=== PATIENT | female | born 1935 | race Caucasian/White ===

== ENCOUNTER 2016-10-16 10:47 | Emergency (ER) | payer MEDICARE, BC ==
[~2016-10-16] VITALS: Ht 160 cm; Wt 65.5 kg
[~2016-10-16 10:47] MED LIST: ASPI81TA82 PO; CALC667T PO; ESZO3 PO; FLUTI110I INH; LACTCAP7 PO; LORA0.5T PO; LOSA25TA31 PO; NEXI40CA PO; OMEG100010 PO; PERC5TAB12 PO; SIMV20TA PO; TAB-TAB PO; ZOVI800T13 PO
[2016-10-16 10:53] VITALS: BP 143/74; PULSE 86; RESP 18; TEMP 98.1; O2SAT 98
[2016-10-16] MEDS ORDERED: OMEP10CA PO (11:07)
[2016-10-16] MEDS ORDERED: SIMV5TAB3 PO (11:07)
[2016-10-16] MEDS ORDERED: LOSA25TA PO (11:07)
[2016-10-16] MEDS ORDERED: FLUT1INH INH (11:07)
--- NOTE | 2016-10-16 11:45 | PD ---
HPI Chief Complaint: Musculoskeletal Complaint Time Seen by Provider: 11:33 Travel History International Travel<30 days: No Contact w/Intl Traveler<30days: No Traveled to known affect area: No History of Present Illness HPI 81-year-old female presents to the emergency room for evaluation of right-sided mid back pain that started at 12:00 2 days ago after trying to lift a heavy window. Patient was trying to push up a window and felt/heard immediate pain in her right mid back/flank area. Pain is worsened with range of motion of the back and when she takes a deep breath. It improves with massage. She's been taking Tylenol and ibuprofen and applying heat and ice without significant relief. Patient states she feels as though it is muscular in nature but when she went to her chiropractor this morning he would not work on her until she had an x-ray. She denies loss of bowel or bladder control, saddle anesthesia, lower extremity paresthesias, radiation of pain, dysuria, urgency, frequency. PFSH Past Medical History Anxiety: Yes High Cholesterol: Yes Diminished Hearing: No Gastrointestinal Disorders: Yes (GASTROPARESIS) GERD: Yes Hypertension: Yes Respiratory: Yes (ASTHMA) Menopausal: Yes Past Surgical History Eye Surgery: Yes (CATARACTS) Hysterectomy: No Joint Replacement: Yes (RIGHT HIP) Social History Alcohol Use: Yes (DAILY GLASS OF WINE) Tobacco Use: No Substance Use: No Allergies-Medications (Allergen,Severity, Reaction): Coded Allergies: Sulfa (Verified Allergy, Intermediate, NAUSEA, 10/16/16) Reported Meds & Prescriptions Reported Meds & Active Scripts Active Tramadol (Tramadol HCl) 50 Mg Tab 50 Mg PO Q6H PRN Reported Simvastatin 5 Mg Tab 5 Mg PO DAILY Breo Ellipta Inh (Fluticasone/Vilanterol) 100-25 Mcg/Act Inh 1 Puff INH DAILY Use daily at the same time. Losartan (Losartan Potassium) 25 Mg Tab 12.5 Mg PO DAILY Omeprazole 10 Mg Cap 10 Mg PO DAILY Review of Systems Except as stated in HPI: all other systems reviewed are Neg Physical Exam Narrative GENERAL: Well-nourished, well-developed female in no acute distress. Afebrile. Sitting up in a chair. SKIN: Warm and dry. No erythema or ecchymosis. No rashes. HEAD: Normocephalic. EYES: No scleral icterus. No injection or drainage. NECK: Supple, trachea midline. No JVD or lymphadenopathy. BACK: Tenderness to palpation of the right paraspinous musculature. No obvious deformity. No CVA tenderness. Data Data Last Documented VS Vital Signs Date Time Temp Pulse Resp B/P Pulse Ox O2 Delivery O2 Flow Rate FiO2 10/16/16 10:53 98.1 86 18 143/74 98 Orders Spine, Thoracic-Ap/Lat/Sw(3vw) (10/16/16 ) Mri T Spine W/O Contrast (10/16/16 ) MDM Medical Decision Making Medical Screen Exam Complete: Yes Emergency Medical Condition: Yes Medical Record Reviewed: Yes Differential Diagnosis Spasm versus strain versus sprain versus fracture unlikely Narrative Course 81-year-old female presents to the emergency room for evaluation of right-sided low back pain for the past 2 days. Patient's pain started with strain of the back. No focal neurological deficits. No significant midline tenderness. She has been ambulatory since onset. No urinary symptoms. No CVA tenderness. Pain is slightly improved with palpation/massage. Likely muscle strain but her chiropractor requested she have x-rays before he would continue therapy. Patient requested pain medication but upon reevaluation was sleeping comfortably in bed. X-ray reveals compression deformity of T12 of indeterminate age with recommendation for MRI. While patient does not have specific bony tenderness to palpation at T12, this does correlate with the location of the paraspinous musculature pain. Given her age, MRI will be performed in the emergency room. MRI reveals chronic insufficiency fracture. Patient was given copy of her report and told to follow up with neurosurgeon or orthopedic surgeon as an outpatient. Told to return to the emergency room for worsening symptoms. She understands and agrees to this plan. Diagnosis Primary Impression: Muscle spasm of back Additional Impression: T12 vertebral fracture Qualified Code: S22.089A - Closed fracture of twelfth thoracic vertebra, unspecified fracture morphology, initial encounter Referrals: Primary Care Physician Patient Instructions: General Instructions, Muscle Strain (ED) Additional Instructions: Rest and drink plenty of fluids. Take Lortab with food as directed, as needed for pain. Do not drink alcohol or drive while taking this medication. Apply ice to the affected area for 20 minutes at a time, as needed for pain and swelling. Follow-up with a primary care physician. Return to the emergency room for worsening symptoms. Med/Other Pt SpecificInfo: Prescription(s) given Scripts Tramadol 50 Mg Tab50 Mg PO Q6H PRN (PAIN) #12 TAB Ref 0 Prov:Mark Paez MD 10/16/16 Disposition: 01 DISCHARGE HOME Condition: Stable Jessy Aguilera Oct 16, 2016 11:45
--- NOTE | 2016-10-16 12:20 | RADHPO ---
EXAM DATE/TIME: 10/16/2016 11:35 [facility] COMPARISON: No previous studies available for comparison. INDICATIONS : Pain right mid upper back, after pulling up on a window. MEDICAL HISTORY : None. SURGICAL HISTORY : None. ENCOUNTER: Initial ACUITY: 3 days PAIN SCORE: 8/10 LOCATION: Right mid back FINDINGS: There is slight accentuation of thoracic kyphosis. No evidence of spondylolisthesis. There are degene rative changes throughout with small endplate osteophytes, predominantly ventral multiple levels. The re appears to be mild compressive deformity of one bullae may be T12. This is age-indeterminate by pl ain radiographic appearance. Nothing to suggest retropulsion. CONCLUSION: Mild compressive deformity at what is probably T12. This is age-indeterminate. Further evaluation wit h MRI of the thoracic spine would be suggested as clinically appropriate. Leoncio Calloway MD on October 16, 2016 at 12:16 Board Certified Radiologist. This report was verified electronically.
--- NOTE | 2016-10-16 15:41 | RADHPO ---
EXAM DATE/TIME: 10/16/2016 14:54 [facility] COMPARISON: No previous studies available for comparison. INDICATIONS : Back pain post opening a window on Sunday. MEDICAL HISTORY : Hypertension. SURGICAL HISTORY : ORIF Lt hip ENCOUNTER: Subsequent ACUITY: 3 day PAIN SCORE: 6/10 LOCATION: Mid back TECHNIQUE: Multiplanar multisequence MRI of the thoracic spine was performed. FINDINGS: VERTEBRA: There is a linear band of sclerosis without associated edema adjacent to the superior endplate of the T12 vertebral body. This is consistent with an insufficiency fracture, likely chronic. There are mil d degenerative changes seen throughout the rest of the thoracic spine without evidence of additional insufficiency fracture. ALIGNMENT: Normal. CORD: Normal position and configuration. T1-T2: Normal. T2-T3: The thecal sac has a normal diameter. No evidence of disc bulge or protrusion. T3-T4: The thecal sac has a normal diameter. No evidence of disc bulge or protrusion. T4-T5: The thecal sac has a normal diameter. No evidence of disc bulge or protrusion. T5-T6: The thecal sac has a normal diameter. No evidence of disc bulge or protrusion. T6-T7: The thecal sac has a normal diameter. No evidence of disc bulge or protrusion. T7-T8: The thecal sac has a normal diameter. No evidence of disc bulge or protrusion. T8-T9: The thecal sac has a normal diameter. No evidence of disc bulge or protrusion. T9-T10: The thecal sac has a normal diameter. No evidence of disc bulge or protrusion. T10-T11: The thecal sac has a normal diameter. No evidence of disc bulge or protrusion. T11-T12: The thecal sac has a normal diameter. No evidence of disc bulge or protrusion. T12-L1: The thecal sac has a normal diameter. No evidence of disc bulge or protrusion. CONCLUSION: Insufficiency fracture involving the superior endplate of the T12 vertebral body with approximately 15% of loss of vertebral body height. Given the lack of adjacent edema this is compati ble with a chronic fracture. No evidence of acute fracture. Allyson Felix MD on October 16, 2016 at 15:36 Board Certified Radiologist. This report was verified electronically.
[2016-10-16] MEDS ORDERED: HYDR-3533 PO (15:47)
[2016-10-16] MEDS ORDERED: TRAM50TA PO (15:54)
[2016-11-08] MEDS ORDERED: IBUP800T23 (08:47)
[2016-11-08] MEDS ORDERED: ESZO1TAB4 (08:47)
[2016-11-08] MEDS ORDERED: CLOT10TR (08:47)
[2016-11-08] MEDS ORDERED: PRED10 (08:47)
[2016-11-08] MEDS ORDERED: TIZA2TAB (08:47)
[2017-01-10] MEDS ORDERED: POTA-243 PO (10:40)
[2017-01-10] MEDS ORDERED: COZA25TA PO (10:40)
[2017-01-10] MEDS ORDERED: MAGN400T3 PO (10:40)
[2017-01-10] MEDS ORDERED: FLUT1INH INH (10:40)
[2017-01-10] MEDS ORDERED: LACT PO (10:40)
[2017-01-10] MEDS ORDERED: LIDO5DIS35 T-DERMAL (10:40)
[2017-01-10] MEDS ORDERED: ULTR50TA5 PO (10:40)
[2017-01-10] MEDS ORDERED: GABA100C4 PO (10:40)
[2017-01-10] MEDS ORDERED: OMEP10CA PO (10:40)
[2017-01-10] MEDS ORDERED: PRAV10TA PO (10:40)
[2017-01-10] MEDS ORDERED: SENN1TAB PO (10:40)
== END 2016-10-16 16:05 | disposition home or self-care (01) ==
LOC: PHEFT 10:47
DX: M62.830 Muscle spasm of back (principal); S22.089A Unspecified fracture of T11-T12 vertebra, initial encounter for closed fracture; I10 Essential (primary) hypertension; X50.0XXA Overexertion from strenuous movement or load, initial encounter; Y93.89 Activity, other specified; Y92.9 Unspecified place or not applicable
CPT/HCPCS: 72072; 72146

== ENCOUNTER 2016-11-03 11:42 | Emergency (ER) | payer MEDICARE, BC ==
[~2016-11-03] VITALS: Ht 160 cm; Wt 65.0 kg
[~2016-11-03 11:42] MED LIST changes: -ASPI81TA82 PO; -CALC667T PO; -ESZO3 PO; +FLUT1INH INH; -FLUTI110I INH; -LACTCAP7 PO; -LORA0.5T PO; +LOSA25TA PO; -LOSA25TA31 PO; -NEXI40CA PO; -OMEG100010 PO; +OMEP10CA PO; -PERC5TAB12 PO; -SIMV20TA PO; +SIMV5TAB3 PO; -TAB-TAB PO; +TRAM50TA PO; -ZOVI800T13 PO
[2016-11-03 11:45] VITALS: BP 135/92; PULSE 101; RESP 16; TEMP 98.1; O2SAT 97
--- NOTE | 2016-11-03 12:27 | PD ---
HPI Chief Complaint: Back/ Neck Pain or Injury Time Seen by Provider: 12:26 Travel History International Travel<30 days: No Contact w/Intl Traveler<30days: No Traveled to known affect area: No History of Present Illness HPI 79-year-old female presents to the ED for evaluation of mid back pain. Onset after opening a window a few weeks ago. Patient states that she got some improvement with muscle relaxers. However she states she still having problems rising to standing from a sitting position. She complains of pain just right lateral to the midline in the lower thoracic area. She denies numbness, tingling, weakness, limitations to range of motion of the lower extremities. She denies saddle anesthesia or incontinence. The patient states that she was seen at [facility], prescribed pain medication and muscle relaxers. Since that time she saw her primary care provider who ordered imaging of the lumbar spine, pain management provider who performed an injection and call Dr. Ochoa's office without make an appointment. PFSH Past Medical History Anxiety: Yes High Cholesterol: Yes Diminished Hearing: No Gastrointestinal Disorders: Yes (GASTROPARESIS) GERD: Yes Hypertension: Yes Respiratory: Yes (ASTHMA) ?: Not Menopausal: Yes Past Surgical History Eye Surgery: Yes (CATARACTS) Hysterectomy: No Joint Replacement: Yes (RIGHT HIP) Social History Alcohol Use: Yes (Wine occ.) Tobacco Use: No Substance Use: No Allergies-Medications (Allergen,Severity, Reaction): Coded Allergies: Sulfa (Verified Allergy, Intermediate, NAUSEA, 11/03/16) Reported Meds & Prescriptions Reported Meds & Active Scripts Active Flexeril (Cyclobenzaprine HCl) 10 Mg Tab 10 Mg PO TID [place] (Hydrocodone-Acetaminophen) 5-325 mg Tab 1 Tab PO Q6H PRN Tramadol (Tramadol HCl) 50 Mg Tab 50 Mg PO Q6H PRN Reported Prednisone 5 Mg Tab 5 Mg PO BID Simvastatin 5 Mg Tab 5 Mg PO DAILY Breo Ellipta Inh (Fluticasone/Vilanterol) 100-25 Mcg/Act Inh 1 Puff INH DAILY Use daily at the same time. Losartan (Losartan Potassium) 25 Mg Tab 12.5 Mg PO DAILY Omeprazole 10 Mg Cap 10 Mg PO DAILY Review of Systems Except as stated in HPI: all other systems reviewed are Neg Physical Exam Narrative GENERAL: Well-nourished, well-developed white female in no acute distress. The patient is sitting on the stretcher with her knees bent, feet tucked under her buttocks. SKIN: Warm and dry. HEAD: Normocephalic. Atraumatic. EYES: No scleral icterus. No injection or drainage. PERRLA. EOMI. NECK: Supple, trachea midline. No JVD or lymphadenopathy. No midline tenderness to palpation. Patient retains full, active, painless range of motion of the neck. CARDIOVASCULAR: Regular rate and rhythm without murmurs, gallops, or rubs. 2+ DP and radial pulses bilaterally. RESPIRATORY: Breath sounds clear and equal bilaterally. No accessory muscle use. GASTROINTESTINAL: Abdomen soft, non-tender, nondistended. + Bowel sounds MUSCULOSKELETAL: No cyanosis, or edema. No tenderness to palpation or limitations to range of motion of the joints of the upper and lower extremities bilaterally. NEUROLOGICAL: Awake and alert. Cranial nerves II through XII intact. Motor and sensory grossly within normal limits. 5/5 muscle strength in dorsiflexion, plantar flexion, knee flexion, hip flexion. Normal speech. BACK: No obvious deformity. No CVA tenderness. Mild midline tenderness in the lower thoracic area. Tender to palpation of the paraspinal musculature just right lateral the same area. tenderness. Data Data Last Documented VS Vital Signs Date Time Temp Pulse Resp B/P Pulse Ox O2 Delivery O2 Flow Rate FiO2 11/03/16 11:45 98.1 101 16 135/92 97 Orders Ketorolac Inj (Toradol Inj) (11/03/16 13:45) Orphenadrine Inj (Norflex Inj) (11/03/16 13:45) MDM Medical Decision Making Medical Screen Exam Complete: Yes Emergency Medical Condition: Yes Differential Diagnosis Musculoskeletal pain versus muscle spasm versus radiculopathy versus vertebral fracture versus other Narrative Course 79-year-old female presents to the ED for evaluation of mid back pain. Onset on 10/16 after attempting to open a window. She was seen at [place], had an MRI which revealed a T12 compression fracture. She was prescribed pain medications and muscle relaxers. Endorses some improvement with the muscle relaxers. However states she still having problems rising to standing position. She denies numbness, tingling, weakness, limitations to range of motion of the lower extremities. She denies saddle anesthesia or incontinence. Vitals reviewed. Physical exam reveals a nontoxic-appearing elderly white female in no acute distress. She sitting on the stretcher with her knees bent and her legs tucked under her buttocks. Mild midline tenderness in the lower thoracic spinal region. Point tenderness just right midline of the same area. 5/5 dorsiflexion, plantar flexion, knee flexion and hip flexion bilaterally. Review of the radiological record shows T12 compression fracture with moderate to severe degenerative changes in the lower lumbar spine and anterolisthesis thesis of L4- 5. The patient was administered IM Toradol and Norflex. I called Dr. Castillo's office. They state that the patient's called [address] Castillo has yet to review the images, is out of town, will return Sunday. His nurse would not allow me to make a follow-up appointment for the patient. I spoke with Dr. Clemens, my supervising physician regarding the patient, workup and plan of care. She agrees that the patient has safe for discharge with neurology follow-up. The commissioner of internal revenue neurologist today his Dr. Dominguez. The patient was prescribed a short course of pain medications, muscle relaxants. She was instructed to follow-up with Dr. Dominguez on Sunday. The patient is encouraged to return to normal, gentle activity as tolerated, take medications as prescribed, follow up as discussed. Patient has indicated understanding of the instructions, they are amenable to the plan of care. The patient is stable and discharged home. Diagnosis Primary Impression: T12 vertebral fracture Qualified Code: S22.089D - Closed fracture of twelfth thoracic vertebra with routine healing, unspecified fracture morphology, subsequent encounter Additional Impression: Muscle spasm of back Referrals: Byron Dominguez MD Patient Instructions: General Instructions, Muscle Spasm (ED), Vertebral Compression Fracture (ED) Additional Instructions: Rest, hydrate. Resume normal, gentle activities as tolerated. No strenuous physical activities for the next few days Take pain medication as Flexeril as prescribed. Do not drive while taking these medications. Applying ice or heat to areas with sore muscles may help to improve your patient. Do not apply ice/ heat for longer than 20 m/h. Follow-up with doctor Castillo on Sunday. Return to the ED for any urgent or emergent medical condition. Med/Other Pt SpecificInfo: Prescription(s) given Scripts Cyclobenzaprine (Flexeril)10 Mg Tab10 Mg PO TID #15 TAB Ref 0 Prov:Benson Nickerson MD 11/03/16 Hydrocodone-Acetaminophen ([place])5-325 mg Tab1 Tab PO Q6H PRN (PAIN) #15 TAB Ref 0 Prov:Benson Nickerson MD 11/03/16 Disposition: 01 DISCHARGE HOME Condition: Stable Radha Cui Nov 03, 2016 12:27
[2016-11-03] MEDS ORDERED: PRED5TAB PO (12:38)
[2016-11-03] MEDS ORDERED: CYCL1TAB29 PO (13:35)
[2016-11-03] MEDS ORDERED: NORC5TAB PO (13:35)
[2016-11-03] MEDS ORDERED: ORPHENADRINE INJ 60 MG/2 ML AMP IM ONE (13:45)
[2016-11-03] MEDS ORDERED: KETOROLAC TROMETHAMINE 60 MG/2 ML (IM) VIAL IM ONE (13:45)
[2016-11-08] MEDS ORDERED: PRED10 (08:47)
[2016-11-08] MEDS ORDERED: TIZA2TAB (08:47)
[2016-11-08] MEDS ORDERED: ESZO1TAB4 (08:47)
[2016-11-08] MEDS ORDERED: IBUP800T23 (08:47)
[2016-11-08] MEDS ORDERED: CLOT10TR (08:47)
[2017-01-10] MEDS ORDERED: COZA25TA PO (10:40)
[2017-01-10] MEDS ORDERED: GABA100C4 PO (10:40)
[2017-01-10] MEDS ORDERED: PRAV10TA PO (10:40)
[2017-01-10] MEDS ORDERED: LIDO5DIS35 T-DERMAL (10:40)
[2017-01-10] MEDS ORDERED: MAGN400T3 PO (10:40)
[2017-01-10] MEDS ORDERED: SENN1TAB PO (10:40)
[2017-01-10] MEDS ORDERED: POTA-243 PO (10:40)
[2017-01-10] MEDS ORDERED: LACT PO (10:40)
[2017-01-10] MEDS ORDERED: FLUT1INH INH (10:40)
[2017-01-10] MEDS ORDERED: OMEP10CA PO (10:40)
[2017-01-10] MEDS ORDERED: ULTR50TA5 PO (10:40)
== END 2016-11-03 14:43 | disposition home or self-care (01) ==
LOC: NETRI 11:42
DX: S22.089D Unspecified fracture of T11-T12 vertebra, subsequent encounter for fracture with routine healing (principal); M62.830 Muscle spasm of back; E78.00 Pure hypercholesterolemia, unspecified; I10 Essential (primary) hypertension; Z86.59 Personal history of other mental and behavioral disorders; Z87.19 Personal history of other diseases of the digestive system; Z87.09 Personal history of other diseases of the respiratory system; X58.XXXD Exposure to other specified factors, subsequent encounter
CPT/HCPCS: 96372; 99282; J1885; J2360

== ENCOUNTER 2016-12-26 10:28 | Inpatient (IN) | payer MEDICARE, BC ==
[~2016-12-26] VITALS: Ht 160 cm; Wt 60.0 kg
[~2016-12-26 10:28] MED LIST changes: +CLOT10TR; +CYCL1TAB29 PO; +ESZO1TAB4; +IBUP800T23; +NORC5TAB PO; +PRED10; +PRED5TAB PO; +TIZA2TAB
[2016-12-26 10:48] VITALS: BP 129/63; PULSE 88; RESP 19; TEMP 98.5; O2SAT 100
--- NOTE | 2016-12-26 11:49 | PD ---
HPI Chief Complaint: Fall Time Seen by Provider: 11:49 Travel History International Travel<30 days: No Contact w/Intl Traveler<30days: No History of Present Illness HPI 81-year-old female with a history of hypertension, hyperlipidemia, chronic back pain presents to the emergency department for evaluation of left hip pain and lower back pain. The patient states that she has had mid to lower back pain for the past 2-3 months and was seen here 2 months ago for it and told she had a compression deformity. States that since then she has followed up with her primary care Dr. Duran who prescribed her tizanidine, gabapentin, Lortab and tramadol. States that for the past 2 months she has had shooting pain from her back down to her legs and does sometimes get some weakness in her legs, has been using a walker for ambulation. States that 2 days ago she was walking and her left leg suddenly "gave out" causing her to fall onto her buttocks. Denies head trauma or loss of consciousness. States that she's had pain in her left hip and buttocks and her lower back since this occurred. States that she has been unable to bear weight or ambulate due to the pain. She denies any fever, chills, nausea, vomiting, numbness or tingling, saddle anesthesia, bowel or bladder incontinence. No other complaints. PFSH Past Medical History Anxiety: Yes High Cholesterol: Yes Diminished Hearing: No Gastrointestinal Disorders: Yes (GASTROPARESIS) GERD: Yes Hypertension: Yes Respiratory: Yes (ASTHMA) Menopausal: Yes Past Surgical History Eye Surgery: Yes (CATARACTS) Hysterectomy: No Joint Replacement: Yes (RIGHT HIP) Social History Alcohol Use: Yes (Wine occ.) Tobacco Use: No Substance Use: No Allergies-Medications (Allergen,Severity, Reaction): Coded Allergies: Sulfa (Verified Allergy, Intermediate, NAUSEA, 12/25/16) Reported Meds & Prescriptions Reported Meds & Active Scripts Active Flexeril (Cyclobenzaprine HCl) 10 Mg Tab 10 Mg PO TID [place] (Hydrocodone-Acetaminophen) 5-325 mg Tab 1 Tab PO Q6H PRN Tramadol (Tramadol HCl) 50 Mg Tab 50 Mg PO Q6H PRN Reported Clotrimazole Noé (Clotrimazole) 10 Mg Troc Tizanidine (Tizanidine HCl) 2 Mg Tab Ibuprofen 800 Mg Tab Eszopiclone 3 Mg Tab Prednisone 10 Mg Tab Prednisone 5 Mg Tab 5 Mg PO BID Simvastatin 5 Mg Tab 5 Mg PO DAILY Breo Ellipta Inh (Fluticasone/Vilanterol) 100-25 Mcg/Act Inh 1 Puff INH DAILY Use daily at the same time. Losartan (Losartan Potassium) 25 Mg Tab 12.5 Mg PO DAILY Omeprazole 10 Mg Cap 10 Mg PO DAILY Review of Systems Except as stated in HPI: all other systems reviewed are Neg Physical Exam Narrative GENERAL: Well-nourished and well-developed pleasant elderly female patient in no acute distress who is nontoxic appearing. SKIN: Warm and dry. HEAD: Normocephalic and atraumatic. EYES: No injection, drainage, or hyphema noted. PERRLA. EOMI. ENT: No nasal drainage noted. Oropharynx is clear. NECK: Supple and the trachea is midline. CARDIOVASCULAR: Regular rate and rhythm. RESPIRATORY: Breath sounds are equal bilaterally with no accessory muscle use, wheezing, rhonchi, or crackles. GASTROINTESTINAL: Abdomen is soft, non-tender, and nondistended. MUSCULOSKELETAL: Mild tenderness to palpation over left buttock. Full range of motion in all extremities. Positive SLR. DP pulses are 2+ bilaterally. Strength 5/5 upper and lower extremities and equal bilaterally. No obvious deformities, swelling, cyanosis, or ecchymosis is present throughout the upper and lower extremities. BACK: Tenderness to palpation of lumbar region. No obvious deformities, bony point tenderness, or crepitus noted throughout the thoracic and lumbar vertebrae. NEUROLOGICAL: Awake, alert, and oriented. Normal speech and gait. Cranial nerves are grossly intact. Data Data Last Documented VS Vital Signs Date Time Temp Pulse Resp B/P Pulse Ox O2 Delivery O2 Flow Rate FiO2 12/26/16 15:07 71 127/62 Room Air 12/26/16 10:50 99 12/26/16 10:[address] Lumb Spine W/O Contrast (12/26/16 11:46) Hip, Uni(Ap&Lat) W Ap Pelvis (12/26/16 11:46) Morphine Inj (Morphine Inj) (12/26/16 12:00) Ondansetron Inj (Zofran Inj) (12/26/16 12:15) Ondansetron Inj (Zofran Inj) (12/26/16 12:13) Consult Neurosurgery (12/26/16 ) Splint Or Brace Apply/Monitor (12/26/16 16:13) Admit Order (Ed Use Only) (12/26/16 16:20) [facility] Medical Decision Making Medical Screen Exam Complete: Yes Emergency Medical Condition: Yes Differential Diagnosis Fracture versus contusion versus discogenic pain versus herniated disc versus sciatica Narrative Course 81-year-old female presents to the emergency department for evaluation of low back pain and left hip pain for 2 days after she fell onto her buttocks. Patient is afebrile, vital signs are stable. No head trauma or loss of consciousness. No focal neurologic deficits. No obvious deformities. Extremities are all neurovascularly intact. X-ray imaging has been ordered and is pending. X-ray shows left inferior pubic ramus fracture. CT of the lumbar spine shows progressive compression of the T12 vertebral body which now has a vertebral plana configuration and an 8 mm retropulsed fragment. The retropulsed fragment almost certainly compromises the distal cord/conus medullaris. There is a linear fracture through the left lamina of T12. No fractures in the lumbar region. Degenerative changes noted. The neurosurgeon came down to evaluate the patient and recommends a TLSO brace. Patient will be admitted to medicine service for pain control and rehabilitation with likely assisted placement. I discussed the case with my attending physician Dr. Paez who is aware of the patients history, physical examination findings, and treatment plan. Physician Communication Physician Communication I spoke with Dr. Zhao neurosurgeon who recommends TLSO brace and agrees to consult on the patient. I spoke with Dr. Thomas who agrees to admit the patient to his service. Diagnosis Primary Impression: Pubic ramus fracture Qualified Code: S32.592A - Pubic ramus fracture, left, closed, initial encounter Additional Impressions: T12 vertebral fracture Qualified Code: S22.089G - Closed fracture of twelfth thoracic vertebra with delayed healing, unspecified fracture morphology, subsequent encounter Intractable back pain Admitting Information Admitting Physician Requests: Admit Laurie Gama Dec 26, 2016 11:49
[2016-12-26] MEDS ORDERED: MORPHINE SULFATE 4 MG/ML INJ IV PUSH ONE (12:00)
[2016-12-26] MEDS ORDERED: ONDANSETRON HCL 4 MG/2 ML VIAL ONE (12:13)
[2016-12-26] MEDS ORDERED: ONDANSETRON HCL 4 MG/2 ML VIAL IV PUSH ONE (12:15)
--- NOTE | 2016-12-26 12:56 | RADRPT ---
EXAM DATE/TIME: 12/26/2016 12:11 [facility] COMPARISON: No previous studies available for comparison. INDICATIONS: Patient fell this weekend. MEDICAL HISTORY: Hypertension. SURGICAL HISTORY: ORIF Left hip ENCOUNTER: Initial ACUITY: 3 days PAIN SCORE: 8/10 LOCATION: Left Hip FINDINGS: A left total hip replacement is noted with the prosthesis in good position. There is an apparent acu te fracture involving the left inferior pubic ramus. Moderate degenerative changes are noted involvi ng the right hip joint. Degenerative changes and scoliosis of the lower lumbar spine are noted. CONCLUSION: 1. Apparent acute facture involving the left inferior pubic ramus. Clinical correlation is recommen ded. 2. Moderate degenerative changes involving the right hip joint. 3. Degenerative changes and scoliosis of the lower lumbar spine. Jordan Tenorio MD on December 26, 2016 at 12:39 Board Certified Radiologist. This report was verified electronically.
--- NOTE | 2016-12-26 15:02 | RADRPT ---
EXAM DATE/TIME: 12/26/2016 14:06 [place] COMPARISON: SPINE THORACIC AP/LAT/SW (3VW), October 16, 2016, 11:35. INDICATIONS : Patient fell on Sunday, right hip pain RADIATION DOSE: 17.96 CTDIvol (mGy) MEDICAL HISTORY : Hypertension. Gastroesophageal reflux disease. Pancreatitis. SURGICAL HISTORY : Right hip replacement ENCOUNTER: Initial ACUITY: 2 days PAIN SCALE: 4/10 LOCATION: Right back, hip TECHNIQUE: Volumetric scanning of the lumbar spine was performed. Multiplanar reconstructions in the sagittal, coronal and oblique axial planes were performed. Using automated exposure control and adjustment of the mA and/or kV according to patient size, radiation dose was kept as low as reasonab ly achievable to obtain optimal diagnostic quality images. FINDINGS: Sagittal and coronal reconstructions show progressive fracture through the T12 verteb ral body. There was maybe 25% loss on the previous plain film in October. There is now a vertebral plana configuration with an appropriate 8 mm retropulsed fragment which encroaches on the spinal jane l and almost certainly comprised the distal cord/conus medullaris. Vertebral body heights are otherw ise maintained throughout the lumbar spine. There is a Grade I anterolisthesis of L4 on 5 due to fac et degeneration. Mild degenerative disc disease is seen at L3-4 and L4-5 with loss of disc height, m arginal spurring and broad based disc bulges predominantly directed anteriorly. The spinal canal rona ears to be adequate throughout the lumbar region. Also noted is diverticular disease of the sigmoid without diverticulitis. Detailed axial images as follows: T12-L1: Severe compression fracture of T12 with an 8 mm retropulsed fragment resulting in significan t spinal stenosis and probable cord compromise. There is also a fracture through the left lamina. L1-L2: Anteriorly directed spurs. Spinal canal and neural foramina are patent. L2-L3: Anteriorly directed spur. Spinal canal and neural foramina are patent. L3-L4: Diffuse disc bulge with predominantly anteriorly directed spur. Spinal canal and neural for kiara are patent. L4-L5: Diffuse disc bulge with bilateral facet hypertrophy. Some encroachment on the spinal canal b ut the spinal canal and neural foramina remain adequate. L5-S1: Marked facet hypertrophy. Spinal canal and neural foramina are adequate. CONCLUSION: 1. Progressive compression of the T12 vertebral body which now has a vertebral plana configuration an d an 8 mm retropulsed fragment. The retropulsed fragment almost certainly compromises the distal cor d/conus medullaris. 2. In addition to the vertebral body fracture, there is a linear fracture through the left lamina of T12. 3. No fractures in the lumbar region. Vertebral body heights are maintained. 4. Grade I anterolisthesis of L4 on 5 apparently due to severe facet degeneration. Facet hypertrophy is also seen at L5-S1. 5. Despite degenerative disc disease and facet hypertrophy, the spinal canal and neural foramina appe ar to be adequate throughout the lumbar spine. Aaron Pabon MD on December 26, 2016 at 14:40 Board Certified Radiologist. This report was verified electronically.
[2016-12-26 15:07] VITALS: BP 127/62; PULSE 71
[2016-12-26] MEDS ORDERED: POLYETHYLENE GLYCOL 17 GM PKG PO PRN (16:45)
[2016-12-26] MEDS ORDERED: IBUPROFEN 400 MG TAB PO PRN (16:45)
--- NOTE | 2016-12-26 17:10 | HHI.HP ---
[facility] Service Family Medicine Primary Care Physician George Davis M.D. Admission Diagnosis Pubic Ramus Fracture, T12 Fracture, Intractable Back Pain Diagnoses: International Travel<30 Days: No Contact w/Intl Traveler<30days: No History of Present Illness 81 yo F with mechanical fall yesterday at 6 pm. She states that she was using her walker and her left leg gave out. She fell onto the left hip, noticed pain immediately. She does not recall hitting her head. No LOC. She was able to get up about 1 hr later with assistance of ; sat in lounge chair overnight and was unable to get up. She was brought in to the hospital this morning. Prior to admission, having 10/10 sharp pain, worse pain located over left hip and lower back. Pain improved with resting. She reports having hx of history of compression fracture over T12, source of her chronic back pain. No previous falls. History of osteopenia, last DXA within the past 1-2 years, taking Vitamin D. (Nellie Allen MD) Review of Systems Constitutional: COMPLAINS OF: Weight loss, Change in appetite (loss some of her teeth), DENIES: Fever, Weight gain, Chills, Dizziness Eyes: DENIES: Vision loss Ears, nose, mouth, throat: DENIES: Hearing loss Respiratory: DENIES: Cough, Shortness of breath Cardiovascular: DENIES: Chest pain, Palpitations Gastrointestinal: DENIES: Abdominal pain, Black stools, Bloody stools, Constipation, Nausea, Vomiting Musculoskeletal: COMPLAINS OF: Joint pain, Muscle aches, Back pain Integumentary: DENIES: Rash Hematologic/lymphatic: DENIES: Bruising Neurologic: DENIES: Headache, Tremor Psychiatric: DENIES: Anxiety, Confusion (Nellie Allen MD) Past Family Social History Past Medical History Chronic back pain HLD HTN GERD chronic asthma Past Surgical History Left hip replacement - 2005 Reported Medications Reported Meds & Active Scripts Active Flexeril (Cyclobenzaprine HCl) 10 Mg Tab 10 Mg PO TID [place] (Hydrocodone-Acetaminophen) 5-325 mg Tab 1 Tab PO Q6H PRN Tramadol (Tramadol HCl) 50 Mg Tab 50 Mg PO Q6H PRN Reported Clotrimazole Noé (Clotrimazole) 10 Mg Troc Tizanidine (Tizanidine HCl) 2 Mg Tab Ibuprofen 800 Mg Tab Eszopiclone 3 Mg Tab Prednisone 2.5 Mg Tab 5 Mg PO BID Simvastatin 5 Mg Tab 5 Mg PO DAILY Breo Ellipta Inh (Fluticasone/Vilanterol) 100-25 Mcg/Act Inh 1 Puff INH DAILY Use daily at the same time. Losartan (Losartan Potassium) 25 Mg Tab 12.5 Mg PO DAILY Omeprazole 10 Mg Cap 10 Mg PO DAILY (Nellie Allen MD) Allergies: Coded Allergies: Sulfa (Verified Allergy, Intermediate, NAUSEA, 12/25/16) Family History noncontributory Social History Lives in [facility] on 10[facility] floor with in [place] No t/e/d (Nellie Allen MD) Physical Exam Vital Signs Vital Signs Date Time Temp Pulse Resp B/P Pulse Ox O2 Delivery O2 Flow Rate FiO2 12/26/16 15:07 71 127/62 Room Air 12/26/16 10:50 99 Room Air 12/26/16 10:48 98.5 88 19 129/63 100 Physical Exam GENERAL: This is a well-nourished, well-developed patient, in no apparent distress. SKIN: No rashes, ecchymoses or lesions. Cool and dry. HEAD: Atraumatic. Normocephalic. No temporal or scalp tenderness. EYES: Pupils equal round and reactive. Extraocular motions intact. No scleral icterus. No injection or drainage. ENT: Nose without bleeding, purulent drainage or septal hematoma. Throat without erythema, tonsillar hypertrophy or exudate. Uvula midline. Airway patent. NECK: Trachea midline. No JVD or lymphadenopathy. Supple, nontender, no meningeal signs. CARDIOVASCULAR: Regular rate and rhythm without murmurs, gallops, or rubs. RESPIRATORY: Clear to auscultation. Breath sounds equal bilaterally. No wheezes , rales, or rhonchi. GASTROINTESTINAL: Abdomen soft, non-tender, nondistended. No hepato-splenomegaly , or palpable masses. No guarding. MUSCULOSKELETAL: Extremities without clubbing, cyanosis, or edema. No joint tenderness, effusion, or edema noted. No calf tenderness. Negative Homans sign bilaterally. NEUROLOGICAL: Awake and alert. Cranial nerves II through XII intact. Motor and sensory grossly within normal limits. Five out of 5 muscle strength in all muscle groups. Normal speech. (Nellie Allen MD) Septic Shock Reassessment Heart: Regular rate and rhythm Lungs: Clear Skin: Warm Peripheral Pulses: Bounding Right Posterior Tibial Bounding Left Posterior Tibial Capillary Refill: <2 seconds (Nellie Allen MD) Assessment and Plan Assessment and Plan 81 yo F with pubic ramus fracture and chronic T12 compression fracture. Code Status Full Discussed Condition With Dr. Stoney Allen (Nellie Allen MD) Attending Attestation THIS CASE WAS DISCUSSED WITH THE RESIDENT PHYSICIANS. I HAVE REVIEWED THE RECORD AND AGREE WITH THE ABOVE NOTE AND PLAN OF CARE WAS DISCUSSED. I HAVE AUTHORIZED THE ORDER FOR ADMISSION TO AN IN-PATIENT STATUS. (Lester Thomas MD) Problem List: (1) Pubic ramus fracture Status: Acute Plan: Radiograph showing acute fracture of the left inferior pubic ramus. Pain is currently controlled after Morphine 4 mg IV x 1 in the ED. Patient states that she does not want to have surgery. -Admit to inpatient -Consult Neurosurg -Consult ortho surgery given patient may have difficulty with early mobilization and -Consult PT/OT Motrin 400 mg po q6h prn -[place] 5 prn -Lexii-Colace hs -Miralax prn (2) T12 vertebral fracture Status: Chronic Plan: Chronic with associated left side foot drop requiring chronic steroid injections, having some improvement outpatient. She has associated chronic low back pain -Neurosurgery consulted: recommends PT/OT, TLSO brace -Continue home dose Flexeril -Pain control as above (3) Steroid-induced osteopenia Status: Acute Plan: Patient on chronic steroid therapy with Prednisone 2.5 mg po bid. Reports taking for chronic asthma. -Wean to Prednisone 2.5 mg po daily now (4) GERD (gastroesophageal reflux disease) Status: Chronic Plan: Continue Omeprazole (5) Hypertension Status: Chronic Plan: BP wnl Continue Losartan (6) Dyslipidemia Status: Chronic Plan: Continue Simvastatin (7) Asthma Status: Chronic Plan: Lungs clear on exam, patient in no respiratory distress -Continue Breo Elliipta (8) Nutrition, metabolism, and development symptoms Status: Acute Plan: Regular diet HLIV Electrolytes: wnl Lovenox 30 mg q24h GI: Protonix, Miralax (Nellie Allen MD) Physician Certification 2 Midnight Certification Type: Admission for Inpatient Services Order for Inpatient Services The services are ordered in accordance with Medicare regulations or non- Medicare payer requirements, as applicable. In the case of services not specified as inpatient-only, they are appropriately provided as inpatient services in accordance with the 2-midnight benchmark. Estimated LOS (days): 3 3 days is the estimated time the patient will need to remain in the hospital, assuming treatment plan goals are met and no additional complications. Post-Hospital Plan: Inpatient Rehab (Nellie Allen MD) Problem Qualifiers (1) Pubic ramus fracture: Qualified Code: S32.592A - Pubic ramus fracture, left, closed, initial encounter (2) T12 vertebral fracture: Qualified Code: S22.082A - Closed unstable burst fracture of twelfth thoracic vertebra, initial encounter (3) Hypertension: Qualified Code: I10 - Essential hypertension Nellie Allen MD Dec 26, 2016 17:10 Lester Thomas MD Dec 27, 2016 11:36
--- NOTE | 2016-12-26 17:14 | PD.CONS ---
HPI Service Neurosurgery Consult Requested By ED Reason for Consult T12 fx Primary Care Physician George Davis M.D. History of Present Illness 81 yr old injured her back reaching last October and was diagnosed with T12 insufficiency fx . She also developed a left sided foot drop with pain and weakness in the left leg. She has been using a light brace and steroid injections were given by Dr Vences. Today her left leg gave out and she fell on her buttock. She has a new pubic ramus fx pain in addition to the back pain in the mid lumbar spine and the left leg pain only when she stands. She has no hit her head and has no neck pain. She had no LOC. She has full control of her bowel and bladder. Review of Systems Constitutional: DENIES: Diaphoretic episodes, Fatigue, Fever, Weight gain, Weight loss, Chills, Dizziness, Change in appetite, Night Sweats Endocrine: DENIES: Abnorml menstrual pattern, Heat/cold intolerance, Polydipsia , Polyuria, Polyphagia Eyes: DENIES: Blurred vision, Diplopia, Eye inflammation, Eye pain, Vision loss , Photosensitivity, Double Vision Ears, nose, mouth, throat: DENIES: Tinnitus, Hearing loss, Vertigo, Nasal discharge, Oral lesions, Throat pain, Hoarseness, Ear Pain, Running Nose, Epistaxis, Sinus Pain, Toothache, Odynophagia Respiratory: DENIES: Apneas, Cough, Snoring, Wheezing, Hemoptysis, Sputum production, Shortness of breath Cardiovascular: DENIES: Chest pain, Palpitations, Syncope, Dyspnea on Exertion , PND, Lower Extremity Edema, Orthopnea, Claudication Gastrointestinal: DENIES: Abdominal pain, Black stools, Bloody stools, Constipation, Diarrhea, Nausea, Vomiting, Difficulty Swallowing, Anorexia Genitourinary: DENIES: Abnormal vaginal bleeding, Dysmenorrhea, Dyspareunia, Sexual dysfunction, Urinary frequency, Urinary incontinence, Urgency, Hematuria , Dysuria, Nocturia, Vaginal discharge Musculoskeletal: COMPLAINS OF: Stiffness, Joint Swelling, Back pain, DENIES: Joint pain, Muscle aches, Neck pain Integumentary: DENIES: Abnormal pigmentation, Pruritus, Rash, Nail changes, Breast masses, Breast skin changes, Nipple discharge Hematologic/lymphatic: DENIES: Bruising, Lymphadenopathy Immunologic/allergic: DENIES: Eczema, Urticaria Neurologic: COMPLAINS OF: Localized weakness (left leg with walking), Paresthesias Psychiatric: COMPLAINS OF: Agitation (from prednosone for her lung disease) Past Family Social History Allergies: Coded Allergies: Sulfa (Verified Allergy, Intermediate, NAUSEA, 12/25/16) Past Medical History Left femur fx after a fall many yrs ago Osteopenia managed medically for many yrs, now off fosamax Allergic bronchitis on chronic steroids Past Surgical History Left femur repair followed by arthroplasty in 2005 Reported Medications Reported Meds & Active Scripts Active Flexeril (Cyclobenzaprine HCl) 10 Mg Tab 10 Mg PO TID [place] (Hydrocodone-Acetaminophen) 5-325 mg Tab 1 Tab PO Q6H PRN Tramadol (Tramadol HCl) 50 Mg Tab 50 Mg PO Q6H PRN Reported Clotrimazole Noé (Clotrimazole) 10 Mg Troc Tizanidine (Tizanidine HCl) 2 Mg Tab Ibuprofen 800 Mg Tab Eszopiclone 3 Mg Tab Prednisone 10 Mg Tab Prednisone 5 Mg Tab 5 Mg PO BID Simvastatin 5 Mg Tab 5 Mg PO DAILY Breo Ellipta Inh (Fluticasone/Vilanterol) 100-25 Mcg/Act Inh 1 Puff INH DAILY Use daily at the same time. Losartan (Losartan Potassium) 25 Mg Tab 12.5 Mg PO DAILY Omeprazole 10 Mg Cap 10 Mg PO DAILY Family History No hx of HTN, [place] Social History Lives with her , does not smoke Physical Exam Vital Signs Vital Signs Date Time Temp Pulse Resp B/P Pulse Ox O2 Delivery O2 Flow Rate FiO2 12/26/16 15:07 71 127/62 Room Air 12/26/16 10:50 99 Room Air 12/26/16 10:48 98.5 88 19 129/63 100 Physical Exam Alert and oriented x 3, no pain laying down, face symmetric, tongue midline Motor 5/5 in the delt/bic/tri/grasp. decreased from pain in the left HF, decreased chronically in the left AT and EHL, otherwise 5/5 in the right HF, both quads, right AT, EHL, dale gastroc 5/5. Sensation intact in C5, C6, C7, T12, L1 to S1 RRR, abd soft , nl BS, lungs clear with no wheezing, skin intact Imaging CT shows a T12 burst fx with 50 % canal compromise but no subluxation. There is severe osteopenia throughout the LS spine. Assessment and Plan Diagnosis: (1) T12 vertebral fracture ICD Code: S22.089A (2) Left foot drop Plan: Left EHL and anterior tibialis weakness is new since last October and has required the use of a walker at home. She did improve with injections but has not yet had PT. The grade 1 listhesis at L4/5 due to facet degenerative changes is the probable initial cause of the weakness. She is improving with pain management and has not yet had pt for this problem. ICD Code: M21.372 Assessment and Plan TLSO brace and activity precautions given, OT/PT will follow, pain management, DVT prophylaxis and continued bowel program is ordered. I will follow. Problem Qualifiers (1) T12 vertebral fracture: Qualified Code: S22.082A - Closed unstable burst fracture of twelfth thoracic vertebra, initial encounter Umberto Zhao Dec 26, 2016 17:14
[2016-12-26] MEDS ORDERED: SODIUM CHLORIDE 0.9% FLUSH 5 ML FLUSH IV FLUSH PRN (17:45)
[2016-12-26] MEDS: PSYLLIUM FIBER SF/GF 6 GM POWD PKT PO SCH (18:00)
[2016-12-26] MEDS ORDERED: PILL SPLITTER OTHER PRN (18:00)
[2016-12-26] MEDS: CYCLOBENZAPRINE HCL 10 MG TAB PO SCH (18:06)
[2016-12-26 18:40] VITALS: BP 168/71; O2SAT 96
[2016-12-26 19:04] VITALS: BP 173/80; PULSE 99; RESP 18; O2SAT 97
[2016-12-26 21:00] LABS: AUTOMATED NEUTROPHIL # 11.5 TH/MM3 (1.8-7.7); BASOPHIL # 0.1 TH/MM3 (0-0.2); BASOPHIL % 0.4 % (0.0-2.0); EOSINOPHIL # 0.2 TH/MM3 (0-0.4); EOSINOPHIL % 1.3 % (0.0-4.0); HEMATOCRIT 31.9 % (35.0-46.0); LYMPH % 11.3 % (9.0-44.0); LYMPHOCYTE # 1.6 TH/MM3 (1.0-4.8); MEAN CORPUSCULAR HEMOGLOBIN 28.6 PG (27.0-34.0); MEAN CORPUSCULAR HGB CONC 34.1 % (32.0-36.0); MONO % 6.7 % (0.0-8.0); NEUT % 80.3 % (16.0-70.0); PLATELET COUNT 265 TH/MM3 (150-450); RED BLOOD COUNT 3.79 MIL/MM3 (4.00-5.30); WHITE BLOOD COUNT 14.3 TH/MM3 (4.0-11.0)
[2016-12-26 21:06] LABS: ANION GAP 10 MEQ/L (5-15); AST (GOT) 21 U/L (15-37); BLOOD UREA NITROGEN 17 MG/DL (7-18); CHLORIDE 93 MEQ/L (98-107); GLOMERULAR FILTRATION RATE 72 ML/MIN (>89); SODIUM (NA) 129 MEQ/L (136-145)
[2016-12-26] MEDS: ENOXAPARIN SODIUM 30 MG/0.3 ML SYRINGE SQ SCH (21:09)
[2016-12-26] MEDS: SODIUM CHLORIDE 0.9% FLUSH 5 ML FLUSH IV FLUSH SCH (21:09)
[2016-12-26 21:12] LABS: HEMO FLAGS AUTO DIFF
[2016-12-26 21:15] LABS: POTASSIUM 4.2 MEQ/L (3.5-5.1)
[2016-12-26 21:16] LABS: ALKALINE PHOSPHATASE 49 U/L (45-117); ALT (GPT) 27 U/L (10-53); TOTAL BILIRUBIN ADULT 0.6 MG/DL (0.2-1.0)
[2016-12-26 21:17] LABS: PROTHROMBIN TIME - PATIENT 10.9 SEC (9.8-11.6)
[2016-12-26 21:36] VITALS: BP 133/62; PULSE 80; RESP 20; O2SAT 96
[2016-12-26] MEDS ORDERED: ENALAPRILAT 1.25 MG/ML VIAL IV PUSH PRN (21:45)
[2016-12-26] MEDS: ACETAMINOPHEN/HYDROcodone 325 MG/5 MG TAB PO PRN (21:49)
[2016-12-26 22:14] LABS: BANDS 18 % (0-6); METAMYELOCYTES 3 % (0-1); MYELOCYTES 2 % (0-0); NEUTROPHIL # MANUAL DIFF 11.6 TH/MM3 (1.8-7.7); POLYS (SEG NEUTROPHILS) 58 % (16-70); WBC DIFF SAMPLE 100
[2016-12-26 22:16] LABS: BURR CELLS 1+ (NORMAL)
[2016-12-26 22:17] LABS: PLATELET ESTIMATE SMEAR NORMAL (NORMAL); PLATELET MORPHOLOGY NORMAL (NORMAL); SCAN/DIFF FINAL DIFF MANUAL
[2016-12-26 23:51] VITALS: BP 119/57; PULSE 79; RESP 16; TEMP 97.7; O2SAT 98
[2016-12-27] MEDS: DOCUSATE SODIUM 50 MG/SENNA 8.6 MG TAB PO SCH ×2 (00:54→22:21)
[2016-12-27 04:30] VITALS: BP 103/58; PULSE 78; RESP 16; TEMP 97.7; O2SAT 94
[2016-12-27] MEDS: ACETAMINOPHEN/HYDROcodone 325 MG/5 MG TAB PO PRN (06:36)
[2016-12-27 07:35] LABS: AUTOMATED NEUTROPHIL # 7.7 TH/MM3 (1.8-7.7); BASOPHIL % 0.2 % (0.0-2.0); EOSINOPHIL # 0.1 TH/MM3 (0-0.4); EOSINOPHIL % 1.2 % (0.0-4.0); HEMATOCRIT 31.5 % (35.0-46.0); LYMPH % 22.8 % (9.0-44.0); LYMPHOCYTE # 2.6 TH/MM3 (1.0-4.8); MEAN CELL VOLUME 83.8 FL (80.0-100.0); MEAN CORPUSCULAR HEMOGLOBIN 28.5 PG (27.0-34.0); MONO % 8.1 % (0.0-8.0); NEUT % 67.7 % (16.0-70.0); PLATELET COUNT 251 TH/MM3 (150-450); RED BLOOD COUNT 3.76 MIL/MM3 (4.00-5.30); WHITE BLOOD COUNT 11.4 TH/MM3 (4.0-11.0)
[2016-12-27 07:41] LABS: HEMO FLAGS AUTO DIFF
[2016-12-27 08:00] VITALS: BP 156/74; PULSE 77; RESP 20; TEMP 97.4; O2SAT 95
[2016-12-27 08:08] LABS: BICARBONATE 31.1 MEQ/L (21.0-32.0); POTASSIUM 4.9 MEQ/L (3.5-5.1)
[2016-12-27] MEDS ORDERED: PTOWN: OMEPRAZOLE 10 MG BY MOUTH DAILY PO SCH (09:00)
[2016-12-27] MEDS: FLUTICASONE 100 MCG/VILANTEROL 25 MCG INHALER INH SCH (09:00)
[2016-12-27] MEDS: PSYLLIUM FIBER SF/GF 6 GM POWD PKT PO SCH (09:00)
[2016-12-27] MEDS ORDERED: CALCITONIN SALM 200 UNIT/SPRAY 3.7 ML BTLN NASAL SCH (09:15)
[2016-12-27 09:21] LABS: BANDS 6 % (0-6); EOSINOPHILS 3 % (0-4); METAMYELOCYTES 4 % (0-1); NEUTROPHIL # MANUAL DIFF 7.5 TH/MM3 (1.8-7.7); POLYS (SEG NEUTROPHILS) 56 % (16-70); WBC DIFF SAMPLE 100
[2016-12-27 09:22] LABS: PLATELET ESTIMATE SMEAR NORMAL (NORMAL); PLATELET MORPHOLOGY NORMAL (NORMAL); SCAN/DIFF FINAL DIFF MANUAL
[2016-12-27] MEDS ORDERED: HYDROmorphone HCL PF 1 MG/ML VIAL IV PUSH PRN (09:30)
[2016-12-27] MEDS ORDERED: hydrOXYzine HCL 25 MG TAB PO PRN (09:30)
[2016-12-27] MEDS ORDERED: traMADol HCL 50 MG TAB PO PRN (09:30)
[2016-12-27] MEDS ORDERED: oxyCODONE/ACETAMINOPHEN 5 MG/325 MG TAB PO PRN (09:30)
[2016-12-27] MEDS ORDERED: SIMETHICONE 80 MG CHEWABLE TAB CHEW PRN (09:30)
[2016-12-27] MEDS: PRAVASTATIN SOD 10 MG TAB PO SCH (09:38)
[2016-12-27] MEDS: CYCLOBENZAPRINE HCL 10 MG TAB PO SCH (09:38)
[2016-12-27] MEDS: LOSARTAN 25 MG TAB PO SCH (09:39)
[2016-12-27] MEDS: predniSONE 5 MG TAB PO SCH (09:39)
[2016-12-27] MEDS: SODIUM CHLORIDE 0.9% FLUSH 5 ML FLUSH IV FLUSH SCH ×2 (09:39→22:22)
--- NOTE | 2016-12-27 09:45 | EKG ---
Date Performed: 12/26/2016 Time Performed: 21:35:28 PTAGE: 81 years EKG: Sinus rhythm NORMAL ECG NO PREVIOUS TRACING DOCTOR: Pola Finnegan Interpretating Date/Time 12/27/2016 09:44:30
[2016-12-27] MEDS: traMADol HCL 50 MG TAB PO SCH ×3 (09:46→22:21)
--- NOTE | 2016-12-27 10:25 | HHI.NSPN ---
History Chief Complaint: back pain Interval History 81 yr old with T12 burst fx and left pubic ramus fx after a fall yesterday. She has a hx of grade 1 listhesis at L4/5, and a left sided foot drop for several weeks. She has been on steroids for allergic bronchitis and has severe osteopenia. A tlso was ordered and she is eating well. Her pain is now 5-8/10 in the lower back and groin. Review of Systems General: Negative for: fever, chills, insomnia Respiratory: Negative for: shortness of breath, cough, sputum Cardiovascular: Negative for: chest pain, palpitations, orthopnea Gastrointestinal: Negative for: nausea, vomitting, diarrhea, constipation Genitourinary: Negative for: urinary burning, urinary frequency, urinary urgency Exam Results Vital Signs Date Time Temp Pulse Resp B/P Pulse Ox O2 Delivery O2 Flow Rate FiO2 12/27/16 08:00 97.4 77 20 156/74 95 12/26/16 21:36 Room Air Physical Examination Alert and oriented x 3, Speech fluent attention good, Moves the left hip flexor better than last night, both HF/quads, right AT 5/5, Weakness in the left ant tib and EHL 4/5 unchanged from yesterday No sensory level but has L5 radicular numbness at times. Abd soft, NT, skin dry. Lab, Micro, Other Results Laboratory Tests Test 12/26/16 12/27/16 17:00 06:52 White Blood Count 14.3 TH/MM3 11.4 TH/MM3 Red Blood Count 3.79 MIL/MM3 3.76 MIL/MM3 Hemoglobin 10.9 GM/DL 10.7 GM/DL Hematocrit 31.9 % 31.5 % Mean Corpuscular Volume 84.0 FL 83.8 FL Mean Corpuscular Hemoglobin 28.6 PG 28.5 PG Mean Corpuscular Hemoglobin 34.1 % 34.0 % Concent Red Cell Distribution Width 15.0 % 15.0 % Platelet Count 265 TH/MM3 251 TH/MM3 Mean Platelet Volume 8.2 FL 7.2 FL Neutrophils (%) (Auto) 80.3 % 67.7 % Lymphocytes (%) (Auto) 11.3 % 22.8 % Monocytes (%) (Auto) 6.7 % 8.1 % Eosinophils (%) (Auto) 1.3 % 1.2 % Basophils (%) (Auto) 0.4 % 0.2 % Neutrophils # (Auto) 11.5 TH/MM3 7.7 TH/MM3 Lymphocytes # (Auto) 1.6 TH/MM3 2.6 TH/MM3 Monocytes # (Auto) 1.0 TH/MM3 0.9 TH/MM3 Eosinophils # (Auto) 0.2 TH/MM3 0.1 TH/MM3 Basophils # (Auto) 0.1 TH/MM3 0.0 TH/MM3 CBC Comment AUTO DIFF AUTO DIFF Differential Total Cells 100 100 Counted Neutrophils % (Manual) 58 % 56 % Band Neutrophils % 18 % 6 % Lymphocytes % 15 % 24 % Monocytes % 4 % 7 % Neutrophils # (Manual) 11.6 TH/MM3 7.5 TH/MM3 Metamyelocytes 3 % 4 % Myelocytes 2 % Differential Comment FINAL DIFF FINAL DIFF MANUAL MANUAL Platelet Estimate NORMAL NORMAL Platelet Morphology Comment NORMAL NORMAL Lev Cells 1+ Prothrombin Time 10.9 SEC Prothromb Time International 1.0 RATIO Ratio Sodium Level 129 MEQ/L 134 MEQ/L Potassium Level 4.2 MEQ/L 4.9 MEQ/L Chloride Level 93 MEQ/L 97 MEQ/L Carbon Dioxide Level 26.0 MEQ/L 31.1 MEQ/L Anion Gap 10 MEQ/L 6 MEQ/L Blood Urea Nitrogen 17 MG/DL 15 MG/DL Creatinine 0.77 MG/DL 0.71 MG/DL Estimat Glomerular Filtration 72 ML/MIN 79 ML/MIN Rate Random Glucose 105 MG/DL 106 MG/DL Calcium Level 8.4 MG/DL 8.4 MG/DL Total Bilirubin 0.6 MG/DL Aspartate Amino Transf 21 U/L (AST/SGOT) Alanine Aminotransferase 27 U/L (ALT/SGPT) Alkaline Phosphatase 49 U/L Total Protein 6.0 GM/DL Albumin 3.0 GM/DL Eosinophils % 3 % Red Cell Morphology Comment NORMAL Medical Decision Making Impression and Plan 1- T12 burst fx, unstable. PT services requested to teach log rolling. No bending, twisting, pulling. 2- Radiculopathy. Started on gabapentin at night rehab is planned but will be slow. 3- Bowel/bladder program, on probiotics and metamucil at home, continued in the hospital. 4- Osteoporosis management, on calcitonin. Vit d level pending. Umberto Zhao Dec 27, 2016 10:25
--- NOTE | 2016-12-27 11:35 | HHI.FPPN ---
Subjective Remarks Patient did not sleep well overnight, she states that she is normally on cyclobenzaprine in the evening to help her sleep and she was unable to get this. She also has continued pain in her back as well as in her groin without significant improvement. She has not been out of bed since getting moved up to the floor. She was able to eat dinner last night without any complications and she has breakfast in front of her this morning. She denies any fevers or chills , denies any chest pain or palpitations, denies any shortness of breath, denies any abdominal pain, denies constipation or dysuria. In summary this is an 81-year-old female who presented yesterday with a mechanical fall on the day prior to presentation. She has had an issue with her left leg chronically and was walking with her walker yesterday when her left leg "gave out" she immediately had left hip pain that did not resolve with sitting in a chair. She states that the pain localized to her left hip and lower back, was unrelenting overnight and therefore had her call EMS for further evaluation in the hospital. Past Medical History Chronic back pain HLD HTN GERD chronic asthma Past Surgical History Left hip replacement - 2005 Family History noncontributory Social History Lives in [facility] on [facility] floor with in [place] No t/e/d Objective Vitals Vital Signs Date Time Temp Pulse Resp B/P Pulse Ox O2 Delivery O2 Flow Rate FiO2 12/27/16 08:00 97.4 77 20 156/74 95 12/27/16 04:30 97.7 78 16 103/58 94 12/26/16 23:51 97.7 79 16 119/57 98 12/26/16 21:36 80 20 133/62 96 Room Air 12/26/16 19:04 99 18 173/80 97 Room Air 12/26/16 18:40 168/71 96 Room Air 12/26/16 15:07 71 127/62 Room Air I/O 12/26/16 12/26/16 12/26/16 12/27/16 12/27/16 12/27/16 07:00 15:00 23:00 07:00 15:00 23:00 Intake Total 120 ml Balance 120 ml Intake Oral 120 ml # Voids 2 Result Diagram: 12/27/16 0652 12/27/1652 Imaging Last 48 hours Impressions Lumbar Spine CT 12/26/16 1146 Signed Impressions: Service Date/Time: Monday, December 26, 2016 14:06 - CONCLUSION: 1. Progressive compression of the T12 vertebral body which now has a vertebral plana configuration and an 8 mm retropulsed fragment. The retropulsed fragment almost certainly compromises the distal cord/conus medullaris. 2. In addition to the vertebral body fracture, there is a linear fracture through the left lamina of T12. 3. No fractures in the lumbar region. Vertebral body heights are maintained. 4. Grade I anterolisthesis of L4 on 5 apparently due to severe facet degeneration. Facet hypertrophy is also seen at L5-S1. 5. Despite degenerative disc disease and facet hypertrophy, the spinal canal and neural foramina appear to be adequate throughout the lumbar spine. Aaron Pabon MD Hip and Pelvis X-Ray 12/26/16 1146 Signed Impressions: Service Date/Time: Monday, December 26, 2016 12:11 - CONCLUSION: 1. Apparent acute facture involving the left inferior pubic ramus. Clinical correlation is recommended. 2. Moderate degenerative changes involving the right hip joint. 3. Degenerative changes and scoliosis of the lower lumbar spine. Jordan Tenorio MD Objective Remarks GENERAL: Pleasant appearing female lying in bed in no obvious distress. SKIN: No rashes, ecchymoses or lesions. Cool and dry. HEAD: Atraumatic. Normocephalic. EYES: Pupils equal round and reactive. Extraocular motions intact. NECK: Trachea midline. No JVD or lymphadenopathy. Supple, nontender, no meningeal signs. CARDIOVASCULAR: Regular rate and rhythm without murmurs, gallops, or rubs. RESPIRATORY: Clear to auscultation. Breath sounds equal bilaterally. No wheezes , rales, or rhonchi. GASTROINTESTINAL: Abdomen soft, non-tender, nondistended. MUSCULOSKELETAL: Extremities without clubbing, cyanosis, or edema. 3+/5 dorsiflexion of the left foot, 3+/5 flexion of the left hip, 4/5 flexion of the right hip with pain in the groin. NEUROLOGICAL: Awake and alert. Cranial nerves II through XII intact. A/P Assessment and Plan 81 yo F with pubic ramus fracture and chronic T12 compression fracture. Problem List: (1) Pubic ramus fracture Status: Acute Plan: Radiograph showing acute fracture of the left inferior pubic ramus. - Physical therapy consulted to evaluate patient Pain control below: Tramadol 50 mg every 6 hours as needed for pain Percocet 1-2 tablets or 6 hours as needed for breakthrough pain Orthopedic surgery has been consulted to evaluate patient Bowel regimen as below: -Lexii-Colace hs -Miralax prn (2) T12 vertebral fracture Status: Chronic Plan: Chronic with associated left side foot drop requiring chronic steroid injections, having some improvement outpatient. -Neurosurgery consulted appreciate recommendations including LTSO brace and continued physical therapy Started on calcitonin this morning -Continue home dose Flexeril -Pain control as above (3) Steroid-induced osteopenia Status: Acute Plan: Patient on chronic steroid therapy with Prednisone 2.5 mg po bid. Reports taking for chronic asthma. -Wean to Prednisone 2.5 mg po daily now - Started on calcitonin nasal today - Would likely benefit from a bisphosphonate prior to discharge (4) GERD (gastroesophageal reflux disease) Status: Chronic Plan: Continue Omeprazole (5) Hypertension Status: Chronic Plan: BP wnl Continue Losartan (6) Dyslipidemia Status: Chronic Plan: Continue Simvastatin (7) Asthma Status: Chronic Plan: Lungs clear on exam, patient in no respiratory distress - Continue Breo Elliipta - Breathing treatments as needed - Prednisone decreased to 2.5 mg by mouth daily (8) Nutrition, metabolism, and development symptoms Status: Acute Plan: Regular diet HLIV Electrolytes: wnl Lovenox 30 mg q24h GI: Protonix, Miralax Problem Qualifiers (1) Pubic ramus fracture: Qualified Code: S32.592A - Pubic ramus fracture, left, closed, initial encounter (2) T12 vertebral fracture: Qualified Code: S22.082A - Closed unstable burst fracture of twelfth thoracic vertebra, initial encounter (3) Hypertension: Qualified Code: I10 - Essential hypertension Lester Thomas MD Dec 27, 2016 11:35
[2016-12-27 12:00] VITALS: BP 111/69; PULSE 104; RESP 20; TEMP 96.6; O2SAT 94
[2016-12-27] MEDS: LACTOBACILLUS ACIDOPHILUS TAB PO SCH ×2 (12:49→22:20)
--- NOTE | 2016-12-27 14:36 | MB ---
cc: KEVIN CARBAJAL DATE OF CONSULTATION: 12/27/2016 REASON FOR CONSULTATION Left pubic rami fracture. HISTORY OF PRESENT ILLNESS Ms. Tavares is an 81-year-old female who presented to the [facility] Emergency Department on 12/26/2016. Apparently she had a fall the previous day while walking. She states her left leg gave out and she fell onto her left side. She did have immediate pain. She denied loss of consciousness. She was able to get up with the assistance of her and sit in a chair overnight. She was unable to sleep. She states she has pain in the left pelvis and hip region as well as the low back region. She reports history of a compression fracture at T12 and chronic low back pain. She also does have a history of a left total hip arthroplasty numerous years ago performed at the [facility]. She denies shortness breath. REVIEW OF SYSTEMS A 12-point review of systems was performed and is negative other than mentioned in the HPI. PAST MEDICAL HISTORY 1. Chronic low back pain. 2. Hyperlipidemia. 3. Hypertension. 4. GERD. 5. Chronic asthma. PAST SURGICAL HISTORY Left total hip arthroplasty in 2005 at the [facility]. MEDICATIONS 1. Flexeril. 2. [place]. 3. Tramadol. 4. Clotrimazole. 5. Tizanidine. 6. Ibuprofen. 7. Eszopiclone. 8. Prednisone. 9. Simvastatin. 10.Breo Ellipta. 11.Losartan. 12.Omeprazole. ALLERGIES SULFA. FAMILY HISTORY Noncontributory. SOCIAL HISTORY Denies the use of tobacco, alcohol and illicit drugs. She lives with her . PHYSICAL EXAMINATION VITAL SIGNS: Temperature 96.6, pulse 104, respiratory rate 20, blood pressure 111/69, pulse ox 94 on room air. GENERAL: The patient is seen in her hospital room. She is sitting in a chair eating lunch. She is well-nourished and well-developed. She is in no acute distress. HEAD, EYES, EARS, NOSE, AND THROAT: Atraumatic, normocephalic. Pupils are round, equal and reactive to light. There is no bleeding from her nose. No purulent drainage from her septum. Throat without erythema. NECK: Trachea is midline. Nontender. CARDIOVASCULAR: Regular rate and rhythm. No murmurs, gallops or rubs. PULMONARY: Clear to auscultation bilaterally. No wheezes, rales or rhonchi. ABDOMEN: Soft, nontender, nondistended. NEUROLOGIC: Awake and alert. Cranial nerves II through XII grossly intact. MUSCULOSKELETAL: The patient is wearing a back brace. In regards to her upper extremity she has full range of motion without discomfort. Neurovascular sensation intact. She has appropriate strength in bilateral upper extremity as well as her lower extremities. Her skin is intact without sign of infection. Negative Homans bilaterally. She has full range of motion bilateral knees without significant pain. Appropriate pulses distally. Sensation is intact. She has no significant pain with hip flexion either side. She does have slight restriction of range of motion with internal and external rotation maneuvers of bilateral hips. No significant pain elicited on passive range of motion of the left hip. IMAGING X-rays of AP pelvis and two views of the left hip taken at [facility] 12/26/2016 show evidence of an intact left total hip arthroplasty. There is a fracture of the left pubic ramus. Moderate degenerative changes of the right hip joint. LABORATORY White blood cell count 11.4, hemoglobin 10.7, hematocrit 31.5, platelet count 251. ASSESSMENT AND PLAN An 81-year-old female with a history of a left total hip arthroplasty 2005, recent fall due to left leg giving way. She did sustain a left-sided pubic rami fracture which is the same side as her left total hip arthroplasty. T12 chronic fracture with chronic left-sided foot drop. I did discuss the diagnosis and treatment options with the patient while in her room. Recommend nonoperative management for this injury. Due to the history of a left total hip arthroplasty on the same side as the pubic rami fracture do recommend the patient remain non-weightbearing for approximately four weeks post injury. She may weight bear as tolerated on her right lower extremity. Range of motion as tolerated left lower extremity. The patient may follow-up in the [facility] with Dr. Kevin Carbajal in approximately two weeks. The patient has asked appropriate questions which have been answered. Thank you for this consultation Dictated by: Kevin Amaya PA-C MD ROGER Gómez/NATALYA /1:09 PM /2:35 PM
[2016-12-27 16:00] VITALS: BP 95/55; PULSE 78; RESP 20; TEMP 97; O2SAT 94
[2016-12-27 21:00] VITALS: BP 162/74; PULSE 80; RESP 19; TEMP 98.9; O2SAT 98
[2016-12-27] MEDS ORDERED: GABAPENTIN 300 MG CAP PO SCH (21:00)
[2016-12-27] MEDS ORDERED: LACTOBACILLUS ACIDOPHILUS TAB PO SCH (21:00)
[2016-12-27] MEDS: ENOXAPARIN SODIUM 30 MG/0.3 ML SYRINGE SQ SCH (22:21)
[2016-12-27] MEDS: oxyCODONE/ACETAMINOPHEN 5 MG/325 MG TAB PO PRN (22:31)
[2016-12-28] VITALS: BP 151/75; PULSE 88; RESP 18; TEMP 98; O2SAT 97
[2016-12-28 04:30] VITALS: BP 145/72; PULSE 80; RESP 20; TEMP 97.7; O2SAT 98
[2016-12-28] MEDS: traMADol HCL 50 MG TAB PO SCH ×2 (06:27→10:02)
[2016-12-28 08:15] VITALS: BP 108/78; PULSE 76; RESP 20; TEMP 97.6; O2SAT 95
[2016-12-28] MEDS: FLUTICASONE 100 MCG/VILANTEROL 25 MCG INHALER INH SCH (09:00)
[2016-12-28 09:03] LABS: AUTOMATED NEUTROPHIL # 7.5 TH/MM3 (1.8-7.7); BASOPHIL % 0.2 % (0.0-2.0); EOSINOPHIL # 0.1 TH/MM3 (0-0.4); EOSINOPHIL % 0.8 % (0.0-4.0); HEMATOCRIT 28.3 % (35.0-46.0); LYMPH % 21.5 % (9.0-44.0); LYMPHOCYTE # 2.3 TH/MM3 (1.0-4.8); MEAN CELL VOLUME 84.2 FL (80.0-100.0); MEAN CORPUSCULAR HEMOGLOBIN 29.4 PG (27.0-34.0); MEAN CORPUSCULAR HGB CONC 34.9 % (32.0-36.0); MONO % 7.3 % (0.0-8.0); NEUT % 70.2 % (16.0-70.0); PLATELET COUNT 238 TH/MM3 (150-450); RED BLOOD COUNT 3.36 MIL/MM3 (4.00-5.30); WHITE BLOOD COUNT 10.7 TH/MM3 (4.0-11.0)
[2016-12-28 09:07] LABS: HEMO FLAGS AUTO DIFF
[2016-12-28 09:33] LABS: BICARBONATE 28.7 MEQ/L (21.0-32.0); POTASSIUM 4.4 MEQ/L (3.5-5.1)
[2016-12-28 09:47] LABS: BANDS 11 % (0-6); METAMYELOCYTES 1 % (0-1); MYELOCYTES 1 % (0-0); NEUTROPHIL # MANUAL DIFF 8.3 TH/MM3 (1.8-7.7); OVALOCYTES 1+ (NORMAL); PLATELET ESTIMATE SMEAR NORMAL (NORMAL); PLATELET MORPHOLOGY NORMAL (NORMAL); POLYS (SEG NEUTROPHILS) 65 % (16-70); SCAN/DIFF FINAL DIFF MANUAL; WBC DIFF SAMPLE 100
[2016-12-28] MEDS: LOSARTAN 25 MG TAB PO SCH (09:59)
[2016-12-28] MEDS: PRAVASTATIN SOD 10 MG TAB PO SCH (09:59)
[2016-12-28] MEDS: predniSONE 5 MG TAB PO SCH (10:01)
[2016-12-28] MEDS: LACTOBACILLUS ACIDOPHILUS TAB PO SCH (10:02)
[2016-12-28] MEDS: PSYLLIUM FIBER SF/GF 6 GM POWD PKT PO SCH (10:02)
[2016-12-28] MEDS: SODIUM CHLORIDE 0.9% FLUSH 5 ML FLUSH IV FLUSH SCH (10:02)
[2016-12-28] MEDS: oxyCODONE/ACETAMINOPHEN 5 MG/325 MG TAB PO PRN (10:03)
[2016-12-28] MEDS ORDERED: SENN1TAB PO (10:53)
[2016-12-28] MEDS ORDERED: ULTR50TA5 PO (10:53)
[2016-12-28] MEDS ORDERED: LACT PO (10:53)
[2016-12-28] MEDS ORDERED: PRED5TAB PO (10:53)
[2016-12-28] MEDS ORDERED: OXYC1TAB63 PO (10:53)
--- NOTE | 2016-12-28 10:54 | HHI.DCPOC ---
Discharge Care Plan Diagnosis: (1) GERD (gastroesophageal reflux disease) (2) Pubic ramus fracture (3) Hypertension (4) Dyslipidemia (5) Intractable back pain (6) T12 vertebral fracture (7) Asthma Goals to Promote Your Health * To prevent worsening of your condition and complications * To maintain your health at the optimal level Directions to Meet Your Goals Take your medications as prescribed Follow your dietary instruction Follow activity as directed Keep your appointments as scheduled Take your immunizations and boosters as scheduled If your symptoms worsen call your PCP, if no PCP go to Urgent Care Center or Emergency Room Smoking is Dangerous to Your Health. Avoid second hand smoke Call the 24-hour hour crisis hotline for domestic abuse at Loco Lester MD R2 Dec 28, 2016 10:54
--- NOTE | 2016-12-28 10:56 | HHI.FPPN ---
Subjective Remarks Doing well - pain controlled. No BM x 5 days taking fiber supp. No CP SOB or N V D. (Loco Lester MD R2) Objective Vitals Vital Signs Date Time Temp Pulse Resp B/P Pulse Ox O2 Delivery O2 Flow Rate FiO2 12/28/16 08:15 97.6 76 20 108/78 95 12/28/16 04:30 97.7 80 20 145/72 98 12/28/16 00:00 98.0 88 18 151/75 97 12/27/16 21:00 98.9 80 19 162/74 98 12/27/16 16:47 12/27/16 16:17 12/27/16 16:00 97.0 78 20 95/55 94 12/27/16 12:00 96.6 104 20 111/69 94 12/27/16 11:29 I/O 12/27/16 12/27/16 12/27/16 12/28/16 12/28/16 12/28/16 07:00 15:00 23:00 07:00 15:00 23:00 Intake Total 120 ml 360 ml 400 ml 400 ml Output Total 0 ml Balance 120 ml 360 ml 400 ml 400 ml Intake Oral 120 ml 360 ml 400 ml 400 ml IV Total 0 ml Output Urine Total 0 ml # Voids 2 3 1 1 # Bowel Movements 0 0 0 (Loco Lester MD R2) Result Diagram: 12/28/1673312/28/1634 Objective Remarks GENERAL: Pleasant appearing female lying in bed in no obvious distress. SKIN: No rashes, ecchymoses or lesions. Cool and dry. HEAD: Atraumatic. Normocephalic. EYES: Pupils equal round and reactive. Extraocular motions intact. NECK: Trachea midline. No JVD or lymphadenopathy. Supple, nontender, no meningeal signs. CARDIOVASCULAR: Regular rate and rhythm without murmurs, gallops, or rubs. RESPIRATORY: Clear to auscultation. Breath sounds equal bilaterally. No wheezes , rales, or rhonchi. GASTROINTESTINAL: Abdomen soft, non-tender, nondistended. MUSCULOSKELETAL: Extremities without clubbing, cyanosis, or edema. 3+/5 dorsiflexion of the left foot, 3+/5 flexion of the left hip, 4/5 flexion of the right hip with pain in the groin. NEUROLOGICAL: Awake and alert. Cranial nerves II through XII intact. (Loco Lester MD R2) A/P Assessment and Plan 81 yo F with pubic ramus fracture and chronic T12 compression fracture. ( Loco Lester MD R2) Attending Attestation Pt. examined and case discussed with resident physician I have read the above note and agree with the assessment/plan as discussed with me I was involved in all medical decision making for this patient Lester Thomas MD (Lester Thomas MD) Problem List: (1) Pubic ramus fracture Status: Acute Plan: Radiograph showing acute fracture of the left inferior pubic ramus. - Physical therapy consulted to evaluate patient - rec in pt RE[facility]AB [facility] Pain control below: Tramadol 50 mg every 6 hours as needed for pain Percocet 1-2 tablets or 6 hours as needed for breakthrough pain Orthopedic surgery has been consulted to evaluate patient Bowel regimen as below: -Lexii-Colace hs -Miralax prn (2) T12 vertebral fracture Status: Chronic Plan: Chronic with associated left side foot drop requiring chronic steroid injections, having some improvement outpatient. -Neurosurgery consulted appreciate recommendations including LTSO brace and continued physical therapy Started on calcitonin this morning -Continue home dose Flexeril -Pain control as above (3) Steroid-induced osteopenia Status: Chronic Plan: Patient on chronic steroid therapy with Prednisone 2.5 mg po bid. Reports taking for chronic asthma. -Wean to Prednisone 2.5 mg po daily now - Started on calcitonin nasal today - Would likely benefit from a bisphosphonate prior to discharge (4) GERD (gastroesophageal reflux disease) Status: Chronic Plan: Continue Omeprazole (5) Hypertension Status: Chronic Plan: BP wnl Continue Losartan (6) Dyslipidemia Status: Chronic Plan: Continue Simvastatin (7) Asthma Status: Chronic Plan: Lungs clear on exam, patient in no respiratory distress - Continue Breo Elliipta - Breathing treatments as needed - Prednisone decreased to 2.5 mg by mouth daily (8) Nutrition, metabolism, and development symptoms Status: Acute Plan: Regular diet HLIV Electrolytes: wnl Lovenox 30 mg q24h GI: Protonix, Miralax (Loco Lester MD R2) Problem Qualifiers (1) Pubic ramus fracture: Qualified Code: S32.592A - Pubic ramus fracture, left, closed, initial encounter (2) T12 vertebral fracture: Qualified Code: S22.082A - Closed unstable burst fracture of twelfth thoracic vertebra, initial encounter (3) Hypertension: Qualified Code: I10 - Essential hypertension Loco Lester MD R2 Dec 28, 2016 10:56 Lester Thomas MD Dec 28, 2016 20:40
[2016-12-28 11:45] VITALS: BP 108/55; PULSE 82; RESP 20; TEMP 96.6; O2SAT 96
[2016-12-28] MEDS ORDERED: RESP: ALBUTEROL 2.5 MG/IPRATROPIUM 0.5 MG NEB (SCH) NEB ONE (11:45)
[2016-12-28 18:44] LABS: BLOOD, URINE NEG (NEG); COMMENT (UR) CULT NOT INDICATED; CULTURE IF INDICATED CULT NOT INDICATED; GLUCOSE,URINE NEG (NEG); KETONE, URINE NEG (NEG); MUCUS URINE FEW /lpf (OCC); NITRITE,URINE NEG (NEG); PH, URINE 6.5 (5.0-8.5); URINE COLOR LIGHT-YELLOW (YELLW/STRAW)
--- NOTE | 2016-12-29 16:44 | HHI.DS ---
Discharge Summary Admission Date Dec 26, 2016 at 16:24 Discharge Date: Dec 28, 2016 Admitting Diagnosis Pubic Ramus Fracture, T12 Fracture, Intractable Back Pain (1) Pubic ramus fracture Diagnosis: Principal Plan: Radiograph showing acute fracture of the left inferior pubic ramus. - Physical therapy consulted to evaluate patient - rec in pt REHAB - will be transferred to [facility]. Pain control below: Tramadol 50 mg every 6 hours as needed for pain Percocet 1-2 tablets or 6 hours as needed for breakthrough pain Orthopedic surgery has been consulted to evaluate patient Bowel regimen as below: -Lexii-Colace hs -Miralax prn (2) T12 vertebral fracture Diagnosis: Secondary Plan: Chronic with associated left side foot drop requiring chronic steroid injections, having some improvement outpatient. -Neurosurgery consulted appreciate recommendations including LTSO brace and continued physical therapy Started on calcitonin this morning -Continue home dose Flexeril -Pain control as above (3) Steroid-induced osteopenia Diagnosis: Secondary Plan: Patient on chronic steroid therapy with Prednisone 2.5 mg po bid. Reports taking for chronic asthma. -Wean to Prednisone 2.5 mg po daily now - Started on calcitonin nasal today - Would likely benefit from a bisphosphonate prior to discharge (4) GERD (gastroesophageal reflux disease) Diagnosis: Secondary Plan: Continue Omeprazole (5) Hypertension Diagnosis: Secondary Plan: BP wnl Continue Losartan (6) Dyslipidemia Diagnosis: Secondary Plan: Continue Simvastatin (7) Asthma Diagnosis: Secondary Plan: Lungs clear on exam, patient in no respiratory distress - Continue Breo Elliipta - Breathing treatments as needed - Prednisone decreased to 2.5 mg by mouth daily Consultants Orthopedic surgery, neurosurgery Brief History 81 yo F with mechanical fall yesterday at 6 pm. She states that she was using her walker and her left leg gave out. She fell onto the left hip, noticed pain immediately. She does not recall hitting her head. No LOC. She was able to get up about 1 hr later with assistance of ; sat in lounge chair overnight and was unable to get up. She was brought in to the hospital this morning. Prior to admission, having 10/10 sharp pain, worse pain located over left hip and lower back. Pain improved with resting. She reports having hx of history of compression fracture over T12, source of her chronic back pain. No previous falls. History of osteopenia, last DXA within the past 1-2 years, taking Vitamin D. CBC/BMP: 12/28/16 0734 12/28/16 0734 Significant Findings Laboratory Tests Test 12/26/16 12/27/16 12/28/16 12/28/16 17:00 06:52 07:34 18:00 White Blood Count 14.3 TH/MM3 11.4 TH/MM3 (4.0-11.0) (4.0-11.0) Red Blood Count 3.79 MIL/MM3 3.76 MIL/MM3 3.36 MIL/MM3 (4.00-5.30) (4.00-5.30) (4.00-5.30) Hemoglobin 10.9 GM/DL 10.7 GM/DL 9.9 GM/DL (11.6-15.3) (11.6-15.3) (11.6-15.3) Hematocrit 31.9 % 31.5 % 28.3 % (35.0-46.0) (35.0-46.0) (35.0-46.0) Neutrophils (%) (Auto) 80.3 % 70.2 % (16.0-70.0) (16.0-70.0) Neutrophils # (Auto) 11.5 TH/MM3 (1.8-7.7) Monocytes # (Auto) 1.0 TH/MM3 (0-0.9) Band Neutrophils % 18 % (0-6) 11 % (0-6) Neutrophils # (Manual) 11.6 TH/MM3 8.3 TH/MM3 (1.8-7.7) (1.8-7.7) Metamyelocytes 3 % (0-1) 4 % (0-1) Myelocytes 2 % (0-0) 1 % (0-0) [place] Cells 1+ (NORMAL) Sodium Level 129 MEQ/L 134 MEQ/L 132 MEQ/L (136-145) (136-145) (136-145) Chloride Level 93 MEQ/L 97 MEQ/L 96 MEQ/L (98-107) (98-107) (98-107) Estimat Glomerular Filtration 72 ML/MIN (>89) 79 ML/MIN (>89) 71 ML/MIN (>89) Rate Calcium Level 8.4 MG/DL 8.4 MG/DL 8.3 MG/DL (8.5-10.1) (8.5-10.1) (8.5-10.1) Total Protein 6.0 GM/DL (6.4-8.2) Albumin 3.0 GM/DL (3.4-5.0) Monocytes (%) (Auto) 8.1 % (0.0-8.0) Ovalocytes 1+ (NORMAL) Blood Urea Nitrogen 22 MG/DL (7-18) Random Glucose 122 MG/DL (74-106) Urine Mucus FEW /lpf (OCC) Imaging Last Impressions Lumbar Spine CT 12/26/16 1146 Signed Impressions: Service Date/Time: Monday, December 26, 2016 14:06 - CONCLUSION: 1. Progressive compression of the T12 vertebral body which now has a vertebral plana configuration and an 8 mm retropulsed fragment. The retropulsed fragment almost certainly compromises the distal cord/conus medullaris. 2. In addition to the vertebral body fracture, there is a linear fracture through the left lamina of T12. 3. No fractures in the lumbar region. Vertebral body heights are maintained. 4. Grade I anterolisthesis of L4 on 5 apparently due to severe facet degeneration. Facet hypertrophy is also seen at L5-S1. 5. Despite degenerative disc disease and facet hypertrophy, the spinal canal and neural foramina appear to be adequate throughout the lumbar spine. Aaron Pabon MD Hip and Pelvis X-Ray 12/26/16 1146 Signed Impressions: Service Date/Time: Monday, December 26, 2016 12:11 - CONCLUSION: 1. Apparent acute facture involving the left inferior pubic ramus. Clinical correlation is recommended. 2. Moderate degenerative changes involving the right hip joint. 3. Degenerative changes and scoliosis of the lower lumbar spine. Jordan Tenorio MD PE at Discharge GENERAL: Pleasant appearing female lying in bed in no obvious distress. SKIN: No rashes, ecchymoses or lesions. Cool and dry. HEAD: Atraumatic. Normocephalic. EYES: Pupils equal round and reactive. Extraocular motions intact. NECK: Trachea midline. No JVD or lymphadenopathy. Supple, nontender, no meningeal signs. CARDIOVASCULAR: Regular rate and rhythm without murmurs, gallops, or rubs. RESPIRATORY: Clear to auscultation. Breath sounds equal bilaterally. No wheezes , rales, or rhonchi. GASTROINTESTINAL: Abdomen soft, non-tender, nondistended. MUSCULOSKELETAL: Extremities without clubbing, cyanosis, or edema. 3+/5 dorsiflexion of the left foot, 3+/5 flexion of the left hip, 4/5 flexion of the right hip with pain in the groin. NEUROLOGICAL: Awake and alert. Cranial nerves II through XII intact. Hospital Course Patient was admitted on 12/26 after a mechanical fall. She was noted on imaging to have pubic ramus fracture and T12 vertebral fracture which is noted to be chronic. Orthopedic surgery and neurosurgery teams both evaluated patient as inpatient. Her conditions were discussed with her and concluded to be non- operative. She was monitored as an inpatient in preparation for rehabilitation center placement. He is noted to have had a mild leukocytosis on admission which resolved. Noted to have mild anemia which was stable. She was noted to have moderate hyponatremia which was stable. UA was noted to be normal, ruling possible UTI out as an etiology of fall. She was discharged on 12/28 in stable condition. PT and OT did evaluate patient and recommend this discharge placement. Pt Condition on Discharge: Stable Discharge Disposition: Discharge Home Discharge Instructions DIET: Follow Instructions for: As Tolerated, No Restrictions Activities you can perform: Regular-No Restrictions New Medications: Lactobacillus Acidophilus (Acidophilus/l-Sporogenes) 1 Tab Tab 1 TAB PO Q12HR #30 Ref 0 TAB Oxycodone-Acetaminophen (Oxycodone-Acetaminophen) 5-325 mg Tab 2 TAB PO Q6H PRN PAIN 6-10 #30 Ref 0 TAB Prednisone (Prednisone) 5 Mg Tab 2.5 MG PO DAILY #30 Ref 0 TAB Sennosides-Docusate Sodium (Senna Plus 8.6-50 mg) 1 Tab Tab 2 TAB PO HS #60 Ref 0 TAB Tramadol (Ultram) 50 Mg Tab 50 MG PO Q6H #90 Ref 0 TAB Continued Medications: Clotrimazole Noé (Clotrimazole Noé) 10 Mg Troc #30 Cyclobenzaprine (Flexeril) 10 Mg Tab 10 MG PO TID Muscle Spasm #15 Ref 0 TAB Eszopiclone (Eszopiclone) 3 Mg Tab #90 Fluticasone-Vilanterol Inh (Breo Ellipta Inh) 100-25 Mcg/Act Inh 1 PUFF INH DAILY Use daily at the same time. #1 Ref 0 INHALER Losartan (Losartan) 25 Mg Tab 12.5 MG PO DAILY Blood Pressure Management #15 Ref 0 TAB Omeprazole (Omeprazole) 10 Mg Cap 10 MG PO DAILY #30 Ref 0 CAP Simvastatin (Simvastatin) 5 Mg Tab 5 MG PO DAILY Cholesterol Management #30 Ref 0 TAB Tizanidine (Tizanidine) 2 Mg Tab #90 Tramadol (Tramadol) 50 Mg Tab 50 MG PO Q6H PRN PAIN #12 Ref 0 TAB Discontinued Medications: Hydrocodone-Acetaminophen ([place]) 5-325 mg Tab 1 TAB PO Q6H PRN PAIN #15 Ref 0 TAB Ibuprofen (Ibuprofen) 800 Mg Tab #90 Prednisone (Prednisone) 5 Mg Tab 5 MG PO BID Ref 0 TAB Prednisone (Prednisone) 10 Mg Tab #20 Kandy Allen MD R1 Dec 29, 2016 16:44
[2017-01-10] MEDS ORDERED: POTA-243 PO (10:40)
[2017-01-10] MEDS ORDERED: FLUT1INH INH (10:40)
[2017-01-10] MEDS ORDERED: SENN1TAB PO (10:40)
[2017-01-10] MEDS ORDERED: GABA100C4 PO (10:40)
[2017-01-10] MEDS ORDERED: OMEP10CA PO (10:40)
[2017-01-10] MEDS ORDERED: MAGN400T3 PO (10:40)
[2017-01-10] MEDS ORDERED: LACT PO (10:40)
[2017-01-10] MEDS ORDERED: COZA25TA PO (10:40)
[2017-01-10] MEDS ORDERED: PRAV10TA PO (10:40)
[2017-01-10] MEDS ORDERED: ULTR50TA5 PO (10:40)
[2017-01-10] MEDS ORDERED: LIDO5DIS35 T-DERMAL (10:40)
== END 2016-12-28 18:04 | DRG 536 ==
LOC: NEPC 10:28 → NEDA 16:24 → N05A 21:54
PROVIDERS: ADMIT Family Medicine; ATTEND Family Medicine
DX: S32.592A Other specified fracture of left pubis, initial encounter for closed fracture (principal); M80.88XA Other osteoporosis with current pathological fracture, vertebra(e), initial encounter for fracture; D64.9 Anemia, unspecified; E87.1 Hypo-osmolality and hyponatremia; I10 Essential (primary) hypertension; E78.5 Hyperlipidemia, unspecified; F41.9 Anxiety disorder, unspecified; K21.9 Gastro-esophageal reflux disease without esophagitis; J45.909 Unspecified asthma, uncomplicated; M21.372 Foot drop, left foot; T38.0X5A Adverse effect of glucocorticoids and synthetic analogues, initial encounter; W01.0XXA Fall on same level from slipping, tripping and stumbling without subsequent striking against object, initial encounter; Y92.9 Unspecified place or not applicable; Z96.642 Presence of left artificial hip joint
CPT/HCPCS: 72131; 73502; 80048; 80053; 81001; 82652; 85007; 85027; 85610; 93005; 94150; 96374; 96375; J1650; J2270; J2405; J7512; L0200; L0484

== ENCOUNTER 2017-02-16 12:31 | Inpatient (IN) | payer MEDICARE, BC ==
[~2017-02-16] VITALS: Ht 160 cm; Wt 125.0 kg
[~2017-02-16 12:31] MED LIST changes: -CLOT10TR; -CYCL1TAB29 PO; -ESZO1TAB4; -IBUP800T23; -LOSA25TA PO; +MAGN400T3 PO; -NORC5TAB PO; +POTA-243 PO; +PRAV10TA PO; -PRED10; -PRED5TAB PO; +SENN1TAB PO; -SIMV5TAB3 PO; -TIZA2TAB; -TRAM50TA PO; +ULTR50TA5 PO
[2017-02-21] MEDS ORDERED: MULT-65 PO (11:09)
[2017-02-21] MEDS ORDERED: MELA5TAB15 PO (11:09)
[2017-02-21] MEDS ORDERED: CULT10CA4 PO (11:09)
[2017-02-21] MEDS ORDERED: GABA300C5 PO (11:09)
[2017-02-21] MEDS ORDERED: LOSA25TA PO (11:09)
[2017-02-21] MEDS ORDERED: DULC10SU3 RECTAL (11:09)
[2017-02-21] MEDS ORDERED: ACET1CAP18 PO (11:09)
[2017-02-21] MEDS ORDERED: [UNRECOGNIZED DRUG - CODE] TOPICAL (11:09)
[2017-02-21] MEDS ORDERED: META28.34 PO (11:09)
[2017-02-21] MEDS ORDERED: MILKSUS PO (11:09)
[2017-02-22] MEDS ORDERED: POVIDONE IODINE 5% (ANTISEPSIS KIT) 4 APPLICATIONS EACH NARE PRN (07:15)
[2017-02-22] MEDS ORDERED: SODIUM CHLORID 0.9% 500 ML IV PRN (07:15)
[2017-02-22] MEDS ORDERED: LACTATED RINGER'S 1000 ML INJ 1,000 ML IV SCH (07:15)
[2017-02-22] MEDS ORDERED: INSULIN HUMAN REGULAR 1,000 UNITS/10 ML VIAL SQ PRN (07:15)
[2017-02-22] MEDS ORDERED: CHLORHEXIDINE GLUCONATE 2 % 1 PACK (2 CLOTHS) TOPICAL PRN (07:15)
[2017-02-22] MEDS ORDERED: METOPROLOL TARTRATE 25 MG TAB PO PRN (07:15)
[2017-02-22] MEDS ORDERED: LACTATED RINGER'S 1000 ML IV PRN (07:15)
[2017-02-22] MEDS ORDERED: ceFAZolin 2 GM PREMIX 50 ML IV SCH (07:15)
[2017-02-22] MEDS ORDERED: BAZACRE TOPICAL (07:17)
[2017-02-22 07:31] VITALS: BP 172/90; PULSE 91; RESP 22; TEMP 98.7; O2SAT 99
[2017-02-22 07:32] LABS: BLOOD, URINE NEG (NEG); GLUCOSE,URINE NEG (NEG); HYALINE CAST, URINE 4 /lpf (RARE); KETONE, URINE NEG (NEG); MUCUS URINE FEW /lpf (OCC); NITRITE,URINE NEG (NEG); PH, URINE 6.5 (5.0-8.5); SQUAMOUS EPITHELIAL CELL URINE <1 /hpf (0-5); URINE COLOR YELLOW (YELLW/STRAW)
[2017-02-22 07:33] LABS: COMMENT (UR) CULT NOT INDICATED; CULTURE IF INDICATED CULT NOT INDICATED
[2017-02-22] MEDS ORDERED: THROMBIN (TOPICAL) 5,000 UNIT VIAL ONE ×2 (07:56→11:43)
[2017-02-22] MEDS ORDERED: GENTAMICIN SULFATE 80 MG/2 ML VIAL ONE (07:57)
[2017-02-22] MEDS ORDERED: GELFOAM SIZE 100 ONE (07:57)
[2017-02-22] MEDS ORDERED: LIDOCAINE 1%/EPINEPHrine 1:100,000 SOLN 20 ML VIAL ONE (07:57)
[2017-02-22] MEDS ORDERED: MIDAZOLAM HCL 2 MG/2 ML VIAL ONE (08:12)
[2017-02-22] MEDS ORDERED: DEXAMETHASONE SOD PHOS 4 MG/ML VIAL ONE (08:12)
[2017-02-22] MEDS ORDERED: FAMOTIDINE 20 MG/2 ML VIAL ONE (08:12)
[2017-02-22] MEDS ORDERED: HEPARIN SODIUM - SQ 10,000 UNITS/ML VIAL ONE (08:22)
[2017-02-22] MEDS ORDERED: ceFAZolin INJ 1,000 MG VIAL IV ONE (11:35)
[2017-02-22] MEDS ORDERED: NORMOSOL R INJ 2,000 ML IV ONE (12:00)
[2017-02-22] MEDS ORDERED: NEOSTIGMINE 3 MG/3 ML SYR IV ONE (12:00)
[2017-02-22] MEDS ORDERED: ONDANSETRON HCL 4 MG/2 ML VIAL IV PUSH ONE (12:00)
[2017-02-22] MEDS ORDERED: LACTATED RINGER'S 1000 ML INJ 1,000 ML IV ONE (12:00)
[2017-02-22] MEDS ORDERED: PROPOFOL 200 MG/20 ML AMP IV ONE (12:00)
[2017-02-22] MEDS ORDERED: PHENYLEPH/NS 1000 MCG/10 ML SYR IV ONE (12:00)
[2017-02-22] MEDS ORDERED: fentaNYL CITRATE 250 MCG/5 ML AMP ONE ×3 (12:42→15:53)
[2017-02-22] MEDS ORDERED: ACETAMINOPHEN 1000 MG/100 ML VIAL IV ONE (12:43)
[2017-02-22] MEDS ORDERED: KETAMINE HCL 500 MG/5 ML VIAL ONE (12:59)
--- NOTE | 2017-02-22 15:19 | RADRPT ---
EXAM DATE/TIME: 02/22/2017 12:16 [facility] COMPARISON: No previous studies available for comparison. INDICATIONS : Fusion T12 with screws and rods placement T10 to L2. MEDICAL HISTORY : Cardiovascular disease. Hypertension. Pancreatitis. SURGICAL HISTORY : None. ENCOUNTER: Initial ACUITY: 1 day PAIN SCORE: Non-responsive. LOCATION: Thoracolumbar. FINDINGS: there has been a rodding around a T12 compression fracture. There are bilateral intrapedicular screw s at the two levels above and below the compressed T12 vertebral body. No complications. CONCLUSION: S/p fusion around the T12 vertebral body.. Pola García MD on February 22, 2017 at 15:15 Board Certified Radiologist. This report was verified electronically.
[2017-02-22] MEDS ORDERED: *LABETALOL HCL 100 MG/20 ML VIAL PERIprocedural Use ONLY ONE (16:09)
[2017-02-22] MEDS ORDERED: NALOXONE HCL 0.4 MG/ML AMP IV PRN (16:45)
[2017-02-22] MEDS ORDERED: MORPHINE SULFATE 4 MG/ML INJ ONE (16:49)
[2017-02-22] MEDS ORDERED: *morphine SULFATE 8 MG/ML PERIprocedure ONLY ONE (16:59)
[2017-02-22] MEDS ORDERED: PSYLLIUM PO PRN (17:00)
[2017-02-22] MEDS ORDERED: ACETAMINOPHEN 325 MG TAB PO PRN (17:00)
[2017-02-22] MEDS ORDERED: BISACODYL 10 MG SUPP RECTAL PRN (17:00)
[2017-02-22] MEDS ORDERED: SODIUM CHLORIDE 0.9% FLUSH 5 ML FLUSH IVF PRN (17:00)
[2017-02-22] MEDS: D5-1/2 NS + KCL 20 MEQ INJ 1,000 ML IV SCH (17:00)
[2017-02-22] MEDS ORDERED: *HYDROmorphone PF 1 MG VIAL PERIprocedural Use ONLY ONE ×2 (17:08→19:10)
[2017-02-22] MEDS ORDERED: PSYLLIUM FIBER SF/GF 6 GM POWD PKT PO PRN (17:15)
--- NOTE | 2017-02-22 17:34 | PD.OP ---
Operative Report Date of Surgery: February 22, 2017 Preoperative Diagnosis: (1) T12 vertebral fracture .Severe T12 compression fracture with retropulsion and severe canal stenosis Postoperative Diagnosis: (1) T12 vertebral fracture Severe T12 compression fracture with retropulsion and severe canal stenosis Procedure: 1. T12 right decompressive semi-laminectomy 2. intraoperative reduction T12 retropulsed compression fracture with partial resection of retropulsed fragments.. 3. Bilateral T10-L2 posterior fusion, local lamina autograft and allograft bone 4. Bilateral T10-L2 posterior instrumentation with percutaneous pedicle screw fixation 5. Repair T12 level dural tear-microtechnique Anesthesia: Gen. Surgeon: Joseph De Luna Director Of Casework Services(s): Breanna Harden Operation and Findings: Findings: Severe T12 compression fracture with significant retropulsed bone fragments impinging on the ventral thecal sac. Procedure in detail: The patient was brought to the operating room and general endotracheal anesthesia induced without difficulty Lines were established by Anesthesia Sequential compression devices were in place The patient was positioned prone on the concentric Jason table with the side bolsters and all extremities appropriately padded Leads for intraoperative neuro monitoring were placed prior to positioning and a baseline study obtained Appropriate time-out procedure was performed with all personnel present and in agreement The thoracic and lumbar regions were sterilely prepped. 1% Xylocaine with epinephrine was used for local infiltration at the initial incision site. The initial was made at the midline T11-12 level and carried sharply down to the fascia. The fascia was released adjacent to the T11-T12 and superior L1 spinous process on each side using the Bovie and the cutout elevator was used for subperiosteal elevation of paraspinous musculature and fascia on each side. The deep self-retaining retractor was placed The appropriate levels were verified with intraoperative C-arm The microscope was moved into place and used for the remainder of the procedure TPS drill with a 5 mm bone bur followed by the 2 and 3 mm Kerrison rongeurs were used to remove the inferior third of the right T11 and superior aspect of the right L1 lamina and the entire right side of the T12 lamina , and a moderate amount of the right T11-12 and T12-L1 medial facet sufficient to gain access to the lateral spinal canal without significant thecal sac or nerve root retraction. Ligament of flavum was elevated away from the thecal sac and resected with the Kerrison rongeur. In the process of performing the laminectomy, a small tear was produced at the dorsal lateral T12 level where the dura was very adherent to somewhat chronic appearing osteophyte. This dural tear was directly prepared using 6-0 Prolene running suture under high-power microscope magnification. A watertight closure was obtained. The [place] 4 dissector and the thin ligament dissectors were used to free up the ventral lateral thecal sac and exiting T12 nerve root away from the surrounding structures on the right side.. The thin footplate impactors and small reverse curettes were then used to carefully impacted the retropulsed T12 bone away from the thecal sac to reduce the T12 compression fracture and decompress the spinal canal, thecal sac and exiting T12 nerve roots. The decompression was carefully assessed under the microscope as well as with the intraoperative C-arm. Great care was taken during this portion of the procedure not to place any significant retraction of the thecal sac. Any loose fragments of retropulsed bone and some ruptured T 11-12 disc fragments were removed with the micro- pituitary biopsy forceps. Next, the bilateral percutaneous pedicle screw placement and fusion was performed. 1% Xylocaine with epinephrine was used for local infiltration over each pedicle screw incision site which was made approximately 35 mm lateral to the midline at the bilateral T10 through L2 levels levels with each incision carried sharply down to the fascia. The fascia was sharply incised and finger dissection was used to separate the normal intermuscular plane down to the entry point of the pedicle at the T10, T11, L1, and L2 levels on each side. The entry point for the pedicle screws were determined by anatomic and radiographic landmarks. Using AP and lateral C-arm imaging, the Jamshidi needle was guided through the bilateral T10, T11, L1, and L2 pedicles.. The intraoperative C-arm imaging was used to verify appropriate Jamshidi needle placement. The wires were then placed through the Jamshidi needle cannulas, and the cannula was withdrawn. The soft tissue dilators were then advanced along each guidewire and the bone reamer was used to prepare the pedicle at each guidewire site and decorticate the adjacent facet for the fusion Prior to placement of the pedicle screw at each level, demineralized bone matrix was placed alongside the decorticated facet. The appropriate size pedicle screw was in place at the bilateral T10, T11, L1, and L2 level The pedicle screw placement was checked with intraoperative AP and lateral C- arm imaging at each level and felt to be satisfactory. The odilon on each side was then passed percutaneously and the locking screws placed and secured with the torque wrench and antitorque device. The entire construct was checked with AP and lateral C-arm and felt to be satisfactory. The entire region was copiously irrigated with antibiotic irrigation. Bleeding was carefully controlled with bipolar forceps. The posterior structures at the bilateral T10-L2 levels were then carefully decorticated with the TPS drill with a 5 mm bone bur. The bone shavings from the decortication were left in place, to which was added additional retained laminar cortical and cancellus fragments and demineralized bone matrix, which was firmly packed into place along the decorticated posterior lateral structures at the T10-L2 levels. There is no significant bleeding at the time of closure and it was elected not to leave a drain in place. The closure at each incision site was performed with 0 Vicryl interrupted for the deep and superficial fascia, with 3-0 Vicryl for the subcutaneous closure and 4-0 Vicryl running subcuticular closure. Dressings sterile Mastisol, Steri-Strips and Primapore was placed The patient was turned into supine position and taken to recovery room in stable condition All counts were correct at the end of the case Estimated blood loss was 200 cc No specimen was sent to pathology Neuro monitoring was stable during the procedure Joseph De Luna MD February 22, 2017 17:34
[2017-02-22] MEDS: traMADol HCL 50 MG TAB PO SCH (18:00)
[2017-02-22 20:30] VITALS: BP 129/60; PULSE 96; RESP 20; TEMP 97.4; O2SAT 99
[2017-02-22] MEDS: DOCUSATE SODIUM 50 MG/SENNA 8.6 MG TAB PO SCH (20:57)
[2017-02-22] MEDS: ACETAMINOPHEN/HYDROcodone 325 MG/10 MG TAB PO PRN (20:58)
[2017-02-22] MEDS ORDERED: SENNOSIDES DOCUSATE SODIUM PO SCH (21:00)
[2017-02-22] MEDS ORDERED: DOCUSATE SODIUM 50 MG/SENNA 8.6 MG TAB PO SCH (21:00)
[2017-02-22] MEDS ORDERED: DOCUSATE SODIUM 100 MG CAP PO SCH (21:00)
[2017-02-22] MEDS: SODIUM CHLORIDE 0.9% FLUSH 5 ML FLUSH IVF SCH (21:00)
[2017-02-22 22:00] VITALS: PULSE 100
[2017-02-23] VITALS (12 sets, daily range): BP systolic 109–155; BP diastolic 58–83; PULSE 90–108; RESP 16–28; TEMP 98.4–99.1; O2SAT 94–99
[2017-02-23] MEDS: traMADol HCL 50 MG TAB PO SCH ×5 (00:39→23:43)
[2017-02-23] MEDS: HYDROmorphone HCL PF 1 MG/ML VIAL IV PRN (02:45)
[2017-02-23] MEDS: D5-1/2 NS + KCL 20 MEQ INJ 1,000 ML IV SCH ×2 (04:08→12:44)
[2017-02-23 04:46] LABS: AUTOMATED NEUTROPHIL # 10.9 TH/MM3 (1.8-7.7); BASOPHIL % 0.1 % (0.0-2.0); HEMATOCRIT 29.6 % (35.0-46.0); HEMO FLAGS DIFF FINAL; LYMPH % 15.1 % (9.0-44.0); LYMPHOCYTE # 2.2 TH/MM3 (1.0-4.8); MEAN CELL VOLUME 88.8 FL (80.0-100.0); MEAN CORPUSCULAR HEMOGLOBIN 29.3 PG (27.0-34.0); MONO % 9.2 % (0.0-8.0); NEUT % 75.6 % (16.0-70.0); PLATELET COUNT 294 TH/MM3 (150-450); RED BLOOD COUNT 3.33 MIL/MM3 (4.00-5.30); RED CELL DISTRIBUTION WIDTH 14.4 % (11.6-17.2); WHITE BLOOD COUNT 14.5 TH/MM3 (4.0-11.0)
[2017-02-23 05:05] LABS: BICARBONATE 26.9 MEQ/L (21.0-32.0); POTASSIUM 4.1 MEQ/L (3.5-5.1)
[2017-02-23] MEDS: GABAPENTIN 300 MG CAP PO SCH ×3 (08:15→20:02)
[2017-02-23] MEDS: MULTIVITAMIN TAB PO SCH (08:16)
[2017-02-23] MEDS: MAGNESIUM OXIDE 400 MG TAB PO SCH (08:16)
[2017-02-23] MEDS: DOCUSATE SODIUM 50 MG/SENNA 8.6 MG TAB PO SCH ×2 (08:16→20:03)
[2017-02-23] MEDS: LACTOBACILLUS ACIDOPHILUS TAB PO SCH (08:16)
[2017-02-23] MEDS: PANTOPRAZOLE SOD 40 MG DELAYED RELEASE TAB PO SCH (08:16)
[2017-02-23] MEDS: LOSARTAN 25 MG TAB PO SCH (08:16)
[2017-02-23] MEDS: POTASSIUM CHLORIDE 10 MEQ CONTROLLED RELEASE TAB PO SCH (08:16)
[2017-02-23] MEDS: SODIUM CHLORIDE 0.9% FLUSH 5 ML FLUSH IVF SCH ×2 (08:16→20:02)
[2017-02-23] MEDS ORDERED: MAGNESIUM OXIDE 400 MG PO SCH (09:00)
[2017-02-23] MEDS: FLUTICASONE 100 MCG/VILANTEROL 25 MCG INHALER INH SCH (09:00)
[2017-02-23] MEDS ORDERED: NON-FORMULARY DRUG (Omeprazole 10 MG) PO SCH (09:00)
[2017-02-23] MEDS ORDERED: [UNRECOGNIZED DRUG - OTHER] PO SCH (09:00)
[2017-02-23] MEDS ORDERED: NON-FORMULARY DRUG (Multiple Vitamin (Multi-Vitamin Daily) 1 TAB) PO SCH (09:00)
[2017-02-23] MEDS ORDERED: LACTOBACILLUS RHAMNOSUS PO SCH (09:00)
[2017-02-23] MEDS: MORPHINE SULFATE 4 MG/ML INJ IV PRN (09:41)
--- NOTE | 2017-02-23 09:54 | HHI.NSPN ---
(Artie Aguirre) Note Status Status: Progress Note (Artie Augirre) Interval History Interval History 02/22: Patient presented to [facility] for a T12 right decompressive semi- laminectomy and bilateral T10-L2 posterior fusion w/instrumentation & percutaneous pedicle screw fixation due to a severe T12 fracture. She also had a repair of a T12 level dural tear by microtechnique. Post-operatively she was admitted to the [facility]. 02/23: This morning the patient is in pain to the back but she is not able to localise it. She was medicated prior to being seen. She also stated she had tingling and pain to the anterior and anterolateral thigh bilaterally. Her TLSO is in the room and as this practitioner was leaving Physical Therapy came in to evaluate the patient and get her up to a chair. 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 Pola García MD / 06:00 18:00 06:00 18:00 06:00 18:00 Intake Total 2300 ml 1560 ml Output Total 900 ml 650 ml Balance 1400 ml 910 ml Intake Oral 340 ml IV Total 1220 ml Other 2300 ml Output Urine Total 700 ml 650 ml Estimated Blood Loss 200 ml # Bowel Movements 0 Laboratory Tests Test 02/22/17 02/23/17 02/23/17 07:10 02:10 04:30 Urine Color YELLOW Urine Turbidity CLEAR Urine pH 6.5 Urine Specific [place] 1.014 Urine Protein NEG mg/dL Urine Glucose (UA) NEG mg/dL Urine Ketones NEG mg/dL Urine Occult Blood NEG Urine Nitrite NEG Urine Bilirubin NEG Urine Urobilinogen LESS THAN 2.0 MG/DL Urine Leukocyte Esterase SMALL Urine RBC LESS THAN 1 /hpf Urine WBC 4 /hpf Urine Squamous Epithelial <1 /hpf Cells Urine Hyaline Casts 4 /lpf Urine Mucus FEW /lpf Microscopic Urinalysis Comment CULT NOT INDICATED Blood Type O POSITIVE Antibody Screen NEGATIVE Blood Bank Comment Nasal Screen MRSA (PCR) MRSA DETECTED White Blood Count 14.5 TH/MM3 Red Blood Count 3.33 MIL/MM3 Hemoglobin 9.8 GM/DL Hematocrit 29.6 % Mean Corpuscular Volume 88.8 FL Mean Corpuscular Hemoglobin 29.3 PG Mean Corpuscular Hemoglobin 33.0 % Concent Red Cell Distribution Width 14.4 % Platelet Count 294 TH/MM3 Mean Platelet Volume 7.7 FL Neutrophils (%) (Auto) 75.6 % Lymphocytes (%) (Auto) 15.1 % Monocytes (%) (Auto) 9.2 % Eosinophils (%) (Auto) 0.0 % Basophils (%) (Auto) 0.1 % Neutrophils # (Auto) 10.9 TH/MM3 Lymphocytes # (Auto) 2.2 TH/MM3 Monocytes # (Auto) 1.3 TH/MM3 Eosinophils # (Auto) 0.0 TH/MM3 Basophils # (Auto) 0.0 TH/MM3 CBC Comment DIFF FINAL Differential Comment Sodium Level 135 MEQ/L Potassium Level 4.1 MEQ/L Chloride Level 100 MEQ/L Carbon Dioxide Level 26.9 MEQ/L Anion Gap 8 MEQ/L Blood Urea Nitrogen 7 MG/DL Creatinine 0.55 MG/DL Estimat Glomerular Filtration 106 ML/MIN Rate Random Glucose 127 MG/DL Calcium Level 8.7 MG/DL Constitutional Vital Signs Date Time Temp Pulse Resp B/P Pulse Ox O2 Delivery O2 Flow Rate FiO2 02/23/17 08:00 98.6 100 22 138/83 98 02/23/17 08:00 104 02/23/17 07:00 95 Room Air 02/23/17 06:00 108 02/23/17 04:00 104 02/23/17 04:00 98.4 96 16 155/72 94 02/23/17 02:00 94 02/23/17 00:00 105 02/23/17 00:00 98.8 105 25 140/65 99 02/22/17 22:00 100 02/22/17 20:30 96 02/22/17 20:30 97.4 96 20 129/60 99 Arterial Line 02/22/17 20:00 89 16 111/55 98 Nasal Cannula 2 02/22/17 19:30 87 16 110/53 99 Nasal Cannula 2 02/22/17 19:00 86 18 111/55 100 Nasal Cannula 2 02/22/17 18:30 82 16 102/54 100 Nasal Cannula 2 02/22/17 18:00 75 16 113/55 100 Nasal Cannula 02/22/17 17:15 70 18 134/59 99 Nasal Cannula 4 02/22/17 17:00 69 18 166/71 99 Nasal Cannula 4 02/22/17 16:45 67 18 160/98 99 Nasal Cannula 4 02/22/17 16:30 66 18 170/87 99 Nasal Cannula 4 02/22/17 16:15 66 18 158/84 96 Nasal Cannula 4 02/22/17 16:00 68 18 161/73 97 Nasal Cannula 4 02/22/17 15:45 97.4 67 20 145/63 100 Simple Mask 8 02/23/17 07:00 Intake Total 3860 ml Output Total 1550 ml Balance 2310 ml (Artie Aguirre) Review of Systems/Exam ROS Constitutional: Patient denies any fever or chills. Neck: Patient denies any neck pain. Respiratory: Patient denies any shortness of breath or productive cough. Cardiovascular: Patient denies any chest pain, palpitations or irregular heart beat. Gastrointestinal: Patient denies any abdominal pain, nausea, vomiting or bowel incontinence. Extremities: Patient complains of pain to the front and side of both thighs and both legs being weak. Back: Patient complains of pain to the back but is unable to localise where. Neurological: Patient complains of tingling to the front and side of both thighs. She denies any headache, dizziness or numbness. Exam General: Patient awake, moaning with pain and appears in mild to moderate distress. HEENT: Normocephalic, atraumatic. Resp: CTAB w/o W/R/R, equal excursion, non-laboured, on RA. CV: S1S2 w/RRR w/o M/G/R, radial & pedal pulses 2+ bilaterally, cap refill < 2 sec. Monitor is sinus rhythm w/o any ectopy noted. GI: Abdomen soft, positive bowel sounds. : Egan catheter to BSD w/clear yellow urine. Extremities: GAUTHIER. Extremities normal, left anterior and anterolateral thigh were NTTP but a couple minutes later was TTP. Back: Mid thoracic to upper lumbar mildly TTP but moderately TTP over T12. Neuro: Awake & alert, oriented to person, place & month but gets year wrong. Speech clear & appropriate. Follows simple commands. Sensation decreased to bilateral medial thighs. Motor strength 5/5 RUE, 4+/5 LUE, 4+/5 RLE and left hip flexion 1/5 & left plantar flexion/extension 3/5 which may be pain related. (Artie Aguirre) Medications Current Medications Current Medications Medications (Trade) Dose Ordered Sig/Radha Route Start Time Stop Time Status Last Admin Lactated Ringer's 1,000 ml @ 0 mls/hr Q0M IV 02/22/17 07:15 Lactated Ringer's 1,000 ml @ 30 mls/hr Q24H PRN IV 02/22/17 07:15 02/25/17 07:14 02/22/17 07:10 (NS 500 ml Inj) 500 ml @ 30 mls/hr [id number] PRN IV 02/22/17 07:15 02/25/17 07:14 ([place] 5-325 Mg) 1 tab Q4H PRN PO 02/22/17 16:45 ([place] 10-325 Mg) 1 tab Q4H PRN PO 02/22/17 16:45 02/22/17 20:58 (Dilaudid Pf Inj) 0.5 mg Q3H PRN IV 02/22/17 16:45 02/23/17 02:45 (Morphine Inj) 4 mg Q3H PRN IV 02/22/17 16:45 02/23/17 09:41 (Narcan Inj) 0.4 mg UNSCH PRN IV 02/22/17 16:45 (Protonix) 40 mg DAILY PO 02/23/17 09:00 02/23/17 08:16 (Zofran Inj) 4 mg Q6H PRN IV 02/22/17 16:45 (Tylenol) 650 mg Q6H PRN PO 02/22/17 17:00 (Dulcolax Supp) 10 mg DAILY PRN RECTAL 02/22/17 17:00 (Breo Ellipta 100-25 Inh) 1 puff DAILY INH 02/23/17 09:00 (Neurontin) 300 mg BID PO 02/22/17 21:00 02/23/17 08:15 (Cozaar) 25 mg DAILY PO 02/23/17 09:00 02/23/17 08:16 (Milk Of Magnesia Liq) 30 ml DAILY PRN PO 02/22/17 17:00 (KCl) 10 meq DAILY PO 02/23/17 09:00 02/23/17 08:16 (Ultram) 50 mg Q6H PO 02/22/17 18:00 02/23/17 00:39 (NS Flush) 2 ml UNSCH PRN IVF 02/22/17 17:00 IV Flush 2 ml 2 ml BID IVF 02/22/17 21:00 02/23/17 08:16 (D5-1/2 NS + KCl 20 Meq Inj) 1,000 ml @ 100 mls/hr Q10H IV 02/22/17 17:00 02/23/17 04:08 (Mag-Ox) 400 mg DAILY PO 02/23/17 09:00 02/23/17 08:16 (Theragran) 1 tab DAILY PO 02/23/17 09:00 02/23/17 08:16 (Lactinex) 1.5 tab DAILY PO 02/23/17 09:00 02/23/17 08:16 (Metamucil Smooth Texture Sf/ Gf Pkt) 1 pkt BID PRN PO 02/22/17 17:15 (Lexii-Colace) 1 tab BID PO 02/22/17 21:00 02/23/17 08:16 (Artie Aguirre) Medical Decision Making MDM Remarks Impression: (1) T12 vertebral fracture Severe T12 compression fracture with retropulsion and severe canal stenosis POD # 1 () s/p: 1. T12 right decompressive semi-laminectomy 2. intraoperative reduction T12 retropulsed compression fracture with partial resection of retropulsed fragments.. 3. Bilateral T10-L2 posterior fusion, local lamina autograft and allograft bone 4. Bilateral T10-L2 posterior instrumentation with percutaneous pedicle screw fixation 5. Repair T12 level dural tear-microtechnique Patient reports that she does have LUE weakness chronically Anterior & anterolateral thigh pain & tingling bilaterally Decreased motor function LLE (Artie Aguirre) Plan Plan Remarks Neuro checks PT eval & tx Mobilise patient with assistance Pain control Diet Will add cyclobenzaprine 5 mg PO TID PRN spasm Will consult Return Checker due to broken snap with TLSO brace (Artie Aguirre ) Attending Statement I have personally seen and examined the patient on the date of this note. Pertinent documentation and study results have been reviewed by the undersigned. I have personally developed the treatment plan and performed medical decision making. Agree with findings, exam, and treatment plan as noted above. Patient has persistent left lower extremity pain symptoms postop. Moderate tenderness to palpation over the left calf, but not reproducible with repetitive testing. Lower extremity strength is mostly 4/5 right, 3/5 proximal and 2-3/5 distal left lower extremity. May be weaker in the left lower extremity postoperatively , however she is still a little lethargic with some difficulty consistently following commands, possibly related to pain medications, and also has some guarding in the left lower extremity due to persistent pain. Plan to proceed with postoperative MRI of the thoracic and lumbar spine to make certain that she does not have a postoperative hematoma or other source of persistent spinal cord or nerve compression. (Joseph De Luna MD) Artie Aguirre February 23, 2017 09:54 Joseph De Luna MD February 23, 2017 23:37
[2017-02-23] MEDS: CYCLOBENZAPRINE HCL 10 MG TAB PO PRN (11:32)
[2017-02-23] MEDS: ACETAMINOPHEN/HYDROcodone 325 MG/10 MG TAB PO PRN ×2 (13:25→20:03)
[2017-02-23] MEDS: DEXT 5%-NACL 0.45% 1000 ML INJ 1,000 ML IV SCH ×2 (17:53→23:42)
[2017-02-23] MEDS: MUPIROCIN 2% OINT 1 APPLIC/GM SYR EACH NARE SCH (20:02)
[2017-02-24] VITALS (12 sets, daily range): BP systolic 94–165; BP diastolic 54–84; PULSE 92–103; RESP 19–28; TEMP 98.2–99; O2SAT 90–98
[2017-02-24] MEDS: CYCLOBENZAPRINE HCL 10 MG TAB PO PRN (03:11)
[2017-02-24] MEDS: MORPHINE SULFATE 4 MG/ML INJ IV PRN (03:12)
[2017-02-24] MEDS: traMADol HCL 50 MG TAB PO SCH ×4 (05:12→23:13)
--- NOTE | 2017-02-24 08:36 | RADRPT ---
EXAM DATE/TIME: 02/24/2017 07:44 [facility] COMPARISON: CT LUMBAR SPINE W/O CONTRAST, December 26, 2016, 14:06. SPINE THORACOLUMBAR (AP&LAT), February 22, 2017, 12: 16. MRI THORACIC SPINE W/O CONTRAST, October 16, 2016, 14:54. INDICATIONS : Myelopathy. Left leg weakness. MEDICAL HISTORY : Hypertension. SURGICAL HISTORY : Discectomy, thoracic. Total knee replacement, left. Fusion, thoracic. Left hip replacement. ENCOUNTER: Initial ACUITY: 2 day PAIN SCORE: 6/10 LOCATION: Paraspinal TECHNIQUE: Multiplanar multisequence MRI of the thoracic spine was performed. FINDINGS: Postsurgical findings are identified in the lower thoracic and upper lumbar regions. Posterior rods a re seen extending from T10-L2. Pedicle screws are seen at T10, T11, L1, and L2. Fracture T12 vertebra l body again identified. Heterogeneous abnormal signal is seen immediately posterior to the T12 verte bral body involving the epidural space. It results in mass effect and displacement of the spinal cord . The epidural abnormality measures 2.1 cm in craniocaudal dimension and 0.9 cm in anterior posterior dimension. It has high to intermediate signal on the T2-weighted images and mixed mild hyperintensit y and hypointensity to muscle on the T1-weighted images. Differential diagnosis is retropulsed bone f ragment versus epidural hematoma. There is evidence of adjacent spinal cord signal abnormality indica ting myelomalacia or contusion. No new fracture identified. Alignment within normal limits. Intervertebral discs are within normal li mits. CONCLUSION: T12 vertebral body fracture again identified. Postsurgical findings with posterior hardware above and below the fracture level. Posterior bone defect at the fracture level. There is abnormal anterior ep idural signal extending from the posterior aspect of the fractured vertebral body. Differential diagn osis is bone fragment versus epidural hematoma. It results in mass effect on the spinal cord with pos terior displacement of the spinal cord and deformity of the spinal cord. There is adjacent intrinsic signal abnormality in the spinal cord. Antoine Franklin MD on February 24, 2017 at 8:22 Board Certified Radiologist. This report was verified electronically.
--- NOTE | 2017-02-24 08:57 | RADRPT ---
EXAM DATE/TIME: 02/24/2017 07:44 [facility] COMPARISON: MRI THORACIC SPINE W/O CONTRAST, February 24, 2017, 7:44. CT LUMBAR SPINE W/O CONTRAST, December 26, 2016, 1 4:06. MRI THORACIC SPINE W/O CONTRAST, October 16, 2016, 14:54. INDICATIONS : Myelopathy. Left side weakness. MEDICAL HISTORY : Hypertension. SURGICAL HISTORY : Total knee replacement, left. Discectomy, thoracic. Fusion, thoracic. Left hip replacement. ENCOUNTER: Initial ACUITY: 2 day PAIN SCORE: 6/10 LOCATION: Paraspinal TECHNIQUE: Multiplanar multisequence MRI of the lumbar spine was performed without contrast. FINDINGS: Fractured T12 as well as post surgical changes extending from T10-L2 are fully described on thoracic spine MRI report. Anterior epidural signal abnormality at the fracture level with resulting mass effe ct on the spinal cord also fully described on thoracic spine MRI report. There is posterior epidural signal abnormality extending from the level surgery to the level of this L3 vertebral body. It is isointense to CSF on the T2-weighted images and mildly hyperintense to CSF o n the T1-weighted images. This finding is eccentric to the right and results in displacement of predo minantly right-sided nerve roots from the level of L1 to the level of L3. Maximum central canal narro wing is at L2-3 AP diameter of the thecal sac at this level is 6 mm. No evidence of fracture in the lumbar region. Mild broad-based disc bulges at L2-3, L3-4, L4-5, and L 5-S1. Severe bilateral facet arthrosis at L4-5 again seen along with grade 1 anterolisthesis. Central canal stenosis at this level is unchanged. Mild bilateral neural foraminal narrowing unchanged. Mireya re facet arthrosis and L5-S1 also unchanged. CONCLUSION: 1. Postsurgical findings at T12 and fracture T12 again seen. Anterior epidural signal abnormality at T12 is fully described on thoracic spine MRI. This may represent bone fragments versus hematoma. 2. Posterior epidural hematoma is seen extending from L1-L3 with resulting central canal stenosis and displacement of nerve roots. Area of maximum narrowing is at the level of L2-3. 3. Degenerative findings of the lower lumbar spine grossly unchanged from prior CT with facet arthros is and anterolisthesis at L4-5 resulting in mild/moderate central canal stenosis. Antoine Franklin MD on February 24, 2017 at 8:43 Board Certified Radiologist. This report was verified electronically.
[2017-02-24] MEDS: SODIUM CHLORIDE 0.9% FLUSH 5 ML FLUSH IVF SCH ×2 (09:00→20:39)
[2017-02-24] MEDS: LOSARTAN 25 MG TAB PO SCH ×2 (09:00→09:10)
[2017-02-24] MEDS: MUPIROCIN 2% OINT 1 APPLIC/GM SYR EACH NARE SCH ×2 (09:09→20:38)
[2017-02-24] MEDS: GABAPENTIN 300 MG CAP PO SCH ×2 (09:10→17:00)
[2017-02-24] MEDS: ACETAMINOPHEN/HYDROcodone 325 MG/10 MG TAB PO PRN ×2 (09:10→16:21)
[2017-02-24] MEDS: LACTOBACILLUS ACIDOPHILUS TAB PO SCH (09:10)
[2017-02-24] MEDS: MAGNESIUM OXIDE 400 MG TAB PO SCH (09:10)
[2017-02-24] MEDS: PANTOPRAZOLE SOD 40 MG DELAYED RELEASE TAB PO SCH (09:10)
[2017-02-24] MEDS: DOCUSATE SODIUM 50 MG/SENNA 8.6 MG TAB PO SCH ×2 (09:10→20:38)
[2017-02-24] MEDS: POTASSIUM CHLORIDE 10 MEQ CONTROLLED RELEASE TAB PO SCH (09:10)
[2017-02-24] MEDS: MULTIVITAMIN TAB PO SCH (09:11)
[2017-02-24] MEDS: FLUTICASONE 100 MCG/VILANTEROL 25 MCG INHALER INH SCH (10:23)
--- NOTE | 2017-02-24 12:08 | RADRPT ---
EXAM DATE/TIME: 02/24/2017 10:51 [facility] COMPARISON: CT LUMBAR SPINE W/O CONTRAST, February 24, 2017, 10:51. MRI THORACIC SPINE W/O CONTRAST, February 24, 2017, 7: 44. INDICATIONS : Evaluate for hematoma post surgery. RADIATION DOSE: 35.86 CTDIvol (mGy) ; Combined studies - Thoracic Spine/Lumbar Spine MEDICAL HISTORY : None SURGICAL HISTORY : T12-L2 fusion ENCOUNTER: Initial ACUITY: 1 day PAIN SCALE: 4/10 LOCATION: Bilateral thoracic. TECHNIQUE: Volumetric scanning of the thoracic spine was performed. Multiplanar reconstructions in the sagittal , coronal and oblique axial planes were performed. Using automated exposure control and adjustment o f the mA and/or kV according to patient size, radiation dose was kept as low as reasonably achievable to obtain optimal diagnostic quality images. FINDINGS: Fracture of the T12 vertebral body is again identified, best seen on the lumbar spine images. The ant erior epidural signal abnormality identified on MRI correlates with retropulsed bone fragments and po stoperative gas on CT. The posterior hematoma identified on the lumbar spine MRI is not well-demonstr ated on CT. All other levels are unchanged. No new fracture. Hardware intact. CONCLUSION: 1. Post surgical findings. Retropulsed bone fragment and gas seen anteriorly in the central canal at the level of surgery corresponding to signal abnormality described on MRI. Posterior laminectomy bone defect at the level surgery. 2. The posterior epidural fluid/hematoma from L1-L3 seen on MRI is not well-demonstrated on CT. Antoine Franklin MD on February 24, 2017 at 11:59 Board Certified Radiologist. This report was verified electronically.
--- NOTE | 2017-02-24 12:16 | RADRPT ---
EXAM DATE/TIME: 02/24/2017 10:51 [facility] COMPARISON: CT LUMBAR SPINE W/O CONTRAST, December 26, 2016, 14:06. INDICATIONS : Evaluate for hematoma post surgery. RADIATION DOSE: 35.86 CTDIvol (mGy) ; Combined studies - Thoracic Spine/Lumbar Spine MEDICAL HISTORY : None SURGICAL HISTORY : T10-l2 fusion. ENCOUNTER: Initial ACUITY: 1 day PAIN SCALE: 5/10 LOCATION: Bilateral lumbar TECHNIQUE: Volumetric scanning of the lumbar spine was performed. Multiplanar reconstructions in the sagittal, coronal and oblique axial planes were performed. Using automated exposure control and adjustment of the mA and/or kV according to patient size, radiation dose was kept as low as reasonably achievable t o obtain optimal diagnostic quality images. FINDINGS: Old fracture is again identified at T12 with retropulsed bone fragments correlating with MRI signal a bnormality in the anterior aspect of the central canal. There is residual narrowing of the left side of the central canal. Posterior laminectomy defect is seen at this level. The posterior fluid identif ied within the central canal from L1-L3 on the MRI is not well-demonstrated on CT. There is a nondisplaced chronic fracture of the left-sided inferior facet of L5. The fracture line is more distinct on the current study. Multilevel degenerative findings are unchanged. Calcified gallstones noted. CONCLUSION: 1. Postsurgical findings and old fracture at T12 again identified. Residual bone fragments are seen a nteriorly in the central canal resulting in narrowing of the left side of the central canal. Right-si ded laminectomy defect noted. 2. Chronic nondisplaced fracture of the left inferior facet of L5. Fracture line is more distinct juan josé n on the comparison study of December. 3. Multilevel degenerative findings unchanged. 4. Calcified gallstones noted. Antoine Franklin MD on February 24, 2017 at 12:06 Board Certified Radiologist. This report was verified electronically.
[2017-02-24] MEDS: DEXT 5%-NACL 0.45% 1000 ML INJ 1,000 ML IV SCH (14:00)
[2017-02-24] MEDS: DEXAMETHASONE SOD PHOS 4 MG/ML VIAL IV PUSH SCH ×2 (17:00→21:04)
[2017-02-24 19:10] LABS: HEMATOCRIT 28.8 % (35.0-46.0); MEAN CELL VOLUME 89.4 FL (80.0-100.0); MEAN CORPUSCULAR HEMOGLOBIN 29.4 PG (27.0-34.0); MEAN CORPUSCULAR HGB CONC 32.9 % (32.0-36.0); PLATELET COUNT 232 TH/MM3 (150-450); RED BLOOD COUNT 3.22 MIL/MM3 (4.00-5.30); RED CELL DISTRIBUTION WIDTH 14.1 % (11.6-17.2); REVIEW FLAG FINAL; WHITE BLOOD COUNT 11.6 TH/MM3 (4.0-11.0)
[2017-02-24 19:31] LABS: POTASSIUM 3.9 MEQ/L (3.5-5.1)
--- NOTE | 2017-02-24 20:13 | HHI.NSPN ---
History Chief Complaint: left calf pain Interval History 81-year-old female with progressive severe T12 compression fracture with significant kyphosis and retropulsion. 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 Status post T12 open fracture reduction with laminectomy, posterior instrumentation 02/22/17 Exam Results Vital Signs Date Time Temp Pulse Resp B/P Pulse Ox O2 Delivery O2 Flow Rate FiO2 02/24/17 18:00 103 02/24/17 16:00 98.2 19 146/64 95 02/24/17 07:00 Nasal Cannula 2.00 Intake and Output 02/23/17 02/23/17 02/24/17 08:00 16:00 00:00 Intake Total 1415 ml 1256 ml 1078 ml Output Total 400 ml 525 ml 775 ml Balance 1015 ml 731 ml 303 ml Physical Examination General: Awake and alert this morning. Appears much more comfortable and alert compared to the past day. HEENT: No facial edema Resp: Clear and regular : Egan catheter to BSD w/clear pale yellow urine. Extremities: No significant lower extremity edema. Back: Dressing dry and intact. Neuro: Awake and alert this morning. No agitation. Mild slowing of speech and thought processes Follows simple commands with no significant difficulty Sensation intact light touch upper extremities Mild decreased sensation to light touch distal right lower extremity Moderate decreased sensation somewhat diffuse left calf and foot, primarily L5 distribution Positive dysesthesia to light touch primarily L5 distribution left calf, to lesser degree the medial left calf. This was rather severe yesterday, much less pronounced today. Strength is within normal limits in the upper extremities except for possible mild decreased left hand intrinsics Strength is within normal limits in right and left iliopsoas, quadriceps, hamstrings with 4 right and to left tibialis anterior, 5 right and 3+ left gastrocsoleus. No ankle clonus Plantar responses are neutral Olivia's response absent bilateral Lab, Micro, Other Results 02/24/[address] scan of the thoracic and lumbar spine images are reviewed by the undersigned. The study reveals some residual retropulsed bone and disc at the left side of the spinal canal. Bone fragments appeared well decompressed at the central to right canal, however there does appear to be epidural hematoma with thecal sac impingement. Probable mild increase in intensity within the cord at the T12 level There is a CSF signal intensity fluid collection at the right dorsal lateral thecal sac at the L3 level. May represent an arachnoid fluid collection. Less likely hematoma. Moderate L4 5 canal lateral recess stenosis persists unchanged from preoperative study T10-L2 instrumentation in good position Thoracic Spine MRI 02/24/17 Signed Impressions: Service Date/Time: Friday, February 24, 2017 07:44 - CONCLUSION: T12 vertebral body fracture again identified. Postsurgical findings with posterior hardware above and below the fracture level. Posterior bone defect at the fracture level. There is abnormal anterior epidural signal extending from the posterior aspect of the fractured vertebral body. Differential diagnosis is bone fragment versus epidural hematoma. It results in mass effect on the spinal cord with posterior displacement of the spinal cord and deformity of the spinal cord. There is adjacent intrinsic signal abnormality in the spinal cord. Antoine Franklin MD Thoracic Spine CT 02/24/17 Signed Impressions: Service Date/Time: Friday, February 24, 2017 10:51 - CONCLUSION: 1. Post surgical findings. Retropulsed bone fragment and gas seen anteriorly in the central canal at the level of surgery corresponding to signal abnormality described on MRI. Posterior laminectomy bone defect at the level surgery. 2. The posterior epidural fluid/hematoma from L1-L3 seen on MRI is not well-demonstrated on CT. Antoine Franklin MD Lumbar Spine MRI 02/24/17 Signed Impressions: Service Date/Time: Friday, February 24, 2017 07:44 - CONCLUSION: 1. Postsurgical findings at T12 and fracture T12 again seen. Anterior epidural signal abnormality at T12 is fully described on thoracic spine MRI. This may represent bone fragments versus hematoma. 2. Posterior epidural hematoma is seen extending from L1-L3 with resulting central canal stenosis and displacement of nerve roots. Area of maximum narrowing is at the level of L2-3. 3. Degenerative findings of the lower lumbar spine grossly unchanged from prior CT with facet arthrosis and anterolisthesis at L4-5 resulting in mild/moderate central canal stenosis. Antoine Franklin MD Lumbar Spine CT 02/24/17 Signed Impressions: Service Date/Time: Friday, February 24, 2017 10:51 - CONCLUSION: 1. Postsurgical findings and old fracture at T12 again identified. Residual bone fragments are seen anteriorly in the central canal resulting in narrowing of the left side of the central canal. Right-sided laminectomy defect noted. 2. Chronic nondisplaced fracture of the left inferior facet of L5. Fracture line is more distinct than on the comparison study of December. 3. Multilevel degenerative findings unchanged. 4. Calcified gallstones noted. Antoine Franklin MD Thoracolumbar Spine 02/22/17 0000 Signed Impressions: Service Date/Time: , February 22, 2017 12:16 - CONCLUSION: S/p fusion around the T12 vertebral body.. Pola García MD Laboratory Tests Test 02/24/17 18:43 White Blood Count 11.6 TH/MM3 Red Blood Count 3.22 MIL/MM3 Hemoglobin 9.5 GM/DL Hematocrit 28.8 % Mean Corpuscular Volume 89.4 FL Mean Corpuscular Hemoglobin 29.4 PG Mean Corpuscular Hemoglobin 32.9 % Concent Red Cell Distribution Width 14.1 % Platelet Count 232 TH/MM3 Mean Platelet Volume 8.2 FL Sodium Level 132 MEQ/L Potassium Level 3.9 MEQ/L Chloride Level 98 MEQ/L Carbon Dioxide Level 25.0 MEQ/L Anion Gap 9 MEQ/L Blood Urea Nitrogen 4 MG/DL Creatinine 0.43 MG/DL Estimat Glomerular Filtration 141 ML/MIN Rate Random Glucose 206 MG/DL Calcium Level 8.3 MG/DL Medical Decision Making Impression and Plan Impression: 1. Patient has increased pain and motor deficit in primarily left L5 distribution postoperatively. Despite the rather focal distribution of the symptoms and deficit, it is likely that this is related to some edema and persisting cord/nerve compression at the thoracolumbar junction since his symptoms have increased to some extent postoperatively, and surgery was not performed at the L4 5 level. 2. Hyperglycemia Plan: Findings were discussed at length with patient, her daughter, and in her room today. Options of observation versus return to the operating room for evacuation of hematoma and possible revision left T12 laminectomy and further reduction of the left-sided fracture all fully discussed. Risk of persistent nerve and spinal cord impingement discussed. Risks of surgery explained. She did not tolerate anesthesia well, just now this morning becoming more alert and conversant. Aside from the left L5 distribution symptoms of deficit, her exam is otherwise relatively stable with no definite evidence of myelopathy at this time. Given her difficulty recovering from the anesthesia and lack of definite myelopathic findings on exam, it may be best to continue close observation of her neurologic function and add steroids and increase gabapentin for additional control of edema and pain. Mobilize out of bed as tolerated A new brace has been fitted for her today Continue physical therapy Joseph De Luna MD February 24, 2017 20:13
[2017-02-25] VITALS (12 sets, daily range): BP systolic 148–189; BP diastolic 70–91; PULSE 88–106; RESP 16–31; TEMP 98.1–98.8; O2SAT 94–98
[2017-02-25] MEDS: MORPHINE SULFATE 4 MG/ML INJ IV PRN (00:48)
[2017-02-25] MEDS: traMADol HCL 50 MG TAB PO SCH ×4 (05:35→22:57)
[2017-02-25] MEDS: DEXAMETHASONE SOD PHOS 4 MG/ML VIAL IV PUSH SCH ×3 (05:35→21:08)
[2017-02-25] MEDS: SODIUM CHLORIDE 0.9% FLUSH 5 ML FLUSH IVF SCH ×2 (08:01→20:45)
[2017-02-25] MEDS: PANTOPRAZOLE SOD 40 MG DELAYED RELEASE TAB PO SCH (08:01)
[2017-02-25] MEDS: MULTIVITAMIN TAB PO SCH (08:01)
[2017-02-25] MEDS: DOCUSATE SODIUM 50 MG/SENNA 8.6 MG TAB PO SCH ×2 (08:01→20:45)
[2017-02-25] MEDS: LOSARTAN 25 MG TAB PO SCH (08:01)
[2017-02-25] MEDS: MAGNESIUM OXIDE 400 MG TAB PO SCH (08:01)
[2017-02-25] MEDS: POTASSIUM CHLORIDE 10 MEQ CONTROLLED RELEASE TAB PO SCH (08:01)
[2017-02-25] MEDS: GABAPENTIN 300 MG CAP PO SCH ×3 (08:01→17:01)
[2017-02-25] MEDS: MUPIROCIN 2% OINT 1 APPLIC/GM SYR EACH NARE SCH ×2 (08:01→20:45)
[2017-02-25] MEDS: LACTOBACILLUS ACIDOPHILUS TAB PO SCH (08:01)
[2017-02-25] MEDS: FLUTICASONE 100 MCG/VILANTEROL 25 MCG INHALER INH SCH (08:01)
[2017-02-25] MEDS: ACETAMINOPHEN/HYDROcodone 325 MG/10 MG TAB PO PRN (08:20)
--- NOTE | 2017-02-25 12:05 | HHI.NSPN ---
(Artie Aguirre) Note Status Status: Progress Note (Artie Aguirre) Interval History Interval History 02/22: Patient presented to [facility] for a T12 right decompressive semi- laminectomy and bilateral T10-L2 posterior fusion w/instrumentation & percutaneous pedicle screw fixation due to a severe T12 fracture. She also had a repair of a T12 level dural tear by microtechnique. Post-operatively she was admitted to the [facility]. 02/23: This morning the patient is in pain to the back but she is not able to localise it. She was medicated prior to being seen. She also stated she had tingling and pain to the anterior and anterolateral thigh bilaterally. Her TLSO is in the room and as this practitioner was leaving Physical Therapy came in to evaluate the patient and get her up to a chair. 02/25: The patient states that she is doing good this morning. She has some pain to the back/surgical site. She also says she has some numbness & tingling running down both legs with some pain to the anterior thighs and the bottom of the foot. 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 Postsurgical findings with posterior hardware above and below the fracture level. Posterior bone defect at the fracture level. There is abnormal anterior epidural signal extending from the posterior aspect of the fractured vertebral body. Differential diagnosis is bone fragment versus epidural hematoma. It results in mass effect on the spinal cord with posterior displacement of the spinal cord and deformity of the spinal cord. There is adjacent intrinsic signal abnormality in the spinal cord. Antoine Franklin MD Thoracic Spine CT 02/24/17 0000 Signed Impressions: Service Date/Time: Friday, February 24, 2017 10:51 - CONCLUSION: 1. Post surgical findings. Retropulsed bone fragment and gas seen anteriorly in the central canal at the level of surgery corresponding to signal abnormality described on MRI. Posterior laminectomy bone defect at the level surgery. 2. The posterior epidural fluid/hematoma from L1-L3 seen on MRI is not well-demonstrated on CT. Antoine Franklin MD Lumbar Spine MRI 02/24/17 0000 Signed Impressions: Service Date/Time: Friday, February 24, 2017 07:44 - CONCLUSION: 1. Postsurgical findings at T12 and fracture T12 again seen. Anterior epidural signal abnormality at T12 is fully described on thoracic spine MRI. This may represent bone fragments versus hematoma. 2. Posterior epidural hematoma is seen extending from L1-L3 with resulting central canal stenosis and displacement of nerve roots. Area of maximum narrowing is at the level of L2-3. 3. Degenerative findings of the lower lumbar spine grossly unchanged from prior CT with facet arthrosis and anterolisthesis at L4-5 resulting in mild/moderate central canal stenosis. Antoine Franklin MD Lumbar Spine CT 02/24/17 0000 Signed Impressions: Service Date/Time: Friday, February 24, 2017 10:51 - CONCLUSION: 1. Postsurgical findings and old fracture at T12 again identified. Residual bone fragments are seen anteriorly in the central canal resulting in narrowing of the left side of the central canal. Right-sided laminectomy defect noted. 2. Chronic nondisplaced fracture of the left inferior facet of L5. Fracture line is more distinct than on the comparison study of December. 3. Multilevel degenerative findings unchanged. 4. Calcified gallstones noted. Antoine Franklin MD / 05:59 17:59 05:59 17:59 05:59 17:59 Intake Total 145 ml 2671 ml 1078 ml 1783 ml 721 ml 441 ml Output Total 250 ml 925 ml 775 ml 1950 ml 1175 ml 1250 ml Balance -105 ml 1746 ml 303 ml -167 ml -454 ml -809 ml Intake Oral 840 ml 250 ml 390 ml 200 ml 180 ml IV Total 145 ml 1831 ml 828 ml 1393 ml 521 ml 261 ml Output Urine Total 250 ml 925 ml 775 ml 1950 ml 1175 ml 1250 ml # Bowel Movements 0 0 0 0 0 0 Laboratory Tests Test 02/23/17 02/23/17 02/24/17 02:10 04:30 18:43 Nasal Screen MRSA (PCR) MRSA DETECTED White Blood Count 14.5 TH/MM3 11.6 TH/MM3 Red Blood Count 3.33 MIL/MM3 3.22 MIL/MM3 Hemoglobin 9.8 GM/DL 9.5 GM/DL Hematocrit 29.6 % 28.8 % Mean Corpuscular Volume 88.8 FL 89.4 FL Mean Corpuscular Hemoglobin 29.3 PG 29.4 PG Mean Corpuscular Hemoglobin 33.0 % 32.9 % Concent Red Cell Distribution Width 14.4 % 14.1 % Platelet Count 294 TH/MM3 232 TH/MM3 Mean Platelet Volume 7.7 FL 8.2 FL Neutrophils (%) (Auto) 75.6 % Lymphocytes (%) (Auto) 15.1 % Monocytes (%) (Auto) 9.2 % Eosinophils (%) (Auto) 0.0 % Basophils (%) (Auto) 0.1 % Neutrophils # (Auto) 10.9 TH/MM3 Lymphocytes # (Auto) 2.2 TH/MM3 Monocytes # (Auto) 1.3 TH/MM3 Eosinophils # (Auto) 0.0 TH/MM3 Basophils # (Auto) 0.0 TH/MM3 CBC Comment DIFF FINAL Differential Comment Sodium Level 135 MEQ/L 132 MEQ/L Potassium Level 4.1 MEQ/L 3.9 MEQ/L Chloride Level 100 MEQ/L 98 MEQ/L Carbon Dioxide Level 26.9 MEQ/L 25.0 MEQ/L Anion Gap 8 MEQ/L 9 MEQ/L Blood Urea Nitrogen 7 MG/DL 4 MG/DL Creatinine 0.55 MG/DL 0.43 MG/DL Estimat Glomerular Filtration 106 ML/MIN 141 ML/MIN Rate Random Glucose 127 MG/DL 206 MG/DL Calcium Level 8.7 MG/DL 8.3 MG/DL Constitutional Vital Signs Date Time Temp Pulse Resp B/P Pulse Ox O2 Delivery O2 Flow Rate FiO2 02/25/17 10:00 97 02/25/17 08:00 98 02/25/17 08:00 98.1 97 16 153/70 98 02/25/17 07:00 98 Nasal Cannula 2.00 02/25/17 06:00 94 02/25/17 04:00 98.8 88 20 189/91 97 02/25/17 04:00 88 02/25/17 02:00 88 02/25/17 00:00 98.4 94 25 169/81 94 02/25/17 00:00 94 02/24/17 22:00 96 02/24/17 20:00 98.4 96 28 165/73 95 02/24/17 20:00 96 02/24/17 19:00 96 Room Air 02/24/17 18:00 103 02/24/17 16:00 103 02/24/17 16:00 98.2 103 19 146/64 95 02/24/17 14:00 94 02/24/17 12:00 100 02/24/17 12:00 98.3 99 22 148/70 94 02/25/17 06:59 Intake Total 2174 ml Output Total 3725 ml Balance -1551 ml (Artie Aguirre) Review of Systems/Exam ROS Constitutional: Patient denies any fever or chills. Neck: Patient denies any neck pain. Respiratory: Patient denies any shortness of breath or productive cough. Cardiovascular: Patient denies any chest pain, palpitations or irregular heart beat. Gastrointestinal: Patient denies any abdominal pain, nausea, vomiting or bowel incontinence. Extremities: Patient complains of pain to the front of both thighs and the bottom of the foot, also both legs being weak. Back: Patient complains of pain to the back. Neurological: Patient complains of numbness/tingling to the front and side of both thighs which runs down the legs. She denies any headache or dizziness. Exam General: Awake and alert this morning. Appears comfortable, NAD. Resp: CTAB w/o W/R/R, equal excursion, non-laboured, on RA. CV: S1S2 w/RRR w/o M/G/R, radial & pedal pulses 2+ bilaterally, cap refill < 2 sec. Monitor is sinus rhythm. GI: Abdomen, soft, nontender, positive bowel sounds. : Egan catheter to BSD w/clear pale yellow urine. Extremities: GAUTHIER. Back: TTP at surgical site, dressing dry and intact. Neuro: Awake & alert Speech clear but slow Follows simple commands Sensation intact light touch upper extremities Mild decreased sensation to light touch distal right lower extremity Moderate decreased sensation somewhat diffuse left calf and foot, primarily L5 distribution Strength is within normal limits in the upper extremities Strength is within normal limits in right and left iliopsoas, quadriceps, hamstrings with 4 right and to left tibialis anterior, 5 right and 3+ left gastrocsoleus. (Artie Aguirre) Medications Current Medications Current Medications Medications (Trade) Dose Ordered Sig/Radha Route Start Time Stop Time Status Last Admin (Lr 1000 ml Inj) 1,000 ml @ 0 mls/hr Q0M IV 02/22/17 07:15 ([place] 5-325 Mg) 1 tab Q4H PRN PO 02/22/17 16:45 ([place] 10-325 Mg) 1 tab Q4H PRN PO 02/22/17 16:45 02/25/17 08:20 (Dilaudid Pf Inj) 0.5 mg Q3H PRN IV 02/22/17 16:45 02/23/17 02:45 (Morphine Inj) 4 mg Q3H PRN IV 02/22/17 16:45 02/25/17 00:48 (Narcan Inj) 0.4 mg UNSCH PRN IV 02/22/17 16:45 (Protonix) 40 mg DAILY PO 02/23/17 09:00 02/25/17 08:01 (Zofran Inj) 4 mg Q6H PRN IV 02/22/17 16:45 (Tylenol) 650 mg Q6H PRN PO 02/22/17 17:00 (Dulcolax Supp) 10 mg DAILY PRN RECTAL 02/22/17 17:00 (Breo Ellipta 100-25 Inh) 1 puff DAILY INH 02/23/17 09:00 02/25/17 08:01 (Cozaar) 25 mg DAILY PO 02/23/17 09:00 02/25/17 08:01 (Milk Of Magnesia Liq) 30 ml DAILY PRN PO 02/22/17 17:00 (KCl) 10 meq DAILY PO 02/23/17 09:00 02/25/17 08:01 (Ultram) 50 mg Q6H PO 02/22/17 18:00 02/25/17 05:35 (NS Flush) 2 ml UNSCH PRN IVF 02/22/17 17:00 (NS Flush) 2 ml BID IVF 02/22/17 21:00 02/25/17 08:01 (Mag-Ox) 400 mg DAILY PO 02/23/17 09:00 02/25/17 08:01 (Theragran) 1 tab DAILY PO 02/23/17 09:00 02/25/17 08:01 (Lactinex) 1.5 tab DAILY PO 02/23/17 09:00 02/25/17 08:01 (Metamucil Smooth Texture Sf/ Gf Pkt) 1 pkt BID PRN PO 02/22/17 17:15 (Lexii-Colace) 1 tab BID PO 02/22/17 21:00 02/25/17 08:01 (Flexeril) 5 mg Q8H PRN PO 02/23/17 11:00 02/24/17 03:11 Mupirocin 1 applic 1 applic BID EACH NARE 02/23/17 21:00 02/25/17 08:01 (D5W-1/2 NS 1000 ml Inj) 1,000 ml @ 30 mls/hr Q24H IV 02/23/17 18:00 02/24/17 14:00 (Neurontin) 300 mg TID PO 02/24/17 18:00 02/25/17 08:01 (Decadron Inj) 4 mg Q8HR IV PUSH 02/24/17 16:45 02/25/17 05:35 (Artie Aguirre) Medical Decision Making MDM Remarks Impression: (1) T12 vertebral fracture Severe T12 compression fracture with retropulsion and severe canal stenosis POD # 3 () s/p: 1. T12 right decompressive semi-laminectomy 2. intraoperative reduction T12 retropulsed compression fracture with partial resection of retropulsed fragments.. 3. Bilateral T10-L2 posterior fusion, local lamina autograft and allograft bone 4. Bilateral T10-L2 posterior instrumentation with percutaneous pedicle screw fixation 5. Repair T12 level dural tear-microtechnique 1. Patient has increased pain and motor deficit in primarily left L5 distribution postoperatively. Despite the rather focal distribution of the symptoms and deficit, it is likely that this is related to some edema and persisting cord/nerve compression at the thoracolumbar junction since his symptoms have increased to some extent postoperatively, and surgery was not performed at the L4 5 level. 2. Hyperglycemia (Artie Aguirre) Plan Plan Remarks Neuro checks PT eval & tx Mobilise patient with assistance Pain control Diet Given her difficulty recovering from the anesthesia and lack of definite myelopathic findings on exam, it may be best to continue close observation of her neurologic function and add steroids and increase gabapentin for additional control of edema and pain. (Artie Aguirre) Attending Statement I have personally seen and examined the patient on the date of this note. Pertinent documentation and study results have been reviewed by the undersigned. I have personally developed the treatment plan and performed medical decision making. Agree with findings, exam, and treatment plan as noted above. Patient little more confused again this morning according to the family On my examination she is awake and alert, cooperative, conversant and appropriate, following simple commands well. The left calf pain continues to steadily improve, minimal discomfort to touch and palpation in the left calf today. Left tibialis anterior remains at approximately 2/5 strength, somewhat diminished from approximately 3/5 preoperative. Otherwise relatively good strength in the lower extremities. No ankle clonus Plantar responses are neutral Discussed again at length with the patient and her family regarding treatment options. Since she seems to be improving slowly with only increased left tibialis anterior weakness postoperatively, would prefer to continue observation regarding what appears to be primarily postoperative epidural hematoma on postoperative imaging studies. Continue physical therapy, mobilized out of bed as tolerated. (Joseph De Luna MD) Artie Aguirre February 25, 2017 12:05 Joseph De Luna MD February 25, 2017 16:03
[2017-02-25] MEDS: SODIUM CHLOR 0.9% 1000 ML INJ 1,000 ML IV SCH (12:54)
[2017-02-25] MEDS ORDERED: GLUCAGON 1 MG/ML VIAL OTHER PRN (15:15)
[2017-02-25] MEDS ORDERED: DEXTROSE 50% IN WATER 50 ML VIAL(D50) IV PRN (15:15)
[2017-02-25] MEDS: INSULIN ASPART SUPPLEMENTAL SCALE SQ SCH ×2 (15:35→21:00)
[2017-02-25] MEDS: METHOCARBAMOL 500 MG TAB PO SCH (21:08)
[2017-02-25] MEDS: ENALAPRILAT 1.25 MG/ML VIAL IV PUSH PRN (23:08)
[2017-02-26] VITALS (11 sets, daily range): BP systolic 133–164; BP diastolic 70–91; PULSE 82–103; RESP 14–22; TEMP 98.1–98.6; O2SAT 93–98
[2017-02-26] MEDS: HYDROmorphone HCL PF 1 MG/ML VIAL IV PRN ×2 (02:31→06:31)
[2017-02-26] MEDS: traMADol HCL 50 MG TAB PO SCH ×3 (05:11→17:56)
[2017-02-26] MEDS: DEXAMETHASONE SOD PHOS 4 MG/ML VIAL IV PUSH SCH ×2 (05:11→13:53)
[2017-02-26] MEDS: METHOCARBAMOL 500 MG TAB PO SCH ×2 (05:11→13:53)
[2017-02-26] MEDS: INSULIN ASPART SUPPLEMENTAL SCALE SQ SCH ×4 (06:40→21:00)
[2017-02-26] MEDS: MUPIROCIN 2% OINT 1 APPLIC/GM SYR EACH NARE SCH (08:40)
[2017-02-26] MEDS: MAGNESIUM OXIDE 400 MG TAB PO SCH ×2 (08:41→08:44)
[2017-02-26] MEDS: ACETAMINOPHEN/HYDROcodone 325 MG/10 MG TAB PO PRN (08:43)
[2017-02-26] MEDS: LACTOBACILLUS ACIDOPHILUS TAB PO SCH (08:44)
[2017-02-26] MEDS: LOSARTAN 25 MG TAB PO SCH (08:45)
[2017-02-26] MEDS: PANTOPRAZOLE SOD 40 MG DELAYED RELEASE TAB PO SCH (08:45)
[2017-02-26] MEDS: DOCUSATE SODIUM 50 MG/SENNA 8.6 MG TAB PO SCH (08:45)
[2017-02-26] MEDS: GABAPENTIN 300 MG CAP PO SCH ×3 (08:45→17:33)
[2017-02-26] MEDS: MULTIVITAMIN TAB PO SCH (08:45)
[2017-02-26] MEDS: POTASSIUM CHLORIDE 10 MEQ CONTROLLED RELEASE TAB PO SCH (08:45)
[2017-02-26] MEDS: SODIUM CHLORIDE 0.9% FLUSH 5 ML FLUSH IVF SCH (08:45)
[2017-02-26] MEDS: FLUTICASONE 100 MCG/VILANTEROL 25 MCG INHALER INH SCH (09:00)
--- NOTE | 2017-02-26 10:18 | RADRPT ---
EXAM DATE/TIME: 02/26/2017 09:58 [facility] COMPARISON: CT BRAIN W/O CONTRAST, January 01, 2017, 18:47. INDICATIONS : Confusion and altered mental status. RADIATION DOSE: 56.35 CTDIvol (mGy) MEDICAL HISTORY : Hypertension. Cardiovascular disease SURGICAL HISTORY : None. ENCOUNTER: Initial ACUITY: 1 day PAIN SCALE: 0/10 LOCATION: cranial TECHNIQUE: Multiple contiguous axial images were obtained of the head. Using automated exposure control and adj ustment of the mA and/or kV according to patient size, radiation dose was kept as low as reasonably a chievable to obtain optimal diagnostic quality images. FINDINGS: CEREBRUM: The ventricles are normal for age with moderate atrophic change. There is sulcal and ventricular prom inence. Periventricular white matter lucencies are again noted consistent with chronic small vessel s cheming change. No evidence of midline shift, mass lesion, hemorrhage or acute infarction. No extra- axial fluid collections are seen. POSTERIOR FOSSA: The cerebellum and brainstem are intact. The 4th ventricle is midline. The cerebellopontine angle i s unremarkable. EXTRACRANIAL: The visualized portion of the orbits is intact. SKULL: The calvaria is intact. No evidence of skull fracture. CONCLUSION: 1. No acute hemorrhage or mass effect. 2. Atrophy and chronic small vessel ischemic changes again noted. Keven Kelsey MD on February 26, 2017 at 10:09 Board Certified Radiologist. This report was verified electronically.
[2017-02-26] MEDS ORDERED: ONDANSETRON HCL 4 MG/2 ML VIAL IV PUSH ONE (12:00)
[2017-02-26] MEDS ORDERED: PHENYLEPH/NS 1000 MCG/10 ML SYR IV ONE (12:00)
[2017-02-26] MEDS ORDERED: NEOSTIGMINE 3 MG/3 ML SYR IV ONE (12:00)
[2017-02-26] MEDS ORDERED: PROPOFOL 200 MG/20 ML AMP IV ONE (12:00)
--- NOTE | 2017-02-26 12:21 | HHI.NSPN ---
(Artie Aguirre) Note Status Status: Progress Note (Artie Aguirre) Interval History Interval History 02/22: Patient presented to [facility] for a T12 right decompressive semi- laminectomy and bilateral T10-L2 posterior fusion w/instrumentation & percutaneous pedicle screw fixation due to a severe T12 fracture. She also had a repair of a T12 level dural tear by microtechnique. Post-operatively she was admitted to the [facility]. 02/23: This morning the patient is in pain to the back but she is not able to localise it. She was medicated prior to being seen. She also stated she had tingling and pain to the anterior and anterolateral thigh bilaterally. Her TLSO is in the room and as this practitioner was leaving Physical Therapy came in to evaluate the patient and get her up to a chair. 02/25: The patient states that she is doing good this morning. She has some pain to the back/surgical site. She also says she has some numbness & tingling running down both legs with some pain to the anterior thighs and the bottom of the foot. 02/26: The patient continues to do well this morning. She states the back is "tender" and "a little sore." She still has weakness and altered sensation to the left lower leg. Dr De Luna discussed with her earlier this morning about going back to surgery to remove the bone fragments on the left side of the central canal. Nursing reports that the patient did call her and explained what Dr De Luna wanted to do. The daughter did express concern regarding the type of anaesthesia to be used.The patient did go for a CT brain mid morning which was unremarkable for any acute findings. (Artie Aguirre) Labs, Micro, & Vital Signs Results This practitioner personally reviewed the CT brain images from this morning and no acute findings were noted. 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 No acute hemorrhage or mass effect. 2. Atrophy and chronic small vessel ischemic changes again noted. Keven eKlsey MD Thoracic Spine MRI 02/24/17 0000 Signed Impressions: Service Date/Time: Friday, February 24, 2017 07:44 - CONCLUSION: T12 vertebral body fracture again identified. Postsurgical findings with posterior hardware above and below the fracture level. Posterior bone defect at the fracture level. There is abnormal anterior epidural signal extending from the posterior aspect of the fractured vertebral body. Differential diagnosis is bone fragment versus epidural hematoma. It results in mass effect on the spinal cord with posterior displacement of the spinal cord and deformity of the spinal cord. There is adjacent intrinsic signal abnormality in the spinal cord. Antoine Franklin MD Thoracic Spine CT 02/24/17 0000 Signed Impressions: Service Date/Time: Friday, February 24, 2017 10:51 - CONCLUSION: 1. Post surgical findings. Retropulsed bone fragment and gas seen anteriorly in the central canal at the level of surgery corresponding to signal abnormality described on MRI. Posterior laminectomy bone defect at the level surgery. 2. The posterior epidural fluid/hematoma from L1-L3 seen on MRI is not well-demonstrated on CT. Antoine Franklin MD Lumbar Spine MRI 02/24/17 Signed Impressions: Service Date/Time: Friday, February 24, 2017 07:44 - CONCLUSION: 1. Postsurgical findings at T12 and fracture T12 again seen. Anterior epidural signal abnormality at T12 is fully described on thoracic spine MRI. This may represent bone fragments versus hematoma. 2. Posterior epidural hematoma is seen extending from L1-L3 with resulting central canal stenosis and displacement of nerve roots. Area of maximum narrowing is at the level of L2-3. 3. Degenerative findings of the lower lumbar spine grossly unchanged from prior CT with facet arthrosis and anterolisthesis at L4-5 resulting in mild/moderate central canal stenosis. Antoine Franklin MD Lumbar Spine CT 02/24/17 0000 Signed Impressions: Service Date/Time: Friday, February 24, 2017 10:51 - CONCLUSION: 1. Postsurgical findings and old fracture at T12 again identified. Residual bone fragments are seen anteriorly in the central canal resulting in narrowing of the left side of the central canal. Right-sided laminectomy defect noted. 2. Chronic nondisplaced fracture of the left inferior facet of L5. Fracture line is more distinct than on the comparison study of December. 3. Multilevel degenerative findings unchanged. 4. Calcified gallstones noted. Antoine Franklin MD // 05:59 17:59 05:59 17:59 05:59 17:59 Intake Total 1078 ml 1783 ml 721 ml 1177 ml 690 ml 558 ml Output Total 775 ml 1950 ml 1175 ml 2050 ml 700 ml 1450 ml Balance 303 ml -167 ml -454 ml -873 ml -10 ml -892 ml Intake Oral 250 ml 390 ml 200 ml 680 ml 450 ml 300 ml IV Total 828 ml 1393 ml 521 ml 497 ml 240 ml 258 ml Output Urine Total 775 ml 1950 ml 1175 ml 2050 ml 700 ml 1450 ml # Bowel Movements 0 0 0 0 0 0 Laboratory Tests Test 02/24/17 18:43 White Blood Count 11.6 TH/MM3 Red Blood Count 3.22 MIL/MM3 Hemoglobin 9.5 GM/DL Hematocrit 28.8 % Mean Corpuscular Volume 89.4 FL Mean Corpuscular Hemoglobin 29.4 PG Mean Corpuscular Hemoglobin 32.9 % Concent Red Cell Distribution Width 14.1 % Platelet Count 232 TH/MM3 Mean Platelet Volume 8.2 FL Sodium Level 132 MEQ/L Potassium Level 3.9 MEQ/L Chloride Level 98 MEQ/L Carbon Dioxide Level 25.0 MEQ/L Anion Gap 9 MEQ/L Blood Urea Nitrogen 4 MG/DL Creatinine 0.43 MG/DL Estimat Glomerular Filtration 141 ML/MIN Rate Random Glucose 206 MG/DL Calcium Level 8.3 MG/DL Constitutional Vital Signs Date Time Temp Pulse Resp B/P Pulse Ox O2 Delivery O2 Flow Rate FiO2 02/26/17 10:24 24 02/26/17 10:00 91 02/26/17 08:41 16 02/26/17 08:00 98.5 96 21 164/75 98 02/26/17 08:00 94 02/26/17 07:00 98 Room Air 02/26/17 06:00 96 02/26/17 04:00 98.6 90 14 133/73 93 02/26/17 04:00 90 02/26/17 02:00 90 02/26/17 00:00 88 02/26/17 00:00 98.6 88 16 150/71 96 02/25/17 22:00 96 02/25/17 20:00 106 02/25/17 20:00 98.6 106 18 169/74 96 02/25/17 19:00 97 Room Air 02/25/17 18:00 92 02/25/17 16:00 103 02/25/17 16:00 98.5 103 31 166/73 97 02/25/17 14:00 100 02/25/17 12:00 99 02/25/17 12:00 98.3 99 25 148/75 96 02/26/17 06:59 Intake Total 1984 ml Output Total 2950 ml Balance -966 ml (Artie Aguirre) Review of Systems/Exam ROS Constitutional: Patient denies any fever or chills. Neck: Patient denies any neck pain. Respiratory: Patient denies any shortness of breath or productive cough. Cardiovascular: Patient denies any chest pain, palpitations or irregular heart beat. Gastrointestinal: Patient denies any abdominal pain, nausea, vomiting or bowel incontinence. Extremities: Patient complains of the left lower leg and foot being weak and feeling different but doesn't state it is painful or numb. She denies any other pain or weakness to the other extremities. Back: Patient complains of tenderness to the back. Neurological: Patient complains of the left lower leg and foot feeling different but doesn't state it is painful or numb. She denies any headache or dizziness. She denies any numbness or tingling to the other extremities. Exam General: Awake and alert this morning. Appears comfortable, NAD. Resp: CTAB w/o W/R/R, equal excursion, non-laboured, on RA. CV: S1S2 w/RRR w/o M/G/R, radial & pedal pulses 2+ bilaterally, cap refill < 2 sec. Monitor is sinus rhythm. GI: Abdomen, soft, nontender, positive bowel sounds. : Egan catheter to BSD w/clear pale yellow urine. Extremities: GAUTHIER. Back: TTP at surgical site, dressing dry and intact. Neuro: Awake & alert Speech clear but slow Follows simple commands Sensation intact light touch BUE & RLE but different to left lower leg and foot , primarily L5 distribution, she is unable to describe any further Strength is within normal limits in the upper extremities Strength is within normal limits in right and left iliopsoas, quadriceps, hamstrings with 4 right and to left tibialis anterior, 5 right and 3+ left gastrocsoleus. (Artie Aguirre) Medications Current Medications Current Medications Medications (Trade) Dose Ordered Sig/Radha Route Start Time Stop Time Status Last Admin (False Pass 5-325 Mg) 1 tab Q4H PRN PO 02/22/17 16:45 (False Pass 10-325 Mg) 1 tab Q4H PRN PO 02/22/17 16:45 02/26/17 08:43 (Dilaudid Pf Inj) 0.5 mg Q3H PRN IV 02/22/17 16:45 02/26/17 06:31 (Morphine Inj) 4 mg Q3H PRN IV 02/22/17 16:45 02/25/17 00:48 (Narcan Inj) 0.4 mg UNSCH PRN IV 02/22/17 16:45 (Protonix) 40 mg DAILY PO 02/23/17 09:00 02/26/17 08:45 (Zofran Inj) 4 mg Q6H PRN IV 02/22/17 16:45 (Tylenol) 650 mg Q6H PRN PO 02/22/17 17:00 (Dulcolax Supp) 10 mg DAILY PRN RECTAL 02/22/17 17:00 (Breo Ellipta 100-25 Inh) 1 puff DAILY INH 02/23/17 09:00 02/26/17 09:00 (Cozaar) 25 mg DAILY PO 02/23/17 09:00 02/26/17 08:45 (Milk Of Magnesia Liq) 30 ml DAILY PRN PO 02/22/17 17:00 (KCl) 10 meq DAILY PO 02/23/17 09:00 02/26/17 08:45 (Ultram) 50 mg Q6H PO 02/22/17 18:00 02/26/17 11:24 (NS Flush) 2 ml UNSCH PRN IVF 02/22/17 17:00 (NS Flush) 2 ml BID IVF 02/22/17 21:00 02/26/17 08:45 (Mag-Ox) 400 mg DAILY PO 02/23/17 09:00 02/26/17 08:44 (Theragran) 1 tab DAILY PO 02/23/17 09:00 02/26/17 08:45 (Lactinex) 1.5 tab DAILY PO 02/23/17 09:00 02/26/17 08:44 (Metamucil Smooth Texture Sf/ Gf Pkt) 1 pkt BID PRN PO 02/22/17 17:15 (Lexii-Colace) 1 tab BID PO 02/22/17 21:00 02/26/17 08:45 (Bactroban Nasal 2% Oint) 1 applic BID EACH NARE 02/23/17 21:00 02/26/17 08:40 (Neurontin) 300 mg TID PO 02/24/17 18:00 02/26/17 08:45 Dexamethasone Sodium Phosphate 4 mg 4 mg Q8HR IV PUSH 02/24/17 16:45 02/26/17 05:11 (NS 1000 ml Inj) 1,000 ml @ 30 mls/hr Q24H IV 02/25/17 13:00 02/25/17 12:54 (Robaxin) 500 mg Q8HR PO 02/25/17 22:00 02/26/17 05:11 (D50w (Vial) Inj) 50 ml UNSCH PRN IV 02/25/17 15:15 (Glucagon Inj) 1 mg UNSCH PRN OTHER 02/25/17 15:15 (Vasotec Inj) 1.25 mg Q8H PRN IV PUSH 02/25/17 21:15 02/25/17 23:08 (Artie Aguirre) Medical Decision Making MDM Remarks Impression: (1) T12 vertebral fracture Severe T12 compression fracture with retropulsion and severe canal stenosis POD # 4 () s/p: 1. T12 right decompressive semi-laminectomy 2. intraoperative reduction T12 retropulsed compression fracture with partial resection of retropulsed fragments.. 3. Bilateral T10-L2 posterior fusion, local lamina autograft and allograft bone 4. Bilateral T10-L2 posterior instrumentation with percutaneous pedicle screw fixation 5. Repair T12 level dural tear-microtechnique 1. Patient has increased pain and motor deficit in primarily left L5 distribution postoperatively. Despite the rather focal distribution of the symptoms and deficit, it is likely that this is related to some edema and persisting cord/nerve compression at the thoracolumbar junction since his symptoms have increased to some extent postoperatively, and surgery was not performed at the L4 [address] brain this morning without any acute findings (Artie Aguirre) Plan Plan Remarks Neuro checks PT eval & tx Mobilise patient with assistance Pain control Diet Gabapentin Plan to take the patient back to the OR this afternoon due to the persistent weakness and sensory change (Artie Aguirre) Attending Statement I have personally seen and examined the patient on the date of this note. Pertinent documentation and study results have been reviewed by the undersigned. I have personally developed the treatment plan and performed medical decision making. Agree with findings, exam, and treatment plan as noted above. The patient is much more alert today, no significant confusion. Much better than over the weekend. She does not have any persistent dysesthetic pain, hyperesthesia or tenderness to palpation over the left calf, but does complain of a persistent more constant dull aching pain in primarily the left L5 distribution of the calf and foot. Her examination is relatively stable otherwise since her initial surgery. She still has increased weakness left tibialis anterior at 2/5, compared to approximately 3/5 preoperatively. I discussed with her the option of continued observation versus return to the operating room for evacuation postoperative epidural hematoma, left T12 laminectomy, further reduction of the left retropulsed T12 vertebral body, with a left L4 5 decompressive semi-laminectomy to obtain better decompression of the distal cord as well as left L5 nerve root. Although she is not myelopathic on her present examination, there is certainly concern regarding the persistent pressure on the distal cord. Her mental status is much better today, and she appears adequately recovered to proceed with anesthesia. She appears to understand all the above and wishes to proceed with the surgical procedure as outlined above. The risks and possible complications were fully discussed with her as well as prognosis. Consents reviewed with the patient today. (Joseph De Luna MD) Artie Aguirre February 26, 2017 12:21 Joseph De Luna MD February 26, 2017 23:41
[2017-02-26] MEDS: SODIUM CHLOR 0.9% 1000 ML INJ 1,000 ML IV SCH (13:00)
[2017-02-26 15:12] LABS: HEMATOCRIT 28.2 % (35.0-46.0); MEAN CELL VOLUME 86.5 FL (80.0-100.0); MEAN CORPUSCULAR HEMOGLOBIN 29.8 PG (27.0-34.0); MEAN CORPUSCULAR HGB CONC 34.5 % (32.0-36.0); PLATELET COUNT 397 TH/MM3 (150-450); RED BLOOD COUNT 3.26 MIL/MM3 (4.00-5.30); RED CELL DISTRIBUTION WIDTH 13.8 % (11.6-17.2); REVIEW FLAG FINAL
[2017-02-26 15:52] LABS: ALKALINE PHOSPHATASE 59 U/L (45-117); ALT (GPT) 25 U/L (10-53); ANION GAP 10 MEQ/L (5-15); AST (GOT) 28 U/L (15-37); BICARBONATE 23.7 MEQ/L (21.0-32.0); BLOOD UREA NITROGEN 13 MG/DL (7-18); CHLORIDE 98 MEQ/L (98-107); GLOMERULAR FILTRATION RATE 133 ML/MIN (>89); MAGNESIUM 2.3 MG/DL (1.5-2.5); POTASSIUM 3.8 MEQ/L (3.5-5.1); SODIUM (NA) 132 MEQ/L (136-145); TOTAL BILIRUBIN ADULT 0.7 MG/DL (0.2-1.0)
[2017-02-26] MEDS: ENALAPRILAT 1.25 MG/ML VIAL IV PUSH PRN (17:34)
[2017-02-26] MEDS ORDERED: THROMBIN (TOPICAL) 5,000 UNIT VIAL ONE (18:12)
[2017-02-26] MEDS ORDERED: GELFOAM SIZE 100 ONE (18:12)
[2017-02-26] MEDS ORDERED: LIDOCAINE 1%/EPINEPHrine 1:100,000 SOLN 20 ML VIAL ONE (18:12)
[2017-02-26] MEDS ORDERED: GENTAMICIN SULFATE 80 MG/2 ML VIAL ONE (18:12)
[2017-02-26] MEDS ORDERED: ceFAZolin 2 GM PREMIX 50 ML ONE (18:35)
[2017-02-26] MEDS ORDERED: ACETAMINOPHEN 1000 MG/100 ML VIAL IV ONE (18:50)
[2017-02-26] MEDS ORDERED: SODIUM CHLORID 0.9% 500 ML IV PRN (19:45)
[2017-02-26] MEDS ORDERED: POVIDONE IODINE 5% (ANTISEPSIS KIT) 4 APPLICATIONS EACH NARE PRN (19:45)
[2017-02-26] MEDS ORDERED: LACTATED RINGER'S 1000 ML IV PRN (19:45)
[2017-02-26] MEDS ORDERED: METOPROLOL TARTRATE 25 MG TAB PO PRN (19:45)
[2017-02-26] MEDS ORDERED: INSULIN HUMAN REGULAR 1,000 UNITS/10 ML VIAL SQ PRN (19:45)
[2017-02-26] MEDS ORDERED: CHLORHEXIDINE GLUCONATE 2 % 1 PACK (2 CLOTHS) TOPICAL PRN (19:45)
[2017-02-26] MEDS ORDERED: ARTIFICIAL TEARS OPTH OINT 3.5 APPLIC/3.5 GM TUBO ONE (20:04)
[2017-02-26] MEDS ORDERED: LABETALOL HCL 100 MG/20 ML VIAL ONE (23:55)
[2017-02-26] MEDS ORDERED: DEXAMETHASONE SOD PHOS 4 MG/ML VIAL IV PUSH ONE (23:59)
[2017-02-26] MEDS ORDERED: METOCLOPRAMIDE HCL 10 MG/2 ML VIAL IV PUSH ONE (23:59)
--- NOTE | 2017-02-26 23:59 | PD.OP ---
Operative Report Date of Surgery: February 26, 2017 Preoperative Diagnosis: (1) T12 vertebral fracture (2) Thoracic stenosis (3) Lumbar canal stenosis (4) Lumbar radiculopathy 1. Postoperative thoracic epidural hematoma 2. T12 compression fracture with persistent left canal retropulsed bone 3. L4 5 stenosis 4. Left L5 radiculopathy Postoperative Diagnosis: (1) T12 vertebral fracture (2) Thoracic stenosis (3) Lumbar canal stenosis (4) Lumbar radiculopathy 1. Postoperative thoracic epidural hematoma 2. T12 compression fracture with persistent left canal retropulsed bone 3. L4 5 stenosis 4. Left L5 radiculopathy Procedure: Procedure #1 1. Left L4 5 decompressive semi-hemilaminectomy Procedure #2 via separate incision 1. Left T12 and partial left L1 decompressive laminectomy, medial facetectomy 2. Reduction left T12 retropulsed fracture for spinal cord decompression 3. Evacuation postoperative thoracic epidural hematoma Anesthesia: Gen. Surgeon: Joseph De Luna Rug Sizer(s): Keven Rodrigez Operation and Findings: Findings: Focal right T12 level epidural hematoma. Moderate persistent left T12 level retropulsed vertebral fracture bone fragments Significant left L4 5 lateral recess stenosis with L5 nerve compression Procedure in detail Procedure #1: Patient was brought into the operating room and general endotracheal anesthesia induced without difficulty Lines were established for anesthesia Egan catheter and sequential compression devices in place Leads for intraoperative neuro monitoring placed and a baseline study obtained The patient was turned into prone position on the concentric Jason table and all extremities appropriately padded Appropriate timeout procedure performed with all personal present and in agreement The thoracic and lumbar regions prepped and draped in a sterile fashion 1% Xylocaine with epinephrine used for local infiltration over the initial incision made just to the left of midline at the L4 5 level and carried sharply down to the lumbodorsal fascia which was incised to the left of the L4 and L5 lamina. Virgen elevator was used for elevation of paraspinous musculature and fascia away from the left L4 and L5 lamina and spinous process and the deep self-retaining retractor placed The microscope was moved into place and used for the remainder the procedure including the closure. The TPS drill with a 5 mm bone jonathon followed by the 4 mm jensen bur was used to remove the inferior two thirds of the left L4 lamina and a small amount of the medial facet taking care not to compromise the integrity of the pars intra- articularis. Hypertrophied ligamentum flavum was elevated away from the thecal sac and exiting left L5 nerve root and removed with the Kerrison rongeur which was also used to further decompress the deep medial facet and lateral recess. The exiting left L5 nerve root and thecal sac were decompressed down to the level of the left L5 pedicle. The disc and annulus were checked and no disc herniation was noted. The neural structures appeared well decompressed at the end of the procedure Bleeding was controlled with the bipolar forceps No significant bleeding at the end of the procedure The closure was performed with 0 Vicryl for the deep fascia interrupted with 3- 0 Vicryl interrupted subcutaneous closure, 4-0 Vicryl running subcuticular closure. Procedure #2 via separate incision: The previous midline incision at the T11-L1 level was reopened and previous sutures removed The deep self retaining retractor was placed There was a focal left T12 level epidural hematoma causing compression on the left side of the thecal sac. This was removed with the [place] dissectors and suction and irrigation. Along blunt nerve hook was used to probe beneath the thecal sac at the right T12 level and no significant residual retropulsed bone was noted. The thin ligament dissector was then used to free up the dura beneath the left residual T12 lamina and laminectomy on the left side was performed with the [place] rongeur and [place] rongeur . The ventral aspect of the left T12 lamina had been previously thinned out at the time of the prior procedure. The [place] rongeur was used to decompress the lateral aspect of the spinal canal at the T12-L1 level out to the level of the medial pedicle. The [place] dissector was then used to free up the lateral thecal sac. The long blunt nerve hook was used to free up the ventral thecal sac above the retropulsed T12 vertebral body and the thin footplate impactors were used to carefully impact residual retropulsed bone on the left side of the canal away from the ventral thecal sac taking care not to create any significant retraction of the thecal sac or exiting nerve root. A very careful reduction of the bone was performed and the long blunt nerve hook used to palpate beneath the thecal sac, which appeared well decompressed at the end of the procedure. No cerebrospinal fluid leakage was encountered. The region was well irrigated with antibiotic irrigation prior to closure. The lateral structures at the bilateral T 11-L1 levels were inspected and again decorticated with a [place] rongeur with retained T12 lamina cortical and cancellus autograft packed firmly against the decorticated posterior lateral structures for additional fusion mass. A 10 mm flat fluted drain was placed at the operative site and brought out through a small incision at the right mid thoracic region and secured to the skin with nylon suture The closure was performed with 0 Vicryl interrupted for the deep and superficial fascia with 0 Vicryl interrupted subcutaneous closure and 4-0 Vicryl running subcuticular closure Dressings sterile benzoin Steri-Strips and Primapore was placed at all incision sites The patient was turned back to supine position taken to recovery room in stable condition All counts were correct at the end of the case Estimated blood loss was 200 cc No specimen was sent to pathology Intraoperative neuro monitoring remained stable during the procedure Joseph De Luna MD February 26, 2017 23:59
[2017-02-27] VITALS (15 sets, daily range): BP systolic 115–180; BP diastolic 56–86; PULSE 61–97; RESP 18–24; TEMP 97.5–99.2; O2SAT 94–100
[2017-02-27] MEDS ORDERED: fentaNYL CITRATE 250 MCG/5 ML AMP ONE (00:06)
[2017-02-27] MEDS ORDERED: DEXAMETHASONE SOD PHOS 4 MG/ML VIAL ONE (00:13)
[2017-02-27] MEDS: 1/2 NS + KCL 20 MEQ INJ 1,000 ML IV SCH ×4 (00:13→20:13)
[2017-02-27] MEDS ORDERED: METOCLOPRAMIDE HCL 10 MG/2 ML VIAL ONE (00:14)
[2017-02-27] MEDS ORDERED: SODIUM CHLORIDE 0.9% FLUSH 5 ML FLUSH IVF PRN (00:15)
--- NOTE | 2017-02-27 00:35 | RADRPT ---
EXAM DATE/TIME: 02/26/2017 20:53 [facility] COMPARISON: No previous studies available for comparison. INDICATIONS : Level localization. MEDICAL HISTORY : Cardiovascular disease. Hypertension. Pancreatitis. SURGICAL HISTORY : Fusion T12 with screws and rods placement T10 to L2. ENCOUNTER: Initial ACUITY: 1 day PAIN SCORE: Non-responsive. LOCATION: Bilateral lower back. FINDINGS: Intraoperative examination demonstrates a localizing probe pointing towards L4-5. CONCLUSION: Intraoperative changes as above. Ritika Allen MD on February 27, 2017 at 0:34 Board Certified Radiologist. This report was verified electronically.
--- NOTE | 2017-02-27 00:36 | RADRPT ---
EXAM DATE/TIME: 02/26/2017 20:53 [facility] COMPARISON: CT LUMBAR SPINE W/O CONTRAST, February 24, 2017, 10:51. CT THORACIC SPINE W/O CONTRAST, February 24, 2017, 10: 51. INDICATIONS : Laminectomy. MEDICAL HISTORY : Cardiovascular disease. Hypertension. Pancreatitis. SURGICAL HISTORY : Fusion T12 with screws and rods placement T10 to L2. ENCOUNTER: Initial ACUITY: 1 day PAIN SCORE: Non-responsive. LOCATION: Bilateral thoracolumbar FINDINGS: Surgical screws traverse multiple vertebral bodies and compression fracture of probable T12 identifie d on prior CT examinations with posterior stabilization hardware in place. CONCLUSION: Postsurgical changes. Ritika Allen MD on February 27, 2017 at 0:34 Board Certified Radiologist. This report was verified electronically.
[2017-02-27] MEDS: ENALAPRILAT 1.25 MG/ML VIAL IV PUSH PRN (02:24)
[2017-02-27] MEDS: ONDANSETRON HCL 4 MG/2 ML VIAL IV PRN ×2 (02:50→11:20)
[2017-02-27] MEDS: HYDROmorphone HCL PF 1 MG/ML VIAL IV PRN (02:51)
[2017-02-27 05:51] LABS: AUTOMATED NEUTROPHIL # 11.8 TH/MM3 (1.8-7.7); BASOPHIL % 0.1 % (0.0-2.0); HEMATOCRIT 25.8 % (35.0-46.0); HEMO FLAGS DIFF FINAL; LYMPHOCYTE # 1.3 TH/MM3 (1.0-4.8); MEAN CORPUSCULAR HEMOGLOBIN 29.3 PG (27.0-34.0); MEAN CORPUSCULAR HGB CONC 33.3 % (32.0-36.0); NEUT % 84.9 % (16.0-70.0); PLATELET COUNT 350 TH/MM3 (150-450); RED BLOOD COUNT 2.93 MIL/MM3 (4.00-5.30); RED CELL DISTRIBUTION WIDTH 13.6 % (11.6-17.2); WHITE BLOOD COUNT 13.9 TH/MM3 (4.0-11.0)
[2017-02-27 05:54] LABS: APTT (PATIENT) 26.1 SEC (24.3-30.1); PROTHROMBIN TIME - PATIENT 11.2 SEC (9.8-11.6)
[2017-02-27] MEDS: DEXAMETHASONE SOD PHOS 4 MG/ML VIAL IV PUSH SCH ×3 (06:17→22:17)
[2017-02-27] MEDS: LOSARTAN 25 MG TAB PO SCH ×2 (06:18→22:18)
[2017-02-27] MEDS: traMADol HCL 50 MG TAB PO SCH ×3 (06:18→18:00)
[2017-02-27] MEDS: METHOCARBAMOL 500 MG TAB PO SCH ×3 (06:18→22:00)
[2017-02-27 06:20] LABS: BICARBONATE 24.8 MEQ/L (21.0-32.0); POTASSIUM 3.8 MEQ/L (3.5-5.1)
[2017-02-27] MEDS: INSULIN ASPART SUPPLEMENTAL SCALE SQ SCH ×4 (07:00→21:00)
[2017-02-27] MEDS: MAGNESIUM OXIDE 400 MG TAB PO SCH (08:36)
[2017-02-27] MEDS: SODIUM CHLORIDE 0.9% FLUSH 5 ML FLUSH IVF SCH ×2 (08:36→21:00)
[2017-02-27] MEDS: LACTOBACILLUS ACIDOPHILUS TAB PO SCH (08:37)
[2017-02-27] MEDS: PANTOPRAZOLE SOD 40 MG DELAYED RELEASE TAB PO SCH (08:37)
[2017-02-27] MEDS: GABAPENTIN 300 MG CAP PO SCH ×3 (08:37→17:49)
[2017-02-27] MEDS: FLUTICASONE 100 MCG/VILANTEROL 25 MCG INHALER INH SCH (08:37)
[2017-02-27] MEDS: LABETALOL HCL 100 MG/20 ML VIAL IV PRN (08:37)
[2017-02-27] MEDS: MULTIVITAMIN TAB PO SCH (08:37)
[2017-02-27] MEDS: DOCUSATE SODIUM 50 MG/SENNA 8.6 MG TAB PO SCH ×2 (08:37→22:18)
[2017-02-27] MEDS: POTASSIUM CHLORIDE 10 MEQ CONTROLLED RELEASE TAB PO SCH (08:37)
[2017-02-27] MEDS: MUPIROCIN 2% OINT 1 APPLIC/GM SYR EACH NARE SCH ×2 (08:38→22:23)
[2017-02-27] MEDS ORDERED: SODIUM CHLORIDE 0.9% FLUSH 5 ML FLUSH IVF SCH (09:00)
[2017-02-27] MEDS: SODIUM CHLOR 0.9% 1000 ML INJ 1,000 ML IV SCH (11:09)
--- NOTE | 2017-02-27 11:46 | PD.CONS ---
HPI Service [facility] Hospitalists Consult Requested By Dr. Bryan Reason for Consult Medical management, hypertension Primary Care Physician Lenore Duran MD Diagnoses: History of Present Illness 81-year-old female with a medical history significant for hypertension, chronic back pain, hyperlipidemia, GERD, asthma admitted to the hospital for T12 right decompressive semi-laminectomy and bilateral T10-L2 posterior fusion w/ instrumentation & percutaneous pedicle screw fixation due to a severe T12 fracture. Patient was admitted to the ICU postoperatively. Hospitalist service consulted for medical management and hypertension. Patient is seen with RN at bedside. Pain is currently not well controlled. Patient denies headache or chest pressure. She complains of upper back pain. States she is having a hard time wearing the brace. She denies shortness of breath. She reports that her blood pressure has been controlled outpatient with losartan. Her other medical conditions as pain stable. 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 Family History Father from heart disease Social History Patient denies tobacco use. Admits to occasional alcohol. Denies illicit drug use. Physical Exam Vital Signs Vital Signs Date Time Temp Pulse Resp B/P Pulse Ox O2 Delivery O2 Flow Rate FiO2 02/27/17 10:00 86 02/27/17 08:23 99 21 02/27/17 08:00 90 02/27/17 08:00 98.2 90 24 170/68 100 02/27/17 07:00 99 Nasal Cannula 3.00 02/27/17 06:00 97 02/27/17 04:00 85 22 180/64 94 02/27/17 04:00 61 02/27/17 04:00 97.5 93 23 169/86 99 02/27/17 03:21 16 02/27/17 03:00 85 22 180/64 94 02/27/17 02:00 97.5 81 23 173/65 96 02/27/17 02:00 81 02/27/17 01:00 97.9 70 16 175/78 100 Nasal Cannula 3 02/27/17 00:45 67 15 164/77 100 Nasal Cannula 3 02/27/17 00:30 70 15 174/81 100 Nasal Cannula 3 02/27/17 00:15 73 19 186/91 100 Nasal Cannula 3 02/27/17 00:00 74 17 180/81 100 Nasal Cannula 3 02/26/17 23:51 97.0 73 20 201/103 98 Nasal Cannula 3 02/26/17 19:15 95 02/26/17 19:15 98.6 96 20 154/83 95 02/26/17 19:15 96 02/26/17 18:00 103 02/26/17 16:00 94 02/26/17 16:00 98.2 94 21 160/91 98 02/26/17 14:00 82 02/26/17 12:00 98.1 95 22 158/70 98 02/26/17 12:00 95 Physical Exam GENERAL: This is a well-nourished, well-developed patient, in no apparent distress. SKIN: No rashes, ecchymoses or lesions. Cool and dry. HEAD: Atraumatic. Normocephalic. No temporal or scalp tenderness. EYES: Pupils equal round and reactive. Extraocular motions intact. No scleral icterus. No injection or drainage. ENT: Nose without bleeding, purulent drainage or septal hematoma. Throat without erythema, tonsillar hypertrophy or exudate. Uvula midline. Airway patent. NECK: Trachea midline. No JVD or lymphadenopathy. Supple, nontender, no meningeal signs. CARDIOVASCULAR: Regular rate and rhythm without murmurs, gallops, or rubs. RESPIRATORY: Clear to auscultation. Breath sounds equal bilaterally. No wheezes , rales, or rhonchi. GASTROINTESTINAL: Abdomen soft, non-tender, nondistended. No hepato-splenomegaly , or palpable masses. No guarding. MUSCULOSKELETAL: Extremities without clubbing, cyanosis, or edema. No joint tenderness, effusion, or edema noted. No calf tenderness. Negative Homans sign bilaterally. NEUROLOGICAL: Awake and alert. Cranial nerves II through XII intact. Motor and sensory grossly within normal limits. Five out of 5 muscle strength in all muscle groups. Normal speech. Laboratory Laboratory Tests Test 02/26/17 02/27/17 02/27/17 15:02 04:00 04:30 White Blood Count 11.0 13.9 Red Blood Count 3.26 2.93 Hemoglobin 9.7 8.6 Hematocrit 28.2 25.8 Mean Corpuscular Volume 86.5 88.0 Mean Corpuscular Hemoglobin 29.8 29.3 Mean Corpuscular Hemoglobin 34.5 33.3 Concent Red Cell Distribution Width 13.8 13.6 Platelet Count 397 350 Mean Platelet Volume 7.8 8.1 Sodium Level 132 133 Potassium Level 3.8 3.8 Chloride Level 98 98 Carbon Dioxide Level 23.7 24.8 Anion Gap 10 10 Blood Urea Nitrogen 13 14 Creatinine 0.45 0.58 Estimat Glomerular Filtration 133 100 Rate Random Glucose 102 118 Calcium Level 9.0 8.2 Phosphorus Level 2.7 Magnesium Level 2.3 Total Bilirubin 0.7 Aspartate Amino Transf 28 (AST/SGOT) Alanine Aminotransferase 25 (ALT/SGPT) Alkaline Phosphatase 59 Total Protein 6.5 Albumin 2.7 Blood Type O POSITIVE Antibody Screen NEGATIVE Neutrophils (%) (Auto) 84.9 Lymphocytes (%) (Auto) 9.0 Monocytes (%) (Auto) 6.0 Eosinophils (%) (Auto) 0.0 Basophils (%) (Auto) 0.1 Neutrophils # (Auto) 11.8 Lymphocytes # (Auto) 1.3 Monocytes # (Auto) 0.8 Eosinophils # (Auto) 0.0 Basophils # (Auto) 0.0 CBC Comment DIFF FINAL Differential Comment Prothrombin Time 11.2 Prothromb Time International 1.0 Ratio Activated Partial 26.1 Thromboplast Time Result Diagram: 02/27/17 0430 02/27/17 0400 Imaging Last Impressions Thoracic Spine X-Ray 02/27/17 0000 Signed Impressions: Service Date/Time: Sunday, February 26, 2017 20:53 - CONCLUSION: Postsurgical changes. KKarley Allen MD Lumbar Spine X-Ray 02/27/17 0000 Signed Impressions: Service Date/Time: Sunday, February 26, 2017 20:53 - CONCLUSION: Intraoperative changes as above. Ritika Allen MD Head CT 02/26/17 Signed Impressions: Service Date/Time: Sunday, February 26, 2017 09:58 - CONCLUSION: 1. No acute hemorrhage or mass effect. 2. Atrophy and chronic small vessel ischemic changes again noted. Keven Kelsey MD Thoracic Spine MRI 02/24/17 Signed Impressions: Service Date/Time: Friday, February 24, 2017 07:44 - CONCLUSION: T12 vertebral body fracture again identified. Postsurgical findings with posterior hardware above and below the fracture level. Posterior bone defect at the fracture level. There is abnormal anterior epidural signal extending from the posterior aspect of the fractured vertebral body. Differential diagnosis is bone fragment versus epidural hematoma. It results in mass effect on the spinal cord with posterior displacement of the spinal cord and deformity of the spinal cord. There is adjacent intrinsic signal abnormality in the spinal cord. Antoine Franklin MD Thoracic Spine CT 02/24/17 Signed Impressions: Service Date/Time: Friday, February 24, 2017 10:51 - CONCLUSION: 1. Post surgical findings. Retropulsed bone fragment and gas seen anteriorly in the central canal at the level of surgery corresponding to signal abnormality described on MRI. Posterior laminectomy bone defect at the level surgery. 2. The posterior epidural fluid/hematoma from L1-L3 seen on MRI is not well-demonstrated on CT. Antoine Franklin MD Lumbar Spine MRI 02/24/17 Signed Impressions: Service Date/Time: Friday, February 24, 2017 07:44 - CONCLUSION: 1. Postsurgical findings at T12 and fracture T12 again seen. Anterior epidural signal abnormality at T12 is fully described on thoracic spine MRI. This may represent bone fragments versus hematoma. 2. Posterior epidural hematoma is seen extending from L1-L3 with resulting central canal stenosis and displacement of nerve roots. Area of maximum narrowing is at the level of L2-3. 3. Degenerative findings of the lower lumbar spine grossly unchanged from prior CT with facet arthrosis and anterolisthesis at L4-5 resulting in mild/moderate central canal stenosis. Antoine Franklin MD Lumbar Spine CT 02/24/17 Signed Impressions: Service Date/Time: Friday, February 24, 2017 10:51 - CONCLUSION: 1. Postsurgical findings and old fracture at T12 again identified. Residual bone fragments are seen anteriorly in the central canal resulting in narrowing of the left side of the central canal. Right-sided laminectomy defect noted. 2. Chronic nondisplaced fracture of the left inferior facet of L5. Fracture line is more distinct than on the comparison study of December. 3. Multilevel degenerative findings unchanged. 4. Calcified gallstones noted. Antoine Franklin MD Thoracolumbar Spine 02/22/17 0000 Signed Impressions: Service Date/Time: February 12:16 - CONCLUSION: S/p fusion around the T12 vertebral body.. Pola García MD Assessment and Plan Problem List: (1) T12 vertebral fracture ICD Code: S22.089A Status: Chronic Plan: Patient is status post T12 right decompressive semi-laminectomy and bilateral T10-L2 posterior fusion w/instrumentation & percutaneous pedicle screw fixation due to a severe T12 fracture Pain control. Advised patient to use pain medication to allow mobilization and progression of care. Discussed with RN. Further plans per neurosurgery (2) Hypertension ICD Code: I10 Status: Chronic Plan: - Accelerated hypertension. Pain likely contributing. Resume home dose losartan 25 mg twice a day Agree with labetalol as needed for SBP greater than 170 We'll continue to monitor blood pressure (3) Asthma ICD Code: J45.909 Status: Chronic Plan: Continue Breo elipta. Patient is currently on Decadron. Breathing treatments as needed. (4) GERD (gastroesophageal reflux disease) ICD Code: K21.9 Status: Chronic Plan: Continue PPI (5) Intractable back pain ICD Code: M54.9 Status: Acute Plan: Pain control as above. Patient has Robaxin, Neurontin, and narcotics as needed for pain. (6) Impaired mobility and activities of daily living ICD Code: Z74.09 Status: Acute Assessment and Plan Thank you for allowing me to participate in the care of Mrs. Tavares. We'll continue to follow. Discussed Condition With RN. Jim Bates MD February 27, 2017 11:46
--- NOTE | 2017-02-27 11:55 | HHI.NSPN ---
(Artie Aguirre) Note Status Status: Progress Note (Artie Aguirre) Interval History Interval History 02/22: Patient presented to [facility] for a T12 right decompressive semi- laminectomy and bilateral T10-L2 posterior fusion w/instrumentation & percutaneous pedicle screw fixation due to a severe T12 fracture. She also had a repair of a T12 level dural tear by microtechnique. Post-operatively she was admitted to the [facility]. 02/23: This morning the patient is in pain to the back but she is not able to localise it. She was medicated prior to being seen. She also stated she had tingling and pain to the anterior and anterolateral thigh bilaterally. Her TLSO is in the room and as this practitioner was leaving Physical Therapy came in to evaluate the patient and get her up to a chair. 02/25: The patient states that she is doing good this morning. She has some pain to the back/surgical site. She also says she has some numbness & tingling running down both legs with some pain to the anterior thighs and the bottom of the foot. 02/26: The patient continues to do well this morning. She states the back is "tender" and "a little sore." She still has weakness and altered sensation to the left lower leg. Dr De Luna discussed with her earlier this morning about going back to surgery to remove the bone fragments on the left side of the central canal. Nursing reports that the patient did call her and explained what Dr De Luna wanted to do. The daughter did express concern regarding the type of anaesthesia to be used.The patient did go for a CT brain mid morning which was unremarkable for any acute findings. 02/27: The patient states she is "not doing so good" this morning. She is sitting up in the chair and has a clamshell brace on. She states she had a slight headache earlier and that she was nauseated after drinking so much for breakfast. (Artie Aguirre) Labs, Micro, & Vital Signs Results Allergies Coded Allergies Type Severity Reaction Last Updated Verified Sulfa Allergy Intermediate NAUSEA 02/07/17 Yes *MDRO Multi-Drug Resistant Organism Adverse Reaction Unknown MRSA 02/23/17 Yes Recent Impressions Thoracic Spine X-Ray 02/27/17 0000 Signed Impressions: Service Date/Time: Sunday, February 26, 2017 20:53 - CONCLUSION: Postsurgical changes. Ritika Allen MD Lumbar Spine X-Ray 02/27/17 0000 Signed Impressions: Service Date/Time: Sunday, February 26, 2017 20:53 - CONCLUSION: Intraoperative changes as above. Ritika Allen MD Head CT 02/26/17 0000 Signed Impressions: Service Date/Time: Sunday, February 26, 2017 09:58 - CONCLUSION: 1. No acute hemorrhage or mass effect. 2. Atrophy and chronic small vessel ischemic changes again noted. Keven Kelsey MD 05:59 17:59 05:59 17:59 05:59 17:59 Intake Total 721 ml 1177 ml 690 ml 1024 ml 1700 ml 435 ml Output Total 1175 ml 2050 ml 700 ml 2225 ml 1525 ml 1390 ml Balance -454 ml -873 ml -10 ml -1201 ml 175 ml -955 ml Intake Oral 200 ml 680 ml 450 ml 500 ml 120 ml IV Total 521 ml 497 ml 240 ml 524 ml 315 ml Other 1700 ml Output Urine Total 1175 ml 2050 ml 700 ml 2225 ml 1300 ml 700 ml Drainage Total 25 ml 140 ml Estimated Blood Loss 200 ml 50 ml Other 500 ml # Bowel Movements 0 0 0 0 0 Laboratory Tests Test 02/24/17 02/26/17 02/27/17 02/27/17 18:43 15:02 04:00 04:30 White Blood Count 11.6 TH/MM3 11.0 TH/MM3 13.9 TH/MM3 Red Blood Count 3.22 MIL/MM3 3.26 MIL/MM3 2.93 MIL/MM3 Hemoglobin 9.5 GM/DL 9.7 GM/DL 8.6 GM/DL Hematocrit 28.8 % 28.2 % 25.8 % Mean Corpuscular Volume 89.4 FL 86.5 FL 88.0 FL Mean Corpuscular Hemoglobin 29.4 PG 29.8 PG 29.3 PG Mean Corpuscular Hemoglobin 32.9 % 34.5 % 33.3 % Concent Red Cell Distribution Width 14.1 % 13.8 % 13.6 % Platelet Count 232 TH/MM3 397 TH/MM3 350 TH/MM3 Mean Platelet Volume 8.2 FL 7.8 FL 8.1 FL Sodium Level 132 MEQ/L 132 MEQ/L 133 MEQ/L Potassium Level 3.9 MEQ/L 3.8 MEQ/L 3.8 MEQ/L Chloride Level 98 MEQ/L 98 MEQ/L 98 MEQ/L Carbon Dioxide Level 25.0 MEQ/L 23.7 MEQ/L 24.8 MEQ/L Anion Gap 9 MEQ/L 10 MEQ/L 10 MEQ/L Blood Urea Nitrogen 4 MG/DL 13 MG/DL 14 MG/DL Creatinine 0.43 MG/DL 0.45 MG/DL 0.58 MG/DL Estimat Glomerular Filtration 141 ML/MIN 133 ML/MIN 100 ML/MIN Rate Random Glucose 206 MG/DL 102 MG/DL 118 MG/DL Calcium Level 8.3 MG/DL 9.0 MG/DL 8.2 MG/DL Phosphorus Level 2.7 MG/DL Magnesium Level 2.3 MG/DL Total Bilirubin 0.7 MG/DL Aspartate Amino Transf 28 U/L (AST/SGOT) Alanine Aminotransferase 25 U/L (ALT/SGPT) Alkaline Phosphatase 59 U/L Total Protein 6.5 GM/DL Albumin 2.7 GM/DL Blood Type O POSITIVE Antibody Screen NEGATIVE Neutrophils (%) (Auto) 84.9 % Lymphocytes (%) (Auto) 9.0 % Monocytes (%) (Auto) 6.0 % Eosinophils (%) (Auto) 0.0 % Basophils (%) (Auto) 0.1 % Neutrophils # (Auto) 11.8 TH/MM3 Lymphocytes # (Auto) 1.3 TH/MM3 Monocytes # (Auto) 0.8 TH/MM3 Eosinophils # (Auto) 0.0 TH/MM3 Basophils # (Auto) 0.0 TH/MM3 CBC Comment DIFF FINAL Differential Comment Prothrombin Time 11.2 SEC Prothromb Time International 1.0 RATIO Ratio Activated Partial 26.1 SEC Thromboplast Time Constitutional Vital Signs Date Time Temp Pulse Resp B/P Pulse Ox O2 Delivery O2 Flow Rate FiO2 02/27/17 10:00 86 02/27/17 08:23 99 21 02/27/17 08:00 90 02/27/17 08:00 98.2 90 24 170/68 100 02/27/17 07:00 99 Nasal Cannula 3.00 02/27/17 06:00 97 02/27/17 04:00 85 22 180/64 94 02/27/17 04:00 61 02/27/17 04:00 97.5 93 23 169/86 99 02/27/17 03:21 16 02/27/17 03:00 85 22 180/64 94 02/27/17 02:00 97.5 81 23 173/65 96 02/27/17 02:00 81 02/27/17 01:00 97.9 70 16 175/78 100 Nasal Cannula 3 02/27/17 00:45 67 15 164/77 100 Nasal Cannula 3 02/27/17 00:30 70 15 174/81 100 Nasal Cannula 3 02/27/17 00:15 73 19 186/91 100 Nasal Cannula 3 02/27/17 00:00 74 17 180/81 100 Nasal Cannula 3 02/26/17 23:51 97.0 73 20 201/103 98 Nasal Cannula 3 02/26/17 19:15 95 02/26/17 19:15 98.6 96 20 154/83 95 02/26/17 19:15 96 02/26/17 18:00 103 02/26/17 16:00 94 02/26/17 16:00 98.2 94 21 160/91 98 02/26/17 14:00 82 02/26/17 12:00 98.1 95 22 158/70 98 02/26/17 12:00 95 02/27/17 06:59 Intake Total 2601 ml Output Total 3690 ml Balance -1089 ml (Artie Aguirre) Review of Systems/Exam ROS Constitutional: Patient denies any fever or chills. Neck: Patient denies any neck pain. Respiratory: Patient denies any shortness of breath or productive cough. Cardiovascular: Patient denies any chest pain, palpitations or irregular heart beat. Gastrointestinal: Patient has nausea secondary to drinking so much at breakfast but denies any abdominal pain, vomiting or bowel incontinence. Extremities: Patient complains of the left leg and foot being weak and feeling different but doesn't state it is painful or numb. She denies any other pain or weakness to the other extremities. Back: Patient complains of tenderness to the back. Neurological: Patient complains of the left leg and foot feeling different but doesn't state it is painful or numb. She did have a headache earlier but denies any dizziness. She denies any numbness or tingling to the other extremities. Exam General: Awake and alert this morning. Appears mildly uncomfortable, NAD. Resp: CTAB w/o W/R/R, equal excursion, non-laboured, on RA. CV: S1S2 w/RRR w/o M/G/R, radial & pedal pulses 2+ bilaterally, cap refill < 2 sec. Monitor is sinus rhythm. GI: Deferred due to clamshell brace. : Egan catheter to BSD w/clear pale yellow urine. Extremities: GAUTHIER. Back: TTP at surgical site, dressing dry and intact. ARTHUR drain with serosanguinous drainage that is more serous in appearance. Neuro: Awake & alert Speech clear but slow Follows simple commands Sensation intact light touch BUE & RLE but different to left lower leg and foot , primarily L5 distribution, she is unable to describe any further Strength is within normal limits in the upper extremities Strength is within normal limits in right and left iliopsoas, quadriceps, hamstrings with 4 right and to left tibialis anterior, 5 right and 3+ left gastrocsoleus. (Artie Aguirre) Medications Current Medications Current Medications Medications (Trade) Dose Ordered Sig/Radha Route Start Time Stop Time Status Last Admin (Gorham 5-325 Mg) 1 tab Q4H PRN PO 02/22/17 16:45 (Gorham 10-325 Mg) 1 tab Q4H PRN PO 02/22/17 16:45 02/26/17 08:43 (Dilaudid Pf Inj) 0.5 mg Q3H PRN IV 02/22/17 16:45 02/27/17 02:51 (Morphine Inj) 4 mg Q3H PRN IV 02/22/17 16:45 02/25/17 00:48 (Narcan Inj) 0.4 mg UNSCH PRN IV 02/22/17 16:45 (Protonix) 40 mg DAILY PO 02/23/17 09:00 02/27/17 08:37 (Zofran Inj) 4 mg Q6H PRN IV 02/22/17 16:45 02/27/17 11:20 (Tylenol) 650 mg Q6H PRN PO 02/22/17 17:00 (Dulcolax Supp) 10 mg DAILY PRN RECTAL 02/22/17 17:00 (Breo Ellipta 100-25 Inh) 1 puff DAILY INH 02/23/17 09:00 02/27/17 08:37 (Milk Of Magnesia Liq) 30 ml DAILY PRN PO 02/22/17 17:00 (KCl) 10 meq DAILY PO 02/23/17 09:00 02/27/17 08:37 (Ultram) 50 mg Q6H PO 02/22/17 18:00 02/27/17 11:08 (NS Flush) 2 ml UNSCH PRN IVF 02/22/17 17:00 (NS Flush) 2 ml BID IVF 02/22/17 21:00 02/27/17 08:36 (Mag-Ox) 400 mg DAILY PO 02/23/17 09:00 02/27/17 08:36 (Theragran) 1 tab DAILY PO 02/23/17 09:00 02/27/17 08:37 (Lactinex) 1.5 tab DAILY PO 02/23/17 09:00 02/27/17 08:37 (Metamucil Smooth Texture Sf/ Gf Pkt) 1 pkt BID PRN PO 02/22/17 17:15 (Lexii-Colace) 1 tab BID PO 02/22/17 21:00 02/27/17 08:37 (Bactroban Nasal 2% Oint) 1 applic BID EACH NARE 02/23/17 21:00 02/27/17 08:38 (Neurontin) 300 mg TID PO 02/24/17 18:00 02/27/17 08:37 Dexamethasone Sodium Phosphate 4 mg 4 mg Q8HR IV PUSH 02/24/17 16:45 02/27/17 06:17 (NS 1000 ml Inj) 1,000 ml @ 30 mls/hr Q24H IV 02/25/17 13:00 02/25/17 12:54 (Robaxin) 500 mg Q8HR PO 02/25/17 22:00 02/27/17 06:18 (D50w (Vial) Inj) 50 ml UNSCH PRN IV 5/21/17 15:15 (Glucagon Inj) 1 mg UNSCH PRN OTHER 02/25/17 15:15 Enalaprilat 1.25 mg 1.25 mg Q8H PRN IV PUSH 02/25/17 21:15 02/27/17 02:24 Lactated Ringer's 1,000 ml @ 30 mls/hr Q24H PRN IV 02/26/17 19:45 03/01/17 19:44 (NS 500 ml Inj) 500 ml @ 30 mls/hr [id number] PRN IV 02/26/17 19:45 03/01/17 19:44 (NS Flush) 2 ml UNSCH PRN IVF 02/27/17 00:15 IV Flush 2 ml 2 ml BID IVF 02/27/17 09:00 (1/2 NS + KCl 20 Meq Inj) 1,000 ml @ 100 mls/hr Q10H IV 02/27/17 00:13 02/27/17 01:30 (Trandate Inj) 10 mg Q4H PRN IV 02/27/17 06:45 02/27/17 08:37 (Cozaar) 25 mg BID PO 02/27/17 21:00 UNV (Artie Aguirre) Medical Decision Making MDM Remarks Impression: (1) Severe T12 compression fracture with retropulsion and severe canal stenosis (2) Thoracic stenosis (3) Lumbar canal stenosis (4) Lumbar radiculopathy 1. Postoperative thoracic epidural hematoma 2. T12 compression fracture with persistent left canal retropulsed bone 3. L4 5 stenosis 4. Left L5 radiculopathy 5. Hyperglycemia POD # 5 () s/p: 1. T12 right decompressive semi-laminectomy 2. intraoperative reduction T12 retropulsed compression fracture with partial resection of retropulsed fragments.. 3. Bilateral T10-L2 posterior fusion, local lamina autograft and allograft bone 4. Bilateral T10-L2 posterior instrumentation with percutaneous pedicle screw fixation 5. Repair T12 level dural tear-microtechnique POD # 1 () s/p: Procedure #1 1. Left L4 5 decompressive semi-hemilaminectomy Procedure #2 via separate incision 1. Left T12 and partial left L1 decompressive laminectomy, medial facetectomy 2. Reduction left T12 retropulsed fracture for spinal cord decompression 3. Evacuation postoperative thoracic epidural hematoma CT brain without any acute findings Remains hyponatremic Interval decrease in haemoglobin (9.7=>8.6) (Artie Aguirre) Plan Plan Remarks Neuro checks PT/OT eval & tx Mobilise patient with assistance Pain control Diet Gabapentin Medicine consult for hypertension Will d/c ARTHUR drain Will follow sodium level & Hgb (Artie Aguirre) Attending Statement I have personally seen and examined the patient on the date of this note. Pertinent documentation and study results have been reviewed by the undersigned. I have personally developed the treatment plan and performed medical decision making. Agree with findings, exam, and treatment plan as noted above. Somewhat clear drain output. No definite symptoms of CSF leak. No headache. Lumbar drain discontinued Stable postoperative exam. Left lower extremity pain improving Continue physical therapy (Joseph De Luna MD) Artie Aguirre February 27, 2017 11:55 Joseph De Luna MD February 28, 2017 23:00
--- NOTE | 2017-02-27 15:30 | EKG ---
Date Performed: 02/26/2017 Time Performed: 16:31:40 PTAGE: 81 years EKG: Sinus rhythm Normal ECG Compared to prior tracing no significant change PREVIOUS TRACING : 12/26/2016 21.35 DOCTOR: Dennis Claros Interpretating Date/Time 02/27/2017 15:28:41
[2017-02-27] MEDS: ACETAMINOPHEN/HYDROcodone 325 MG/5 MG TAB PO PRN (22:18)
[2017-02-28] VITALS (11 sets, daily range): BP systolic 113–173; BP diastolic 56–77; PULSE 73–96; RESP 16–22; TEMP 97.9–99; O2SAT 94–100
[2017-02-28] MEDS: HYDROmorphone HCL PF 1 MG/ML VIAL IV PRN (02:27)
[2017-02-28] MEDS: METHOCARBAMOL 500 MG TAB PO SCH ×3 (02:27→22:00)
[2017-02-28] MEDS: ACETAMINOPHEN/HYDROcodone 325 MG/10 MG TAB PO PRN ×3 (02:27→20:38)
[2017-02-28] MEDS: traMADol HCL 50 MG TAB PO SCH ×4 (05:49→17:03)
[2017-02-28] MEDS: DEXAMETHASONE SOD PHOS 4 MG/ML VIAL IV PUSH SCH ×3 (06:57→20:39)
[2017-02-28] MEDS: 1/2 NS + KCL 20 MEQ INJ 1,000 ML IV SCH ×2 (06:58→17:03)
[2017-02-28] MEDS: INSULIN ASPART SUPPLEMENTAL SCALE SQ SCH ×4 (07:00→21:00)
[2017-02-28] MEDS: FLUTICASONE 100 MCG/VILANTEROL 25 MCG INHALER INH SCH (09:00)
[2017-02-28] MEDS: SODIUM CHLORIDE 0.9% FLUSH 5 ML FLUSH IVF SCH ×2 (09:00→20:39)
[2017-02-28] MEDS: MUPIROCIN 2% OINT 1 APPLIC/GM SYR EACH NARE SCH ×2 (09:33→20:39)
[2017-02-28] MEDS: POTASSIUM CHLORIDE 10 MEQ CONTROLLED RELEASE TAB PO SCH (09:34)
[2017-02-28] MEDS: MAGNESIUM OXIDE 400 MG TAB PO SCH (09:34)
[2017-02-28] MEDS: PANTOPRAZOLE SOD 40 MG DELAYED RELEASE TAB PO SCH (09:34)
[2017-02-28] MEDS: MULTIVITAMIN TAB PO SCH (09:34)
[2017-02-28] MEDS: LOSARTAN 25 MG TAB PO SCH ×2 (09:34→20:38)
[2017-02-28] MEDS: GABAPENTIN 300 MG CAP PO SCH ×3 (09:34→17:03)
[2017-02-28] MEDS: LACTOBACILLUS ACIDOPHILUS TAB PO SCH (09:34)
[2017-02-28] MEDS: DOCUSATE SODIUM 50 MG/SENNA 8.6 MG TAB PO SCH ×2 (09:34→20:38)
--- NOTE | 2017-02-28 10:57 | HHI.PR ---
Subjective Remarks BP better overnight but elevate this morning secondary to pain. DW RN. Patient was just medicated for pain. Other than the pain, she reports feeling okay. Objective Vitals Vital Signs Date Time Temp Pulse Resp B/P Pulse Ox O2 Delivery O2 Flow Rate FiO2 02/28/17 10:00 96 02/28/17 08:00 80 02/28/17 08:00 98.0 80 16 173/77 98 02/28/17 07:00 Room Air 02/28/17 06:00 76 02/28/17 04:00 98.9 78 22 113/56 95 02/28/17 04:00 74 02/28/17 03:27 20 02/28/17 03:27 20 02/28/17 02:00 73 02/28/17 00:00 81 02/28/17 00:00 99.0 78 22 113/56 95 02/27/17 23:18 20 02/27/17 22:00 81 02/27/17 20:00 75 02/27/17 20:00 99.2 75 20 115/56 96 02/27/17 20:00 75 02/27/17 20:00 99.2 75 20 115/56 96 02/27/17 19:00 96 Room Air 02/27/17 18:00 84 02/27/17 16:00 98.4 84 18 159/70 98 02/27/17 16:00 81 02/27/17 14:00 86 02/27/17 12:00 84 02/27/17 12:00 98.4 84 18 159/70 98 I/O 02/27/17 02/27/17 02/27/17 02/28/17 02/28/17 02/28/17 07:00 15:00 23:00 07:00 15:00 23:00 Intake Total 2135 ml 916 ml 1058 ml 918 ml Output Total 2265 ml 1170 ml 1400 ml 700 ml Balance -130 ml -254 ml -342 ml 218 ml Intake Oral 120 ml 240 ml 120 ml 240 ml IV Total 315 ml 676 ml 938 ml 678 ml Other 1700 ml Output Urine Total 1350 ml 1100 ml 1400 ml 700 ml Drainage Total 165 ml 70 ml Estimated Blood Loss 250 ml Other 500 ml # Bowel Movements 0 0 0 0 Result Diagram: 02/27/17 0430 02/27/17 0400 Imaging Last Impressions Thoracic Spine X-Ray 02/27/17 0000 Signed Impressions: Service Date/Time: Sunday, February 26, 2017 20:53 - CONCLUSION: Postsurgical changes. Ritika Allen MD Lumbar Spine X-Ray 02/27/17 Signed Impressions: Service Date/Time: Sunday, February 26, 2017 20:53 - CONCLUSION: Intraoperative changes as above. Ritika Allen MD Head CT 02/26/17 Signed Impressions: Service Date/Time: Sunday, February 26, 2017 09:58 - CONCLUSION: 1. No acute hemorrhage or mass effect. 2. Atrophy and chronic small vessel ischemic changes again noted. Keven Kelsey MD Thoracic Spine MRI 02/24/17 Signed Impressions: Service Date/Time: Friday, February 24, 2017 07:44 - CONCLUSION: T12 vertebral body fracture again identified. Postsurgical findings with posterior hardware above and below the fracture level. Posterior bone defect at the fracture level. There is abnormal anterior epidural signal extending from the posterior aspect of the fractured vertebral body. Differential diagnosis is bone fragment versus epidural hematoma. It results in mass effect on the spinal cord with posterior displacement of the spinal cord and deformity of the spinal cord. There is adjacent intrinsic signal abnormality in the spinal cord. Antoine Franklin MD Thoracic Spine CT 02/24/17 Signed Impressions: Service Date/Time: Friday, February 24, 2017 10:51 - CONCLUSION: 1. Post surgical findings. Retropulsed bone fragment and gas seen anteriorly in the central canal at the level of surgery corresponding to signal abnormality described on MRI. Posterior laminectomy bone defect at the level surgery. 2. The posterior epidural fluid/hematoma from L1-L3 seen on MRI is not well-demonstrated on CT. Antoine Franklin MD Lumbar Spine MRI 02/24/17 Signed Impressions: Service Date/Time: Friday, February 24, 2017 07:44 - CONCLUSION: 1. Postsurgical findings at T12 and fracture T12 again seen. Anterior epidural signal abnormality at T12 is fully described on thoracic spine MRI. This may represent bone fragments versus hematoma. 2. Posterior epidural hematoma is seen extending from L1-L3 with resulting central canal stenosis and displacement of nerve roots. Area of maximum narrowing is at the level of L2-3. 3. Degenerative findings of the lower lumbar spine grossly unchanged from prior CT with facet arthrosis and anterolisthesis at L4-5 resulting in mild/moderate central canal stenosis. Atnoine Franklin MD Lumbar Spine CT 02/24/17 0000 Signed Impressions: Service Date/Time: Friday, February 24, 2017 10:51 - CONCLUSION: 1. Postsurgical findings and old fracture at T12 again identified. Residual bone fragments are seen anteriorly in the central canal resulting in narrowing of the left side of the central canal. Right-sided laminectomy defect noted. 2. Chronic nondisplaced fracture of the left inferior facet of L5. Fracture line is more distinct than on the comparison study of December. 3. Multilevel degenerative findings unchanged. 4. Calcified gallstones noted. Antoine Franklin MD Thoracolumbar Spine 02/22/17 0000 Signed Impressions: Service Date/Time: February 12:16 - CONCLUSION: S/p fusion around the T12 vertebral body.. Pola García MD Objective Remarks GENERAL: Elderly female in a back brace. No acute distress. She is sitting up in the chair. CARDIOVASCULAR: Normal rate and regular rhythm without murmurs, gallops, or rubs. RESPIRATORY: Good respiratory efforts. Breath sounds equal and clear to auscultation bilaterally. GASTROINTESTINAL: Abdomen soft, non-tender, non-distended. Normal active bowel sounds MUSCULOSKELETAL: Extremities without cyanosis, or edema. Patient reports tenderness to palpation over the paraspinal muscles in the thoracic region. NEURO: Alert & Oriented x4 to person, place, time, situation. Moves all ext x4. Generalized weakness PSYCH: Appropriate mood and affect. A/P Problem List: (1) T12 vertebral fracture ICD Code: S22.089A Status: Chronic Plan: Patient is status post T12 right decompressive semi-laminectomy and bilateral T10-L2 posterior fusion w/instrumentation & percutaneous pedicle screw fixation due to a severe T12 fracture Pain control. PT. Discussed with RN. Further plans per neurosurgery (2) Hypertension ICD Code: I10 Status: Chronic Plan: - Accelerated hypertension. Blood pressure controlled when pain is controlled. Continue home dose losartan 25 mg twice a day Agree with labetalol as needed for SBP greater than 170 We'll continue to monitor blood pressure (3) Asthma ICD Code: J45.909 Status: Chronic Plan: Continue Breo elipta. Patient is currently on Decadron. Breathing treatments as needed. (4) GERD (gastroesophageal reflux disease) ICD Code: K21.9 Status: Chronic Plan: Continue PPI (5) Intractable back pain ICD Code: M54.9 Status: Acute Plan: Pain control as above. Patient has Robaxin, Neurontin, and narcotics as needed for pain. (6) Impaired mobility and activities of daily living ICD Code: Z74.09 Status: Acute Discharge Planning Patient appeared to be stable enough to transfer to floor if okay with neurosurgery. Jim Bates MD February 28, 2017 10:57
[2017-02-28] MEDS: LABETALOL HCL 100 MG/20 ML VIAL IV PRN (10:59)
[2017-02-28] MEDS ORDERED: PILL SPLITTER OTHER PRN (15:45)
--- NOTE | 2017-02-28 17:34 | HHI.NSPN ---
(TimothyArtie GUAJARDO) Note Status Status: Progress Note (Artie AguirreKarley TAMP) Interval History Interval History 02/22: Patient presented to [facility] for a T12 right decompressive semi- laminectomy and bilateral T10-L2 posterior fusion w/instrumentation & percutaneous pedicle screw fixation due to a severe T12 fracture. She also had a repair of a T12 level dural tear by microtechnique. Post-operatively she was admitted to the [facility]. 02/23: This morning the patient is in pain to the back but she is not able to localise it. She was medicated prior to being seen. She also stated she had tingling and pain to the anterior and anterolateral thigh bilaterally. Her TLSO is in the room and as this practitioner was leaving Physical Therapy came in to evaluate the patient and get her up to a chair. 02/25: The patient states that she is doing good this morning. She has some pain to the back/surgical site. She also says she has some numbness & tingling running down both legs with some pain to the anterior thighs and the bottom of the foot. 02/26: The patient continues to do well this morning. She states the back is "tender" and "a little sore." She still has weakness and altered sensation to the left lower leg. Dr De Luna discussed with her earlier this morning about going back to surgery to remove the bone fragments on the left side of the central canal. Nursing reports that the patient did call her and explained what Dr De Luna wanted to do. The daughter did express concern regarding the type of anaesthesia to be used.The patient did go for a CT brain mid morning which was unremarkable for any acute findings. 02/27: The patient states she is "not doing so good" this morning. She is sitting up in the chair and has a clamshell brace on. She states she had a slight headache earlier and that she was nauseated after drinking so much for breakfast. 02/28: The patient this afternoon states she is doing "pretty good." She has some pain to the back and describes it as a burning. She also has numbness to the left lower extremity. (Artie Aguirre) Labs, Micro, & Vital Signs Constitutional Vital Signs Date Time Temp Pulse Resp B/P Pulse Ox O2 Delivery O2 Flow Rate FiO2 02/28/17 14:00 88 02/28/17 13:34 16 02/28/17 12:00 98.8 77 18 164/76 100 02/28/17 12:00 77 02/28/17 11:18 20 02/28/17 10:00 96 02/28/17 08:00 80 02/28/17 08:00 98.0 80 16 173/77 98 02/28/17 07:00 Room Air 02/28/17 06:00 76 02/28/17 04:00 98.9 78 22 113/56 95 02/28/17 04:00 74 02/28/17 03:27 20 02/28/17 02:00 73 02/28/17 00:00 81 02/28/17 00:00 99.0 78 22 113/56 95 02/27/17 23:18 20 02/27/17 22:00 81 02/27/17 20:00 75 02/27/17 20:00 99.2 75 20 115/56 96 02/27/17 20:00 75 02/27/17 20:00 99.2 75 20 115/56 96 02/27/17 19:00 96 Room Air 02/27/17 18:00 84 02/28/17 07:00 Intake Total 2892 ml Output Total 3270 ml Balance -378 ml (Artie Aguirre) Review of Systems/Exam ROS Constitutional: Patient denies any fever or chills. Neck: Patient denies any neck pain. Respiratory: Patient denies any shortness of breath or productive cough. Cardiovascular: Patient denies any chest pain, palpitations or irregular heart beat. Gastrointestinal: Patient denies any abdominal pain, nausea, vomiting or bowel incontinence. Extremities: Patient complains of the left leg and foot being weak. She denies any other pain or weakness to the other extremities. Back: Patient complains of some pain to the back. Neurological: Patient complains of the left leg and foot feeling numb. She denies any headache, dizziness or any numbness or tingling to the other extremities. Exam General: Awake and alert, appears comfortable, NAD. Resp: CTAB w/o W/R/R, equal excursion, non-laboured, on RA. CV: S1S2 w/RRR w/o M/G/R, radial & pedal pulses 2+ bilaterally, cap refill < 2 sec. Monitor is sinus rhythm. GI: Abdomen soft, nontender, positive bowel sounds. : Egan catheter to BSD w/clear pale yellow urine. Extremities: GAUTHIER, NTTP. Back: TTP at surgical site, dressing dry and intact, no evident drainage, erythema or streaking. ARTHUR drain insertion site without any drainage, erythema or streaking. Neuro: AAOx3 Speech clear appropriate Follows simple commands Sensation intact light touch BUE & RLE but numb to the left lateral thigh down to the knee and the top of the foot Strength is within normal limits in the upper extremities Strength is within normal limits in right and left iliopsoas, quadriceps, hamstrings with 4 right and to left tibialis anterior, 5 right and 3+ left gastrocsoleus. (Artie Aguirre) Medications Current Medications Current Medications Medications (Trade) Dose Ordered Sig/Radha Route Start Time Stop Time Status Last Admin ([place] 5-325 Mg) 1 tab Q4H PRN PO 02/22/17 16:45 02/27/17 22:18 ([place] 10-325 Mg) 1 tab Q4H PRN PO 02/22/17 16:45 02/28/17 10:18 (Dilaudid Pf Inj) 0.5 mg Q3H PRN IV 02/22/17 16:45 02/28/17 02:27 (Morphine Inj) 4 mg Q3H PRN IV 02/22/17 16:45 02/25/17 00:48 (Narcan Inj) 0.4 mg UNSCH PRN IV 02/22/17 16:45 (Protonix) 40 mg DAILY PO 02/23/17 09:00 02/28/17 09:34 (Zofran Inj) 4 mg Q6H PRN IV 02/22/17 16:45 02/27/17 11:20 (Tylenol) 650 mg Q6H PRN PO 02/22/17 17:00 (Dulcolax Supp) 10 mg DAILY PRN RECTAL 02/22/17 17:00 (Breo Ellipta 100-25 Inh) 1 puff DAILY INH 02/23/17 09:00 02/27/17 08:37 (Milk Of Magnesia Liq) 30 ml DAILY PRN PO 02/22/17 17:00 (KCl) 10 meq DAILY PO 02/23/17 09:00 02/28/17 09:34 (Ultram) 50 mg Q6H PO 02/22/17 18:00 02/28/17 17:03 (NS Flush) 2 ml UNSCH PRN IVF 02/22/17 17:00 (NS Flush) 2 ml BID IVF 02/22/17 21:00 02/27/17 21:00 (Mag-Ox) 400 mg DAILY PO 02/23/17 09:00 02/28/17 09:34 (Theragran) 1 tab DAILY PO 02/23/17 09:00 02/28/17 09:34 (Lactinex) 1.5 tab DAILY PO 02/23/17 09:00 02/28/17 09:34 (Metamucil Smooth Texture Sf/ Gf Pkt) 1 pkt BID PRN PO 02/22/17 17:15 (Lexii-Colace) 1 tab BID PO 02/22/17 21:00 02/28/17 09:34 (Bactroban Nasal 2% Oint) 1 applic BID EACH NARE 02/23/17 21:00 02/28/17 09:33 (Neurontin) 300 mg TID PO 02/24/17 18:00 02/28/17 17:03 (Decadron Inj) 4 mg Q8HR IV PUSH 02/24/17 16:45 02/28/17 13:53 (Robaxin) 500 mg Q8HR PO 02/25/17 22:00 02/28/17 02:27 (D50w (Vial) Inj) 50 ml UNSCH PRN IV 02/25/17 15:15 (Glucagon Inj) 1 mg UNSCH PRN OTHER 02/25/17 15:15 Enalaprilat 1.25 mg 1.25 mg Q8H PRN IV PUSH 02/25/17 21:15 02/27/17 02:24 (1/2 NS + KCl 20 Meq Inj) 1,000 ml @ 100 mls/hr Q10H IV 02/27/17 00:13 02/28/17 17:03 (Trandate Inj) 10 mg Q4H PRN IV 02/27/17 06:45 02/28/17 10:59 (Cozaar) 25 mg BID PO 02/27/17 21:00 02/28/17 09:34 (Pill Splitter) 1 ea UNSCH PRN OTHER 02/28/17 15:45 (Artie Aguirre) Medical Decision Making MDM Remarks Impression: (1) Severe T12 compression fracture with retropulsion and severe canal stenosis (2) Thoracic stenosis (3) Lumbar canal stenosis (4) Lumbar radiculopathy 1. Postoperative thoracic epidural hematoma 2. T12 compression fracture with persistent left canal retropulsed bone 3. L4 5 stenosis 4. Left L5 radiculopathy 5. Hyperglycemia POD # 6 () s/p: 1. T12 right decompressive semi-laminectomy 2. intraoperative reduction T12 retropulsed compression fracture with partial resection of retropulsed fragments.. 3. Bilateral T10-L2 posterior fusion, local lamina autograft and allograft bone 4. Bilateral T10-L2 posterior instrumentation with percutaneous pedicle screw fixation 5. Repair T12 level dural tear-microtechnique POD # 2 () s/p: Procedure #1 1. Left L4 5 decompressive semi-hemilaminectomy Procedure #2 via separate incision 1. Left T12 and partial left L1 decompressive laminectomy, medial facetectomy 2. Reduction left T12 retropulsed fracture for spinal cord decompression 3. Evacuation postoperative thoracic epidural hematoma CT brain without any acute findings Hyponatremia Interval decrease in haemoglobin (9.7=>8.6) (Artie Aguirre) Plan Plan Remarks Neuro checks PT/OT eval & tx Mobilise patient with assistance Pain control Will advance diet Gabapentin Medicine consult for hypertension Will follow sodium level & Hgb (Artie Aguirre) Attending Statement I have personally seen and examined the patient on 02/28/17. Pertinent documentation and study results have been reviewed by the undersigned. I have personally developed the treatment plan and performed medical decision making. Agree with findings, exam, and treatment plan as noted above. Discussed with nursing staff Still was some hyperesthesia left lateral calf but lower extremity pain on the left significantly improved. Would benefit from inpatient rehabilitation Transfer to floor (Joseph De Luna MD) Artie Aguirre February 28, 2017 17:34 Joseph De Luna MD February 28, 2017 23:01
[2017-03-01] VITALS (8 sets, daily range): BP systolic 118–167; BP diastolic 65–84; PULSE 82–96; RESP 16–26; TEMP 97.9–98.8; O2SAT 96–100
[2017-03-01] MEDS: METHOCARBAMOL 500 MG TAB PO SCH ×3 (06:00→21:59)
[2017-03-01] MEDS: traMADol HCL 50 MG TAB PO SCH ×3 (06:51→18:44)
[2017-03-01] MEDS: DEXAMETHASONE SOD PHOS 4 MG/ML VIAL IV PUSH SCH ×2 (06:51→15:43)
[2017-03-01] MEDS: INSULIN ASPART SUPPLEMENTAL SCALE SQ SCH ×4 (07:00→21:50)
[2017-03-01] MEDS: POTASSIUM CHLORIDE 10 MEQ CONTROLLED RELEASE TAB PO SCH (08:17)
[2017-03-01] MEDS: GABAPENTIN 300 MG CAP PO SCH ×3 (08:17→18:43)
[2017-03-01] MEDS: LACTOBACILLUS ACIDOPHILUS TAB PO SCH (08:17)
[2017-03-01] MEDS: PANTOPRAZOLE SOD 40 MG DELAYED RELEASE TAB PO SCH (08:17)
[2017-03-01] MEDS: MULTIVITAMIN TAB PO SCH (08:17)
[2017-03-01] MEDS: MAGNESIUM OXIDE 400 MG TAB PO SCH (08:17)
[2017-03-01] MEDS: LOSARTAN 25 MG TAB PO SCH ×2 (08:17→21:59)
[2017-03-01] MEDS: SODIUM CHLORIDE 0.9% FLUSH 5 ML FLUSH IVF SCH ×2 (08:18→21:00)
[2017-03-01] MEDS: MUPIROCIN 2% OINT 1 APPLIC/GM SYR EACH NARE SCH ×2 (08:18→21:59)
[2017-03-01] MEDS: DOCUSATE SODIUM 50 MG/SENNA 8.6 MG TAB PO SCH ×2 (08:18→21:59)
[2017-03-01] MEDS: MAGNESIUM HYDROXIDE SUSP 30 ML CUP PO PRN (08:18)
--- NOTE | 2017-03-01 10:18 | HHI.NSPN ---
(TimothyArtie GUAJARDO) Note Status Status: Progress Note (Artie AguirreKarley TAMP) Interval History Interval History 02/22: Patient presented to [facility] for a T12 right decompressive semi- laminectomy and bilateral T10-L2 posterior fusion w/instrumentation & percutaneous pedicle screw fixation due to a severe T12 fracture. She also had a repair of a T12 level dural tear by microtechnique. Post-operatively she was admitted to the [facility]. 02/23: This morning the patient is in pain to the back but she is not able to localise it. She was medicated prior to being seen. She also stated she had tingling and pain to the anterior and anterolateral thigh bilaterally. Her TLSO is in the room and as this practitioner was leaving Physical Therapy came in to evaluate the patient and get her up to a chair. 02/25: The patient states that she is doing good this morning. She has some pain to the back/surgical site. She also says she has some numbness & tingling running down both legs with some pain to the anterior thighs and the bottom of the foot. 02/26: The patient continues to do well this morning. She states the back is "tender" and "a little sore." She still has weakness and altered sensation to the left lower leg. Dr De Luna discussed with her earlier this morning about going back to surgery to remove the bone fragments on the left side of the central canal. Nursing reports that the patient did call her and explained what Dr De Luna wanted to do. The daughter did express concern regarding the type of anaesthesia to be used.The patient did go for a CT brain mid morning which was unremarkable for any acute findings. 02/27: The patient states she is "not doing so good" this morning. She is sitting up in the chair and has a clamshell brace on. She states she had a slight headache earlier and that she was nauseated after drinking so much for breakfast. 02/28: The patient this afternoon states she is doing "pretty good." She has some pain to the back and describes it as a burning. She also has numbness to the left lower extremity. 03/01: The patient is awake & alert this morning and is doing well. She has some pain to the back and the continued numbness and weakness to the left lower extremity. She states that she has to drag the left foot when ambulating. ( Artie Aguirre) Labs, Micro, & Vital Signs Constitutional Vital Signs Date Time Temp Pulse Resp B/P Pulse Ox O2 Delivery O2 Flow Rate FiO2 03/01/17 08:00 98.0 90 16 130/81 99 03/01/17 08:00 90 03/01/17 07:00 98 Room Air 03/01/17 06:00 84 03/01/17 04:00 97.9 82 18 118/81 98 03/01/17 04:00 82 03/01/17 02:00 82 03/01/17 00:00 98.0 94 20 146/65 98 03/01/17 00:00 94 02/28/17 22:00 85 02/28/17 21:38 20 02/28/17 20:00 97.9 94 18 157/69 94 02/28/17 20:00 94 02/28/17 19:00 96 Room Air 02/28/17 16:00 98.7 80 16 136/66 95 02/28/17 16:00 80 02/28/17 14:00 88 02/28/17 13:34 16 02/28/17 12:00 98.8 77 18 164/76 100 02/28/17 12:00 77 03/01/17 07:00 Intake Total 3163 ml Output Total 4850 ml Balance -1687 ml (Artie Aguirre) Review of Systems/Exam ROS Constitutional: Patient denies any fever or chills. Neck: Patient denies any neck pain. Respiratory: Patient denies any shortness of breath or productive cough. Cardiovascular: Patient denies any chest pain, palpitations or irregular heart beat. Gastrointestinal: Patient denies any abdominal pain, nausea, vomiting or bowel incontinence. Extremities: Patient complains of the left leg and foot being weak. She denies any other pain or weakness to the other extremities. Back: Patient complains of some pain to the back. Neurological: Patient complains of the left leg and foot feeling numb. She denies any headache, dizziness or any numbness or tingling to the other extremities. Exam General: Awake and alert, appears comfortable, NAD. Resp: CTAB w/o W/R/R, equal excursion, non-laboured, on RA. CV: S1S2 w/RRR w/o M/G/R, radial & pedal pulses 2+ bilaterally, cap refill < 2 sec. Monitor is sinus rhythm. GI: Abdomen soft, nontender, positive bowel sounds. : Egan catheter to BSD w/clear pale yellow urine. Extremities: GAUTHIER, NTTP. Back: TTP at surgical site, dressing dry and intact, no evident drainage, erythema or streaking. ARTHUR drain insertion site without any drainage, erythema or streaking. Neuro: AAOx3 Speech clear appropriate Follows simple commands Sensation intact light touch BUE & RLE but numb to the left lateral thigh down to the knee and the top of the foot Strength is within normal limits in the upper extremities Strength is within normal limits in right and left iliopsoas, quadriceps, hamstrings with 4 right and to left tibialis anterior, 5 right and 3+ left gastrocsoleus. (Artie Aguirre) Medications Current Medications Current Medications Medications (Trade) Dose Ordered Sig/Radha Route Start Time Stop Time Status Last Admin ([place] 5-325 Mg) 1 tab Q4H PRN PO 02/22/17 16:45 02/27/17 22:18 ([place] 10-325 Mg) 1 tab Q4H PRN PO 02/22/17 16:45 02/28/17 20:38 (Dilaudid Pf Inj) 0.5 mg Q3H PRN IV 02/22/17 16:45 02/28/17 02:27 (Morphine Inj) 4 mg Q3H PRN IV 02/22/17 16:45 02/25/17 00:48 (Narcan Inj) 0.4 mg UNSCH PRN IV 02/22/17 16:45 (Protonix) 40 mg DAILY PO 02/23/17 09:00 03/01/17 08:17 (Zofran Inj) 4 mg Q6H PRN IV 02/22/17 16:45 02/27/17 11:20 (Tylenol) 650 mg Q6H PRN PO 02/22/17 17:00 (Dulcolax Supp) 10 mg DAILY PRN RECTAL 02/22/17 17:00 (Milk Of Magnesia Liq) 30 ml DAILY PRN PO 02/22/17 17:00 03/01/17 08:18 (KCl) 10 meq DAILY PO 02/23/17 09:00 03/01/17 08:17 (Ultram) 50 mg Q6H PO 02/22/17 18:00 03/01/17 06:51 (NS Flush) 2 ml UNSCH PRN IVF 02/22/17 17:00 (NS Flush) 2 ml BID IVF 02/22/17 21:00 03/01/17 08:18 (Mag-Ox) 400 mg DAILY PO 02/23/17 09:00 03/01/17 08:17 (Theragran) 1 tab DAILY PO 02/23/17 09:00 03/01/17 08:17 (Lactinex) 1.5 tab DAILY PO 02/23/17 09:00 03/01/17 08:17 (Metamucil Smooth Texture Sf/ Gf Pkt) 1 pkt BID PRN PO 02/22/17 17:15 03/01/17 08:18 (Lexii-Colace) 1 tab BID PO 02/22/17 21:00 03/01/17 08:18 (Bactroban Nasal 2% Oint) 1 applic BID EACH NARE 02/23/17 21:00 03/01/17 08:18 (Neurontin) 300 mg TID PO 02/24/17 18:00 03/01/17 08:17 (Decadron Inj) 4 mg Q8HR IV PUSH 02/24/17 16:45 03/01/17 06:51 (Robaxin) 500 mg Q8HR PO 02/25/17 22:00 02/28/17 02:27 (D50w (Vial) Inj) 50 ml UNSCH PRN IV 02/25/17 15:15 (Glucagon Inj) 1 mg UNSCH PRN OTHER 02/25/17 15:15 (Vasotec Inj) 1.25 mg Q8H PRN IV PUSH 02/25/17 21:15 02/27/17 02:24 (Trandate Inj) 10 mg Q4H PRN IV 02/27/17 06:45 02/28/17 10:59 (Cozaar) 25 mg BID PO 02/27/17 21:00 03/01/17 08:17 (Pill Splitter) 1 ea UNSCH PRN OTHER 02/28/17 15:45 (Breo Ellipta 100-25 Inh) 1 puff HS INH 03/01/17 21:00 (Artie Aguirre) Medical Decision Making MDM Remarks Impression: (1) Severe T12 compression fracture with retropulsion and severe canal stenosis (2) Thoracic stenosis (3) Lumbar canal stenosis (4) Lumbar radiculopathy 1. Postoperative thoracic epidural hematoma 2. T12 compression fracture with persistent left canal retropulsed bone 3. L4 5 stenosis 4. Left L5 radiculopathy 5. Hyperglycemia POD # 7 () s/p: 1. T12 right decompressive semi-laminectomy 2. intraoperative reduction T12 retropulsed compression fracture with partial resection of retropulsed fragments.. 3. Bilateral T10-L2 posterior fusion, local lamina autograft and allograft bone 4. Bilateral T10-L2 posterior instrumentation with percutaneous pedicle screw fixation 5. Repair T12 level dural tear-microtechnique POD # 3 () s/p: Procedure #1 1. Left L4 5 decompressive semi-hemilaminectomy Procedure #2 via separate incision 1. Left T12 and partial left L1 decompressive laminectomy, medial facetectomy 2. Reduction left T12 retropulsed fracture for spinal cord decompression 3. Evacuation postoperative thoracic epidural hematoma CT brain without any acute findings Hyponatremia Interval decrease in haemoglobin (9.7=>8.6) Stable neurological exam (Artie Aguirre) Plan Plan Remarks Neuro checks PT/OT eval & tx Mobilise patient with assistance Pain control Regular diet Gabapentin Medicine for hypertension Will follow sodium level & Hgb BMP & CBC in AM (Artie Aguirre) Attending Statement I have personally seen and examined the patient on 03/01/17. Pertinent documentation and study results have been reviewed by the undersigned. I have personally developed the treatment plan and performed medical decision making. Agree with findings, exam, and treatment plan as noted above. Plan discharge to inpatient rehabilitation on 03/02/17. Appears reasonably comfortable today. Overall examination mostly unchanged postoperative, although the left foot dorsiflexion maybe a little better today. (Joseph De Luna MD) Artie Aguirre March 01, 2017 10:18 Joseph De Luna MD March 01, 2017 20:18
--- NOTE | 2017-03-01 10:25 | HHI.PR ---
Subjective Remarks Patient reports she is feeling better today. Pain is better controlled. Some weakness of the left foot with ambulation. BP acceptable. Objective Vitals Vital Signs Date Time Temp Pulse Resp B/P Pulse Ox O2 Delivery O2 Flow Rate FiO2 03/01/17 08:00 98.0 90 16 130/81 99 03/01/17 08:00 90 03/01/17 07:00 98 Room Air 03/01/17 06:00 84 03/01/17 04:00 97.9 82 18 118/81 98 03/01/17 04:00 82 03/01/17 02:00 82 03/01/17 00:00 98.0 94 20 146/65 98 03/01/17 00:00 94 02/28/17 22:00 85 02/28/17 21:38 20 02/28/17 20:00 97.9 94 18 157/69 94 02/28/17 20:00 94 02/28/17 19:00 96 Room Air 02/28/17 16:00 98.7 80 16 136/66 95 02/28/17 16:00 80 02/28/17 14:00 88 02/28/17 13:34 16 02/28/17 12:00 98.8 77 18 164/76 100 02/28/17 12:00 77 I/O 02/28/17 02/28/17 02/28/17 03/01/17 03/01/17 03/01/17 07:00 15:00 23:00 07:00 15:00 23:00 Intake Total 918 ml 1255 ml 798 ml 1110 ml Output Total 700 ml 1250 ml 1100 ml 2500 ml Balance 218 ml 5 ml -302 ml -1390 ml Intake Oral 240 ml 600 ml 120 ml 360 ml IV Total 678 ml 655 ml 678 ml 750 ml Output Urine Total 700 ml 1250 ml 1100 ml 2500 ml # Bowel Movements 0 0 Result Diagram: 02/27/17 0430 02/27/17 0400 Objective Remarks GENERAL: Elderly female in a back brace. No acute distress. She is sitting up in the chair. CARDIOVASCULAR: Normal rate and regular rhythm without murmurs, gallops, or rubs. RESPIRATORY: Good respiratory efforts. Breath sounds equal and clear to auscultation bilaterally. GASTROINTESTINAL: Abdomen soft, non-tender, non-distended. Normal active bowel sounds MUSCULOSKELETAL: Extremities without cyanosis, or edema. Patient reports tenderness to palpation over the paraspinal muscles in the thoracic region. NEURO: Alert & Oriented x4 to person, place, time, situation. Moves all ext x4. Generalized weakness PSYCH: Appropriate mood and affect. A/P Problem List: (1) T12 vertebral fracture ICD Code: S22.089A Status: Chronic Plan: Patient is status post T12 right decompressive semi-laminectomy and bilateral T10-L2 posterior fusion w/instrumentation & percutaneous pedicle screw fixation due to a severe T12 fracture Pain control. PT. Discussed with RN. Further plans per neurosurgery (2) Hypertension ICD Code: I10 Status: Chronic Plan: - Accelerated hypertension. Blood pressure better controlled when pain is controlled. Continue home dose losartan 25 mg twice a day Agree with labetalol as needed for SBP greater than 170 We'll continue to monitor blood pressure (3) Asthma ICD Code: J45.909 Status: Chronic Plan: Continue Breo elipta. Patient is currently on Decadron. Breathing treatments as needed. (4) GERD (gastroesophageal reflux disease) ICD Code: K21.9 Status: Chronic Plan: Continue PPI (5) Intractable back pain ICD Code: M54.9 Status: Acute Plan: Pain control as above. Patient has Robaxin, Neurontin, and narcotics as needed for pain. (6) Impaired mobility and activities of daily living ICD Code: Z74.09 Status: Acute Discharge Planning Patient appeared to be stable enough to transfer to floor when okay with neurosurgery. Jim Bates MD March 01, 2017 10:25
[2017-03-01 12:30] LABS: HEMATOCRIT 28.6 % (35.0-46.0); MEAN CELL VOLUME 88.1 FL (80.0-100.0); MEAN CORPUSCULAR HEMOGLOBIN 29.2 PG (27.0-34.0); MEAN CORPUSCULAR HGB CONC 33.2 % (32.0-36.0); PLATELET COUNT 411 TH/MM3 (150-450); RED BLOOD COUNT 3.25 MIL/MM3 (4.00-5.30); RED CELL DISTRIBUTION WIDTH 13.9 % (11.6-17.2); REVIEW FLAG FINAL; WHITE BLOOD COUNT 16.8 TH/MM3 (4.0-11.0)
[2017-03-01 12:55] LABS: BICARBONATE 21.7 MEQ/L (21.0-32.0); MAGNESIUM 2.1 MG/DL (1.5-2.5); POTASSIUM 3.9 MEQ/L (3.5-5.1)
[2017-03-01] MEDS ORDERED: METH500T3 PO (16:35)
--- NOTE | 2017-03-01 16:38 | HHI.DCPOC ---
Discharge Care Plan Diagnosis: (1) Lumbar radiculopathy (2) Lumbar canal stenosis (3) Muscle spasm of back (4) T12 vertebral fracture (5) Thoracic stenosis (6) Intractable back pain (7) Impaired mobility and activities of daily living (8) Left foot drop Your Health Problems Are: Difficulty with ADL Incision/Drains Exercise Tolerance Goals to Promote Your Health * To prevent worsening of your condition and complications Wear your brace when out-of-bed sitting or walking * To maintain your health at the optimal level Directions to Meet Your Goals Take your medications as prescribed Follow your dietary instruction Follow activity as directed Keep your appointments as scheduled Take your immunizations and boosters as scheduled If your symptoms worsen call your PCP, if no PCP go to Urgent Care Center or Emergency Room Smoking is Dangerous to Your Health. Avoid second hand smoke Call the 24-hour hour crisis hotline for domestic abuse at [facility] March 01, 2017 16:38
--- NOTE | 2017-03-01 16:49 | HHI.DS ---
Discharge Summary Admission Date February 22, 2017 at 06:28 Discharge Date: March 02, 2017 Admitting Diagnosis (1) Lumbar radiculopathy Diagnosis: Principal ICD Code: M54.16 (2) Lumbar canal stenosis Diagnosis: Secondary ICD Code: M48.06 (3) Intractable back pain Diagnosis: Secondary ICD Code: M54.9 (4) T12 vertebral fracture Diagnosis: Secondary ICD Code: S22.089A (5) Impaired mobility and activities of daily living Diagnosis: Secondary ICD Code: Z74.09 (6) Thoracic stenosis Diagnosis: Secondary ICD Code: M48.04 (7) Left foot drop Diagnosis: Secondary ICD Code: M21.372 (8) Muscle spasm of back Diagnosis: Secondary ICD Code: M62.830 Procedures Surgical procedure #1 (): 1. T12 right decompressive semi-laminectomy 2. intraoperative reduction T12 retropulsed compression fracture with partial resection of retropulsed fragments.. 3. Bilateral T10-L2 posterior fusion, local lamina autograft and allograft bone 4. Bilateral T10-L2 posterior instrumentation with percutaneous pedicle screw fixation 5. Repair T12 level dural tear-microtechnique Surgical procedure #2 (): Part 1 1. Left L4 5 decompressive semi-hemilaminectomy Part 2 via separate incision 1. Left T12 and partial left L1 decompressive laminectomy, medial facetectomy 2. Reduction left T12 retropulsed fracture for spinal cord decompression 3. Evacuation postoperative thoracic epidural hematoma CBC/BMP: 03/01/17 1147 03/01/17 1147 Significant Findings Laboratory Tests Test 02/27/17 02/27/17 03/01/17 04:00 04:30 11:47 Sodium Level 133 MEQ/L 127 MEQ/L (136-145) (136-145) Random Glucose 118 MG/DL 220 MG/DL (74-106) (74-106) Calcium Level 8.2 MG/DL 8.2 MG/DL (8.5-10.1) (8.5-10.1) White Blood Count 13.9 TH/MM3 16.8 TH/MM3 (4.0-11.0) (4.0-11.0) Red Blood Count 2.93 MIL/MM3 3.25 MIL/MM3 (4.00-5.30) (4.00-5.30) Hemoglobin 8.6 GM/DL 9.5 GM/DL (11.6-15.3) (11.6-15.3) Hematocrit 25.8 % 28.6 % (35.0-46.0) (35.0-46.0) Neutrophils (%) (Auto) 84.9 % (16.0-70.0) Neutrophils # (Auto) 11.8 TH/MM3 (1.8-7.7) Chloride Level 95 MEQ/L (98-107) Hospital Course The patient was admitted on for surgery. Post-operatively the patient was admitted to the [facility] for further management and care. Due to persistent symptoms the patient returned to the operating room on . Again she returned to the [facility] post-operatively. She had some improvements in her symptoms. She worked with Physical Therapy and it was felt that she would benefit from continued therapy at discharge. She was accepted back at [facility] where she was residing prior to admission. She was transferred to a regular med/ surg floor on . She was doing well, tolerating a diet and ambulating using a wheeled walker with assistance at the time of discharge. Pt Condition on Discharge: Good Discharge Disposition: Discharge to SNF Discharge Instructions DIET: Follow Instructions for: As Tolerated, No Restrictions ACTIVITIES You can perform: Weight Bearing As Nirmala Activities to Avoid: Lifting/Bending, Strenuous Activity ADDITIONAL Activity Instructio: Wear your brace when out-of-bed sitting or walking. Additional Information Call for a follow up appointment in [address] De Luna Keep the dressing to the surgical site dry for 7 days after surgery. After that you may take the outer dressing off but leave the steri-strips on. You may then shower and let the steri-strips fall off in the shower. Avoid any products containing aspirin or NSAIDS (ibuprofen, Motrin, Advil, Aleve , etc.). Artie Aguirre March 01, 2017 16:49
[2017-03-01] MEDS: FLUTICASONE 100 MCG/VILANTEROL 25 MCG INHALER INH SCH (22:00)
[2017-03-01] MEDS: DEXAMETHASONE 1.5 MG TAB PO SCH (23:54)
[2017-03-02] VITALS (8 sets, daily range): BP systolic 124–151; BP diastolic 58–71; PULSE 81–98; RESP 18–30; TEMP 97.5–98.9; O2SAT 96–99
[2017-03-02] MEDS: traMADol HCL 50 MG TAB PO SCH ×5 (00:21→23:19)
[2017-03-02] MEDS: METHOCARBAMOL 500 MG TAB PO SCH ×3 (05:43→20:47)
[2017-03-02] MEDS: MAGNESIUM HYDROXIDE SUSP 30 ML CUP PO PRN (05:44)
[2017-03-02] MEDS: INSULIN ASPART SUPPLEMENTAL SCALE SQ SCH ×4 (06:34→19:57)
[2017-03-02] MEDS: DEXAMETHASONE 1.5 MG TAB PO SCH ×2 (09:00→19:51)
[2017-03-02] MEDS: PANTOPRAZOLE SOD 40 MG DELAYED RELEASE TAB PO SCH (09:05)
[2017-03-02] MEDS: MAGNESIUM OXIDE 400 MG TAB PO SCH (09:05)
[2017-03-02] MEDS: GABAPENTIN 300 MG CAP PO SCH ×3 (09:05→17:45)
[2017-03-02] MEDS: DOCUSATE SODIUM 50 MG/SENNA 8.6 MG TAB PO SCH ×2 (09:05→19:51)
[2017-03-02] MEDS: POTASSIUM CHLORIDE 10 MEQ CONTROLLED RELEASE TAB PO SCH (09:05)
[2017-03-02] MEDS: MULTIVITAMIN TAB PO SCH (09:05)
[2017-03-02] MEDS: LOSARTAN 25 MG TAB PO SCH ×2 (09:05→19:51)
[2017-03-02] MEDS: LACTOBACILLUS ACIDOPHILUS TAB PO SCH (09:05)
[2017-03-02 12:50] LABS: BICARBONATE 25.7 MEQ/L (21.0-32.0); POTASSIUM 3.4 MEQ/L (3.5-5.1)
[2017-03-02] MEDS ORDERED: DEXA1.5T PO (13:18)
[2017-03-02] MEDS ORDERED: TRAM50TA PO (13:18)
[2017-03-02] MEDS ORDERED: NEUR300C PO (13:18)
--- NOTE | 2017-03-02 14:51 | HHI.PR ---
Subjective Remarks Follow-up visit status post T12 right decompressive semi-laminectomy and bilateral T10-L2 posterior fusion w/instrumentation & percutaneous pedicle screw fixation due to a severe T12 fracture. Patient seen and examined today. at the bedside. Reports she is doing well. States that physical therapist today have motivated her to continue with therapy. Did not get out of bed today. States that she has a hard time voiding when he took out her Egan catheter that they need to place it again. Otherwise, denies pain and discomfort. Denies SOB/ dyspnea. Denies chest pain, palpitations, headaches, dizziness. Denies fevers, chills, n/v/d. Denies hematuria, dysuria. Objective Vitals Vital Signs Date Time Temp Pulse Resp B/P Pulse Ox O2 Delivery O2 Flow Rate FiO2 03/02/17 12:00 97.6 83 18 124/58 97 03/02/17 08:40 98.1 82 18 151/71 97 03/02/17 07:00 81 03/02/17 06:12 90 03/02/17 04:00 98.5 94 20 127/64 96 03/02/17 01:40 Room Air 03/02/17 00:00 98.9 98 30 142/66 98 03/02/17 00:00 98 03/01/17 20:00 98.8 87 26 167/84 98 03/01/17 20:00 87 03/01/17 19:44 28 03/01/17 19:00 97 Room Air 03/01/17 16:00 98.2 86 22 157/72 96 03/01/17 16:00 86 I/O 03/01/17 03/01/17 03/01/17 03/02/17 03/02/17 03/02/17 07:00 15:00 23:00 07:00 15:00 23:00 Intake Total 1110 ml 474 ml 240 ml 0 ml Output Total 2500 ml 1350 ml 1000 ml 350 ml Balance -1390 ml -876 ml -760 ml -350 ml Intake Oral 360 ml 474 ml 240 ml 0 ml IV Total 750 ml 0 ml Output Urine Total 2500 ml 1350 ml 1000 ml 350 ml # Bowel Movements 0 0 0 0 Result Diagram: 03/01/17 1147 03/02/17 1141 Imaging Last Impressions Thoracic Spine X-Ray 5/23/17 0000 Signed Impressions: Service Date/Time: Sunday, February 26, 2017 20:53 - CONCLUSION: Postsurgical changes. Ritika Allen MD Lumbar Spine X-Ray 02/27/17 Signed Impressions: Service Date/Time: Sunday, February 26, 2017 20:53 - CONCLUSION: Intraoperative changes as above. Ritika Allen MD Head CT 02/26/17 Signed Impressions: Service Date/Time: Sunday, February 26, 2017 09:58 - CONCLUSION: 1. No acute hemorrhage or mass effect. 2. Atrophy and chronic small vessel ischemic changes again noted. Keven Kelsey MD Thoracic Spine MRI 02/24/17 Signed Impressions: Service Date/Time: Friday, February 24, 2017 07:44 - CONCLUSION: T12 vertebral body fracture again identified. Postsurgical findings with posterior hardware above and below the fracture level. Posterior bone defect at the fracture level. There is abnormal anterior epidural signal extending from the posterior aspect of the fractured vertebral body. Differential diagnosis is bone fragment versus epidural hematoma. It results in mass effect on the spinal cord with posterior displacement of the spinal cord and deformity of the spinal cord. There is adjacent intrinsic signal abnormality in the spinal cord. Antoine Franklin MD Thoracic Spine CT 02/24/17 Signed Impressions: Service Date/Time: Friday, February 24, 2017 10:51 - CONCLUSION: 1. Post surgical findings. Retropulsed bone fragment and gas seen anteriorly in the central canal at the level of surgery corresponding to signal abnormality described on MRI. Posterior laminectomy bone defect at the level surgery. 2. The posterior epidural fluid/hematoma from L1-L3 seen on MRI is not well-demonstrated on CT. Antoine Franklin MD Lumbar Spine MRI 02/24/17 Signed Impressions: Service Date/Time: Friday, February 24, 2017 07:44 - CONCLUSION: 1. Postsurgical findings at T12 and fracture T12 again seen. Anterior epidural signal abnormality at T12 is fully described on thoracic spine MRI. This may represent bone fragments versus hematoma. 2. Posterior epidural hematoma is seen extending from L1-L3 with resulting central canal stenosis and displacement of nerve roots. Area of maximum narrowing is at the level of L2-3. 3. Degenerative findings of the lower lumbar spine grossly unchanged from prior CT with facet arthrosis and anterolisthesis at L4-5 resulting in mild/moderate central canal stenosis. Antoine Franklin MD Lumbar Spine CT 02/24/17 0000 Signed Impressions: Service Date/Time: Friday, February 24, 2017 10:51 - CONCLUSION: 1. Postsurgical findings and old fracture at T12 again identified. Residual bone fragments are seen anteriorly in the central canal resulting in narrowing of the left side of the central canal. Right-sided laminectomy defect noted. 2. Chronic nondisplaced fracture of the left inferior facet of L5. Fracture line is more distinct than on the comparison study of December. 3. Multilevel degenerative findings unchanged. 4. Calcified gallstones noted. Antoine Franklin MD Thoracolumbar Spine 02/22/17 0000 Signed Impressions: Service Date/Time: February 12:16 - CONCLUSION: S/p fusion around the T12 vertebral body.. Pola García MD Objective Remarks GENERAL: Elderly female, well developed. No acute distress. CARDIOVASCULAR: Normal rate and regular rhythm without murmurs, gallops, or rubs. RESPIRATORY: Good respiratory efforts. Breath sounds equal and clear to auscultation bilaterally. GASTROINTESTINAL: Abdomen soft, non-tender, non-distended. Normal active bowel sounds MUSCULOSKELETAL: Extremities without cyanosis, or edema. Patient reports tenderness to palpation over the paraspinal muscles in the thoracic region. NEURO: Alert & Oriented x4 to person, place, time, situation. Moves all ext x4. Generalized weakness. Left leg weaker than right. PSYCH: Appropriate mood and affect. A/P Problem List: (1) Lumbar radiculopathy ICD Code: M54.16 Status: Acute (2) Lumbar canal stenosis ICD Code: M48.06 Status: Acute (3) Intractable back pain ICD Code: M54.9 Status: Acute (4) T12 vertebral fracture ICD Code: S22.089A Status: Chronic (5) Impaired mobility and activities of daily living ICD Code: Z74.09 Status: Acute (6) Thoracic stenosis ICD Code: M48.04 Status: Acute (7) Left foot drop ICD Code: M21.372 Status: Chronic (8) Muscle spasm of back ICD Code: M62.830 Status: Acute Assessment and Plan 81-year-old female with a medical history significant for hypertension, chronic back pain, hyperlipidemia, GERD, asthma admitted to the hospital for T12 right decompressive semi-laminectomy and bilateral T10-L2 posterior fusion w/ instrumentation & percutaneous pedicle screw fixation due to a severe T12 fracture. Hospitalist service consulted for medical management. Status post T12 right decompressive semi-laminectomy and bilateral T10-L2 posterior fusion w/instrumentation & percutaneous pedicle screw fixation Severe T12 fracture - Pain management. Decadron taper dose. - Physical therapy evaluate and treat - Brace when out of bed. Further plans as per neurosurgery. HTN - Accelerated hypertension. Continue home dose losartan 25 mg twice a day - Continue when necessary labetalol for SBP greater than 170 - Monitor BP Asthma, chronic, not in exacerbation - Continue Breo elipta - DuoNeb's when necessary - Currently on Decadron GERD, chronic, without esophagitis - Continue PPI Constipation - Milk of mag, Metamucil, Lexii-Colace, bisacodyl suppository - MiraLAX 1 dose now. May use mag citrate if continues to be constipated. DVT prop SCDs Discussed with patient, , nursing, Dr. Bates Discharge Planning Patient is accepted back to [facility]. Plan for discharge per neurosurgery. Shiv Lan March 02, 2017 14:51
[2017-03-02] MEDS ORDERED: POLYETHYLENE GLYCOL 17 GM PKG PO ONE (15:00)
[2017-03-02] MEDS: SODIUM CHLORIDE 0.9% FLUSH 5 ML FLUSH IVF SCH (19:53)
[2017-03-02] MEDS: FLUTICASONE 100 MCG/VILANTEROL 25 MCG INHALER INH SCH (19:53)
[2017-03-02] MEDS: MUPIROCIN 2% OINT 1 APPLIC/GM SYR EACH NARE SCH (19:53)
[2017-03-03] VITALS (7 sets, daily range): BP systolic 124–143; BP diastolic 66–74; PULSE 77–91; RESP 18–24; TEMP 96.9–98.4; O2SAT 95–99
[2017-03-03] MEDS: ACETAMINOPHEN/HYDROcodone 325 MG/10 MG TAB PO PRN ×2 (02:48→10:07)
[2017-03-03] MEDS: traMADol HCL 50 MG TAB PO SCH ×4 (05:58→23:15)
[2017-03-03] MEDS: INSULIN ASPART SUPPLEMENTAL SCALE SQ SCH ×4 (05:58→21:56)
[2017-03-03] MEDS: METHOCARBAMOL 500 MG TAB PO SCH ×3 (05:58→21:55)
[2017-03-03] MEDS: SODIUM CHLORIDE 0.9% FLUSH 5 ML FLUSH IVF SCH ×2 (09:00→22:00)
[2017-03-03] MEDS: MULTIVITAMIN TAB PO SCH (10:07)
[2017-03-03] MEDS: GABAPENTIN 300 MG CAP PO SCH ×3 (10:07→17:54)
[2017-03-03] MEDS: LOSARTAN 25 MG TAB PO SCH ×2 (10:07→21:55)
[2017-03-03] MEDS: MAGNESIUM OXIDE 400 MG TAB PO SCH (10:08)
[2017-03-03] MEDS: LACTOBACILLUS ACIDOPHILUS TAB PO SCH (10:09)
[2017-03-03] MEDS: POTASSIUM CHLORIDE 10 MEQ CONTROLLED RELEASE TAB PO SCH (10:09)
[2017-03-03] MEDS: MUPIROCIN 2% OINT 1 APPLIC/GM SYR EACH NARE SCH ×2 (10:10→21:00)
[2017-03-03] MEDS: DOCUSATE SODIUM 50 MG/SENNA 8.6 MG TAB PO SCH ×2 (10:10→21:55)
[2017-03-03] MEDS: PANTOPRAZOLE SOD 40 MG DELAYED RELEASE TAB PO SCH (10:10)
[2017-03-03] MEDS: DEXAMETHASONE 1.5 MG TAB PO SCH ×2 (10:22→21:55)
--- NOTE | 2017-03-03 13:31 | HHI.PR ---
Subjective Remarks Patient seen around 11 PM. She reports feeling better this morning. She did not sleep well last night due to pain on the left foot. Pain is better controlled this morning. Objective Vitals Vital Signs Date Time Temp Pulse Resp B/P Pulse Ox O2 Delivery O2 Flow Rate FiO2 03/03/17 12:18 97.7 90 18 124/66 95 03/03/17 11:15 77 03/03/17 11:03 99 03/03/17 08:59 96.9 91 19 143/67 99 03/03/17 04:15 98.4 80 18 130/67 96 03/03/17 00:40 98.1 89 21 140/70 97 03/02/17 21:30 97.5 90 19 133/68 98 03/02/17 16:23 98.1 83 18 142/66 99 I/O 03/02/17 03/02/17 03/02/17 03/03/17 03/03/17 03/03/17 07:00 15:00 23:00 07:00 15:00 23:00 Intake Total 0 ml 480 ml 450 ml 400 ml Output Total 350 ml 1000 ml 600 ml 800 ml Balance -350 ml -520 ml -150 ml -400 ml Intake Oral 0 ml 480 ml 450 ml 400 ml Output Urine Total 350 ml 1000 ml 600 ml 800 ml # Bowel Movements 0 1 0 1 Result Diagram: 03/01/17 1147 03/02/17 1141 Objective Remarks GENERAL: Elderly female in a back brace. No acute distress. She is sitting up in the chair. CARDIOVASCULAR: Normal rate and regular rhythm without murmurs, gallops, or rubs. RESPIRATORY: Good respiratory efforts. Breath sounds equal and clear to auscultation bilaterally. GASTROINTESTINAL: Abdomen soft, non-tender, non-distended. Normal active bowel sounds MUSCULOSKELETAL: Extremities without cyanosis, or edema. Patient reports tenderness to palpation over the paraspinal muscles in the thoracic region. NEURO: Alert & Oriented x4 to person, place, time, situation. Moves all ext x4. Generalized weakness PSYCH: Appropriate mood and affect. A/P Problem List: (1) Lumbar radiculopathy ICD Code: M54.16 Status: Acute (2) Lumbar canal stenosis ICD Code: M48.06 Status: Acute (3) Intractable back pain ICD Code: M54.9 Status: Acute (4) T12 vertebral fracture ICD Code: S22.089A Status: Chronic (5) Impaired mobility and activities of daily living ICD Code: Z74.09 Status: Acute (6) Thoracic stenosis ICD Code: M48.04 Status: Acute (7) Left foot drop ICD Code: M21.372 Status: Chronic (8) Muscle spasm of back ICD Code: M62.830 Status: Acute Assessment and Plan T12 vertebral fracture: Patient is status post T12 right decompressive semi- laminectomy and bilateral T10-L2 posterior fusion w/instrumentation & percutaneous pedicle screw fixation due to a severe T12 fracture Pain control. PT. Further plans per neurosurgery Accelerated hypertension: Resolved. Blood pressure better controlled when pain is controlled. Continue home dose losartan 25 mg twice a day Labetalol as needed for SBP greater than 170 We'll continue to monitor blood pressure Asthma Continue Breo elipta. Patient is currently on Decadron. Breathing treatments as needed. GERD (gastroesophageal reflux disease) -Continue PPI Intractable back pain Pain control as above. Patient has Robaxin, Neurontin, and narcotics as needed for pain. Discharge Planning Per primary. Cleared from a hospitalist standpoint. Jim Bates MD March 03, 2017 13:31
[2017-03-03] MEDS: FLUTICASONE 100 MCG/VILANTEROL 25 MCG INHALER INH SCH (22:00)
--- NOTE | 2017-03-03 23:08 | HHI.NSPN ---
History Chief Complaint: left calf pain Interval History 81-year-old female with progressive severe T12 compression fracture with significant kyphosis and retropulsion. 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 Status post T12 open fracture reduction with laminectomy, posterior instrumentation 02/22/17 Exam Results Vital Signs Date Time Temp Pulse Resp B/P Pulse Ox O2 Delivery O2 Flow Rate FiO2 03/03/17 20:00 97.6 84 24 128/66 97 03/02/17 07:00 Room Air 02/27/17 08:23 21 02/27/17 07:00 3.00 Intake and Output 03/02/17 03/02/17 03/03/17 08:00 16:00 00:00 Intake Total 0 ml 480 ml 450 ml Output Total 350 ml 1000 ml 600 ml Balance -350 ml -520 ml -150 ml Physical Examination General: Awake and alert, appears comfortable, NAD. Resp: Clear and regular CV: Regular without murmur GI: Abdomen soft, nontender, positive bowel sounds. : Egan catheter to BSD w/clear pale yellow urine. Extremities: GAUTHIER, NTTP. Back: Dressing dry and intact Neuro: AAOx3 Speech clear appropriate Follows simple commands Sensation persistent decreased light touch primarily left L5 distribution Strength is within normal limits in the upper extremities Strength is within normal limits in right and left iliopsoas, quadriceps, hamstrings with 4 right and to left tibialis anterior, 5 right and 3+ left gastrocsoleus. Medical Decision Making Impression and Plan Impression: Stable neurologic exam over the past 3 days. Left calf pain gradually improving Plan: Patient is stable for discharge from neurosurgery standpoint. Additional discharge anticipated 03/01/17. She is waiting for "staffing" at the facility where she has been accepted. Continue present medications. Joseph De Luna MD March 03, 2017 23:08
[2017-03-03] MEDS: ACETAMINOPHEN/HYDROcodone 325 MG/5 MG TAB PO PRN (23:15)
[2017-03-04] VITALS (9 sets, daily range): BP systolic 120–147; BP diastolic 57–68; PULSE 78–98; RESP 18–22; TEMP 97.1–98.6; O2SAT 95–100
[2017-03-04] MEDS: METHOCARBAMOL 500 MG TAB PO SCH ×3 (06:37→21:53)
[2017-03-04] MEDS: INSULIN ASPART SUPPLEMENTAL SCALE SQ SCH ×4 (06:38→22:06)
[2017-03-04] MEDS: traMADol HCL 50 MG TAB PO SCH ×3 (06:38→17:12)
[2017-03-04] MEDS: POTASSIUM CHLORIDE 10 MEQ CONTROLLED RELEASE TAB PO SCH (08:26)
[2017-03-04] MEDS: DEXAMETHASONE 1.5 MG TAB PO SCH ×2 (08:26→21:53)
[2017-03-04] MEDS: MAGNESIUM OXIDE 400 MG TAB PO SCH (08:26)
[2017-03-04] MEDS: LACTOBACILLUS ACIDOPHILUS TAB PO SCH (08:26)
[2017-03-04] MEDS: PANTOPRAZOLE SOD 40 MG DELAYED RELEASE TAB PO SCH (08:26)
[2017-03-04] MEDS: MUPIROCIN 2% OINT 1 APPLIC/GM SYR EACH NARE SCH ×2 (08:26→21:54)
[2017-03-04] MEDS: DOCUSATE SODIUM 50 MG/SENNA 8.6 MG TAB PO SCH ×2 (08:27→21:53)
[2017-03-04] MEDS: GABAPENTIN 300 MG CAP PO SCH ×3 (08:27→17:12)
[2017-03-04] MEDS: LOSARTAN 25 MG TAB PO SCH ×2 (08:27→21:53)
[2017-03-04] MEDS: MULTIVITAMIN TAB PO SCH (08:27)
[2017-03-04] MEDS: SODIUM CHLORIDE 0.9% FLUSH 5 ML FLUSH IVF SCH ×2 (08:28→21:54)
[2017-03-04] MEDS: ACETAMINOPHEN/HYDROcodone 325 MG/5 MG TAB PO PRN ×3 (08:41→22:09)
--- NOTE | 2017-03-04 11:24 | HHI.PR ---
Subjective Remarks No acute events overnight. Afebrile, vital signs stable. Patient with nerve pain in her left leg, relieved with medication. She has no complaints at this time. States she wishes to be discharged to [facility]. She denies shortness of breath/chest pain. Denies nausea/vomiting/diarrhea. Objective Vitals Vital Signs Date Time Temp Pulse Resp B/P Pulse Ox O2 Delivery O2 Flow Rate FiO2 03/04/17 09:17 88 03/04/17 08:17 97.6 91 18 122/57 98 03/04/17 05:15 98 03/04/17 04:00 97.1 78 22 147/68 95 03/04/17 02:00 Room Air 03/04/17 00:00 97.8 89 20 129/60 98 03/03/17 20:00 97.6 84 24 128/66 97 03/03/17 16:14 98.2 89 19 131/74 95 03/03/17 12:18 97.7 90 18 124/66 95 I/O 03/03/17 03/03/17 03/03/17 03/04/17 03/04/17 03/04/17 07:00 15:00 23:00 07:00 15:00 23:00 Intake Total 400 ml Output Total 800 ml 1350 ml 450 ml Balance -400 ml -1350 ml -450 ml Intake Oral 400 ml Output Urine Total 800 ml 1350 ml 450 ml # Bowel Movements 0 1 1 Result Diagram: 03/01/17 1147 03/02/17 1141 Objective Remarks GENERAL: No acute distress. CARDIOVASCULAR: Normal rate and regular rhythm without murmurs, gallops, or rubs. RESPIRATORY: Good respiratory efforts. Breath sounds equal and clear to auscultation bilaterally. GASTROINTESTINAL: Abdomen soft, non-tender, non-distended. Normal active bowel sounds MUSCULOSKELETAL: Extremities without cyanosis, or edema. Patient reports tenderness to palpation over the paraspinal muscles in the thoracic region. NEURO: Alert & Oriented x4 to person, place, time, situation. Moves all ext x4. Generalized weakness PSYCH: Appropriate mood and affect. A/P Problem List: (1) Lumbar radiculopathy ICD Code: M54.16 Status: Acute (2) Lumbar canal stenosis ICD Code: M48.06 Status: Acute (3) Intractable back pain ICD Code: M54.9 Status: Acute (4) T12 vertebral fracture ICD Code: S22.089A Status: Chronic (5) Impaired mobility and activities of daily living ICD Code: Z74.09 Status: Acute (6) Thoracic stenosis ICD Code: M48.04 Status: Acute (7) Left foot drop ICD Code: M21.372 Status: Chronic (8) Muscle spasm of back ICD Code: M62.830 Status: Acute Assessment and Plan T12 vertebral fracture: Patient is status post T12 right decompressive semi- laminectomy and bilateral T10-L2 posterior fusion w/instrumentation & percutaneous pedicle screw fixation due to a severe T12 fracture Pain control. PT. Cleared for discharge to rehabilitation from neurosurgery Accelerated hypertension: Resolved. Blood pressure better controlled when pain is controlled. Continue home dose losartan 25 mg twice a day Labetalol as needed for SBP greater than 170 We'll continue to monitor blood pressure, normotensive Asthma Continue Breo elipta. Patient is currently on Decadron. Breathing treatments as needed. GERD (gastroesophageal reflux disease) -Continue PPI Intractable back pain Pain control as above. Patient has Robaxin, Neurontin, and narcotics as needed for pain. Discharge Planning Cleared by neurosurgery. Cleared from a hospitalist standpoint. Awaiting bed at [facility]. Jojo Daniels MD R3 March 04, 2017 11:24
--- NOTE | 2017-03-04 17:49 | HHI.NSPN ---
History Chief Complaint: left calf pain Interval History 81-year-old female with progressive severe T12 compression fracture with significant kyphosis and retropulsion. 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 Status post T12 open fracture reduction with laminectomy, posterior instrumentation 02/22/17 Exam Results Vital Signs Date Time Temp Pulse Resp B/P Pulse Ox O2 Delivery O2 Flow Rate FiO2 03/04/17 16:27 98.4 97 18 147/67 99 03/04/17 02:00 Room Air Intake and Output 03/03/17 03/03/17 03/04/17 08:00 16:00 00:00 Intake Total 400 ml Output Total 800 ml 1350 ml Balance -400 ml -1350 ml Physical Examination General: Awake and alert, appears comfortable, NAD. Resp: Clear and regular CV: Regular without murmur GI: Abdomen soft, nontender, positive bowel sounds. : Egan catheter to BSD w/clear pale yellow urine. Extremities: GAUTHIER, NTTP. Back: Dressing dry and intact Neuro: AAOx3 Speech clear appropriate Follows simple commands Sensation persistent decreased light touch primarily left L5 distribution Strength is within normal limits in the upper extremities Strength is within normal limits in right and left iliopsoas, quadriceps, hamstrings with 4 right and to left tibialis anterior, 5 right and 3+ left gastrocsoleus. Medical Decision Making Impression and Plan Impression: Stable neurologic exam over the past few days Left calf pain gradually improving Plan: Patient is stable for discharge from neurosurgery standpoint. Her discharge has been postponed over the past few days due to apparent staffing issues at the facility where she has been accepted. We continue to wait for room availability. Continue present medications. Joseph Carr MD March 04, 2017 17:49
[2017-03-04] MEDS: FLUTICASONE 100 MCG/VILANTEROL 25 MCG INHALER INH SCH (21:00)
[2017-03-05] VITALS: BP 116/55; PULSE 86; RESP 18; TEMP 98.8; O2SAT 97
[2017-03-05] MEDS: traMADol HCL 50 MG TAB PO SCH ×3 (00:16→12:27)
[2017-03-05] MEDS: ACETAMINOPHEN/HYDROcodone 325 MG/5 MG TAB PO PRN (03:18)
[2017-03-05 04:00] VITALS: BP 153/70; PULSE 82; RESP 22; TEMP 97.8; O2SAT 100
[2017-03-05] MEDS: METHOCARBAMOL 500 MG TAB PO SCH ×2 (05:11→13:43)
[2017-03-05] MEDS: INSULIN ASPART SUPPLEMENTAL SCALE SQ SCH ×2 (05:26→12:26)
[2017-03-05 08:51] VITALS: BP 141/76; PULSE 82; RESP 18; TEMP 97.8; O2SAT 99
[2017-03-05] MEDS: LACTOBACILLUS ACIDOPHILUS TAB PO SCH (09:08)
[2017-03-05] MEDS: PANTOPRAZOLE SOD 40 MG DELAYED RELEASE TAB PO SCH (09:09)
[2017-03-05] MEDS: LOSARTAN 25 MG TAB PO SCH (09:09)
[2017-03-05] MEDS: DEXAMETHASONE 1.5 MG TAB PO SCH (09:09)
[2017-03-05] MEDS: MAGNESIUM OXIDE 400 MG TAB PO SCH (09:09)
[2017-03-05] MEDS: DOCUSATE SODIUM 50 MG/SENNA 8.6 MG TAB PO SCH (09:10)
[2017-03-05] MEDS: POTASSIUM CHLORIDE 10 MEQ CONTROLLED RELEASE TAB PO SCH (09:10)
[2017-03-05] MEDS: GABAPENTIN 300 MG CAP PO SCH ×2 (09:10→12:27)
[2017-03-05] MEDS: SODIUM CHLORIDE 0.9% FLUSH 5 ML FLUSH IVF SCH (09:11)
[2017-03-05] MEDS: MUPIROCIN 2% OINT 1 APPLIC/GM SYR EACH NARE SCH (09:11)
[2017-03-05] MEDS: MULTIVITAMIN TAB PO SCH (09:11)
[2017-03-05] MEDS: ACETAMINOPHEN/HYDROcodone 325 MG/10 MG TAB PO PRN (09:18)
[2017-03-05 10:26] VITALS: PULSE 20
[2017-03-05] MEDS ORDERED: HYDR-3583 PO (11:01)
--- NOTE | 2017-03-05 11:04 | HHI.PR ---
Subjective Remarks Awaiting placement at SNF. Patient reports that she is feeling better. Anxious to continue rehab at SNF. She is still requiring Hurlock to help with pain control. DW case management. Patient will be accepted today at [facility]. Objective Vitals Vital Signs Date Time Temp Pulse Resp B/P Pulse Ox O2 Delivery O2 Flow Rate FiO2 03/05/17 10:26 20 03/05/17 08:51 97.8 82 18 141/76 99 03/05/17 04:00 97.8 82 22 153/70 100 03/05/17 00:00 98.8 86 18 116/55 97 03/04/17 21:45 89 03/04/17 21:00 Room Air 03/04/17 20:00 98.6 92 20 138/65 100 03/04/17 16:27 98.4 97 18 147/67 99 03/04/17 12:00 97.7 81 18 120/57 98 I/O 03/04/17 03/04/17 03/04/17 03/05/17 03/05/17 03/05/17 07:00 15:00 23:00 07:00 15:00 23:00 Output Total 450 ml 1050 ml 750 ml Balance -450 ml -1050 ml -750 ml Output Urine Total 450 ml 1050 ml 750 ml # Bowel Movements 1 1 1 Result Diagram: 03/01/17 1147 03/02/17 1141 Objective Remarks GENERAL: Elderly female laying in bed CARDIOVASCULAR: Normal rate and regular rhythm without murmurs, gallops, or rubs. RESPIRATORY: Good respiratory efforts. Breath sounds equal and clear to auscultation bilaterally. GASTROINTESTINAL: Abdomen soft, non-tender, non-distended. Normal active bowel sounds MUSCULOSKELETAL: Extremities without cyanosis, or edema. Patient reports tenderness to palpation over the paraspinal muscles in the thoracic region. NEURO: Alert & Oriented x4 to person, place, time, situation. Moves all ext x4. Generalized weakness PSYCH: Appropriate mood and affect. A/P Problem List: (1) Lumbar radiculopathy ICD Code: M54.16 Status: Acute (2) Lumbar canal stenosis ICD Code: M48.06 Status: Acute (3) Intractable back pain ICD Code: M54.9 Status: Acute (4) T12 vertebral fracture ICD Code: S22.089A Status: Chronic (5) Impaired mobility and activities of daily living ICD Code: Z74.09 Status: Acute (6) Thoracic stenosis ICD Code: M48.04 Status: Acute (7) Left foot drop ICD Code: M21.372 Status: Chronic (8) Muscle spasm of back ICD Code: M62.830 Status: Acute Assessment and Plan T12 vertebral fracture: Patient is status post T12 right decompressive semi- laminectomy and bilateral T10-L2 posterior fusion w/instrumentation & percutaneous pedicle screw fixation due to a severe T12 fracture Pain control. PT. Further plans per neurosurgery. Patient cleared for discharge. Requiring Hurlock for pain control. I ordered Hurlock for breakthrough pain to use in rehab. Accelerated hypertension: Resolved. Blood pressure better controlled when pain is controlled. Continue home dose losartan 25 mg twice a day Asthma Continue Breo elipta. Patient is currently on Decadron taper. GERD (gastroesophageal reflux disease) -Continue PPI Intractable back pain Pain control as above. Patient has Robaxin, Neurontin, and narcotics as needed for pain. Discharge Planning Cleared from a hospitalist standpoint for discharge. Jmi Bates MD March 05, 2017 11:04
--- NOTE | 2017-03-05 12:33 | HHI.NSPN ---
History Chief Complaint: Incisional discomfort. Interval History 03/05/17: Pt awake and alert. Sitting up in wheelchair with TLSO brace on. Complains of incisional back pain. No radiculopathy into ribs. Numbness around left knee and left lateral calf. Review of Systems General: Negative for: fever, chills, insomnia Respiratory: Negative for: shortness of breath, cough, sputum Cardiovascular: Negative for: chest pain Gastrointestinal: Negative for: nausea, vomitting, diarrhea, constipation Exam Results Vital Signs Date Time Temp Pulse Resp B/P Pulse Ox O2 Delivery O2 Flow Rate FiO2 03/05/17 10:26 20 03/05/17 08:51 97.8 18 141/76 99 03/04/17 21:00 Room Air Intake and Output 03/04/17 03/04/17 03/05/17 08:00 16:00 00:00 Output Total 450 ml 1050 ml Balance -450 ml -1050 ml Physical Examination General: Awake and alert states she has been up a while and complains of being fatigued and painful. Resp: Clear and regular CV: Regular without murmur Abdomen: TLSO brace in place. Skin: No cyanosis or erythema in LEs. Neuro:AAOx3,Speech clear appropriate. Follows simple commands. Sensation persistent decreased light touch primarily left L5 distribution Muscle: Sitting up with TLSO brace on. Iliopsoas 4/5 bilaterally. Knee extension 4/5 bilaterally. EHL 2/5. Plantar and dorsiflexion 3/5. Lab, Micro, Other Results 03/04/17 03/04/17 03/05/17 15:00 23:00 07:00 Output Total 1050 ml 750 ml Balance -1050 ml -750 ml Output Urine Total 1050 ml 750 ml # Bowel Movements 1 1 Medical Decision Making Impression and Plan A: 81 y/o FM s/p Procedure #1 1. T12 right decompressive semi-laminectomy 2. intraoperative reduction T12 retropulsed compression fracture with partial resection of retropulsed fragments.. 3. Bilateral T10-L2 posterior fusion, local lamina autograft and allograft bone 4. Bilateral T10-L2 posterior instrumentation with percutaneous pedicle screw fixation 5. Repair T12 level dural tear-microtechnique Procedure #2 1. Left L4 5 decompressive semi-hemilaminectomy Procedure #3 1. Left T12 and partial left L1 decompressive laminectomy, medial facetectomy 2. Reduction left T12 retropulsed fracture for spinal cord decompression 3. Evacuation postoperative thoracic epidural hematoma P: continue with pain control Rehab placement. Juan Ramon Salas March 05, 2017 12:33
[2017-03-05 13:04] VITALS: BP 92/55; PULSE 98; RESP 18; TEMP 97.2; O2SAT 98
== END 2017-03-05 14:00 | DRG 456 ==
LOC: HSDI 02-22 06:28 → N03B 02-22 20:19 → N05A 03-02 02:03
PROVIDERS: ADMIT Neurological Surgery; ATTEND Neurological Surgery
PROC: 0SG10AJ Fusion of 2 or more Lumbar Vertebral Joints with Interbody Fusion Device, Posterior Approach, Anterior Column, Open Approach (ICD-10-PCS; 2017-02-22)
PROC: 0RG707J Fusion of 2 to 7 Thoracic Vertebral Joints with Autologous Tissue Substitute, Posterior Approach, Anterior Column, Open Approach (ICD-10-PCS; 2017-02-22)
PROC: 0PS404Z Reposition Thoracic Vertebra with Internal Fixation Device, Open Approach (ICD-10-PCS; 2017-02-22)
PROC: 0RT90ZZ Resection of Thoracic Vertebral Disc, Open Approach (ICD-10-PCS; 2017-02-22)
PROC: 00QT0ZZ Repair Spinal Meninges, Open Approach (ICD-10-PCS; 2017-02-22)
PROC: 0RGA0A1 (ICD-10-PCS; principal; 2017-02-22 08:15)
PROC: 00CT0ZZ Extirpation of Matter from Spinal Meninges, Open Approach (ICD-10-PCS; 2017-02-26)
PROC: 00NX0ZZ Release Thoracic Spinal Cord, Open Approach (ICD-10-PCS; 2017-02-26)
DX: S22.089A Unspecified fracture of T11-T12 vertebra, initial encounter for closed fracture (principal); S24.154A Other incomplete lesion at T11-T12 level of thoracic spinal cord, initial encounter; G97.61 Postprocedural hematoma of a nervous system organ or structure following a nervous system procedure; E87.1 Hypo-osmolality and hyponatremia; X58.XXXA Exposure to other specified factors, initial encounter; Y93.9 Activity, unspecified; Y92.9 Unspecified place or not applicable; Y99.9 Unspecified external cause status; M48.06 Spinal stenosis, lumbar region; M48.04 Spinal stenosis, thoracic region; M54.16 Radiculopathy, lumbar region; Y83.8 Other surgical procedures as the cause of abnormal reaction of the patient, or of later complication, without mention of misadventure at the time of the procedure; Y79.3 Surgical instruments, materials and orthopedic devices (including sutures) associated with adverse incidents; Y92.239 Unspecified place in hospital as the place of occurrence of the external cause; I10 Essential (primary) hypertension; K21.9 Gastro-esophageal reflux disease without esophagitis; J45.909 Unspecified asthma, uncomplicated; E78.5 Hyperlipidemia, unspecified; G89.29 Other chronic pain; Z96.642 Presence of left artificial hip joint; R26.9 Unspecified abnormalities of gait and mobility; M21.372 Foot drop, left foot; M40.209 Unspecified kyphosis, site unspecified; R73.9 Hyperglycemia, unspecified; M62.830 Muscle spasm of back; M79.662 Pain in left lower leg; K59.00 Constipation, unspecified; Z96.652 Presence of left artificial knee joint
CPT/HCPCS: 70450; 72020; 72070; 72128; 72131; 72146; 72148; 76000; 76937; 80048; 80053; 81001; 82948; 83735; 84100; 85025; 85027; 85610; 85730; 86850; 86900; 86901; 87641; 93005; 94150; C1713; J0131; J0690; J1100; J1170; J1580; J1644; J1815; J2250; J2270; J2370; J2405; J2710; J2765; J3010; J3480; J7030; J7120; J8540; L0484

== ENCOUNTER 2017-07-02 08:41 | Inpatient (IN) | payer MEDICARE, BC ==
[~2017-07-02] VITALS: Ht 160 cm; Wt 55.0 kg
[~2017-07-02 08:41] MED LIST changes: +AMIT25TA9 PO; +BAZACRE TOPICAL; +CULT10CA4 PO; +DULC10SU3 RECTAL; +ESOM1CAP16; -FLUT1INH INH; +LOSA25TA PO; +LUMBAR BACK BRA1 MIS; +MELA5TAB15 PO; +META28.34 PO; +METH500T3 PO; +MILKSUS PO; +MULT-65 PO; +NEUR300C PO; -POTA-243 PO; +[UNRECOGNIZED DRUG - CODE] TOPICAL
[2017-07-02 08:50] VITALS: BP 151/72; PULSE 84; RESP 18; TEMP 98.3; O2SAT 98
[2017-07-02] MEDS ORDERED: MORPHINE SULFATE 4 MG/ML INJ IV PUSH ONE (09:00)
--- NOTE | 2017-07-02 09:04 | PD ---
HPI Chief Complaint: Fall Time Seen by Provider: 08:54 Travel History International Travel<30 days: No Contact w/Intl Traveler<30days: No Traveled to known affect area: No History of Present Illness HPI Patient is an 82-year-old female is as the emergency department for evaluation of left hip pain and left knee pain after a fall while transferring at rehabilitation. Patient recently had surgery on her low back by Dr. De Luna and has been having some left leg weakness which she is rehabilitating. She states try to transfer and her hand hold slipped out away from her and she landed on her left hip. This occurred approximately 8 PM last night. She presents the emergency department for evaluation now, denies any head injury neck injury back injury. She states she had surgery on her hip remotely and her surgeon does not practice medicine anymore. PFSH Past Medical History Arthritis: Yes Asthma: Yes Anxiety: No Depression: No Heart Rhythm Problems: No Cancer: No Cardiovascular Problems: Yes (HTN) High Cholesterol: Yes Chest Pain: No Congestive Heart Failure: No COPD: Yes Cerebrovascular Accident: No Diminished Hearing: No Endocrine: No Gastrointestinal Disorders: Yes (GASTROPARESIS) GERD: Yes Genitourinary: No Hiatal Hernia: No Hypertension: Yes Immune Disorder: No Kidney Stones: No Musculoskeletal: Yes (back / arthritis / hip / hammer toe) Neurologic: No Psychiatric: No Reproductive: No Respiratory: Yes (Hx Asthma;emphysema) Migraines: No Renal Failure: No Seizures: No Sleep Apnea: No Ulcer: No Menopausal: Yes Past Surgical History Abdominal Surgery: No AICD: No Arteriovenous Shunt: No Cardiac Surgery: No Ear Surgery: No Endocrine Surgery: No Eye Surgery: Yes (bilateral cataracts ) Genitourinary Surgery: No Gynecologic Surgery: No Hysterectomy: No Insulin Pump: No Joint Replacement: Yes (Knee replacement,) Neurologic Surgery: No Oral Surgery: Yes (multiple implants and crowns) Pacemaker: No Thoracic Surgery: No Social History Alcohol Use: Yes (Wine occ.) Tobacco Use: No Substance Use: No Allergies-Medications (Allergen,Severity, Reaction): Coded Allergies: Sulfa (Sulfonamide Antibiotics) (Unverified Allergy, Intermediate, NAUSEA , 07/02/17) *MDRO Multi-Drug Resistant Organism (Verified Adverse Reaction, Unknown, MRSA, 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 SKIN: Focused skin assessment warm/dry. HEAD: Atraumatic. Normocephalic. EYES: Pupils equal and round. No scleral icterus. No injection or drainage. ENT: No nasal bleeding or discharge. Mucous membranes pink and moist. NECK: Trachea midline. No JVD. CARDIOVASCULAR: Regular rate and rhythm. No murmur appreciated. RESPIRATORY: No accessory muscle use. Clear to auscultation. Breath sounds equal bilaterally. GASTROINTESTINAL: Abdomen soft, non-tender, nondistended. Hepatic and splenic margins not palpable. MUSCULOSKELETAL: No obvious deformities. No clubbing. No cyanosis. No edema. No midline CT or L-spine tenderness. Left leg is shortened and externally rotated. Pulses motor and sensory intact distally. No trauma to the knee or ankle. Patient does have a prominent greater trochanter at the left hip which is tender to palpation. No hematoma appreciated. NEUROLOGICAL: Awake and alert. No obvious cranial nerve deficits. Motor grossly within normal limits. Normal speech. PSYCHIATRIC: Appropriate mood and affect; insight and judgment normal. Data Data Last Documented VS Vital Signs Date Time Temp Pulse Resp B/P (MAP) Pulse Ox O2 Delivery O2 Flow Rate FiO2 07/02/17 08:50 98.3 84 18 151/72 (98) 98 Room Air Orders Orders Hip, Uni(Ap&Lat) W Ap Pelvis (07/02/17 ) Chest, Single Ap (07/02/17 ) Morphine Inj (Morphine Inj) (07/02/17 09:00) Consult Orthopedic (07/02/17 ) Electrocardiogram (07/02/17 10:04) Basic Metabolic Panel (Bmp) (07/02/17 10:04) Complete Blood Count With Diff (07/02/17 10:04) Ecg Monitoring (07/02/17 10:04) Iv Access Insert/Monitor (07/02/17 10:04) Oximetry (07/02/17 10:04) Oxygen Administration (07/02/17 10:04) Sodium Chloride 0.9% Flush (Ns Flush) (07/02/17 10:15) Admit Order (Ed Use Only) (07/02/17 ) Labs Laboratory Tests Test 07/02/17 10:00 White Blood Count 12.0 TH/MM3 Red Blood Count 4.15 MIL/MM3 Hemoglobin 11.3 GM/DL Hematocrit 34.5 % Mean Corpuscular Volume 83.2 FL Mean Corpuscular Hemoglobin 27.3 PG Mean Corpuscular Hemoglobin Concent 32.8 % Red Cell Distribution Width 15.0 % Platelet Count 279 TH/MM3 Mean Platelet Volume 8.6 FL Neutrophils (%) (Auto) 77.3 % Lymphocytes (%) (Auto) 14.7 % Monocytes (%) (Auto) 7.7 % Eosinophils (%) (Auto) 0.1 % Basophils (%) (Auto) 0.2 % Neutrophils # (Auto) 9.3 TH/MM3 Lymphocytes # (Auto) 1.8 TH/MM3 Monocytes # (Auto) 0.9 TH/MM3 Eosinophils # (Auto) 0.0 TH/MM3 Basophils # (Auto) 0.0 TH/MM3 CBC Comment DIFF FINAL Differential Comment Blood Urea Nitrogen 18 MG/DL Creatinine 0.77 MG/DL Random Glucose 148 MG/DL Calcium Level 8.6 MG/DL Sodium Level 132 MEQ/L Potassium Level 3.4 MEQ/L Chloride Level 99 MEQ/L Carbon Dioxide Level 24.8 MEQ/L Anion Gap 8 MEQ/L Estimat Glomerular Filtration Rate 72 ML/MIN [facility] Medical Decision Making Medical Screen Exam Complete: Yes Emergency Medical Condition: Yes Differential Diagnosis Hip contusion, hip fracture, hip strain, Narrative Course Patient roomed in the emergency department, high index suspicion for hip fracture the patient had x-rays which did indeed reveal a hip fracture located at the proximal portion of the femur, appears to traverse the location of her prosthesis. Patient was discussed with hospitalist on-call for admission and surgical consultation is agreeable. Patient was given morphine probably a minute assistance for pain secondary to x-ray procedures and she is fairly comfortable time. She is agreeable for admission. Diagnosis Primary Impression: Fracture of left hip Admitting Information Admitting Physician Requests: Admit Condition: Stable Jordan Goldberg MD Jul 02, 2017 09:04
[2017-07-02] MEDS ORDERED: SIMV20TA PO (09:12)
[2017-07-02] MEDS ORDERED: TYLE325T PO (09:12)
--- NOTE | 2017-07-02 09:57 | RADRPT ---
EXAM DATE/TIME: 07/02/2017 09:29 [facility] COMPARISON: HIP LEFT (AP&LAT 2/3VWS) W AP PELVIS, December 26, 2016, 12:11. INDICATIONS : Left hip pain after falling yesterday. MEDICAL HISTORY : Hypertension. Chronic obstructive pulmonary disease. Arthritis. SURGICAL HISTORY : Left total hip replacement. ENCOUNTER: Initial ACUITY: 2 days PAIN SCORE: 10/10 LOCATION: Left hip joint. FINDINGS: Left total hip arthroplasty is noted. There is a remote fracture deformity of the left inferior pubic ramus. A displaced fracture through the left proximal femur at the trochanteric level is noted with displaced lesser trochanteric fragment and slight anterior displacement of the distal femoral fragmen t. Degenerative changes of the lower lumbar spine are noted. CONCLUSION: Left proximal femur fracture. Trae Das MD on July 02, 2017 at 9:55 Board Certified Radiologist. This report was verified electronically.
[2017-07-02] MEDS ORDERED: SODIUM CHLORIDE 0.9% FLUSH 10 ML FLUSH IVF PRN (10:15)
--- NOTE | 2017-07-02 10:22 | RADRPT ---
EXAM DATE/TIME: 07/02/2017 09:47 [facility] COMPARISON: CHEST PA & LAT, January 05, 2017, 18:05. HIP LEFT (AP&LAT 2/3VWS) W AP PELVIS, July 02, 2017, 9:2 9. INDICATIONS : Shortness of breath after falling yesterday. MEDICAL HISTORY : Hypertension. Arthritis. Chronic obstructive pulmonary disease. SURGICAL HISTORY : Fusion, thoracic. Fusion, lumbar. ENCOUNTER: Initial ACUITY: 2 days PAIN SCORE: 0/10 LOCATION: Bilateral chest FINDINGS: A single view of the chest demonstrates the lungs to be symmetrically aerated without evidence of mas s, infiltrate or effusion. The cardiomediastinal contours are unremarkable. Osseous structures demo nstrate degenerative changes but are otherwise intact. There are postsurgical changes in the lower th oracic and upper lumbar spine. CONCLUSION: 1. No acute cardiopulmonary findings. Bogdan Grady MD on July 02, 2017 at 10:10 Board Certified Radiologist. This report was verified electronically.
[2017-07-02 10:48] LABS: AUTOMATED NEUTROPHIL # 9.3 TH/MM3 (1.8-7.7); BASOPHIL % 0.2 % (0.0-2.0); EOSINOPHIL % 0.1 % (0.0-4.0); HEMATOCRIT 34.5 % (35.0-46.0); HEMO FLAGS DIFF FINAL; LYMPH % 14.7 % (9.0-44.0); LYMPHOCYTE # 1.8 TH/MM3 (1.0-4.8); MEAN CELL VOLUME 83.2 FL (80.0-100.0); MEAN CORPUSCULAR HEMOGLOBIN 27.3 PG (27.0-34.0); MEAN CORPUSCULAR HGB CONC 32.8 % (32.0-36.0); MONO % 7.7 % (0.0-8.0); NEUT % 77.3 % (16.0-70.0); PLATELET COUNT 279 TH/MM3 (150-450); RED BLOOD COUNT 4.15 MIL/MM3 (4.00-5.30)
[2017-07-02] MEDS: SODIUM CHLOR 0.9% 1000 ML INJ 1,000 ML IV SCH (10:57)
[2017-07-02 11:00] VITALS: BP 163/77; PULSE 81; RESP 17; O2SAT 98
[2017-07-02] MEDS ORDERED: MAGNESIUM HYDROXIDE SUSP 30 ML CUP PO PRN (11:00)
[2017-07-02] MEDS ORDERED: ONDANSETRON HCL 4 MG/2 ML VIAL IVP PRN (11:00)
[2017-07-02] MEDS ORDERED: SENNOSIDES 8.6 MG TAB PO PRN (11:00)
[2017-07-02] MEDS ORDERED: NALOXONE HCL 0.4 MG/ML AMP IV PUSH PRN (11:00)
[2017-07-02] MEDS ORDERED: BISACODYL 10 MG SUPP RECTAL PRN (11:00)
[2017-07-02] MEDS ORDERED: SODIUM CHLORIDE 0.9% FLUSH 10 ML FLUSH IV FLUSH PRN (11:00)
[2017-07-02] MEDS ORDERED: LACTULOSE SYRUP 20 GM/30 ML CUP PO PRN (11:00)
[2017-07-02 11:01] LABS: BICARBONATE 24.8 MEQ/L (21.0-32.0); POTASSIUM 3.4 MEQ/L (3.5-5.1)
--- NOTE | 2017-07-02 11:35 | HHI.HP ---
[facility] Lenore Duran MD Admission Diagnosis Left hip fracture. Diagnoses: Chief Complaint: Fell on the left side. Travel History International Travel<30 Days: No Contact w/Intl Traveler <30 Da: No Traveled to Known Affected Are: No History of Present Illness Ms. Tavares is a pleasant 82 year old female with a recent history of L4-5 and T12 decompressive laminectomy in February 2017 (Dr. De Luna) who presents to the ED on due to a fall at home last night around 8PM. After neurosurgical procedure, patient went to rehab and she was discharged home about a month ago. She has been feeling very weak. Last night around 8PM, she was trying transfer from a chair and she fell on her left side. Denies any chest pain, dyspnea, lightheadedness, dizziness. No fever, chills. She denies any changes in bowel or bladder habits. On arrival, T 98.3, HR 84, Resp rate 18, BP 151/72, Pulse ox 97%. Radiological studies show left proximal femur fracture. Orthopedic was consulted by ER provider. Review of Systems Except as stated in HPI: all other systems reviewed are Neg Past Family Social History Past Medical History Hyperlipidemia T12 vertebral fracture L4-5 stenosis Past Surgical History Left hip replacement, multiple left hip surgery. T12 right decompressive semi-laminectomy and bilateral T10-L2 posterior fusion w /instrumentation & percutaneous pedicle screw fixation due to a severe T12 fracture. Reported Medications Amitriptyline (Amitriptyline HCl) 25 Mg Tab 25 Mg PO HS Neurontin (Gabapentin) 300 Mg Cap 300 Mg PO TID Ultram (Tramadol HCl) 50 Mg Tab 50 Mg PO Q6H Omeprazole 10 Mg Cap 10 Mg PO DAILY Reported Tylenol (Acetaminophen) 325 Mg Tab 325 Mg PO ONCE Simvastatin 20 Mg Tab 20 Mg PO DAILY Multi-Vitamin Daily (Multiple Vitamin) 1 Tab Tab 1 Tab PO DAILY Allergies: Coded Allergies: Sulfa (Sulfonamide Antibiotics) (Unverified Allergy, Intermediate, NAUSEA , 07/02/17) *MDRO Multi-Drug Resistant Organism (Verified Adverse Reaction, Unknown, MRSA, 07/02/17) MRSA PCR (nares) POSITIVE - 02/23/17 Family History Mother - breast cancer Father - heart disease Social History Denies using tobacco. Drinks wine occasionally with dinner. Physical Exam Vital Signs Vital Signs Date Time Temp Pulse Resp B/P (MAP) Pulse Ox O2 Delivery O2 Flow Rate FiO2 07/02/17 11:00 81 17 163/77 (105) 98 Room Air 07/02/17 08:50 98.3 84 18 151/72 (98) 98 Room Air 07/02/17 08:50 84 18 97 Room Air Physical Exam GENERAL: This is a well-nourished, well-developed patient, in no apparent distress. SKIN: No rashes, ecchymoses or lesions. Warm and dry. HEAD: Atraumatic. Normocephalic. No temporal or scalp tenderness. EYES: Pupils equal round and reactive. No injection or drainage. ENT: Nose without bleeding, purulent drainage or septal hematoma. Airway patent. NECK: Trachea midline. No lymphadenopathy. Supple, nontender, no meningeal signs. CARDIOVASCULAR: Regular rate and rhythm without murmurs, gallops, or rubs. No JVD. RESPIRATORY: Clear to auscultation. Breath sounds equal bilaterally. No wheezes , rales, or rhonchi. GASTROINTESTINAL: Abdomen soft, non-tender, nondistended. No guarding. MUSCULOSKELETAL: Extremities without clubbing, cyanosis, or edema. Pain on left leg movement. She is able to move all toes. NEUROLOGICAL: Awake and alert. Cranial nerves II through XII intact. No focal neurological deficits. Normal speech. Laboratory Laboratory Tests Test 07/02/17 10:00 White Blood Count 12.0 Red Blood Count 4.15 Hemoglobin 11.3 Hematocrit 34.5 Mean Corpuscular Volume 83.2 Mean Corpuscular Hemoglobin 27.3 Mean Corpuscular Hemoglobin Concent 32.8 Red Cell Distribution Width 15.0 Platelet Count 279 Mean Platelet Volume 8.6 Neutrophils (%) (Auto) 77.3 Lymphocytes (%) (Auto) 14.7 Monocytes (%) (Auto) 7.7 Eosinophils (%) (Auto) 0.1 Basophils (%) (Auto) 0.2 Neutrophils # (Auto) 9.3 Lymphocytes # (Auto) 1.8 Monocytes # (Auto) 0.9 Eosinophils # (Auto) 0.0 Basophils # (Auto) 0.0 CBC Comment DIFF FINAL Differential Comment Blood Urea Nitrogen 18 Creatinine 0.77 Random Glucose 148 Calcium Level 8.6 Sodium Level 132 Potassium Level 3.4 Chloride Level 99 Carbon Dioxide Level 24.8 Anion Gap 8 Estimat Glomerular Filtration Rate 72 Result Diagram: 07/02/17 1000 07/02/17 1000 Imaging Last Impressions Hip and Pelvis X-Ray 07/02/17 0000 Signed Impressions: Service Date/Time: Sunday, July 02, 2017 09:29 - CONCLUSION: Left proximal femur fracture. Trae Das MD Chest X-Ray 07/02/17 0000 Signed Impressions: Service Date/Time: Sunday, July 02, 2017 09:47 - CONCLUSION: 1. No acute cardiopulmonary findings. MD Vic De La Cruz VTE Risk Assessment Christopheri VTE Risk Assessment: Mod/High Risk (score >= 2) Caprini Risk Assessment Model Point Value = 1 Point Value = 2 Point Value = 3 Point Value = 5 Age 41-60 Minor surgery BMI > 25 kg/m2 Swollen legs Varicose veins or History of unexplained or recurrent spontaneous Oral contraceptives or hormone replacement Sepsis (< 1 month) Serious lung disease, including pneumonia (< 1 month) Abnormal pulmonary function Acute myocardial infarction Congestive heart failure (< 1 month) History of inflammatory bowel disease Medical patient at bed rest Age 61-74 Arthroscopic surgery Major open surgery (> 45 min) Laparoscopic surgery (> 45 min) Malignancy Confined to bed (> 72 hours) Immobilizing plaster cast Central venous access Age >= 75 History of VTE Family history of VTE Factor V Leiden Prothrombin [id number] Lupus anticoagulant Anticardiolipin antibodies Elevated serum homocysteine Heparin-induced thrombocytopenia Other congenital or acquired thrombophilia Stroke (< 1 month) Elective arthroplasty Hip, pelvis, or leg fracture Acute spinal cord injury (< 1 month) Prophylaxis Regimen Total Risk Factor Score Risk Level Prophylaxis Regimen 0-1 Low Early ambulation 2 Moderate Order ONE of the following: *Sequential Compression Device (SCD) *Heparin 5000 units SQ BID 3-4 Higher Order ONE of the following medications: *Heparin 5000 units SQ TID *Enoxaparin/Lovenox 40 mg SQ daily (WT < 150 kg, CrCl > 30 mL/min) *Enoxaparin/Lovenox 30 mg SQ daily (WT < 150 kg, CrCl > 10-29 mL/min) *Enoxaparin/Lovenox 30 mg SQ BID (WT < 150 kg, CrCl > 30 mL/min) AND/OR *Sequential Compression Device (SCD) 5 or more Highest Order ONE of the following medications: *Heparin 5000 units SQ TID (Preferred with Epidurals) *Enoxaparin/Lovenox 40 mg SQ daily (WT < 150 kg, CrCl > 30 mL/min) *Enoxaparin/Lovenox 30 mg SQ daily (WT < 150 kg, CrCl > 10-29 mL/min) *Enoxaparin/Lovenox 30 mg SQ BID (WT < 150 kg, CrCl > 30 mL/min) AND *Sequential Compression Device (SCD) Assessment and Plan Problem List: (1) Fracture of left hip ICD Code: S72.002A - Fracture of unspecified part of neck of left femur, initial encounter for closed fracture (2) Dyslipidemia ICD Code: E78.5 - Hyperlipidemia, unspecified Status: Chronic (3) Lumbar radiculopathy ICD Code: M54.16 - Radiculopathy, lumbar region Status: Acute (4) T12 vertebral fracture ICD Code: S22.089A - Unspecified fracture of T11-T12 vertebra, initial encounter for closed fracture Status: Chronic Assessment and Plan Ms. Tavares is an 82 year old female with a history of multiple left hip surgeries and recent surgery of her L4-5, T12 by Dr. De Luna who presents to the ED due to a fall last night. Radiological studies indicate a left femur fracture. - Fracture of left hip - Orthopedic surgery consulted. She will likely require surgical intervention. - Acetaminophen, [place] and Dilaudid IV - all PRN for pain. - Bowel regimen on board. - Currently NPO in case orthopedic surgery decides to perform surgery today. - Hx of Lumbar radiculopathy - Hx of T12 vertebral fracture - s/p surgical intervention by neurosurgeon Dr. De Luna. - No acute issues. We will continue Gabapentin 600mg TID PRN. - Dyslipidemia - Patient takes Simvastatin. Probably Lipitor would be more preferable. - Hypertension - Currently patient is somewhat hypertensive. However, this could be due to pain. - Apparently her home BP runs low. We would refrain from using any BP meds at this point. Full code. No pharmacological anti-coagulation for now due to anticipated surgery. Physician Certification 2 Midnight Certification Type: Admission for Inpatient Services Order for Inpatient Services The services are ordered in accordance with Medicare regulations or non- Medicare payer requirements, as applicable. In the case of services not specified as inpatient-only, they are appropriately provided as inpatient services in accordance with the 2-midnight benchmark. Estimated LOS (days): 2 days is the estimated time the patient will need to remain in the hospital, assuming treatment plan goals are met and no additional complications. Post-Hospital Plan: Not yet determined Xavi Kwok DO Jul 02, 2017 11:35 am
[2017-07-02] MEDS: HYDROmorphone HCL PF 1 MG/ML VIAL IV PUSH PRN ×2 (11:40→20:20)
[2017-07-02] MEDS ORDERED: GABAPENTIN 300 MG CAP PO SCH (13:00)
[2017-07-02] MEDS ORDERED: GABAPENTIN 300 MG CAP PO PRN (13:00)
[2017-07-02 15:28] VITALS: BP 189/90; PULSE 80; RESP 16; TEMP 96.2; O2SAT 96
[2017-07-02] MEDS: DOCUSATE SODIUM 50 MG/SENNA 8.6 MG TAB PO SCH (20:19)
[2017-07-02 20:20] VITALS: BP 121/57; PULSE 98; RESP 18; TEMP 99.1; O2SAT 94
[2017-07-02] MEDS: SODIUM CHLORIDE 0.9% FLUSH 10 ML FLUSH IV FLUSH SCH (20:20)
[2017-07-02] MEDS ORDERED: METOPROLOL TARTRATE 25 MG TAB PO PRN (22:00)
[2017-07-02] MEDS ORDERED: CHLORHEXIDINE GLUCONATE 2 % 1 PACK (2 CLOTHS) TOPICAL PRN (22:00)
[2017-07-02] MEDS ORDERED: POVIDONE IODINE 5% (ANTISEPSIS KIT) 4 APPLICATIONS EACH NARE PRN (22:00)
[2017-07-02] MEDS ORDERED: SODIUM CHLORID 0.9% 500 ML IV PRN (22:00)
[2017-07-02] MEDS ORDERED: LACTATED RINGER'S 1000 ML IV PRN (22:00)
[2017-07-02] MEDS ORDERED: INSULIN HUMAN REGULAR 1,000 UNITS/10 ML VIAL SQ PRN (22:00)
[2017-07-03 00:01] VITALS: BP 142/66; PULSE 93; RESP 17; TEMP 99.5; O2SAT 93
[2017-07-03] MEDS: HYDROmorphone HCL PF 1 MG/ML VIAL IV PUSH PRN (04:08)
--- NOTE | 2017-07-03 06:52 | PD.ORT.PN ---
Subjective Subjective Remarks s/p fall at home left hip pain. history of left DIANE in 2005 Objective Vitals Vital Signs Date Time Temp Pulse Resp B/P (MAP) Pulse Ox O2 Delivery O2 Flow Rate FiO2 07/03/17 00:01 99.5 93 17 142/66 (91) 93 07/02/17 20:20 99.1 98 18 121/57 (78) 94 07/02/17 15:28 96.2 80 16 189/90 (123) 96 07/02/17 11:00 81 17 163/77 (105) 98 Room Air 07/02/17 08:50 98.3 84 18 151/72 (98) 98 Room Air 07/02/17 08:50 84 18 97 Room Air I/O 07/02/17 07/02/17 07/02/17 07/03/17 07/03/17 07/03/17 07:00 15:00 23:00 07:00 15:00 23:00 Intake Total 240 ml 0 ml Balance 240 ml 0 ml Intake Oral 240 ml 0 ml # Voids 1 2 # Bowel Movements 0 0 Result Diagram: 07/02/17 1000 07/02/17 1000 Objective Remarks LLE: pain with motion. nvi Assessment & Plan Assessment and Plan 1) Left Periprosthetic Proximal Femur Fx with DIANE -resume diet -lovenox 30mg subQ once -npo after MN -consents -potential surgery tomorrow. likely Jairo Alexander Jul 03, 2017 06:52
[2017-07-03] MEDS ORDERED: ENOXAPARIN SODIUM 30 MG/0.3 ML SYRINGE SQ ONE (07:00)
[2017-07-03 08:00] VITALS: BP 165/72; PULSE 95; RESP 16; TEMP 99.2; O2SAT 95
[2017-07-03] MEDS: DOCUSATE SODIUM 50 MG/SENNA 8.6 MG TAB PO SCH ×2 (09:58→21:17)
[2017-07-03] MEDS: SODIUM CHLORIDE 0.9% FLUSH 10 ML FLUSH IV FLUSH SCH ×2 (09:58→21:00)
[2017-07-03] MEDS ORDERED: INFLUENZA VIRUS VACCINE (QUADRIVALENT) 0.5 ML SYR IM ONE (10:00)
[2017-07-03] MEDS: ACETAMINOPHEN/HYDROcodone 325 MG/5 MG TAB PO PRN ×2 (10:08→21:19)
--- NOTE | 2017-07-03 11:43 | HHI.PR ---
Subjective Remarks Follow up for left hip fracture. Patient is doing well. She request PPI for acid reflux. Pain on her left hip well controlled. Objective Vitals Vital Signs Date Time Temp Pulse Resp B/P (MAP) Pulse Ox O2 Delivery O2 Flow Rate FiO2 07/03/17 00:01 99.5 93 17 142/66 (91) 93 07/02/17 20:20 99.1 98 18 121/57 (78) 94 07/02/17 15:28 96.2 80 16 189/90 (123) 96 I/O 07/02/17 07/02/17 07/02/17 07/03/17 07/03/17 07/03/17 07:00 15:00 23:00 07:00 15:00 23:00 Intake Total 240 ml 0 ml Balance 240 ml 0 ml Intake Oral 240 ml 0 ml # Voids 1 2 # Bowel Movements 0 0 Result Diagram: 07/02/17 1000 07/02/17 1000 Imaging Last Impressions Hip and Pelvis X-Ray 07/02/17 0000 Signed Impressions: Service Date/Time: Sunday, July 02, 2017 09:29 - CONCLUSION: Left proximal femur fracture. Trae Das MD Chest X-Ray 07/02/17 0000 Signed Impressions: Service Date/Time: Sunday, July 02, 2017 09:47 - CONCLUSION: 1. No acute cardiopulmonary findings. Bogdan Grady MD Objective Remarks GENERAL: Alert, NAD. SKIN: Warm and dry. HEAD: Normocephalic. EYES: No scleral icterus. No injection or drainage. NECK: Supple, trachea midline. No JVD or lymphadenopathy. CARDIOVASCULAR: Regular rate and rhythm without murmurs, gallops, or rubs. RESPIRATORY: Breath sounds equal bilaterally. No accessory muscle use. GASTROINTESTINAL: Abdomen soft, non-tender, nondistended. MUSCULOSKELETAL: No cyanosis, or edema. Pain on movement of left lower ext. Able to move all toes. BACK: Nontender without obvious deformity. No CVA tenderness. Procedures None. A/P Problem List: (1) Fracture of left hip ICD Code: S72.002A - Fracture of unspecified part of neck of left femur, initial encounter for closed fracture (2) Dyslipidemia ICD Code: E78.5 - Hyperlipidemia, unspecified Status: Chronic (3) Lumbar radiculopathy ICD Code: M54.16 - Radiculopathy, lumbar region Status: Acute (4) T12 vertebral fracture ICD Code: S22.089A - Unspecified fracture of T11-T12 vertebra, initial encounter for closed fracture Status: Chronic Assessment and Plan Ms. Tavares is an 82 year old female with a history of multiple left hip surgeries and recent surgery of her L4-5, T12 by Dr. De Luna who presents to the ED due to a fall last night. Radiological studies indicate a left femur fracture. - Fracture of left hip - Orthopedic surgery consulted. She will likely require surgical intervention. - Acetaminophen, [place] and Dilaudid IV - all PRN for pain. - Bowel regimen on board. - Probable surgery on 07/04/2017. - Hx of Lumbar radiculopathy - Hx of T12 vertebral fracture - s/p surgical intervention by neurosurgeon Dr. De Luna. - No acute issues. continue Gabapentin 600mg TID PRN. - Dyslipidemia - Lipitor 20mg QHS. - Hypertension - Currently patient is somewhat hypertensive. However, this could be due to pain. - Apparently her home BP runs low. If persistent, we could consider Amlodipine. - GERD - will start Protonix 20mg BID. Full code. Pharmacological DVT prophylaxis per Orthopedic surgery. Xavi Kwok DO Jul 03, 2017 11:43
[2017-07-03] MEDS ORDERED: PANTOPRAZOLE SOD 20 MG DELAYED RELEASE TAB PO ONE (11:45)
--- NOTE | 2017-07-03 11:55 | EKG ---
Date Performed: 07/02/2017 Time Performed: 11:12:47 PTAGE: 82 years EKG: Sinus rhythm NORMAL ECG Compared to prior tracing no significant change PREVIOUS TRACING : 02/26/2017 16.31 DOCTOR: Mina Beaulieu Interpretating Date/Time 07/03/2017 11:53:26
[2017-07-03 12:00] VITALS: BP 137/67; PULSE 82; RESP 16; TEMP 98.8; O2SAT 96
[2017-07-03 16:00] VITALS: BP 163/72; PULSE 86; RESP 16; TEMP 101.5; O2SAT 96
--- NOTE | 2017-07-03 18:34 | MB ---
cc: FELICIA MIRAMONTES DATE OF ADMISSION 07/02/2017 DATE OF CONSULTATION 07/03/2017 REASON FOR CONSULTATION Complex left hip periprosthetic femur fracture. CONSULTING PHYSICIAN Dr. Kwok. HISTORY Ashley is an 82-year-old female who presented to the emergency room after having a fall. She recently had a lumbar decompression surgery by Dr. De Luna in February of 2017. She had been in rehab. She has recently been discharged home. She was transferring from a chair when she fell. She had immediate left hip pain. She has a history of left total hip arthroplasty done in approximately 2005 at [facility] in [place]. She complains of left hip pain. Pain is worse with movement. She denies any significant hip pain prior to her fall. PAST MEDICAL HISTORY Illnesses: 1. High cholesterol. 2. Osteoporosis. 3. Reflux. ALLERGIES SULFA. PAST SURGICAL HISTORY 1. Lumbar decompression. 2. Left total hip replacement. 3. Left hip ORIF. MEDICATIONS Include: 1. Neurontin. 2. Ultram. 3. Omeprazole. 4. Amitriptyline. FAMILY HISTORY Positive for breast cancer in mother and heart disease in father. SOCIAL HISTORY The patient denies tobacco or drug use. She drinks wine occasionally. REVIEW OF SYSTEMS The patient denies headache, visual changes, neck pain, chest pain, shortness of breath, abdominal pain, nausea, vomiting, recent weight loss, numbness or tingling of the extremities. She plans of left hip pain. The pain is worse with movement. PHYSICAL EXAMINATION GENERAL: The patient is a thin 82-year-old female in no acute distress. She is awake, alert. She is alert and x3. VITAL SIGNS: Temperature 98.8, pulse 82, respirations 16, blood pressure 137/67, O2 sat 96% on room air. HEAD: The patient is normocephalic. Pupils are equal. NECK: Soft, nontender. Trachea is midline. ABDOMEN: Soft, nontender, nondistended. EXTREMITIES: Examination of bilateral upper extremities reveals no pain with shoulder, elbow or wrist motion. She has intact sensation to all fingers. She has good cap refill fingers. Skin is intact. Development Writer strength is +5. Examination of right leg reveals no pain with hip, knee or ankle motion. Skin is intact. Dorsalis pedis pulse is palpable. Sensation intact. Examination of left leg reveals mild shortening of left leg. She has pain with any hip motion. She has minimal tenderness around the tibia, knee or ankle. Skin is intact. Dorsalis pedis pulse is palpable. IMAGING X-rays of left hip were reviewed. X-rays reveal a displaced left femur periprosthetic fracture. The total hip arthroplasty femoral stem appears to be loose. IMPRESSION 1. Osteoporosis. 2. Displaced left femur periprosthetic fracture. 3. Loose total hip arthroplasty stem. PLAN Treatment options discussed with the patient. At this point I would recommend open reduction, internal fixation of proximal femur combined with revision of the left hip stem. The risks of surgery include bleeding, infection, injury to arteries, nerves and blood vessels, leg length discrepancy, hip dislocation as well as medical complications including blood clot, stroke, heart attack and . All questions were answered. I will plan on surgery later this week. A mid-level provider in my office, nurse practitioner or PA, may see this patient on a follow-up basis and continue to implement the objective of this plan including: Starting or adjusting medications, injections of muscle, tendon, bursa or joints, cast application, orthotic or brace application, physical therapy, further radiographic studies including x-ray, MRI, CT, ultrasounds or bone scan, vascular studies, neurologic studies, or other specialist consultations, and proceeding with surgical management as appropriate. MD PRO [place]/SHANIA /5:27 PM /6:09 PM
[2017-07-03] MEDS: ACETAMINOPHEN 325 MG TAB PO PRN (18:48)
[2017-07-03 20:00] VITALS: BP 155/87; PULSE 101; RESP 17; TEMP 98.7; O2SAT 95
[2017-07-03] MEDS: ATORVASTATIN 20 MG TAB PO SCH (21:17)
[2017-07-03] MEDS: PANTOPRAZOLE SOD 20 MG DELAYED RELEASE TAB PO SCH (21:17)
--- NOTE | 2017-07-03 21:30 | RADRPT ---
EXAM DATE/TIME: 07/03/2017 20:41 [facility] COMPARISON: HIP LEFT (AP&LAT 2/3VWS) W AP PELVIS, July 02, 2017, 9:29. INDICATIONS : Left femur pain. Fracture. Post fall yesterday. MEDICAL HISTORY : Hypertension. Chronic obstructive pulmonary disease. Arthritis. SURGICAL HISTORY : Left total hip replacement. ENCOUNTER: Initial ACUITY: 2 days PAIN SCORE: 10/10 LOCATION: Left femur. FINDINGS: Patient has a left total hip arthroplasty. There is a infratrochanteric fracture of the left femur ag ain noted with slight medial angulation deformity. Hardware appears intact. No subluxations. CONCLUSION: No new findings. Proximal shaft fracture of the left femur around the femoral stem of the arthroplast y is again noted. Leoncio Esquivel MD on July 03, 2017 at 21:27 Board Certified Radiologist. This report was verified electronically.
[2017-07-04] VITALS: BP 142/64; PULSE 84; RESP 18; TEMP 98.2; O2SAT 96
[2017-07-04] MEDS: HYDROmorphone HCL PF 1 MG/ML VIAL IV PUSH PRN (06:29)
[2017-07-04 07:44] VITALS: BP 156/64; PULSE 90; RESP 19; TEMP 98.9; O2SAT 96
--- NOTE | 2017-07-04 08:14 | PD.ORT.PN ---
Subjective Subjective Remarks Pain controlled. No new complaints Objective Vitals Vital Signs Date Time Temp Pulse Resp B/P (MAP) Pulse Ox O2 Delivery O2 Flow Rate FiO2 07/04/17 07:44 98.9 90 19 156/64 (94) 96 07/04/17 00:00 98.2 84 18 142/64 (90) 96 07/03/17 20:00 98.7 101 17 155/87 (109) 95 07/03/17 16:00 101.5 86 16 163/72 (102) 96 07/03/17 12:00 98.8 82 16 137/67 (90) 96 I/O 07/03/17 07/03/17 07/03/17 07/04/17 07/04/17 07/04/17 07:00 15:00 23:00 07:00 15:00 23:00 Intake Total 0 ml 240 ml 0 ml Balance 0 ml 240 ml 0 ml Intake Oral 0 ml 240 ml 0 ml # Voids 2 2 1 # Bowel Movements 0 1 1 Result Diagram: 07/02/17 1000 07/02/17 1000 Imaging Last 72 hours Impressions Femur X-Ray 07/03/17 0000 Signed Impressions: Service Date/Time: Monday, July 03, 2017 20:41 - CONCLUSION: No new findings. Proximal shaft fracture of the left femur around the femoral stem of the arthroplasty is again noted. Leoncio Esquivel MD Hip and Pelvis X-Ray 07/02/17 0000 Signed Impressions: Service Date/Time: Sunday, July 02, 2017 09:29 - CONCLUSION: Left proximal femur fracture. Trae Das MD Chest X-Ray 07/02/17 0000 Signed Impressions: Service Date/Time: Sunday, July 02, 2017 09:47 - CONCLUSION: 1. No acute cardiopulmonary findings. Bogdan Grady MD Objective Remarks Left lower extremity: Pain over proximal femur. No pain over tibia. Distally intact sensation with active dorsiflexion plantar flexion of foot Assessment & Plan Assessment and Plan 1) Left Periprosthetic Proximal Femur Fx with DIANE -resume diet -lovenox 30mg subQ once -npo after MN -consents -Surgery will be tomorrow, correct instrumentation will be transferred from [place] for surgery tomorrow morning Keven Hong Jr. Jul 04, 2017 08:14
[2017-07-04] MEDS: PANTOPRAZOLE SOD 20 MG DELAYED RELEASE TAB PO SCH ×2 (08:39→20:18)
[2017-07-04] MEDS: DOCUSATE SODIUM 50 MG/SENNA 8.6 MG TAB PO SCH ×2 (08:40→20:18)
[2017-07-04] MEDS: SODIUM CHLOR 0.9% 1000 ML INJ 1,000 ML IV SCH ×2 (08:40→20:19)
[2017-07-04] MEDS: SODIUM CHLORIDE 0.9% FLUSH 10 ML FLUSH IV FLUSH SCH ×2 (09:00→20:19)
--- NOTE | 2017-07-04 11:22 | HHI.PR ---
Subjective Remarks c/o pain in the left hip which is helped by oral pain medications bp noted to be slightly elevated denies cp/sob Objective Vitals Vital Signs Date Time Temp Pulse Resp B/P (MAP) Pulse Ox O2 Delivery O2 Flow Rate FiO2 07/04/17 07:44 98.9 90 19 156/64 (94) 96 07/04/17 00:00 98.2 84 18 142/64 (90) 96 07/03/17 20:00 98.7 101 17 155/87 (109) 95 07/03/17 16:00 101.5 86 16 163/72 (102) 96 07/03/17 12:00 98.8 82 16 137/67 (90) 96 I/O 07/03/17 07/03/17 07/03/17 07/04/17 07/04/17 07/04/17 07:00 15:00 23:00 07:00 15:00 23:00 Intake Total 0 ml 240 ml 0 ml Balance 0 ml 240 ml 0 ml Intake Oral 0 ml 240 ml 0 ml # Voids 2 2 1 # Bowel Movements 0 1 1 Result Diagram: 07/02/17 1000 07/02/17 1000 Imaging Last Impressions Femur X-Ray 07/03/17 0000 Signed Impressions: Service Date/Time: Monday, July 03, 2017 20:41 - CONCLUSION: No new findings. Proximal shaft fracture of the left femur around the femoral stem of the arthroplasty is again noted. Leoncio Esquivel MD Hip and Pelvis X-Ray 07/02/17 0000 Signed Impressions: Service Date/Time: Sunday, July 02, 2017 09:29 - CONCLUSION: Left proximal femur fracture. Trae Das MD Chest X-Ray 07/02/17 0000 Signed Impressions: Service Date/Time: Sunday, July 02, 2017 09:47 - CONCLUSION: 1. No acute cardiopulmonary findings. Bogdan Grady MD Objective Remarks GENERAL: Alert, NAD. SKIN: Warm and dry. HEAD: Normocephalic. EYES: No scleral icterus. No injection or drainage. NECK: Supple, trachea midline. No JVD or lymphadenopathy. CARDIOVASCULAR: Regular rate and rhythm without murmurs, gallops, or rubs. RESPIRATORY: Breath sounds equal bilaterally. No accessory muscle use. GASTROINTESTINAL: Abdomen soft, non-tender, nondistended. MUSCULOSKELETAL: No cyanosis, or edema. Pain on movement of left lower exttremities which is shortened and externally rotated. BACK: Nontender without obvious deformity. No CVA tenderness Procedures None. A/P Problem List: (1) Fracture of left hip ICD Code: S72.002A - Fracture of unspecified part of neck of left femur, initial encounter for closed fracture (2) Dyslipidemia ICD Code: E78.5 - Hyperlipidemia, unspecified Status: Chronic (3) Lumbar radiculopathy ICD Code: M54.16 - Radiculopathy, lumbar region Status: Acute (4) T12 vertebral fracture ICD Code: S22.089A - Unspecified fracture of T11-T12 vertebra, initial encounter for closed fracture Status: Chronic Assessment and Plan Ms. Tavares is an 82 year old female with a history of multiple left hip surgeries and recent surgery of her L4-5, T12 by Dr. De Luna who presents to the ED due to a fall last night. Radiological studies indicate a left femur fracture. - Fracture of left hip - Orthopedic surgery consulted. - Acetaminophen, [place] and Dilaudid IV - all PRN for pain. - Bowel regimen on board. - 07/[address] Tapia - for surgical repair in am. - Hx of Lumbar radiculopathy - Hx of T12 vertebral fracture - s/p surgical intervention by neurosurgeon Dr. De Luna. - No acute issues. continue Gabapentin 600mg TID PRN. - Dyslipidemia - Lipitor 20mg QHS. - Hypertension - Currently patient is somewhat hypertensive. However, this could be due to pain. - Apparently her home BP runs low. If persistent, we could consider Amlodipine. - GERD - Continue Protonix 20mg BID. - Hyperglycemia - Check hemoglobin A1C. Full code. Pharmacological DVT prophylaxis - Will give lovenox SQ x1 and then follow up orthopedic surgery recommendations. Discharge Planning For surgical repair in am. Marty Geller MD Jul 04, 2017 11:21
[2017-07-04 11:31] VITALS: BP 148/70; PULSE 93; RESP 18; TEMP 98.9; O2SAT 97
[2017-07-04] MEDS: ACETAMINOPHEN/HYDROcodone 325 MG/5 MG TAB PO PRN ×2 (12:53→20:18)
[2017-07-04 13:38] LABS: BASOPHIL % 0.4 % (0.0-2.0); EOSINOPHIL # 0.1 TH/MM3 (0-0.4); EOSINOPHIL % 1.2 % (0.0-4.0); HEMATOCRIT 27.7 % (35.0-46.0); HEMO FLAGS DIFF FINAL; LYMPH % 17.7 % (9.0-44.0); LYMPHOCYTE # 1.7 TH/MM3 (1.0-4.8); MEAN CELL VOLUME 82.9 FL (80.0-100.0); MEAN CORPUSCULAR HEMOGLOBIN 27.5 PG (27.0-34.0); MEAN CORPUSCULAR HGB CONC 33.2 % (32.0-36.0); MONO % 10.2 % (0.0-8.0); NEUT % 70.5 % (16.0-70.0); PLATELET COUNT 212 TH/MM3 (150-450); RED BLOOD COUNT 3.35 MIL/MM3 (4.00-5.30); RED CELL DISTRIBUTION WIDTH 14.2 % (11.6-17.2); WHITE BLOOD COUNT 9.9 TH/MM3 (4.0-11.0)
[2017-07-04 14:09] LABS: ANION GAP 10 MEQ/L (5-15); AST (GOT) 10 U/L (15-37); BICARBONATE 22.5 MEQ/L (21.0-32.0); BLOOD UREA NITROGEN 11 MG/DL (7-18); CHLORIDE 102 MEQ/L (98-107); GLOMERULAR FILTRATION RATE 152 ML/MIN (>89); MAGNESIUM 1.9 MG/DL (1.5-2.5); POTASSIUM 3.4 MEQ/L (3.5-5.1); SODIUM (NA) 134 MEQ/L (136-145)
[2017-07-04 14:11] LABS: ALT (GPT) 9 U/L (10-53)
[2017-07-04 14:13] LABS: ALKALINE PHOSPHATASE 73 U/L (45-117); TOTAL BILIRUBIN ADULT 0.7 MG/DL (0.2-1.0)
[2017-07-04 16:00] VITALS: BP 158/72; PULSE 87; RESP 18; TEMP 98.8; O2SAT 96
[2017-07-04 20:00] VITALS: BP 152/70; PULSE 96; RESP 18; TEMP 98.3; O2SAT 97
[2017-07-04] MEDS: ATORVASTATIN 20 MG TAB PO SCH (20:18)
[2017-07-04 20:31] LABS: HEMOGLOBIN A1a 0.9 %; HEMOGLOBIN A1b 1.6 %; HEMOGLOBIN Ao 85.3 %; HEMOGLOBIN LA1C 2.2 %; HEMOGLOBIN P3 3.9 %
[2017-07-04 23:10] VITALS: BP 159/80; PULSE 90; RESP 17; TEMP 98.5; O2SAT 98
[2017-07-05 04:30] VITALS: BP 145/76; PULSE 90; RESP 18; TEMP 99.2; O2SAT 93
[2017-07-05] MEDS: HYDROmorphone HCL PF 1 MG/ML VIAL IV PUSH PRN (06:13)
[2017-07-05] MEDS ORDERED: VANCOMYCIN HCL 1000 MG VIAL ONE (06:31)
[2017-07-05] MEDS ORDERED: GENTAMICIN SULFATE 80 MG/2 ML VIAL ONE (06:31)
[2017-07-05] MEDS ORDERED: SODIUM CHLOR 0.9% 250 ML INJ 250 ML ONE (06:31)
[2017-07-05] MEDS ORDERED: TRANEXAMIC ACID INJ 825 MG in SODIUM CHLORIDE 0.9% INJ 100 ML IV SCH (06:45)
[2017-07-05] MEDS ORDERED: WALKER/ADULT/FO1 MIS (08:14)
[2017-07-05] MEDS ORDERED: ERGO1CAP30 PO (08:14)
[2017-07-05] MEDS ORDERED: CALCTAB19 PO (08:14)
[2017-07-05] MEDS ORDERED: XARE10TA PO (08:14)
[2017-07-05] MEDS ORDERED: HYDR-3583 PO (08:14)
[2017-07-05] MEDS ORDERED: VITA2000 PO (08:14)
[2017-07-05] MEDS ORDERED: ALBUMIN HUMAN 5% 12.5 GM/250 ML BOTTLE IV ONE (08:33)
[2017-07-05] MEDS: PANTOPRAZOLE SOD 20 MG DELAYED RELEASE TAB PO SCH ×2 (09:00→21:01)
[2017-07-05] MEDS: DOCUSATE SODIUM 50 MG/SENNA 8.6 MG TAB PO SCH ×2 (09:00→21:01)
[2017-07-05] MEDS ORDERED: SODIUM CHLORIDE 0.9% FLUSH 5 ML FLUSH IVF PRN (09:15)
[2017-07-05] MEDS ORDERED: MORPHINE SULFATE 4 MG/ML INJ IV PUSH PRN (09:15)
[2017-07-05] MEDS ORDERED: diphenhydrAMINE HCL 25 MG CAP PO PRN (09:15)
[2017-07-05] MEDS ORDERED: ACETAMINOPHEN/HYDROcodone 325 MG/7.5 MG TAB PO PRN (09:15)
--- NOTE | 2017-07-05 09:49 | MP ---
cc: FAHAD CALDERON DATE OF SURGERY 07/05/2017 PREOPERATIVE DIAGNOSES 1. Comminuted left femur fracture. 2. Loose total hip arthroplasty prosthesis. POSTOPERATIVE DIAGNOSES 1. Comminuted left femur fracture. 2. Loose total hip arthroplasty prosthesis. SURGEON Fahad Calderon MD ASSISTANTS SEGUNDO Esqueda PA-C The surgical procedure was assisted by my physician assistants. My PA-C's presence was necessary throughout this case for the manipulation and positioning of the surgical extremity. My PA-C's were assisting me throughout the duration of this procedure. The skill set of a physician market research assistant was medically necessary to complete this procedure. During the surgical case the fire protection engineering technician was working at the back table and the physician assistants were directly assisting me. PROCEDURE 1. Open reduction, fixation of left femur fractures. 2. Revision of left total hip arthroplasty femoral stem. ESTIMATED BLOOD LOSS 400 cc. ANESTHESIA General. PLAN OF ACTIVITY Toe-touch weightbearing of the left leg with no active abduction. IMPLANTS USED [email or web address] Easyaulalaim 18 mm x 190 mm distal tapered stem with a 20-mm x 85-mm proximal body and a +5, 32 metal femoral head. DETAILS OF PROCEDURE Ashley is an 82-year female who had a fall resulting in comminuted left femur fractures. The femoral stem appeared to be loose preoperatively. Informed consent was obtained and he operative site was marked. She was brought to the operating room. She is given IV sedation and general anesthesia. She was placed in a lateral decubitus position on a Jason table. Clean-air was utilized for this procedure. She received IV antibiotics. The left hip and leg were prepped with alcohol followed by Hibiclens and draped in the usual sterile fashion. Time-out procedure was performed. The procedure began with a 12-inch incision over the lateral aspect of the hip and femur. Incision was made through previous scar. Iliotibial band was split in line with the fibers, a Charnley retractor was placed. The piriformis and external rotators were now released. The femoral fractures were identified as well. The femur was fractured into multiple fragments. The greater trochanter and lesser trochanter were both broken. There is also a large split down to the femoral shaft. At this point attention was turned open reduction and fixation of the femoral shaft fractures. The distal shaft fracture was reduced first. This was keyed into anatomic alignment. Fracture tenaculums were used to hold provisional fixation. Multiple cables were now passed around the femur. The cables were provisionally tightened and tensioned. Next, the greater trochanteric and lesser trochanteric fragments were reduced. The fracture tenaculum was used to aid in reduction. Addition cables were passed around these fragments for partial stability. Next, attention was turned to revision of the stem. The femoral stem was completely loose. Osteotomes were used to remove extra bone around the stem. The stem was now removed without difficulty. At this point attention was turned to preparation for the revision stem. The femoral canal was sequentially reamed up to size 18. This was found to be an excellent fit. The trial body was placed onto the reamer. A standard head was also placed. The hip was provisionally reduced. The patient appeared to have relatively equal leg lengths with good stability of her hip. The hip was again dislocated. The acetabular shell and the liner were visualized. These were felt to be in good condition and did not need to be revised. The trial reamer was now removed. The size 18 x 190 mm distal stem was now impacted. There was excellent fit with this stem. The cannulated reamer was now placed over the stem to prepare for the proximal body. An 85 mm proximal body was now placed. This was impacted onto the stem in appropriate anteversion. Care was taken to keep appropriate anteversion for stability. Using the compressive device, the proximal body and distal stem were attached. Additional lag bolt was placed for compression. At this point in a +5 trial, 32 head was placed. The hip was reduced. The patient had excellent leg length with good range of motion. A +5, 32 mm head was now placed and impacted. The hip was again reduced. At this point attention was turned back to the cables. Each of the cables was now fully tightened using the tensioning device. Each of the cables was now crimped and cut appropriately. Final fluoroscopy revealed with well-placed prosthesis and well-aligned fractures. Incision was thoroughly irrigated. The fascia was closed with #1 Vicryl, the subcutaneous tissue closed with 3-0 Vicryl and the skin was closed with analia. Sterile dressings were applied. The patient was awakened and transferred to Recovery in stable condition. MD PRO Villalta/ANDREW /9:14 AM /9:32 AM
[2017-07-05] MEDS ORDERED: Post-op Orders (for Pharmacy) MISC XX ONE (09:50)
[2017-07-05] MEDS ORDERED: INFLUENZA VIRUS VACCINE (QUADRIVALENT) 0.5 ML SYR IM ONE (10:00)
--- NOTE | 2017-07-05 10:34 | PD.ORT.PN ---
Subjective Subjective Remarks Pain controlled. No new complaints. All questions answered prior to surgery Objective Vitals Vital Signs Date Time Temp Pulse Resp B/P (MAP) Pulse Ox O2 Delivery O2 Flow Rate FiO2 07/05/17 04:30 99.2 90 18 145/76 (99) 93 07/04/17 23:10 98.5 90 17 159/80 (106) 98 07/04/17 20:00 98.3 96 18 152/70 (97) 97 07/04/17 16:00 98.8 87 18 158/72 (100) 96 07/04/17 11:31 98.9 93 18 148/70 (96) 97 I/O 07/04/17 07/04/17 07/04/17 07/05/17 07/05/17 07/05/17 07:00 15:00 23:00 07:00 15:00 23:00 Intake Total 0 ml 600 ml 240 ml 4140 ml Output Total 900 ml Balance 0 ml 600 ml 240 ml 3240 ml Intake Oral 0 ml 600 ml 240 ml 240 ml Packed Cells 500 ml Blood Product IV Normal Saline Flush 700 ml Other 2700 ml Output Estimated Blood Loss 900 ml # Voids 1 3 5 8 # Bowel Movements 1 0 0 Result Diagram: 07/04/17 1130 07/04/17 1150 Imaging Last 72 hours Impressions Femur X-Ray 07/03/17 0000 Signed Impressions: Service Date/Time: Monday, July 03, 2017 20:41 - CONCLUSION: No new findings. Proximal shaft fracture of the left femur around the femoral stem of the arthroplasty is again noted. Leoncio Esquivel MD Hip and Pelvis X-Ray 07/02/17 0000 Signed Impressions: Service Date/Time: Sunday, July 02, 2017 09:29 - CONCLUSION: Left proximal femur fracture. Trae Das MD Chest X-Ray 07/02/17 0000 Signed Impressions: Service Date/Time: Sunday, July 02, 2017 09:47 - CONCLUSION: 1. No acute cardiopulmonary findings. Bogdan Grady MD Objective Remarks Left lower extremity: Clean dry dressings intact with drain in place. Swelling minimal. Knee immobilizer applied. Intact distal pulses Assessment & Plan Assessment and Plan 1) Left Periprosthetic Proximal Femur Fx with DIANE status post revision left total hip arthroplasty Toe-touch weightbearing left lower extremity Posterior precautions with knee immobilizer in bed Begin daily dressing changes POD 2 and discontinue drain Case management for rehabilitation placement on Sunday Lovenox Incentive spirometry Follow-up appointment with Dr. Tapia or PA in 2 weeks Keven Hong Jr. Jul 05, 2017 10:34
--- NOTE | 2017-07-05 10:50 | RADRPT ---
EXAM DATE/TIME: 07/05/2017 08:09 [facility] COMPARISON: No previous studies available for comparison. INDICATIONS : Left hip revision. MEDICAL HISTORY : Hypertension. Chronic obstructive pulmonary disease. Arthritis. SURGICAL HISTORY : Left total hip replacement. ENCOUNTER: Initial ACUITY: 1 day PAIN SCORE: Non-responsive. LOCATION: Left hip FINDINGS: 5 intraoperative views right hip. Total hip prosthesis in place with longstem femoral component and m ultiple cerclage wires. Alignment within normal limits. CONCLUSION: Intraoperative images demonstrating total hip prosthesis with longstem femoral component. Antoine Franklin MD on July 05, 2017 at 10:48 Board Certified Radiologist. This report was verified electronically.
[2017-07-05] MEDS ORDERED: *MEPERIDINE 25 MG INJ VIAL PERIprocedural Use ONLY ONE (10:52)
[2017-07-05] MEDS ORDERED: *ENALAPRILAT 1.25 MG/ML VIAL PERIprocedural Use ONLY ONE (10:52)
[2017-07-05] MEDS ORDERED: DO NOT ADM ANY ANTICOAGULANT DRUGS PRN (11:00)
[2017-07-05] MEDS: SODIUM CHLOR 0.9% 1000 ML INJ 1,000 ML IV SCH ×3 (11:11→21:02)
--- NOTE | 2017-07-05 11:30 | RADRPT ---
EXAM DATE/TIME: 07/05/2017 09:57 [facility] COMPARISON: HIP LEFT (AP&LAT 2/3VWS) W AP PELVIS, July 02, 2017, 9:29. INDICATIONS : Post op left hip surgery. MEDICAL HISTORY : None. SURGICAL HISTORY : None. ENCOUNTER: Initial ACUITY: 1 day PAIN SCORE: Non-responsive. LOCATION: Left hip and pelvis FINDINGS: 4 views of the left hip and pelvis. Left total hip prosthesis in place with longstem femoral componen t. Multiple cerclage wires. Surgical drain is seen adjacent to the proximal left femur. Alignment wit hin normal limits. No evidence of acute fracture. CONCLUSION: Postoperative appearance of left total hip prosthesis with long stem femoral component within normal limits. Antoine Franklin MD on July 05, 2017 at 11:27 Board Certified Radiologist. This report was verified electronically.
[2017-07-05] MEDS ORDERED: LIDOCAINE HCL 1% PF 5 ML AMPULE OTHER ONE (12:00)
[2017-07-05] MEDS ORDERED: ROCURONIUM INJ 50 MG/5 ML SYRINGE IV PUSH ONE (12:00)
[2017-07-05] MEDS ORDERED: PHENYLEPHRINE HCL 10 MG/ML VIAL IV ONE (12:00)
[2017-07-05] MEDS ORDERED: ONDANSETRON HCL 4 MG/2 ML VIAL IV PUSH ONE (12:00)
[2017-07-05] MEDS ORDERED: ESMOLOL HCL 100 MG/10 ML VIAL IV ONE (12:00)
[2017-07-05] MEDS ORDERED: PHENYLEPH/NS 1000 MCG/10 ML SYR IV ONE (12:00)
[2017-07-05] MEDS ORDERED: PROPOFOL 200 MG/20 ML AMP IV ONE (12:00)
[2017-07-05] MEDS ORDERED: DEXAMETHASONE SOD PHOS 4 MG/ML VIAL IV ONE (12:00)
[2017-07-05] MEDS ORDERED: ceFAZolin INJ 1,000 MG VIAL IV ONE (12:00)
[2017-07-05] MEDS ORDERED: hydrALAZINE HCL 20 MG/ML VIAL IV ONE (12:00)
[2017-07-05 12:56] LABS: AUTOMATED NEUTROPHIL # 7.7 TH/MM3 (1.8-7.7); BASOPHIL % 0.2 % (0.0-2.0); EOSINOPHIL % 0.5 % (0.0-4.0); HEMATOCRIT 32.9 % (35.0-46.0); HEMO FLAGS DIFF FINAL; LYMPH % 16.4 % (9.0-44.0); LYMPHOCYTE # 1.6 TH/MM3 (1.0-4.8); MEAN CELL VOLUME 83.7 FL (80.0-100.0); MEAN CORPUSCULAR HGB CONC 33.5 % (32.0-36.0); MONO % 3.8 % (0.0-8.0); NEUT % 79.1 % (16.0-70.0); PLATELET COUNT 206 TH/MM3 (150-450); RED BLOOD COUNT 3.93 MIL/MM3 (4.00-5.30); RED CELL DISTRIBUTION WIDTH 14.7 % (11.6-17.2); WHITE BLOOD COUNT 9.7 TH/MM3 (4.0-11.0)
[2017-07-05] MEDS: ceFAZolin 2 GM PREMIX 50 ML IV SCH ×2 (14:32→21:00)
--- NOTE | 2017-07-05 14:37 | HHI.PR ---
Subjective Remarks patient is sp revision of the left total hip, ORIF of the proximal femur. Pain is controlled Denies chest pain or shortness of breath denies nausea or vomiting Denies chest pain or shortness of breath As per who is at bedside, the patient is somewhat confused Objective Vitals Vital Signs Date Time Temp Pulse Resp B/P (MAP) Pulse Ox O2 Delivery O2 Flow Rate FiO2 07/05/17 11:15 108 16 137/61 (86) 98 Nasal Cannula 2 07/05/17 11:00 115 16 131/60 (83) 100 Nasal Cannula 2 07/05/17 10:45 118 16 169/96 (120) 99 Nasal Cannula 2 07/05/17 10:30 112 16 153/65 (94) 99 Nasal Cannula 2 07/05/17 10:15 112 16 168/72 (104) 98 Nasal Cannula 2 07/05/17 10:00 110 16 192/81 (118) 100 Nasal Cannula 2 07/05/17 09:53 97.4 99 16 179/94 (122) 98 Nasal Cannula 2 07/05/17 04:30 99.2 90 18 145/76 (99) 93 07/04/17 23:10 98.5 90 17 159/80 (106) 98 07/04/17 20:00 98.3 96 18 152/70 (97) 97 07/04/17 16:00 98.8 87 18 158/72 (100) 96 I/O 07/04/17 07/04/17 07/04/17 07/05/17 07/05/17 07/05/17 07:00 15:00 23:00 07:00 15:00 23:00 Intake Total 0 ml 600 ml 240 ml 4760 ml Output Total 1050 ml Balance 0 ml 600 ml 240 ml 3710 ml Intake Oral 0 ml 600 ml 240 ml 860 ml Packed Cells 500 ml Blood Product IV Normal Saline Flush 700 ml Other 2700 ml Output Urine Total 100 ml Drainage Total 50 ml Estimated Blood Loss 900 ml # Voids 1 3 5 12 # Bowel Movements 1 0 0 Result Diagram: 07/05/17 1002 07/04/17 1150 Imaging Last Impressions Hip and Pelvis X-Ray 07/05/17 0910 Signed Impressions: Service Date/Time: June 09:57 - CONCLUSION: Postoperative appearance of left total hip prosthesis with long stem femoral component within normal limits. Antoine Franklin MD Hip X-Ray 07/05/17 0000 Signed Impressions: Service Date/Time: June 08:09 - CONCLUSION: Intraoperative images demonstrating total hip prosthesis with longstem femoral component. Antoine Franklin MD Femur X-Ray 07/03/17 0000 Signed Impressions: Service Date/Time: Monday, July 03, 2017 20:41 - CONCLUSION: No new findings. Proximal shaft fracture of the left femur around the femoral stem of the arthroplasty is again noted. Leoncio Esquivel MD Chest X-Ray 07/02/17 0000 Signed Impressions: Service Date/Time: Sunday, July 02, 2017 09:47 - CONCLUSION: 1. No acute cardiopulmonary findings. Bogdan Grady MD Objective Remarks GENERAL: Alert, NAD. SKIN: Warm and dry. HEAD: Normocephalic. EYES: No scleral icterus. No injection or drainage. NECK: Supple, trachea midline. No JVD or lymphadenopathy. CARDIOVASCULAR: Regular rate and rhythm without murmurs, gallops, or rubs. RESPIRATORY: Breath sounds equal bilaterally. No accessory muscle use. GASTROINTESTINAL: Abdomen soft, non-tender, nondistended. MUSCULOSKELETAL: No cyanosis, or edema. there is a dressing over left hip, no hematoma, good peripheral pulses in lower extremities. BACK: Nontender without obvious deformity. No CVA tenderness Procedures None. Medications and IVs Current Medications Medications (Trade) Dose Ordered Sig/Radha Route Start Time Stop Time Status Last Admin Sodium Chloride 1,000 ml @ 100 mls/hr Q10H IV 07/02/17 10:57 07/05/17 11:11 (Tylenol) 650 mg Q4H PRN PO 07/02/17 11:00 07/03/17 18:48 (Zofran Inj) 4 mg Q6H PRN IVP 07/02/17 11:00 (Narcan Inj) 0.4 mg UNSCH PRN IV PUSH 07/02/17 11:00 (Lexii-Colace) 1 tab BID PO 07/02/17 21:00 07/04/17 20:18 (Milk Of Magnesia Liq) 30 ml Q12H PRN PO 07/02/17 11:00 (Senokot) 17.2 mg Q12H PRN PO 07/02/17 11:00 (Dulcolax Supp) 10 mg DAILY PRN RECTAL 07/02/17 11:00 (Lactulose Liq) 30 ml DAILY PRN PO 07/02/17 11:00 (Dilaudid Pf Inj) 0.2 mg Q4H PRN IV PUSH 07/02/17 11:00 07/05/17 06:13 (Neurontin) 300 mg TID PRN PO 07/02/17 13:00 Lactated Ringer's 1,000 ml @ 30 mls/hr Q24H PRN IV 07/02/17 22:00 07/05/17 21:59 Sodium Chloride 500 ml @ 30 mls/hr [id number] PRN IV 07/02/17 22:00 07/05/17 21:59 (Lopressor) 25 mg MANAGER WOUND PRN PO 07/02/17 22:00 07/05/17 21:59 (Betadine 5% Antisepsis Kit) 1 applic MANAGER WOUND PRN EACH NARE 07/02/17 22:00 07/05/17 21:59 (Chlorhexidine 2% Cloth) 3 pack MANAGER WOUND PRN TOPICAL 07/02/17 22:00 07/05/17 21:59 (NovoLIN R INJ) See Protocol Table ... MANAGER WOUND PRN SQ 07/02/17 22:00 07/05/17 21:59 (Protonix) 20 mg BID PO 07/03/17 21:00 07/04/17 20:18 (Lipitor) 20 mg HS PO 07/03/17 21:00 07/04/17 20:18 (Benadryl) 25 mg Q6H PRN PO 07/05/17 09:15 (NS Flush) 2 ml UNSCH PRN IVF 07/05/17 09:15 (NS Flush) 2 ml BID IVF 07/05/17 21:00 Cefazolin Sodium/ Dextrose 50 ml @ 100 mls/hr Q6H IV 07/05/17 14:00 07/06/17 20:29 (Lovenox Inj) 30 mg Q12H SQ 07/06/17 09:00 (Morphine Inj) 4 mg Q3H PRN IV PUSH 07/05/17 09:15 ([place] 7.5-325 Mg) 1 tab Q3H PRN PO 07/05/17 09:15 ([place] 10-325 Mg) 1 tab Q3H PRN PO 07/05/17 09:15 Vancomycin HCl 1000 mg/Sodium Chloride 250 ml @ 250 mls/hr Q12H IV 07/05/17 19:00 07/07/17 07:59 Miscellaneous Information ALL NURSING DEPARTME... UNSCH PRN .XX 07/05/17 11:00 07/06/17 10:59 A/P Problem List: (1) Fracture of left hip ICD Code: S72.002A - Fracture of unspecified part of neck of left femur, initial encounter for closed fracture (2) Dyslipidemia ICD Code: E78.5 - Hyperlipidemia, unspecified Status: Chronic (3) Lumbar radiculopathy ICD Code: M54.16 - Radiculopathy, lumbar region Status: Acute (4) T12 vertebral fracture ICD Code: S22.089A - Unspecified fracture of T11-T12 vertebra, initial encounter for closed fracture Status: Chronic Assessment and Plan Ms. Tavares is an 82 year old female with a history of multiple left hip surgeries and recent surgery of her L4-5, T12 by Dr. De Luna who presents to the ED due to a fall last night. Radiological studies indicate a left femur fracture. -Left hip fracture - Orthopedic surgery consulted. - Status post ORIF of the left proximal femur. - And control as per orthopedic surgery recommendations - Continue PT - Hx of Lumbar radiculopathy - Hx of T12 vertebral fracture - s/p surgical intervention by neurosurgeon Dr. De Luna. - No acute issues. continue Gabapentin 600mg TID PRN. - Dyslipidemia - Lipitor 20mg QHS. - Hypertension - BP seems to be stable now. Continue to monitor vital signs. - Consider starting amlodipine if blood pressure gets elevated. - GERD - Continue Protonix 20mg BID. - Hyperglycemia -hemoglobin A1c 5.6. - Hyponatremia. Mild and improving. Continue normal saline. Continue to monitor BMP. - Hypokalemia. Continue to monitor and replace as needed. Today's BMP still pending. Full code. Pharmacological DVT prophylaxis - on Lovenox subcutaneously. Discharge Planning Continue to monitor in the medical floor. Discharge pending orthopedic surgery clearance. Problem Qualifiers (1) Fracture of left hip: Qualified Codes: S72.002A - Fracture of unspecified part of neck of left femur , initial encounter for closed fracture Marty Geller MD Jul 05, 2017 14:37
[2017-07-05 15:39] VITALS: BP 139/58; PULSE 106; RESP 19; TEMP 95.9; O2SAT 99
--- NOTE | 2017-07-05 15:41 | OTSOAPIP ---
TIME SESSION COMPLETED: AM TREATMENT TIME: 0 MINS. CHART REVIEWED. PATIENT NOT AVAILABLE DUE TO BEING INVOLVE IN SURGERY FOR OPEN REDUCTION, FIXATION OF LEFT FEMUR FRACTURES AND REVISION OF LEFT TOTAL HIP ARTHROPLASTY FEMORAL STEM. PLAN: WILL SEE PATIENT NEXT TREATMENT DAY Therapist: [facility]/Luis nErique Signature on file
[2017-07-05 16:37] VITALS: O2SAT 98
[2017-07-05 16:38] LABS: ALT (GPT) 20 U/L (10-53); ANION GAP 8 MEQ/L (5-15); AST (GOT) 27 U/L (15-37); BICARBONATE 24.2 MEQ/L (21.0-32.0); BLOOD UREA NITROGEN 9 MG/DL (7-18); CHLORIDE 102 MEQ/L (98-107); GLOMERULAR FILTRATION RATE 95 ML/MIN (>89); POTASSIUM 3.4 MEQ/L (3.5-5.1); SODIUM (NA) 134 MEQ/L (136-145)
[2017-07-05 16:46] LABS: ALKALINE PHOSPHATASE 46 U/L (45-117)
[2017-07-05] MEDS: VANCOMYCIN INJ 1,000 MG in SODIUM CHLOR 0.9% 250 ML INJ 250 ML IV SCH (19:09)
[2017-07-05 19:25] VITALS: BP 141/64; PULSE 89; RESP 16; TEMP 99.5; O2SAT 97
[2017-07-05] MEDS: SODIUM CHLORIDE 0.9% FLUSH 5 ML FLUSH IVF SCH (21:00)
[2017-07-05] MEDS: ATORVASTATIN 20 MG TAB PO SCH (21:01)
[2017-07-05 21:29] VITALS: O2SAT 99
[2017-07-05 23:20] VITALS: BP 122/59; PULSE 94; RESP 15; TEMP 98.6; O2SAT 94
[2017-07-06] VITALS (9 sets, daily range): BP systolic 118–148; BP diastolic 58–72; PULSE 87–98; RESP 16–18; TEMP 96.3–101.1; O2SAT 94–100
[2017-07-06] MEDS: ceFAZolin 2 GM PREMIX 50 ML IV SCH ×4 (01:50→21:11)
[2017-07-06] MEDS: ACETAMINOPHEN/HYDROcodone 325 MG/10 MG TAB PO PRN ×3 (01:50→14:46)
[2017-07-06] MEDS: VANCOMYCIN INJ 1,000 MG in SODIUM CHLOR 0.9% 250 ML INJ 250 ML IV SCH ×2 (06:28→18:12)
[2017-07-06] MEDS: SODIUM CHLOR 0.9% 1000 ML INJ 1,000 ML IV SCH (06:29)
[2017-07-06 06:49] LABS: HEMATOCRIT 26.4 % (35.0-46.0); MEAN CORPUSCULAR HEMOGLOBIN 27.8 PG (27.0-34.0); MEAN CORPUSCULAR HGB CONC 33.9 % (32.0-36.0); PLATELET COUNT 203 TH/MM3 (150-450); RED BLOOD COUNT 3.22 MIL/MM3 (4.00-5.30); RED CELL DISTRIBUTION WIDTH 14.5 % (11.6-17.2); REVIEW FLAG FINAL; WHITE BLOOD COUNT 10.6 TH/MM3 (4.0-11.0)
[2017-07-06 06:56] LABS: BICARBONATE 24.4 MEQ/L (21.0-32.0); MAGNESIUM 1.9 MG/DL (1.5-2.5); POTASSIUM 3.5 MEQ/L (3.5-5.1)
--- NOTE | 2017-07-06 06:57 | PD.ORT.PN ---
Subjective Subjective Remarks POD 1 s/p revision with ORIF left DIANE doing well. pain controlled. states slight knee pain at times. Objective Vitals Vital Signs Date Time Temp Pulse Resp B/P (MAP) Pulse Ox O2 Delivery O2 Flow Rate FiO2 07/06/17 04:00 96.8 92 16 148/68 (94) 95 07/05/17 23:20 98.6 94 15 122/59 (80) 94 07/05/17 21:29 99 Nasal Cannula 2.00 07/05/17 19:25 99.5 89 16 141/64 (89) 97 07/05/17 16:37 98 Nasal Cannula 2.00 07/05/17 15:39 95.9 106 19 139/58 (85) 99 07/05/17 11:15 108 16 137/61 (86) 98 Nasal Cannula 2 07/05/17 11:00 115 16 131/60 (83) 100 Nasal Cannula 2 07/05/17 10:45 118 16 169/96 (120) 99 Nasal Cannula 2 07/05/17 10:30 112 16 153/65 (94) 99 Nasal Cannula 2 07/05/17 10:15 112 16 168/72 (104) 98 Nasal Cannula 2 07/05/17 10:00 110 16 192/81 (118) 100 Nasal Cannula 2 07/05/17 09:53 97.4 99 16 179/94 (122) 98 Nasal Cannula 2 I/O 07/05/17 07/05/17 07/05/17 07/06/17 07/06/17 07/06/17 07:00 15:00 23:00 07:00 15:00 23:00 Intake Total 4760 ml 460 ml 480 ml Output Total 1050 ml 50 ml Balance 3710 ml 410 ml 480 ml Intake Oral 860 ml 460 ml 480 ml Packed Cells 500 ml Blood Product IV Normal Saline Flush 700 ml Other 2700 ml Output Urine Total 100 ml Drainage Total 50 ml 50 ml Estimated Blood Loss 900 ml # Voids 12 3 4 # Bowel Movements 0 0 0 Result Diagram: 07/06/17 0553 07/06/17 0553 Imaging Last 72 hours Impressions Femur X-Ray 07/03/17 0000 Signed Impressions: Service Date/Time: Monday, July 03, 2017 20:41 - CONCLUSION: No new findings. Proximal shaft fracture of the left femur around the femoral stem of the arthroplasty is again noted. Leoncio Esquivel MD Hip and Pelvis X-Ray 07/02/17 0000 Signed Impressions: Service Date/Time: Sunday, July 02, 2017 09:29 - CONCLUSION: Left proximal femur fracture. Trae Das MD Chest X-Ray 07/02/17 0000 Signed Impressions: Service Date/Time: Sunday, July 02, 2017 09:47 - CONCLUSION: 1. No acute cardiopulmonary findings. Bogdan Grady MD Objective Remarks Left lower extremity: Clean dry dressings intact with drain in place. Swelling minimal. Knee immobilizer applied. Intact distal pulses Assessment & Plan Assessment and Plan 1) Left Periprosthetic Proximal Femur Fx with DIANE status post revision left total hip arthroplasty - POD 1 Toe-touch weightbearing left lower extremity Posterior precautions with knee immobilizer in bed Begin daily dressing changes POD 2 and discontinue drain Case management for rehabilitation placement on Sunday/Sunday Lovenox Incentive spirometry Follow-up appointment with Dr. Tapia or PA in 2 weeks Jairo Alexander Jul 06, 2017 06:57
[2017-07-06] MEDS: ENOXAPARIN SODIUM 30 MG/0.3 ML SYRINGE SQ SCH ×2 (08:26→21:10)
[2017-07-06] MEDS: DOCUSATE SODIUM 50 MG/SENNA 8.6 MG TAB PO SCH ×2 (08:26→21:11)
[2017-07-06] MEDS: SODIUM CHLORIDE 0.9% FLUSH 5 ML FLUSH IVF SCH ×2 (08:27→21:00)
[2017-07-06] MEDS: PANTOPRAZOLE SOD 20 MG DELAYED RELEASE TAB PO SCH ×2 (08:27→21:10)
[2017-07-06] MEDS ORDERED: INFLUENZA VIRUS VACCINE (QUADRIVALENT) 0.5 ML SYR IM ONE (10:00)
[2017-07-06] MEDS ORDERED: POTASSIUM CHLORIDE 20 MEQ CONTROLLED RELEASE TAB PO ONE ×2 (12:45→14:00)
--- NOTE | 2017-07-06 13:56 | HHI.PR ---
Subjective Remarks patient states that she woke up and had cough and throat itching denies chest pain states cough is so severe at times that it makes her have hip pain Objective Vitals Vital Signs Date Time Temp Pulse Resp B/P (MAP) Pulse Ox O2 Delivery O2 Flow Rate FiO2 07/06/17 10:57 97 Nasal Cannula 2.00 07/06/17 08:00 96.3 91 17 129/66 (87) 94 07/06/17 04:00 96.8 92 16 148/68 (94) 95 07/05/17 23:20 98.6 94 15 122/59 (80) 94 07/05/17 21:29 99 Nasal Cannula 2.00 07/05/17 19:25 99.5 89 16 141/64 (89) 97 07/05/17 16:37 98 Nasal Cannula 2.00 07/05/17 15:39 95.9 106 19 139/58 (85) 99 I/O 07/05/17 07/05/17 07/05/17 07/06/17 07/06/17 07/06/17 07:00 15:00 23:00 07:00 15:00 23:00 Intake Total 4760 ml 510 ml 530 ml Output Total 1050 ml 50 ml 20 ml Balance 3710 ml 460 ml 510 ml Intake Oral 860 ml 460 ml 480 ml IV Total 50 ml 50 ml Packed Cells 500 ml Blood Product IV Normal Saline Flush 700 ml Other 2700 ml Output Urine Total 100 ml Drainage Total 50 ml 50 ml 20 ml Estimated Blood Loss 900 ml # Voids 12 3 4 # Bowel Movements 0 0 0 Result Diagram: 07/06/17 0553 07/06/17 0553 Imaging Last Impressions Hip and Pelvis X-Ray 07/05/17 0910 Signed Impressions: Service Date/Time: June 09:57 - CONCLUSION: Postoperative appearance of left total hip prosthesis with long stem femoral component within normal limits. Antoine Franklin MD Hip X-Ray 07/05/17 0000 Signed Impressions: Service Date/Time: June 08:09 - CONCLUSION: Intraoperative images demonstrating total hip prosthesis with longstem femoral component. Antoine Franklin MD Femur X-Ray 07/03/17 0000 Signed Impressions: Service Date/Time: Monday, July 03, 2017 20:41 - CONCLUSION: No new findings. Proximal shaft fracture of the left femur around the femoral stem of the arthroplasty is again noted. Leoncio Esquivel MD Chest X-Ray 07/02/17 0000 Signed Impressions: Service Date/Time: Sunday, July 02, 2017 09:47 - CONCLUSION: 1. No acute cardiopulmonary findings. Bogdan Grady MD Objective Remarks GENERAL: Alert, NAD. SKIN: Warm and dry. HEAD: Normocephalic. EYES: No scleral icterus. No injection or drainage. NECK: Supple, trachea midline. No JVD or lymphadenopathy. MOUTH: Throat seems to be lcear without erythema. ? post nasal drip observed? CARDIOVASCULAR: Regular rate and rhythm without murmurs, gallops, or rubs. RESPIRATORY: Breath sounds equal bilaterally. No accessory muscle use. GASTROINTESTINAL: Abdomen soft, non-tender, nondistended. MUSCULOSKELETAL: No cyanosis, or edema. there is a dressing over left hip, no hematoma, good peripheral pulses in lower extremities. BACK: Nontender without obvious deformity. No CVA tenderness Procedures None. Medications and IVs Current Medications Medications (Trade) Dose Ordered Sig/Radha Route Start Time Stop Time Status Last Admin Sodium Chloride 1,000 ml @ 100 mls/hr Q10H IV 07/02/17 10:57 07/06/17 06:29 (Tylenol) 650 mg Q4H PRN PO 07/02/17 11:00 07/03/17 18:48 (Zofran Inj) 4 mg Q6H PRN IVP 07/02/17 11:00 (Narcan Inj) 0.4 mg UNSCH PRN IV PUSH 07/02/17 11:00 (Lexii-Colace) 1 tab BID PO 07/02/17 21:00 07/06/17 08:26 (Milk Of Magnesia Liq) 30 ml Q12H PRN PO 07/02/17 11:00 07/05/17 21:01 (Senokot) 17.2 mg Q12H PRN PO 07/02/17 11:00 (Dulcolax Supp) 10 mg DAILY PRN RECTAL 07/02/17 11:00 (Lactulose Liq) 30 ml DAILY PRN PO 07/02/17 11:00 (Dilaudid Pf Inj) 0.2 mg Q4H PRN IV PUSH 07/02/17 11:00 07/05/17 06:13 (Neurontin) 300 mg TID PRN PO 07/02/17 13:00 07/05/17 22:02 (Protonix) 20 mg BID PO 07/03/17 21:00 07/06/17 08:27 (Lipitor) 20 mg HS PO 07/03/17 21:00 07/05/17 21:01 (Benadryl) 25 mg Q6H PRN PO 07/05/17 09:15 (NS Flush) 2 ml UNSCH PRN IVF 07/05/17 09:15 (NS Flush) 2 ml BID IVF 07/05/17 21:00 07/06/17 08:27 Cefazolin Sodium/ Dextrose 50 ml @ 100 mls/hr Q6H IV 07/05/17 14:00 07/06/17 20:29 07/06/17 08:23 (Lovenox Inj) 30 mg Q12H SQ 07/06/17 09:00 07/06/17 08:26 (Morphine Inj) 4 mg Q3H PRN IV PUSH 07/05/17 09:15 ([place] 7.5-325 Mg) 1 tab Q3H PRN PO 07/05/17 09:15 07/05/17 21:01 ([place] 10-325 Mg) 1 tab Q3H PRN PO 07/05/17 09:15 07/06/17 06:35 Vancomycin HCl 1000 mg/Sodium Chloride 250 ml @ 250 mls/hr Q12H IV 07/05/17 19:00 07/07/17 07:59 07/06/17 06:28 A/P Problem List: (1) Fracture of left hip ICD Code: S72.002A - Fracture of unspecified part of neck of left femur, initial encounter for closed fracture (2) Dyslipidemia ICD Code: E78.5 - Hyperlipidemia, unspecified Status: Chronic (3) Lumbar radiculopathy ICD Code: M54.16 - Radiculopathy, lumbar region Status: Acute (4) T12 vertebral fracture ICD Code: S22.089A - Unspecified fracture of T11-T12 vertebra, initial encounter for closed fracture Status: Chronic (5) Cough ICD Code: R05 - Cough Assessment and Plan Ms. Tavares is an 82 year old female with a history of multiple left hip surgeries and recent surgery of her L4-5, T12 by Dr. De Luna who presents to the ED due to a fall last night. Radiological studies indicate a left femur fracture. -Left hip fracture - Orthopedic surgery consulted. - Status post ORIF of the left proximal femur. - And control as per orthopedic surgery recommendations - Continue PT - Hx of Lumbar radiculopathy - Hx of T12 vertebral fracture - s/p surgical intervention by neurosurgeon Dr. De Luna. - No acute issues. continue Gabapentin 600mg TID PRN. - Dyslipidemia - Lipitor 20mg QHS. - Hypertension - BP seems to be stable. Continue to monitor vital signs. - GERD - Continue Protonix 20mg BID. - Hyperglycemia -hemoglobin A1c 5.6. - Hyponatremia. Resolved after IV normal saline administration. - Hypokalemia. Continue to monitor and replace as needed. Will give 20 meq of oral potassium now. - Cough: Will obtain a CXR, possibly due to intubation and minor laryngeal edema although no estridor aucultated. Will RX Robitussin DM and lozenges. Full code. Pharmacological DVT prophylaxis - on Lovenox subcutaneously. Discharge Planning Continue to monitor in the medical floor. Discharge pending orthopedic surgery clearance. Problem Qualifiers (1) Fracture of left hip: Qualified Codes: S72.002A - Fracture of unspecified part of neck of left femur , initial encounter for closed fracture Marty Geller MD Jul 06, 2017 13:56
[2017-07-06] MEDS ORDERED: guaiFENesin/DEXTROMETHORPHAN 200 MG/20 MG/10 ML CUP PO PRN (14:00)
[2017-07-06] MEDS ORDERED: BENZOCAINE-MENTHOL (SUGAR FREE) 15 MG-3.6 MG LOZENGE BUCCAL PRN (14:00)
--- NOTE | 2017-07-06 14:36 | RADRPT ---
EXAM DATE/TIME: 07/06/2017 14:03 [facility] COMPARISON: CHEST SINGLE AP, July 02, 2017, 9:47. INDICATIONS : Cough. MEDICAL HISTORY : Chronic obstructive pulmonary disease. Hypertension Arthritis. SURGICAL HISTORY : back surgery. ENCOUNTER: Initial ACUITY: 3 days PAIN SCORE: 0/10 LOCATION: Bilateral chest FINDINGS: Minimal airspace disease at the left lung base, new since prior exam. Cardiomedi style contours are s table. Remainder of the exam is unchanged. CONCLUSION: 1. Minimal new left basilar airspace disease, likely atelectasis. However, developing pneumonia canno t be excluded given history of cough. Merlin Gallo MD on July 06, 2017 at 14:34 Board Certified Radiologist. This report was verified electronically.
[2017-07-06] MEDS: POTASSIUM PHOSPHATE/SODIUM PHOSPHATE 250 MG TAB PO SCH ×2 (14:46→21:14)
[2017-07-06] MEDS: ATORVASTATIN 20 MG TAB PO SCH (21:10)
[2017-07-06] MEDS: ACETAMINOPHEN 325 MG TAB PO PRN (23:15)
[2017-07-07] MEDS: SODIUM CHLOR 0.9% 1000 ML INJ 1,000 ML IV SCH ×4 (00:57→21:33)
[2017-07-07 04:00] VITALS: TEMP 98.6
[2017-07-07] MEDS: VANCOMYCIN INJ 1,000 MG in SODIUM CHLOR 0.9% 250 ML INJ 250 ML IV SCH (05:41)
[2017-07-07] MEDS: ACETAMINOPHEN/HYDROcodone 325 MG/10 MG TAB PO PRN ×4 (05:41→23:27)
[2017-07-07] MEDS: POTASSIUM PHOSPHATE/SODIUM PHOSPHATE 250 MG TAB PO SCH ×3 (05:41→21:32)
--- NOTE | 2017-07-07 06:15 | PD.ORT.PN ---
Subjective Subjective Remarks pt doing better no complaints of SOB or chest pain Objective Vitals Vital Signs Date Time Temp Pulse Resp B/P (MAP) Pulse Ox O2 Delivery O2 Flow Rate FiO2 07/07/17 04:00 98.6 07/06/17 23:14 Nasal Cannula 2.00 07/06/17 23:13 100.3 98 18 134/64 (87) 94 07/06/17 23:10 101.1 07/06/17 20:03 99.0 93 17 144/58 (86) 96 07/06/17 19:45 100.0 94 17 131/65 (87) 100 07/06/17 18:52 Room Air 07/06/17 16:00 97.3 87 18 118/72 (87) 100 07/06/17 12:00 97.0 87 18 122/69 (86) 95 07/06/17 10:57 97 Nasal Cannula 2.00 07/06/17 08:00 96.3 91 17 129/66 (87) 94 I/O 07/06/17 07/06/17 07/06/17 07/07/17 07/07/17 07/07/17 07:00 15:00 23:00 07:00 15:00 23:00 Intake Total 530 ml 450 ml 540 ml 728 ml Output Total 20 ml 34 ml 30 ml 5 ml Balance 510 ml 416 ml 510 ml 723 ml Intake Oral 480 ml 400 ml 240 ml 240 ml IV Total 50 ml 50 ml 300 ml 488 ml Output Urine Total 4 ml Drainage Total 20 ml 30 ml 30 ml 5 ml # Voids 4 1 2 # Bowel Movements 0 0 0 0 Result Diagram: 07/06/17 0553 07/06/17 0553 Imaging Last 72 hours Impressions Femur X-Ray 07/03/17 0000 Signed Impressions: Service Date/Time: Monday, July 03, 2017 20:41 - CONCLUSION: No new findings. Proximal shaft fracture of the left femur around the femoral stem of the arthroplasty is again noted. Leoncio Esquivel MD Hip and Pelvis X-Ray 07/02/17 0000 Signed Impressions: Service Date/Time: Sunday, July 02, 2017 09:29 - CONCLUSION: Left proximal femur fracture. Trae Das MD Chest X-Ray 07/02/17 0000 Signed Impressions: Service Date/Time: Sunday, July 02, 2017 09:47 - CONCLUSION: 1. No acute cardiopulmonary findings. Bogdan Grady MD Objective Remarks seen by Dr. Alejo Da Silva Left lower extremity: Clean dry dressings intact with drain in place. Swelling minimal. Knee immobilizer applied. Intact distal pulses Assessment & Plan Assessment and Plan 1) Left Periprosthetic Proximal Femur Fx with DIANE status post revision left total hip arthroplasty - POD #2 Toe-touch weightbearing left lower extremity Posterior precautions with knee immobilizer in bed Begin daily dressing changes today and discontinue drain anticipate d/c to inpatient rehab tomorrow Lovenox Incentive spirometry for low grade temps Follow-up appointment with Dr. Tapia or PA in 2 weeks Charmaine Puentes Jul 07, 2017 06:15
[2017-07-07 07:34] VITALS: BP 151/69; PULSE 95; RESP 17; TEMP 98.4; O2SAT 93
[2017-07-07 08:15] LABS: MEAN CELL VOLUME 82.9 FL (80.0-100.0); MEAN CORPUSCULAR HGB CONC 33.8 % (32.0-36.0); PLATELET COUNT 196 TH/MM3 (150-450); RED CELL DISTRIBUTION WIDTH 14.7 % (11.6-17.2); REVIEW FLAG FINAL; WHITE BLOOD COUNT 8.8 TH/MM3 (4.0-11.0)
[2017-07-07 08:49] LABS: BICARBONATE 24.9 MEQ/L (21.0-32.0); POTASSIUM 3.2 MEQ/L (3.5-5.1)
[2017-07-07] MEDS: DOCUSATE SODIUM 50 MG/SENNA 8.6 MG TAB PO SCH ×2 (09:00→21:31)
[2017-07-07 09:05] LABS: CALCIUM-PROTEIN CORRECTED 8.7 MG/DL (8.5-10.1)
[2017-07-07] MEDS: PANTOPRAZOLE SOD 20 MG DELAYED RELEASE TAB PO SCH ×2 (10:33→21:35)
[2017-07-07] MEDS: SODIUM CHLORIDE 0.9% FLUSH 5 ML FLUSH IVF SCH ×2 (10:33→21:00)
[2017-07-07] MEDS: ENOXAPARIN SODIUM 30 MG/0.3 ML SYRINGE SQ SCH ×2 (10:33→21:32)
[2017-07-07 11:23] VITALS: O2SAT 92
[2017-07-07 11:27] VITALS: BP 139/72; PULSE 90; RESP 17; TEMP 96.8; O2SAT 98
[2017-07-07] MEDS ORDERED: POTASSIUM CHLORIDE 10 MEQ CONTROLLED RELEASE TAB PO ONE (15:00)
--- NOTE | 2017-07-07 15:09 | HHI.PR ---
Subjective Remarks Patient states cough is better patient had a low grade temp of 100.3 last night denies cp/sob pain controlled denies diarrhea had a BM yesterday Objective Vitals Vital Signs Date Time Temp Pulse Resp B/P (MAP) Pulse Ox O2 Delivery O2 Flow Rate FiO2 07/07/17 11:27 96.8 90 17 139/72 (94) 98 07/07/17 11:23 92 Nasal Cannula 2.00 07/07/17 07:34 98.4 95 17 151/69 (96) 93 07/07/17 04:00 98.6 07/06/17 23:14 Nasal Cannula 2.00 07/06/17 23:13 100.3 98 18 134/64 (87) 94 07/06/17 23:10 101.1 07/06/17 20:03 99.0 93 17 144/58 (86) 96 07/06/17 19:45 100.0 94 17 131/65 (87) 100 07/06/17 18:52 Room Air 07/06/17 16:00 97.3 87 18 118/72 (87) 100 I/O 07/06/17 07/06/17 07/06/17 07/07/17 07/07/17 07/07/17 07:00 15:00 23:00 07:00 15:00 23:00 Intake Total 530 ml 450 ml 540 ml 728 ml Output Total 20 ml 34 ml 30 ml 15 ml Balance 510 ml 416 ml 510 ml 713 ml Intake Oral 480 ml 400 ml 240 ml 240 ml IV Total 50 ml 50 ml 300 ml 488 ml Output Urine Total 4 ml Drainage Total 20 ml 30 ml 30 ml 15 ml # Voids 4 1 2 # Bowel Movements 0 0 0 0 Result Diagram: 07/07/17 0627 07/07/17 0627 Imaging Last 72 hours Impressions Chest X-Ray 07/06/17 0000 Signed Impressions: Service Date/Time: Thursday, July 06, 2017 14:03 - CONCLUSION: 1. Minimal new left basilar airspace disease, likely atelectasis. However, developing pneumonia cannot be excluded given history of cough. Merlin Gallo MD Hip and Pelvis X-Ray 07/05/17 0910 Signed Impressions: Service Date/Time: June 09:57 - CONCLUSION: Postoperative appearance of left total hip prosthesis with long stem femoral component within normal limits. Antoine Franklin MD Hip X-Ray 07/05/17 0000 Signed Impressions: Service Date/Time: June 08:09 - CONCLUSION: Intraoperative images demonstrating total hip prosthesis with longstem femoral component. Antoine Franklin MD Objective Remarks GENERAL: Alert, NAD. SKIN: Warm and dry. HEAD: Normocephalic. EYES: No scleral icterus. No injection or drainage. NECK: Supple, trachea midline. No JVD or lymphadenopathy. MOUTH: Throat seems to be lcear without erythema. ? post nasal drip observed? CARDIOVASCULAR: Regular rate and rhythm without murmurs, gallops, or rubs. RESPIRATORY: Breath sounds equal bilaterally. No accessory muscle use. GASTROINTESTINAL: Abdomen soft, non-tender, nondistended. MUSCULOSKELETAL: No cyanosis, or edema. there is a dressing over left hip, no hematoma, good peripheral pulses in lower extremities. BACK: Nontender without obvious deformity. No CVA tenderness Procedures None. Medications and IVs Last Impressions Chest X-Ray 07/06/17 0000 Signed Impressions: Service Date/Time: Thursday, July 06, 2017 14:03 - CONCLUSION: 1. Minimal new left basilar airspace disease, likely atelectasis. However, developing pneumonia cannot be excluded given history of cough. Merlin Gallo MD Hip and Pelvis X-Ray 07/05/17 0910 Signed Impressions: Service Date/Time: June 09:57 - CONCLUSION: Postoperative appearance of left total hip prosthesis with long stem femoral component within normal limits. Antoine Franklin MD Hip X-Ray 07/05/17 0000 Signed Impressions: Service Date/Time: June 08:09 - CONCLUSION: Intraoperative images demonstrating total hip prosthesis with longstem femoral component. Antoine Franklin MD Femur X-Ray 07/03/17 0000 Signed Impressions: Service Date/Time: Monday, July 03, 2017 20:41 - CONCLUSION: No new findings. Proximal shaft fracture of the left femur around the femoral stem of the arthroplasty is again noted. Leoncio Esquivel MD Urinary Catheter: No Vascular Central Line Catheter: No A/P Problem List: (1) Fracture of left hip ICD Code: S72.002A - Fracture of unspecified part of neck of left femur, initial encounter for closed fracture (2) Dyslipidemia ICD Code: E78.5 - Hyperlipidemia, unspecified Status: Chronic (3) Lumbar radiculopathy ICD Code: M54.16 - Radiculopathy, lumbar region Status: Acute (4) T12 vertebral fracture ICD Code: S22.089A - Unspecified fracture of T11-T12 vertebra, initial encounter for closed fracture Status: Chronic (5) Cough ICD Code: R05 - Cough Assessment and Plan Ms. Tavares is an 82 year old female with a history of multiple left hip surgeries and recent surgery of her L4-5, T12 by Dr. De Luna who presents to the ED due to a fall last night. Radiological studies indicate a left femur fracture. -Left hip fracture - Orthopedic surgery consulted. - Status post ORIF of the left proximal femur. - And control as per orthopedic surgery recommendations - Continue PT - Hx of Lumbar radiculopathy - Hx of T12 vertebral fracture - s/p surgical intervention by neurosurgeon Dr. De Luna. - No acute issues. continue Gabapentin 600mg TID PRN. - Dyslipidemia - Lipitor 20mg QHS. - Hypertension - BP seems to be stable. Continue to monitor vital signs. - GERD - Continue Protonix 20mg BID. - Hyperglycemia -hemoglobin A1c 5.6. - Hyponatremia. Resolved after IV normal saline administration. - Hypokalemia. Continue to monitor and replace as needed. Low grade Fever: Chest x-ray shows minimal new left basilar airspace disease. Likely atelectasis. However, developing pneumonia cannot be excluded. There is no leukocytosis. We'll continue to observe off antibiotics. I will check urinalysis. Encouraged to the patient incentive spirometry. Cough: Slightly improved with Lozenges and Robitussin DM. continue. Full code. Pharmacological DVT prophylaxis - on Lovenox subcutaneously. Discharge Planning Continue to monitor in the medical floor. Discharge pending orthopedic surgery clearance. Problem Qualifiers (1) Fracture of left hip: Qualified Codes: S72.002A - Fracture of unspecified part of neck of left femur , initial encounter for closed fracture Marty Geller MD Jul 07, 2017 15:09
[2017-07-07 16:00] VITALS: BP 120/55; PULSE 81; RESP 17; TEMP 98.7; O2SAT 96
[2017-07-07 16:01] LABS: BACTERIA, URINE MOD /hpf; BLOOD, URINE NEG (NEG); COMMENT (UR) CULTURE INDICATED; CULTURE IF INDICATED CULTURE INDICATED; GLUCOSE,URINE NEG (NEG); GRANULAR CAST, URINE 4 /lpf; KETONE, URINE NEG (NEG); NITRITE,URINE NEG (NEG); URINE COLOR YELLOW (YELLW/STRAW)
[2017-07-07 20:00] VITALS: BP 151/66; PULSE 90; RESP 18; TEMP 98.1; O2SAT 100
[2017-07-07] MEDS: ATORVASTATIN 20 MG TAB PO SCH (21:32)
[2017-07-08] VITALS: BP 139/63; PULSE 96; RESP 16; TEMP 97.7; O2SAT 95
[2017-07-08 05:29] LABS: AUTOMATED NEUTROPHIL # 4.7 TH/MM3 (1.8-7.7); BASOPHIL % 0.5 % (0.0-2.0); EOSINOPHIL # 0.4 TH/MM3 (0-0.4); EOSINOPHIL % 5.6 % (0.0-4.0); HEMATOCRIT 23.7 % (35.0-46.0); HEMO FLAGS DIFF FINAL; LYMPH % 24.5 % (9.0-44.0); MEAN CELL VOLUME 82.8 FL (80.0-100.0); MEAN CORPUSCULAR HEMOGLOBIN 27.8 PG (27.0-34.0); MEAN CORPUSCULAR HGB CONC 33.5 % (32.0-36.0); MONO % 10.1 % (0.0-8.0); NEUT % 59.3 % (16.0-70.0); PLATELET COUNT 233 TH/MM3 (150-450); RED BLOOD COUNT 2.86 MIL/MM3 (4.00-5.30); RED CELL DISTRIBUTION WIDTH 14.5 % (11.6-17.2)
[2017-07-08 06:03] LABS: ANION GAP 6 MEQ/L (5-15); AST (GOT) 32 U/L (15-37); BICARBONATE 26.8 MEQ/L (21.0-32.0); BLOOD UREA NITROGEN 9 MG/DL (7-18); CHLORIDE 101 MEQ/L (98-107); GLOMERULAR FILTRATION RATE 118 ML/MIN (>89); POTASSIUM 3.5 MEQ/L (3.5-5.1); SODIUM (NA) 134 MEQ/L (136-145)
[2017-07-08 06:07] LABS: ALKALINE PHOSPHATASE 74 U/L (45-117); ALT (GPT) 15 U/L (10-53); TOTAL BILIRUBIN ADULT 0.7 MG/DL (0.2-1.0)
[2017-07-08] MEDS: POTASSIUM PHOSPHATE/SODIUM PHOSPHATE 250 MG TAB PO SCH ×2 (06:27→13:40)
[2017-07-08] MEDS: ACETAMINOPHEN/HYDROcodone 325 MG/10 MG TAB PO PRN (06:29)
[2017-07-08 07:43] VITALS: BP 162/79; PULSE 99; RESP 16; TEMP 96.8; O2SAT 96
--- NOTE | 2017-07-08 08:20 | PD.ORT.PN ---
Subjective Subjective Remarks pt doing better no complaints of SOB or chest pain ready to be discharged today Objective Vitals Vital Signs Date Time Temp Pulse Resp B/P (MAP) Pulse Ox O2 Delivery O2 Flow Rate FiO2 07/08/17 00:00 97.7 96 16 139/63 (88) 95 07/07/17 20:00 98.1 90 18 151/66 (94) 100 07/07/17 16:00 98.7 81 17 120/55 (76) 96 07/07/17 11:27 96.8 90 17 139/72 (94) 98 07/07/17 11:23 92 Nasal Cannula 2.00 I/O 07/07/17 07/07/17 07/07/17 07/08/17 07/08/17 07/08/17 07:00 15:00 23:00 07:00 15:00 23:00 Intake Total 728 ml 660 ml 240 ml 480 ml Output Total 15 ml Balance 713 ml 660 ml 240 ml 480 ml Intake Oral 240 ml 660 ml 240 ml 480 ml IV Total 488 ml Drainage Total 15 ml # Voids 2 4 3 4 # Bowel Movements 0 1 0 0 Result Diagram: 07/08/17 0440 07/08/17 0440 Imaging Last 72 hours Impressions Femur X-Ray 07/03/17 0000 Signed Impressions: Service Date/Time: Monday, July 03, 2017 20:41 - CONCLUSION: No new findings. Proximal shaft fracture of the left femur around the femoral stem of the arthroplasty is again noted. Leoncio Esquivel MD Hip and Pelvis X-Ray 07/02/17 0000 Signed Impressions: Service Date/Time: Sunday, July 02, 2017 09:29 - CONCLUSION: Left proximal femur fracture. Trae Das MD Chest X-Ray 07/02/17 0000 Signed Impressions: Service Date/Time: Sunday, July 02, 2017 09:47 - CONCLUSION: 1. No acute cardiopulmonary findings. Bogdan Grady MD Objective Remarks seen by Dr. Alejo Da Silva Left lower extremity: Clean dry dressings intact with drain in place. Swelling minimal. Knee immobilizer applied. Intact distal pulses Assessment & Plan Assessment and Plan 1) Left Periprosthetic Proximal Femur Fx with DIANE status post revision left total hip arthroplasty - POD #3 Toe-touch weightbearing left lower extremity Posterior precautions with knee immobilizer in bed discharge to inpatient rehab today, orthopedically stable Lovenox Incentive spirometry for low grade temps Follow-up appointment with Dr. Tapia or [place] in 2 weeks Charmaine Puentes Jul 08, 2017 08:20
[2017-07-08] MEDS: SODIUM CHLORIDE 0.9% FLUSH 5 ML FLUSH IVF SCH (08:47)
[2017-07-08] MEDS: DOCUSATE SODIUM 50 MG/SENNA 8.6 MG TAB PO SCH (08:48)
[2017-07-08] MEDS: PANTOPRAZOLE SOD 20 MG DELAYED RELEASE TAB PO SCH (08:49)
[2017-07-08] MEDS: ENOXAPARIN SODIUM 30 MG/0.3 ML SYRINGE SQ SCH (08:49)
[2017-07-08 11:27] VITALS: BP 146/56; PULSE 96; RESP 16; TEMP 96.1; O2SAT 98
--- NOTE | 2017-07-08 12:50 | HHI.DCPOC ---
Discharge Care Plan Diagnosis: (1) Hyponatremia (2) Hyperglycemia (3) Hypokalemia (4) Fracture of left hip (5) T12 vertebral fracture (6) Dyslipidemia (7) Cough (8) Hypertension (9) GERD (gastroesophageal reflux disease) Goals to Promote Your Health * To prevent worsening of your condition and complications * To maintain your health at the optimal level Directions to Meet Your Goals Take your medications as prescribed Follow your dietary instruction Follow activity as directed Keep your appointments as scheduled Take your immunizations and boosters as scheduled If your symptoms worsen call your PCP, if no PCP go to Urgent Care Center or Emergency Room Smoking is Dangerous to Your Health. Avoid second hand smoke Call the 24-hour hour crisis hotline for domestic abuse at Marty Geller MD Jul 08, 2017 12:50
[2017-07-08] MEDS ORDERED: BENZ1LOZ5 BUCCAL (12:54)
[2017-07-08] MEDS ORDERED: SENN1TAB PO (12:54)
[2017-07-08] MEDS ORDERED: DEXT10SY2 PO (12:54)
[2017-07-08] MEDS ORDERED: PANT20 PO (12:54)
--- NOTE | 2017-07-08 12:57 | HHI.DS ---
Discharge Summary Admission Date Jul 02, 2017 at 10:54 Discharge Date: Jul 08, 2017 Admitting Diagnosis Left hip fracture. (1) Fracture of left hip ICD Code: S72.002A - Fracture of unspecified part of neck of left femur, initial encounter for closed fracture Diagnosis: Principal (2) Dyslipidemia ICD Code: E78.5 - Hyperlipidemia, unspecified Diagnosis: Principal Status: Chronic (3) Lumbar radiculopathy ICD Code: M54.16 - Radiculopathy, lumbar region Diagnosis: Principal Status: Acute (4) T12 vertebral fracture ICD Code: S22.089A - Unspecified fracture of T11-T12 vertebra, initial encounter for closed fracture Diagnosis: Principal Status: Chronic (5) Cough ICD Code: R05 - Cough Diagnosis: Principal (6) Low grade fever ICD Code: R50.9 - Fever, unspecified (7) Hypertension ICD Code: I10 - Essential (primary) hypertension Status: Chronic (8) Hypokalemia ICD Code: E87.6 - Hypokalemia (9) Hyperglycemia ICD Code: R73.9 - Hyperglycemia, unspecified Diagnosis: Principal (10) Hyponatremia ICD Code: E87.1 - Hypo-osmolality and hyponatremia Diagnosis: Principal (11) GERD (gastroesophageal reflux disease) ICD Code: K21.9 - Gastro-esophageal reflux disease without esophagitis Diagnosis: Principal Status: Chronic Procedures Status post revision of the left total hip, open reduction and internal fixation of the proximal femur. Brief History - From Admission Ms. Tavares is a pleasant 82 year old female with a recent history of L4-5 and T12 decompressive laminectomy in February 2017 (Dr. De Luna) who presents to the ED on due to a fall at home last night around 8PM. After neurosurgical procedure, patient went to rehab and she was discharged home about a month ago. She has been feeling very weak. Last night around 8PM, she was trying transfer from a chair and she fell on her left side. Denies any chest pain, dyspnea, lightheadedness, dizziness. No fever, chills. She denies any changes in bowel or bladder habits. On arrival, T 98.3, HR 84, Resp rate 18, BP 151/72, Pulse ox 97%. Radiological studies show left proximal femur fracture. Orthopedic was consulted by ER provider. CBC/BMP: 07/08/17 0440 07/08/17 0440 Significant Findings Laboratory Tests Test 07/05/17 15:12 07/06/17 01:55 07/06/17 05:53 07/07/17 06:27 Random Glucose 169 MG/DL (74-106) 122 MG/DL (74-106) 123 MG/DL (74-106) Total Protein 5.7 GM/DL (6.4-8.2) 4.8 GM/DL (6.4-8.2) Albumin 2.6 GM/DL (3.4-5.0) Calcium Level 7.6 MG/DL (8.5-10.1) 7.5 MG/DL (8.5-10.1) 7.4 MG/DL (8.5-10.1) Sodium Level 134 MEQ/L (136-145) Potassium Level 3.4 MEQ/L (3.5-5.1) 3.2 MEQ/L (3.5-5.1) Red Blood Count 3.22 MIL/MM3 (4.00-5.30) 2.90 MIL/MM3 (4.00-5.30) Hemoglobin 9.0 GM/DL (11.6-15.3) 8.1 GM/DL (11.6-15.3) Hematocrit 26.4 % (35.0-46.0) 24.0 % (35.0-46.0) Phosphorus Level 1.7 MG/DL (2.5-4.9) 2.1 MG/DL (2.5-4.9) Creatinine 0.41 MG/DL (0.50-1.00) Test 07/07/17 15:40 07/08/17 04:40 Urine Turbidity HAZY (CLEAR) Urine Protein 30 mg/dL (NEG-TRACE) Urine Bacteria MOD /hpf (NONE) Red Blood Count 2.86 MIL/MM3 (4.00-5.30) Hemoglobin 8.0 GM/DL (11.6-15.3) Hematocrit 23.7 % (35.0-46.0) Monocytes (%) (Auto) 10.1 % (0.0-8.0) Eosinophils (%) (Auto) 5.6 % (0.0-4.0) Random Glucose 115 MG/DL (74-106) Total Protein 4.8 GM/DL (6.4-8.2) Albumin 2.0 GM/DL (3.4-5.0) Calcium Level 7.8 MG/DL (8.5-10.1) Sodium Level 134 MEQ/L (136-145) Imaging Last Impressions Chest X-Ray 07/06/17 0000 Signed Impressions: Service Date/Time: Thursday, July 06, 2017 14:03 - CONCLUSION: 1. Minimal new left basilar airspace disease, likely atelectasis. However, developing pneumonia cannot be excluded given history of cough. Merlin Gallo MD Hip and Pelvis X-Ray 07/05/17 0910 Signed Impressions: Service Date/Time: June 09:57 - CONCLUSION: Postoperative appearance of left total hip prosthesis with long stem femoral component within normal limits. Antoine Franklin MD Hip X-Ray 07/05/17 0000 Signed Impressions: Service Date/Time: June 08:09 - CONCLUSION: Intraoperative images demonstrating total hip prosthesis with longstem femoral component. Antoine Franklin MD Femur X-Ray 07/03/17 0000 Signed Impressions: Service Date/Time: Monday, July 03, 2017 20:41 - CONCLUSION: No new findings. Proximal shaft fracture of the left femur around the femoral stem of the arthroplasty is again noted. Leoncio Esquivel MD PE at Discharge GENERAL: Alert, NAD. SKIN: Warm and dry. HEAD: Normocephalic. EYES: No scleral icterus. No injection or drainage. NECK: Supple, trachea midline. No JVD or lymphadenopathy. MOUTH: Throat seems to be lcear without erythema. ? post nasal drip observed? CARDIOVASCULAR: Regular rate and rhythm without murmurs, gallops, or rubs. RESPIRATORY: Breath sounds equal bilaterally. No accessory muscle use. GASTROINTESTINAL: Abdomen soft, non-tender, nondistended. MUSCULOSKELETAL: No cyanosis, or edema. there is a dressing over left hip, no hematoma, good peripheral pulses in lower extremities. BACK: Nontender without obvious deformity. No CVA tenderness Pt update on day of discharge The patient states that cough is improving. Denies fevers or chills. Has not had a fever episode since 07/06. Denies abdominal pain, nausea vomiting. Pain is controlled. Hospital Course The patient is an 82-year-old female with history of multiple left hip surgeries and recent surgery of her L4-5, T12 but Dr. De Luna who presented to [facility] ED due to a fall. Radiological studies showed a left hip fracture. Orthopedic surgery was consulted, the patient on the went ORIF of the left proximal femur. Pain control was provided by orthopedic surgery as well as DVT prophylaxis. Patient's Lipitor was continued for patient's elevated cholesterol. Patient has history of hypertension which seems to remain stable, vital signs were monitored throughout hospital stay. Patient's complain of some cough which could be related to GERD or status post intubation after surgical procedure. The patient was started on Robitussin-DM and the patient was placed on Protonix 20 mg by mouth twice a day for GERD. Patient had some hyperglycemia, however this was likely secondary to stress since 11 A1c was 5.6 and diabetes was ruled out. Patient was mildly hyponatremic which resolved after IV fluid administration. Patient was also found to have low potassium which was probably induced by IV fluid administration. Potassium was replaced orally and is normal at 3.5 on day of discharge. Pt Condition on Discharge: Stable Discharge Disposition: Rehab Inpatient Discharge Time: > 30 minutes Discharge Instructions DIET: Follow Instructions for: Diabetic Diet Additional Diet Instructions: 2000 ADA diet Activities you can perform: See Additionl Instruction Other Activity Instructions: Toe-touch weightbearing left lower extremity Posterior precautions with knee immobilizer in bed Follow up Referrals: Orthopedics - 2 Weeks @ [facility] with Fahad Calderon MD New Medications: Calcium Carbonate-Vitamin D (Calcium 600+D 200) 600-200 Mg-Unit Tab 1 TAB PO BID for Nutritional Supplement for 30 Days, #60 TAB 0 Refills Cholecalciferol (Vitamin D3) 2,000 Unit Cap 2000 UNITS PO DAILY for Nutritional Supplement, #56 CAP 0 Refills Ergocalciferol (Ergocalciferol) 50,000 Unit Cap 56828 UNITS PO Q7D for Nutritional Supplement, #56 CAP Hydrocodone-Acetaminophen (Hydrocodone-Acetaminophen) 10-325 mg Tab 1 TAB PO Q4H PRN for PAIN, #60 TAB 0 Refills Rivaroxaban (Xarelto) 10 Mg Tab 10 MG PO DAILY for Blood Clot Prevention, #21 TAB 0 Refills Walker/Adult/Folding (Walker/Adult/Folding) 1 Mis Mis EA .ROUTE DIRECTED, #1 0 Refills Benzocaine-Menthol Lozenge (Cepacol Sore Throat Lozenge) 15-3.6 Mg Lozg 1 LOZENGE BUCCAL Q2HR PRN for COUGH, #20 LOZENGE Dextromethorphan-Guaifenesin (Dextromethorphan/Guaifene 10-100 mg/5Ml) 100 Mg- 10 Mg/5 Ml Syp 10 ML PO Q6H PRN for COUGH, #1 BOTTLE Pantoprazole (Protonix) 20 Mg Tab 20 MG PO BID for gerd, #30 TAB Sennosides-Docusate Sodium (Senna Plus 8.6-50 mg) 8.6 Mg-50 Mg Tab 1 TAB PO BID for Constipation, #30 TAB Continued Medications: Amitriptyline (Amitriptyline) 25 Mg Tab 25 MG PO HS for Control Depression, #30 TAB 0 Refills Gabapentin (Neurontin) 300 Mg Cap 300 MG PO TID for Pain Management, #90 CAP 1 Refill Multiple Vitamin (Multi-Vitamin Daily) 1 Tab Tab 1 TAB PO DAILY for Nutritional Supplement, TAB 0 Refills Simvastatin (Simvastatin) 20 Mg Tab 20 MG PO DAILY for Cholesterol Management, #30 TAB 0 Refills Discontinued Medications: Acetaminophen (Tylenol) 325 Mg Tab 325 MG PO ONCE, #1 TAB 0 Refills Omeprazole (Omeprazole) 10 Mg Cap 10 MG PO DAILY, #30 CAP 0 Refills Tramadol (Ultram) 50 Mg Tab 50 MG PO Q6H, #90 TAB 0 Refills Marty Geller MD Jul 08, 2017 12:57
[2017-07-24] MEDS ORDERED: WHEEMIS3 (12:36)
[2017-07-24] MEDS ORDERED: HOSP BED1 (12:36)
[2017-07-25] MEDS ORDERED: MULT-65 PO (10:49)
[2017-07-25] MEDS ORDERED: CALCTAB19 PO (10:50)
[2017-07-25] MEDS ORDERED: HYDR-3516 PO (10:50)
[2017-07-25] MEDS ORDERED: DIGO0.12 PO (10:50)
[2017-07-25] MEDS ORDERED: METO25TA3 PO (10:50)
[2017-07-25] MEDS ORDERED: APIX2.5T PO (10:50)
[2017-07-25] MEDS ORDERED: SENN1TAB PO (10:50)
[2017-07-25] MEDS ORDERED: AMIT25TA9 PO (10:50)
[2017-07-25] MEDS ORDERED: PANT20 PO (10:50)
[2017-07-25] MEDS ORDERED: FERR325T20 PO (10:50)
[2017-07-25] MEDS ORDERED: SIMV20TA PO (10:50)
[2017-07-25] MEDS ORDERED: NEUR300C PO (10:50)
[2017-07-25] MEDS ORDERED: ERGO1CAP30 PO (10:50)
[2017-07-25] MEDS ORDERED: ACET1TAB86 PO (10:50)
== END 2017-07-08 15:07 | DRG 467 ==
LOC: NEPE 08:41 → NEDA 10:54 → N06B 12:09
PROVIDERS: ADMIT Hospitalist; ATTEND Hospitalist
PROC: 0SRS01A Replacement of Left Hip Joint, Femoral Surface with Metal Synthetic Substitute, Uncemented, Open Approach (ICD-10-PCS; 2017-07-05)
PROC: 0SPS0JZ Removal of Synthetic Substitute from Left Hip Joint, Femoral Surface, Open Approach (ICD-10-PCS; 2017-07-05)
PROC: 0QS704Z Reposition Left Upper Femur with Internal Fixation Device, Open Approach (ICD-10-PCS; 2017-07-05)
PROC: 30233N1 Transfusion of Nonautologous Red Blood Cells into Peripheral Vein, Percutaneous Approach (ICD-10-PCS; 2017-07-05)
PROC: 0QS904Z Reposition Left Femoral Shaft with Internal Fixation Device, Open Approach (ICD-10-PCS; principal; 2017-07-05 06:50)
DX: S72.352A Displaced comminuted fracture of shaft of left femur, initial encounter for closed fracture (principal); M97.02XA Periprosthetic fracture around internal prosthetic left hip joint, initial encounter; E87.1 Hypo-osmolality and hyponatremia; T84.031A Mechanical loosening of internal left hip prosthetic joint, initial encounter; E83.39 Other disorders of phosphorus metabolism; R50.9 Fever, unspecified; J98.11 Atelectasis; I10 Essential (primary) hypertension; S72.112A Displaced fracture of greater trochanter of left femur, initial encounter for closed fracture; S72.122A Displaced fracture of lesser trochanter of left femur, initial encounter for closed fracture; E78.5 Hyperlipidemia, unspecified; E87.6 Hypokalemia; K21.9 Gastro-esophageal reflux disease without esophagitis; R73.9 Hyperglycemia, unspecified; M54.16 Radiculopathy, lumbar region; M81.0 Age-related osteoporosis without current pathological fracture; R05 Cough; W07.XXXA Fall from chair, initial encounter; Y92.009 Unspecified place in unspecified non-institutional (private) residence as the place of occurrence of the external cause; S22.089D Unspecified fracture of T11-T12 vertebra, subsequent encounter for fracture with routine healing; Z88.2 Allergy status to sulfonamides; Z23 Encounter for immunization
CPT/HCPCS: 36430; 71010; 73502; 73552; 76000; 80048; 80053; 81001; 83036; 83735; 84100; 84155; 85025; 85027; 86850; 86900; 86901; 86920; 87081; 87086; 87641; 90471; 90686; 93005; 96374; C1713; C1776; G0008; J0360; J0690; J1100; J1170; J1580; J1650; J2175; J2270; J2370; J2405; J3010; J3370; J7030; J7050; L1830; P9016; P9045; Q2038

== ENCOUNTER 2018-09-23 10:15 | Inpatient (IN) ==
--- NOTE | 2018-09-23 11:26 | ED ---
HPI General Chief complaint: Nausea/Vomiting/Diarrhea Stated complaint: general weakness/nausea Time Seen by Provider: 09/23/18 11:04 Source: patient Mode of arrival: ambulatory Limitations: no limitations History of Present Illness HPI narrative: This 83-year-old female says she has not felt well since Sunday. Sunday she went to her physical therapy and while laying on her stomach she started having some nausea and some crampy abdominal pain. Then she is not been able to eat. She says she is had bouts of vomiting. She has some crampy pain with the vomiting. She does not recall having nausea like this before. She has no history of abdominal surgery. She has had surgery on her left hip for a fracture over a year ago. She is going to physical therapy still because of some ongoing problems with the hip. Related Data Home Medications Medication Instructions Recorded Confirmed acetaminophen 650 mg PO Q6H PRN 04/30/18 09/23/18 apixaban [Eliquis] 2.5 mg PO BID 04/30/18 09/23/18 biotin 5,000 mcg PO DAILY 04/30/18 09/23/18 calcium carbonate [Calcium 500] 500 mg PO BID 04/30/18 09/23/18 denosumab [Prolia] 60 mg SUB-Q [id number] 04/30/18 09/23/18 digestive enzymes 1 cap PO DIRECTED 04/30/18 09/23/18 digoxin 0.125 mg PO DAILY 04/30/18 09/23/18 ergocalciferol (vitamin D2) 50,000 unit PO QWEEK 04/30/18 09/23/18 [Vitamin D2] gabapentin 600 mg PO HS 04/30/18 09/23/18 metoprolol tartrate 12.5 mg PO BID 04/30/18 09/23/18 multivitamin with minerals [Daily 1 tab PO DAILY 04/30/18 09/23/18 Multivitamin-Minerals] pantoprazole 20 mg PO DAILY 04/30/18 09/23/18 ranitidine HCl 150 mg PO DAILY 04/30/18 09/23/18 sennosides-docusate sodium 1 tab PO BID PRN 04/30/18 09/23/18 [Senna-S] simvastatin 20 mg PO QPM 04/30/18 09/23/18 Allergies Allergy/AdvReac Type Severity Reaction Status Date / Time Sulfa (Sulfonamide Allergy Intermediate NAUSEA Verified 04/30/18 13:31 Antibiotics) Review of Systems ROS: all other systems reviewed are negative [facility] Medical History Medical History History of atrial fibrillation (Acute) History of high cholesterol (Acute) Hx of gastroesophageal reflux (GERD) (Acute) Hx of primary hypertension (Acute) Surgical History Surgical History History of left hip replacement (Acute) Hx of bilateral cataract extraction (Acute) Social History Social History Substance History: No History of Abuse Second Hand Smoke Exposure: No Smoking Status: Never smoker How Often Do You Have a Drink Containing Alcohol: 2 to 3 times a week Recent Travel in [facility] within the Last 8 Weeks: No Recent Out of Country Travel within the Last 8 Weeks: No Immunization History Tetanus Immunization: Unsure Exam Narrative Exam Narrative: GENERAL: Well-developed female SKIN: Focused skin assessment warm/dry. HEAD: Atraumatic. Normocephalic. EYES: Pupils equal and round. No scleral icterus. No injection or drainage. ENT: No nasal bleeding or discharge. Mucous membranes pink and moist. NECK: Trachea midline. No JVD. CARDIOVASCULAR: Regular rate and rhythm. No murmur appreciated. RESPIRATORY: No accessory muscle use. Clear to auscultation. Breath sounds equal bilaterally. GASTROINTESTINAL: Abdomen soft, non-tender, there is mild diffuse tenderness without guarding or rigidity. Hepatic and splenic margins not palpable. MUSCULOSKELETAL: No obvious deformities. No clubbing. No cyanosis. No edema. NEUROLOGICAL: Awake and alert. No obvious cranial nerve deficits. Motor grossly within normal limits. Normal speech. PSYCHIATRIC: Appropriate mood and affect; insight and judgment normal. Course Initial Documented Vital Signs Temperature 98.9 F 09/23/18 10:38 Pulse Rate 80 09/23/18 10:38 Respiratory Rate 14 09/23/18 10:38 Blood Pressure 160/80 H 09/23/18 10:38 Pulse Oximetry 98 09/23/18 10:38 Last Documented Vital Signs Temperature 98.9 F 09/23/18 10:38 Pulse Rate 86 09/23/18 12:49 Respiratory Rate 14 09/23/18 12:49 Blood Pressure 158/69 H 09/23/18 12:49 Pulse Oximetry 100 09/23/18 12:49 Medical Decision Making MDM Narrative Medical decision making narrative: CT scan of the abdomen and pelvis has been performed in is not suggestive of obstruction. Her serum sodium is 118. She is being given IV fluids. She says she has not been able to drink for 2 or 3 days. Medical Screen Exam Complete: Yes Emergency Medical Condition: Yes Differential Diagnosis Differential Diagnosis: Differential includes gastroenteritis, bowel obstruction , dehydration, electrolyte imbalance Lab Data Result diagrams: 09/23/18 11:25 09/23/18 11:25 Lab Results 09/23/18 09/23/18 Range/Units 11:25 11:25 CBC w Diff Auto diff final WBC 10.8 (4.0-11.0) th/mm3 RBC 4.44 (4.00-5.30) mil/mm3 Hgb 12.9 (11.6-15.3) gm/dL Hct 38.4 (35.0-46.0) % MCV 86.6 (80.0-100.0) fL MCH 29.0 (27.0-34.0) pg MCHC 33.5 (32.0-36.0) % RDW 11.8 (11.6-17.2) % Plt Count 295 (150-450) th/mm3 MPV 8.4 (7.0-11.0) fL Neut % (Auto) 78.9 H (16.0-70.0) % Lymph % (Auto) 13.3 (9.0-44.0) % [place] % (Auto) 7.1 (0.0-8.0) % Eos % (Auto) 0.1 (0.0-4.0) % Baso % (Auto) 0.6 (0.0-2.0) % Neut # (Auto) 8.5 H (1.8-7.7) th/mm3 Lymph # (Auto) 1.4 (1.0-4.8) th/mm3 [place] # (Auto) 0.8 (0.0-0.9) th/mm3 Eos # (Auto) 0.0 (0.0-0.4) th/mm3 Baso # (Auto) 0.1 (0.0-0.2) th/mm3 WBC Differential . Differential Comment . Sodium 118 L* (136-145) meq/L Potassium 4.2 (3.5-5.1) meq/L Chloride 84 L (98-107) meq/L Carbon Dioxide 21.9 (21.0-32.0) meq/L Anion Gap 12 (5-15) meq/L BUN 14 (7-18) mg/dL Creatinine 0.78 (0.50-1.00) mg/dL Estimated GFR 70 L (>89) mL/min Random Glucose 128 H (74-106) mg/dL Calcium 8.0 L (8.5-10.1) mg/dL Magnesium 2.1 (1.5-2.5) mg/dL Total Bilirubin 0.9 (0.2-1.0) mg/dL AST 37 (15-37) U/L ALT 26 (10-53) U/L Alkaline Phosphatase 50 (45-117) U/L Total Protein 7.8 (6.4-8.2) g/dL Albumin 4.0 (3.4-5.0) g/dL Imaging Data Radiologist's impression: Abdomen/Pelvis CT 09/23/18 11:21 CONCLUSION: 1. Uncomplicated colonic diverticulosis. 2. Small bilateral inguinal hernias containing only fat. 3. Degenerative changes throughout the thoracolumbar spine. Hip X-Ray 09/23/18 11:23 CONCLUSION: 1. No acute fracture or dislocation. 2. Status post left hip replacement with hardware in good position. Discharge Plan Discharge Disposition Patient Disposition: ED Admit(ED Internal Use Only) Discharge Condition Condition: Fair Discharge Details Diagnosis: Acute hyponatremia Physicians Team ED Provider: Amber Ed,[facility] [place] Primary Care Provider: Primary Care Physici,No Rxs /Orders / Referrals /Forms Prescriptions: No Action digestive enzymes Capsule 1 cap PO DIRECTED RF: 0 acetaminophen 325 mg Tablet 650 mg PO Q6H PRN (Reason: Pain) RF: 0 sennosides-docusate sodium [Senna-S] 8.6-50 mg Tablet 1 tab PO BID PRN (Reason: Constipation) RF: 0 pantoprazole 20 mg Tablet,Delayed Release (Dr/Ec) 20 mg PO DAILY RF: 0 calcium carbonate [Calcium 500] 500 mg calcium (1,250 mg) Tablet 500 mg PO BID RF: 0 simvastatin 20 mg Tablet 20 mg PO QPM RF: 0 ranitidine HCl 150 mg Tablet 150 mg PO DAILY RF: 0 gabapentin 300 mg Capsule 600 mg PO HS RF: 0 digoxin 125 mcg Tablet 0.125 mg PO DAILY RF: 0 ergocalciferol (vitamin D2) [Vitamin D2] 50,000 unit Capsule 50,000 unit PO QWEEK RF: 0 multivitamin with minerals [Daily Multivitamin-Minerals] Tablet 1 tab PO DAILY RF: 0 metoprolol tartrate 25 mg Tablet 12.5 mg PO BID RF: 0 denosumab [Prolia] 60 mg/mL Syringe 60 mg SUB-Q [id number] RF: 0 apixaban [Eliquis] 2.5 mg Tablet 2.5 mg PO BID RF: 0 biotin 5,000 mcg Tablet,Disintegrating 5,000 mcg PO DAILY RF: 0 Discharge Interventions Interventions: Vital Signs Last Done: 09/23/18 12:49 Status ED Status: With Doctor
[2018-09-23] MEDS ORDERED: Sod Chloride 0.9% Inj 1,000 ML IV.CONT SCH (11:30)
[2018-09-23 11:42] LABS: Baso # (Auto) 0.1 th/mm3 (0.0-0.2); Baso % (Auto) 0.6 % (0.0-2.0); Eos % (Auto) 0.1 % (0.0-4.0); Hematocrit 38.4 % (35.0-46.0); Hemoglobin 12.9 gm/dL (11.6-15.3); Lymph # (Auto) 1.4 th/mm3 (1.0-4.8); Lymph % (Auto) 13.3 % (9.0-44.0); Mean Corpuscular HGB Conc 33.5 % (32.0-36.0); Mean Corpuscular Volume 86.6 fL (80.0-100.0); Mean Platelet Volume 8.4 fL (7.0-11.0); Mono # (Auto) 0.8 th/mm3 (0.0-0.9); Mono % (Auto) 7.1 % (0.0-8.0); Neut # (Auto) 8.5 th/mm3 (1.8-7.7); Neut % (Auto) 78.9 % (16.0-70.0); Platelet Count 295 th/mm3 (150-450); Red Blood Count 4.44 mil/mm3 (4.00-5.30); Red Cell Distribution Width 11.8 % (11.6-17.2); White Blood Count 10.8 th/mm3 (4.0-11.0)
[2018-09-23 12:13] LABS: Alanine Aminotransferase 26 U/L (10-53); Alkaline Phosphatase 50 U/L (45-117); Anion Gap 12 meq/L (5-15); Aspartate Aminotransferase 37 U/L (15-37); Blood Urea Nitrogen 14 mg/dL (7-18); Carbon Dioxide 21.9 meq/L (21.0-32.0); Chloride 84 meq/L (98-107); Glomerular Filtration Rate 70 mL/min (>89); Glucose,Random 128 mg/dL (74-106); Magnesium 2.1 mg/dL (1.5-2.5); Potassium 4.2 meq/L (3.5-5.1); Total Protein 7.8 g/dL (6.4-8.2)
--- NOTE | 2018-09-23 12:13 | XR ---
EXAM DATE: 09/23/2018 11:47 AM EST AGE/SEX: 83 years / Female INDICATIONS: Left hip pain and weakness CLINICAL DATA: This is the patient's initial encounter. Patient reports that signs and symptoms have been present for 3 months and indicates a pain score of 0/10. MEDICAL/SURGICAL HISTORY: Arthritis. . Hip replacement and repair of femur fracture lt femur COMPARISON: [facility] [place] LEFT (AP&LAT 2/3VWS) W AP PELVIS, 07/18/2017. . FINDINGS: The patient is status post left hip replacement. There is no acute fracture or dislocation. Old fract ures involving the left superior and inferior pubic rami and proximal femur are healed. CONCLUSION: 1. No acute fracture or dislocation. 2. Status post left hip replacement with hardware in good position. Electronically signed by: Jordan Tenorio MD Board Certified Radiologist 09/23/2018 12:12 PM EST
[2018-09-23 12:18] LABS: Sodium 118 meq/L (136-145)
--- NOTE | 2018-09-23 12:59 | CT ---
EXAM DATE: 09/23/2018 12:45 PM EST AGE/SEX: 83 years / Female INDICATIONS: Obstruction. Generalized weakness, nausea. CLINICAL DATA: This is the patient's initial encounter. Patient reports that signs and symptoms have been present for 4 - 6 days and indicates a pain score of 0/10. MEDICAL/SURGICAL HISTORY: Gastroesophageal reflux disease. Hypertension. AFib. . Left hip rep lacement. Back surgery. ORAL CONTRAST: No oral contrast ingested. RADIATION DOSE: 6.35 CTDI (mGy) COMPARISON: [facility], CT ABDOMEN AND PELVIS W AND W/O CONTRAST, 01/01/2015. . TECHNIQUE: Multiple contiguous axial images were obtained through the abdomen and pelvis following b olus infusion of 90 ml Omnipaque 350 (iohexol) nonionic water-soluble contrast as a single exam dos e. No oral contrast ingested. Using automated exposure control and adjustment of the mA and/or kV ac cording to patient size, radiation dose was kept as low as reasonably achievable to obtain optimal di agnostic quality images. DICOM format image data is available electronically for review and comparis on. FINDINGS: Lower Lungs: The visualized lower lungs are clear. Liver: The liver has a homogeneous density without space-occupying lesion. There is no dilation of th e biliary tree. Spleen: Homogeneous density without enlargement. Pancreas: Unremarkable without mass or calcification. Kidneys: Normal in size and shape. No evidence of mass or hydronephrosis. Adrenal Glands: Unremarkable. Aorta: The aorta and proximal iliac vessels are grossly unremarkable without aneurysmal dilation. Bowel/Mesentery: Uncomplicated colonic diverticulosis is noted. No acute diverticulitis is noted. Abdominal Wall: Intact. Retroperitoneum: No evidence of adenopathy in the retrocrural, para-aortic, or deep pelvic regions. Bladder: Contours are smooth. Reproductive Organs: No abnormal masses or calcifications seen. Inguinal: The inguinal region is unremarkable without evidence of adenopathy. Small bilateral inguin al hernias containing only fat are noted. Bony Structures: Degenerative changes are noted throughout the thoracolumbar spine. Old healed fract ure of the left inferior pubic ramus is noted. Left hip replacement is noted. CONCLUSION: 1. Uncomplicated colonic diverticulosis. 2. Small bilateral inguinal hernias containing only fat. 3. Degenerative changes throughout the thoracolumbar spine. Electronically signed by: Jordan Tenorio MD Board Certified Radiologist 09/23/2018 12:57 PM EST
[2018-09-23] MEDS ORDERED: Senna/Docusate Sodium 8.6/50 MG Tablet PO PRN (13:15)
[2018-09-23] MEDS ORDERED: Acetaminophen 325 MG Tablet PO PRN (13:17)
[2018-09-23 13:55] LABS: Digoxin 0.4 ng/mL (0.8-2.0)
[2018-09-23 15:16] LABS: Calcium 7.3 mg/dL (8.5-10.1); Carbon Dioxide 21.5 meq/L (21.0-32.0); Potassium 4.4 meq/L (3.5-5.1)
--- NOTE | 2018-09-23 15:24 | P.HPIM ---
History of Present Illness Primary Care Physician: No Primary Care Physician Chief Complaint: Dry heaving History of Present Illness: The patient is an 83-year-old female with a past medical history of A. fib, hypertension and diabetes who is presenting to the hospital with nausea and decreased appetite. The patient says that on Sunday she had soup and a milkshake and then went to physical therapy for chronic hip pain. She says she has arthritis. She then developed decreased appetite. She denied any associated abdominal pain or diarrhea. She did have associated dry heaving. Her was worried about her and brought her into the hospital. The patient denies any chest pain or shortness of breath. The patient denies any dysuria. She says she has never had problems with her sodium before. She says over the past few days she has had a bad case of the hiccups that is causing some abdominal discomfort. She says the hiccups have resolved. Inpatient Certification: I certify that the inpatient services were ordered in accordance with Medicare regulations governing the order. This includes certification that hospital inpatient services are reasonable and necessary and in the case of services not specified as inpatient-only under 42 CFR 419.22(n), that they are appropriately provided as inpatient services in accordance to with the 2-midnight benchmark under 43 CFR 412.3(e) Estimated Total Length of Stay (Days): 3 Plans for Post Hospital Care: Not yet determined Review of Systems All other systems reviewed negative except as stated in HPI [facility] - History History Provided By: Patient - Medical History Medical History: Medical History (Last Updated 09/23/18 @ 15:22 by Keven Lynn DO) History of atrial fibrillation History of high cholesterol Hx of gastroesophageal reflux (GERD) Hx of primary hypertension Osteoarthritis - Surgical History Surgical History: Surgical History (Last Reviewed 09/23/18 @ 15:22 by Keven Lynn DO) History of left hip replacement Hx of bilateral cataract extraction - Family History Family History: Family History (Last Updated 09/23/18 @ 15:22 by Keven Lynn DO) Other Diabetes - Social History I have reviewed the patient's Social History: Yes - Tobacco History Second Hand Smoke Exposure: No Tobacco Use In Past 30 Days: No Smoking Status: Never smoker - Alcohol History How Often Do You Have a Drink Containing Alcohol: 2 to 3 times a week - Substance Use History Substance History: No History of Abuse - Travel History Recent Travel in the [facility] Within the Last 8 Weeks: No Recent Travel Out of the Country Within the Last 8 Weeks: No - Immunization History Tetanus Immunization: Unsure Medications and Allergies Active Medications: Active Medications Acetaminophen (Tylenol) 650 mg PO Q4H PRN PRN Reason: Temp > 100.4, pain 1-2 Amlodipine Besylate (Norvasc) 5 mg PO DAILY [facility] Apixaban (Eliquis) 2.5 mg PO BID KATTY Digoxin (Lanoxin) 125 mcg PO DAILY KATTY Enalaprilat (Vasotec Inj) 1.25 mg IV.PUSH Q6H PRN PRN Reason: SBP> OR = 180, DBP> OR = 100 Gabapentin (Neurontin) 600 mg PO HS KATTY Sodium Chloride (Ns Inj) 1,000 mls @ 250 mls/hr IV.CONT .Q4H KATTY Stop: 09/23/18 15:29 Last Infusion: 09/23/18 15:08 Dose: 250 mls/hr Metoprolol Tartrate (Lopressor) 12.5 mg PO BID [facility] Ondansetron HCl (Zofran Inj) 4 mg IV.PUSH Q6H PRN PRN Reason: NAUSEA Pantoprazole Sodium (Protonix) 20 mg PO DAILY [facility] Pravastatin Sodium (Pravachol) 40 mg PO DAILY@1800 KATTY Senna/Docusate Sodium (Lexii-Colace) 1 tab PO BID PRN PRN Reason: Constipation Sodium Chloride (Ns Flush) 2 ml IV.FLUSH BID KATTY Sodium Chloride (Ns Flush) 2 ml IV.FLUSH PRN PRN PRN Reason: FLUSH AFTER USING IV ACCESS Allergies Allergy/AdvReac Type Severity Reaction Status Date / Time Sulfa (Sulfonamide Allergy Intermediate NAUSEA Verified 04/30/18 13:31 Antibiotics) Home Medications Medication Instructions Recorded Confirmed Type acetaminophen 650 mg PO Q6H PRN 04/30/18 09/23/18 History apixaban [Eliquis] 2.5 mg PO BID 04/30/18 09/23/18 History biotin 5,000 mcg PO DAILY 04/30/18 09/23/18 History calcium carbonate [Calcium 500] 500 mg PO BID 04/30/18 09/23/18 History denosumab [Prolia] 60 mg SUB-Q [id number] 04/30/18 09/23/18 History digestive enzymes 1 cap PO DIRECTED 04/30/18 09/23/18 History digoxin 0.125 mg PO DAILY 04/30/18 09/23/18 History ergocalciferol (vitamin D2) 50,000 unit PO QWEEK 04/30/18 09/23/18 History [Vitamin D2] gabapentin 600 mg PO HS 04/30/18 09/23/18 History metoprolol tartrate 12.5 mg PO BID 04/30/18 09/23/18 History multivitamin with minerals [Daily 1 tab PO DAILY 04/30/18 09/23/18 History Multivitamin-Minerals] pantoprazole 20 mg PO DAILY 04/30/18 09/23/18 History ranitidine HCl 150 mg PO DAILY 04/30/18 09/23/18 History sennosides-docusate sodium 1 tab PO BID PRN 04/30/18 09/23/18 History [Senna-S] simvastatin 20 mg PO QPM 04/30/18 09/23/18 History Exam Vital signs: Vital Signs 09/23/18 10:38 09/23/18 12:49 09/23/18 14:12 Temperature 98.9 F Pulse Rate 80 86 78 Respiratory Rate 14 14 16 Blood Pressure 160/80 H 158/69 H 170/68 H Pulse Oximetry 98 100 98 Intake & Output 09/22/18 09/23/18 09/23/18 18:59 06:59 18:59 Intake Total 500 / 500 Balance 500 / 500 Weight 50 kg Intake: IV 500 / 500 NS Inj 1,000 ML @ 250 mls/hr IV 500 / 500 .CONT .Q4H [facility] Rx#:[id number] Narrative: GENERAL: Well-developed female SKIN: Focused skin assessment warm/dry. HEAD: Atraumatic. Normocephalic. EYES: Pupils equal and round. No scleral icterus. No injection or drainage. ENT: No nasal bleeding or discharge. Mucous membranes pink and moist. NECK: Trachea midline. No JVD. CARDIOVASCULAR: Regular rate and rhythm. No murmur appreciated. RESPIRATORY: No accessory muscle use. Clear to auscultation. Breath sounds equal bilaterally. GASTROINTESTINAL: Abdomen soft, non-tender, nondistended. Hepatic and splenic margins not palpable. MUSCULOSKELETAL: No obvious deformities. No clubbing. No cyanosis. No edema. NEUROLOGICAL: Awake and alert. No obvious cranial nerve deficits. Motor grossly within normal limits. Normal speech. Results - Labs CBC & Chem 7: 09/23/18 11:25 09/23/18 13:53 Labs: Short CBC 09/23/18 Range/Units 11:25 WBC 10.8 (4.0-11.0) th/mm3 Hgb 12.9 (11.6-15.3) gm/dL Hct 38.4 (35.0-46.0) % Plt Count 295 (150-450) th/mm3 [facility] 09/23/18 11:25 Sodium 118 L* Potassium 4.2 Chloride 84 L Carbon Dioxide 21.9 BUN 14 Creatinine 0.78 Calcium 8.0 L Liver Function 09/23/18 Range/Units 11:25 Total Bilirubin 0.9 (0.2-1.0) mg/dL AST 37 (15-37) U/L ALT 26 (10-53) U/L Alkaline Phosphatase 50 (45-117) U/L Albumin 4.0 (3.4-5.0) g/dL - Imaging Impressions Abdomen/Pelvis CT 09/23/18 11:21 CONCLUSION: 1. Uncomplicated colonic diverticulosis. 2. Small bilateral inguinal hernias containing only fat. 3. Degenerative changes throughout the thoracolumbar spine. Hip X-Ray 09/23/18 11:23 CONCLUSION: 1. No acute fracture or dislocation. 2. Status post left hip replacement with hardware in good position. Caprini VTE Risk Assessment Caprini VTE Risk Assessment: Moderate/High Risk (score >= 2) Caprini Risk Assessment Model: Point Value = 1 Point Value = 2 Point Value = 3 Point Value = 5 Age 41-60 Minor surgery BMI > 25 kg/m2 Swollen legs Varicose veins or History of unexplained or recurrent spontaneous Oral contraceptives or hormone replacement Sepsis (< 1 month) Serious lung disease, including pneumonia (< 1 month) Abnormal pulmonary function Acute myocardial infarction Congestive heart failure (< 1 month) History of inflammatory bowel disease Medical patient at bed rest Age 61-74 Arthroscopic surgery Major open surgery (> 45 min) Laparoscopic surgery (> 45 min) Malignancy Confined to bed (> 72 hours) Immobilizing plaster cast Central venous access Age >= 75 History of VTE Family history of VTE Factor V Leiden Prothrombin [id number] Lupus anticoagulant Anticardiolipin antibodies Elevated serum homocysteine Heparin-induced thrombocytopenia Other congenital or acquired thrombophilia Stroke (< 1 month) Elective arthroplasty Hip, pelvis, or leg fracture Acute spinal cord injury (< 1 month) Prophylaxis Regimen: Total Risk Factor Score Risk Level Prophylaxis Regimen 0-1 Low Early ambulation 2 Moderate Order ONE of the following: *Sequential Compression Device (SCD) *Heparin 5000 units SQ BID 3-4 Higher Order ONE of the following medications: *Heparin 5000 units SQ TID *Enoxaparin/Lovenox 40 mg SQ daily (WT < 150 kg, CrCl > 30 mL/min) *Enoxaparin/Lovenox 30 mg SQ daily (WT < 150 kg, CrCl > 10-29 mL/min) *Enoxaparin/Lovenox 30 mg SQ BID (WT < 150 kg, CrCl > 30 mL/min) AND/OR *Sequential Compression Device (SCD) 5 or more Highest Order ONE of the following medications: *Heparin 5000 units SQ TID (Preferred with Epidurals) *Enoxaparin/Lovenox 40 mg SQ daily (WT < 150 kg, CrCl > 30 mL/min) *Enoxaparin/Lovenox 30 mg SQ daily (WT < 150 kg, CrCl > 10-29 mL/min) *Enoxaparin/Lovenox 30 mg SQ BID (WT < 150 kg, CrCl > 30 mL/min) AND *Sequential Compression Device (SCD) Assessment and Plan - Plan Severe hyponatremia The patient appears hypovolemic. Secondary to nausea and decreased p.o. intake. -Continue IV fluids. -Monitor BMP every 2 hours for now. -Neurochecks and seizure precautions. -Advance diet as tolerated. -antiemetics as needed. Atrial fibrillation The patient is on metoprolol, digoxin and Eliquis. Digoxin level was low at 0.4. -Continue cardiac regimen. -Monitor on telemetry. -check an EKG. HTN Likely exacerbated by N/V. -amlodipine 5 mg daily added. -Vasotec as needed. PPx: Eliquis Code Status: Full
[2018-09-23 15:41] LABS: Albumin 3.5 g/dL (3.4-5.0); Calcium-Albumin Corrected 7.7 mg/dL (8.5-10.1)
[2018-09-23] MEDS: amLODIPine 5 MG Tablet PO SCH (16:38)
[2018-09-23 17:40] LABS: Calcium 7.5 mg/dL (8.5-10.1); Carbon Dioxide 21.6 meq/L (21.0-32.0)
[2018-09-23 19:34] LABS: Bilirubin,Urine Negative (Negative); Clarity,Urine Clear (Clear); Color,Urine Yellow (Yellw/Straw); Glucose,Urine (UA) Negative (Negative); Leukocyte Esterase,Urine Negative (Negative); Nitrite,Urine Negative (Negative); PH,Urine 6.5 (5.0-8.5); Specific Gravity,Urine Less/Equal 1.005 (1.002-1.035); Urobilinogen,Urine 0.2 mg/dL (Less than 2)
[2018-09-23 19:36] LABS: Squamous Epithelial Cell,Urine 0-5 /hpf (0-5); WBC,Urine 0-5 /hpf (0-5)
[2018-09-23 19:39] LABS: Calcium 7.6 mg/dL (8.5-10.1); Carbon Dioxide 20.4 meq/L (21.0-32.0); Potassium 3.8 meq/L (3.5-5.1)
[2018-09-23] MEDS: Metoprolol Tartrate 25 MG Tablet PO SCH (21:37)
[2018-09-23] MEDS: Gabapentin 300 MG Capsule PO SCH (21:37)
[2018-09-23 22:02] LABS: Calcium 7.9 mg/dL (8.5-10.1); Potassium 3.8 meq/L (3.5-5.1)
[2018-09-24 00:23] LABS: Potassium 3.5 meq/L (3.5-5.1)
[2018-09-24 00:27] LABS: Calcium 7.3 mg/dL (8.5-10.1); Carbon Dioxide 21.1 meq/L (21.0-32.0)
[2018-09-24 00:35] LABS: Albumin 3.3 g/dL (3.4-5.0); Calcium-Albumin Corrected 7.9 mg/dL (8.5-10.1)
[2018-09-24 05:05] LABS: Hemoglobin 12.1 gm/dL (11.6-15.3); Mean Corpuscular HGB Conc 32.6 % (32.0-36.0); Mean Corpuscular Hemoglobin 28.6 pg (27.0-34.0); Mean Corpuscular Volume 87.5 fL (80.0-100.0); Mean Platelet Volume 8.4 fL (7.0-11.0); Platelet Count 286 th/mm3 (150-450); Red Blood Count 4.22 mil/mm3 (4.00-5.30); Red Cell Distribution Width 12.3 % (11.6-17.2); White Blood Count 10.4 th/mm3 (4.0-11.0)
[2018-09-24 05:14] LABS: Chloride 93 meq/L (98-107); Potassium 3.8 meq/L (3.5-5.1); Sodium 125 meq/L (136-145)
[2018-09-24 05:18] LABS: Calcium 7.6 mg/dL (8.5-10.1)
[2018-09-24 05:19] LABS: Albumin 3.5 g/dL (3.4-5.0); Anion Gap 9 meq/L (5-15); Blood Urea Nitrogen 15 mg/dL (7-18); Carbon Dioxide 22.6 meq/L (21.0-32.0); Glucose,Random 91 mg/dL (74-106)
[2018-09-24 05:21] LABS: Lymphocytes 34 % (9-44); Monocytes 6 % (0-8)
[2018-09-24 05:22] LABS: Alanine Aminotransferase 24 U/L (10-53); Aspartate Aminotransferase 32 U/L (15-37); Glomerular Filtration Rate 65 mL/min (>89); Platelet Estimate Normal (Normal); Platelet Morphology Normal (Normal); RBC Morphology Normal (Normal)
[2018-09-24 05:24] LABS: Total Protein 6.7 g/dL (6.4-8.2)
[2018-09-24 05:25] LABS: Alkaline Phosphatase 42 U/L (45-117)
[2018-09-24] MEDS: Metoprolol Tartrate 25 MG Tablet PO SCH ×2 (08:18→21:25)
[2018-09-24] MEDS: amLODIPine 5 MG Tablet PO SCH (08:18)
[2018-09-24] MEDS ORDERED: Pantoprazole Sodium 20 MG DR Tablet PO SCH (09:00)
[2018-09-24] MEDS ORDERED: Digoxin 125 MCG Tablet PO SCH (09:00)
[2018-09-24] MEDS: Sod Chloride 0.9% Inj 1,000 ML IV.CONT SCH ×2 (10:00→21:30)
--- NOTE | 2018-09-24 12:42 | P.PNIM ---
Subjective Interval history: reports feeling well. Physical Exam Vital signs: Last Vital Signs Temp 97.6 F 09/24/18 11:50 Pulse 67 09/24/18 11:50 Resp 17 09/24/18 11:50 BP 102/53 L 09/24/18 11:50 Pulse Ox 98 09/24/18 11:50 Intake & Output 09/22/18 09/23/18 09/24/18 09/25/18 06:59 06:59 06:59 06:59 Intake Total 1440 / 1440 Output Total 2325 / 2325 Balance -885 / -885 Weight 46.6 kg Narrative: GENERAL: Well-developed female SKIN: Focused skin assessment warm/dry. HEENT: not pale,anicteric NECK: No JVD. CARDIOVASCULAR: Regular rate and rhythm. No murmur appreciated. RESPIRATORY: No accessory muscle use. Clear to auscultation. Breath sounds equal bilaterally. GASTROINTESTINAL: Abdomen soft, non-tender, nondistended. Hepatic and splenic margins not palpable. MUSCULOSKELETAL: No obvious deformities. No clubbing. No cyanosis. No edema. NEUROLOGICAL: Awake and alert. Normal speech.No obvious cranial nerve deficits. Motor grossly within normal limits. Results Labs CBC & Chem 7: 09/24/18 04:35 09/24/18 04:35 Imaging Imaging: Impressions Abdomen/Pelvis CT 09/23/18 11:21 CONCLUSION: 1. Uncomplicated colonic diverticulosis. 2. Small bilateral inguinal hernias containing only fat. 3. Degenerative changes throughout the thoracolumbar spine. Assessment and Plan Plan 1.Severe hyponatremia Secondary to nausea and decreased p.o. intake. -sodium level trending up-125 this morning, continue IV fluids. -Neurochecks and seizure precautions. -Advance diet as tolerated. -antiemetics as needed. -monitor BMP Q12H 2.Atrial fibrillation-rate controlled. continue metoprolol, digoxin.Digoxin level was low at 0.4. Anticoagulated on Eliquis dc telemetry. HTN-was likely exacerbated by N/V. Patient received Amlodipine last evening, BP low normal range this morning, had low level overnight. Hold Amlodipine. -amlodipine 5 mg daily added. -Vasotec as needed. PPx: Eliquis Code Status:Full Progress Note: Quality VTE Deep Vein Thrombosis/Pulmonary Embolism Present on Admission: No
--- NOTE | 2018-09-24 16:55 | ECG ---
Date Performed: 09/23/2018 Time Performed: 16:11:53 PTAGE: 83 years EKG: Sinus rhythm NORMAL ECG PREVIOUS TRACING : 07/02/2017 11.12 Since the previous tracing, no significant change noted DOCTOR: Tyrell Lakhani Interpretating Date/Time 09/24/2018 16:53:22
[2018-09-24] MEDS: Gabapentin 300 MG Capsule PO SCH (21:25)
[2018-09-25 07:29] LABS: Calcium 7.2 mg/dL (8.5-10.1); Carbon Dioxide 21.9 meq/L (21.0-32.0); Potassium 4.4 meq/L (3.5-5.1)
[2018-09-25 07:42] LABS: Albumin 2.9 g/dL (3.4-5.0); Calcium-Albumin Corrected 8.1 mg/dL (8.5-10.1)
[2018-09-25 09:43] VITALS: BP 137/63; PULSE 76; RESP 18; TEMP 97.7; O2SAT 98
--- NOTE | 2018-09-25 17:05 | P.DS ---
DS: Providers Date of admission: 09/23/18 13:15 Primary care physician: No Primary Care Physician Brief History from admission: The patient is an 83-year-old female with a past medical history of A. fib, hypertension and diabetes who is presenting to the hospital with nausea and decreased appetite. The patient says that on Sunday she had soup and a milkshake and then went to physical therapy for chronic hip pain. She says she has arthritis. She then developed decreased appetite. She denied any associated abdominal pain or diarrhea. She did have associated dry heaving. Her was worried about her and brought her into the hospital. The patient denies any chest pain or shortness of breath. The patient denies any dysuria. She says she has never had problems with her sodium before. She says over the past few days she has had a bad case of the hiccups that is causing some abdominal discomfort. She says the hiccups have resolved. DS: Summary ISSUES ADDRESSED DURING THIS HOSPITALIZATION: 1.Severe hyponatremia Secondary to nausea and decreased p.o. intake. Sodium level was 118 on admission , patient did not have any symptoms apart from nausea/vomiting on presentation. Sodium level trended up appropriately with Normal saline hydration. Nausea subsided and she tolerated diet well. Elevated BP -was likely exacerbated by nausea/vomiting. Patient initially received Amlodipine, but BP low normal range the next morning hence amlodipine was discontinued. BP remained normal range through the rest of her stay. There were no changes to her other usual medication. Patient should follow up with her PCP within 1 week for re-evaluation. Time Spent with Patient Total time spent providing and/or coordinating discharge services: Quality: VTE Deep Vein Thrombosis/Pulmonary Embolism Present on Admission: No Results Labs on day of discharge: Labs from last 24 hours 09/25/18 09/25/18 09/25/18 06:35 06:25 00:05 Sodium 133 L Potassium 4.4 Chloride 104 D Carbon Dioxide 21.9 Anion Gap 7 BUN 16 Creatinine 0.80 Estimated GFR 68 L POC Glucose 166 H 137 H Random Glucose 113 H Calcium 7.2 L* Calcium Adj for Albumin 8.1 L Albumin 2.9 L D 09/24/18 09/24/18 18:15 16:58 Sodium 126 L Potassium Chloride Carbon Dioxide Anion Gap BUN Creatinine Estimated GFR POC Glucose 116 H Random Glucose Calcium Calcium Adj for Albumin Albumin Impressions ITS Impressions Abdomen/Pelvis CT 09/23/18 11:21 CONCLUSION: 1. Uncomplicated colonic diverticulosis. 2. Small bilateral inguinal hernias containing only fat. 3. Degenerative changes throughout the thoracolumbar spine. Hip X-Ray 09/23/18 11:23 CONCLUSION: 1. No acute fracture or dislocation. 2. Status post left hip replacement with hardware in good position. Discharge Plan Discharge Disposition Patient Disposition: Discharge Home Discharge Condition Condition: Fair Discharge Order Discharge Orders: Discharge Order (Routine); Ordered 09/25/18 Ordered By: Jeana Ledezma Discharge Details Anticipated Discharge Date: 09/25/18 Discharge Comment: if cleared by PT/OT Physicians Team Primary Care Provider: Jaleesa Cobb Attending Provider: Jeana Ledezma Rxs /Orders / Referrals /Forms Prescriptions: Continue digestive enzymes Capsule 1 cap PO DIRECTED RF: 0 acetaminophen 325 mg Tablet 650 mg PO Q6H PRN (Reason: Pain) RF: 0 sennosides-docusate sodium [Senna-S] 8.6-50 mg Tablet 1 tab PO BID PRN (Reason: Constipation) RF: 0 pantoprazole 20 mg Tablet,Delayed Release (Dr/Ec) 20 mg PO DAILY RF: 0 calcium carbonate [Calcium 500] 500 mg calcium (1,250 mg) Tablet 500 mg PO BID RF: 0 simvastatin 20 mg Tablet 20 mg PO QPM RF: 0 ranitidine HCl 150 mg Tablet 150 mg PO DAILY RF: 0 gabapentin 300 mg Capsule 600 mg PO HS RF: 0 digoxin 125 mcg Tablet 0.125 mg PO DAILY RF: 0 ergocalciferol (vitamin D2) [Vitamin D2] 50,000 unit Capsule 50,000 unit PO QWEEK RF: 0 multivitamin with minerals [Daily Multivitamin-Minerals] Tablet 1 tab PO DAILY RF: 0 metoprolol tartrate 25 mg Tablet 12.5 mg PO BID RF: 0 denosumab [Prolia] 60 mg/mL Syringe 60 mg SUB-Q [id number] RF: 0 apixaban [Eliquis] 2.5 mg Tablet 2.5 mg PO BID RF: 0 biotin 5,000 mcg Tablet,Disintegrating 5,000 mcg PO DAILY RF: 0 Referrals: Primary Care Jaleesa Reis [Primary Care Provider] - See Instructions Discharge Instructions Patient Printed Instructions: Hyponatremia (DC) Additional Instructions: You presented to the hospital after having poor appetite and not eating much, you were found to be volume depleted with a low sodium level. You received treatment with Intravenous hydration, your sodium level gradually improved and has stabilized. Your appetite has also improved. Continue to take adequate amounts of fluids. Follow up with your doctor within 1 week for re-evaluation. Your Status ED Status: Left Department Discharge Information Discharge Date/Time: 09/25/18 12:00
== END 2018-09-25 12:00 | disposition home or self-care (01) ==
LOC: PHED 10:15 → PHEDA 13:15 → PHICU 15:19 → PH3 09-24 05:41
PROVIDERS: ADMIT Hospitalist; ATTEND Hospitalist